=== PATIENT | female | born 1980 | race Hispanic/Latino ===

== ENCOUNTER 2017-08-04 19:41 | Observation (INO) | payer OTHER, SELFPAY ==
[2017-08-04] MEDS ORDERED: FOLIC ACID 5 MG/ML VIAL ONE (20:18)
[2017-08-04] MEDS ORDERED: NA CHLORIDE 0.9% 1,000 ML ONE (20:18)
[2017-08-04] MEDS ORDERED: ASPIRIN 81 MG CHEWABLE TABLET ONE (20:25)
[2017-08-04] MEDS ORDERED: ONDANSETRON 4 MG/2 ML VIAL ONE (20:25)
--- NOTE | 2017-08-04 20:26 | RAD REPORT ---
EXAM DESCRIPTION: CT - Ct Stroke Brain Wo Cont - 08/04/2017 8:12 pm CLINICAL HISTORY: Right arm numbness COMPARISON: April 2017 TECHNIQUE: Computed axial tomography of the head was obtained. IV contrast was not requested. All CT scans are performed using dose optimization technique as appropriate and may include automated exposure control or mA/KV adjustment according to patient size. FINDINGS: An intracranial bleed is not seen . The ventricles are normal in caliber. No extra-axial fluid collection is noted. Fluid within the sinuses/ mastoids is not seen. IMPRESSION: No acute intracranial abnormality is seen. If patient's symptoms persist MRI of the bra in would be recommended. The exam was discussed with Frederic rodriges the Emergency Room 820 p.m. August 04, 2017
[2017-08-04 20:27] LABS: Absolute Lymphocytes (CBC) 1.7 K/uL (0.7-4.9); Absolute Monocytes 0.6 K/uL (0.1-1.3); Absolute Neutrophil 7.4 K/uL (1.8-8.0); Basophils % 0.3 % (0-1.3); Eosinophils % 0.9 % (0-4.4); Hematocrit 40.7 % (36.0-45.0); Lymphocytes % 17.3 % (15.3-44.8); MCH 30.9 pg (27.0-35.0); MCV 89.3 fL (80-100); Monocytes % 5.8 % (3.3-12.3); RBC Red Blood Cell Count 4.56 M/uL (3.86-4.86)
--- NOTE | 2017-08-04 20:27 | RAD REPORT ---
EXAM DESCRIPTION: Anthony Single View08/04/2017 8:21 pm CLINICAL HISTORY: cough COMPARISON: January 2017 FINDINGS: The lungs appear clear of acute infiltrate. The heart is normal size IMPRESSION: No acute abnormalities displayed
[2017-08-04 21:00] LABS: Protime INR 1.03
[2017-08-04 21:21] LABS: Bicarbonate 25 mEq/L (21-31); Glucose Level 121 mg/dL (65-120); Lipase 34 U/L (22-51); Potassium 3.8 mEq/L (3.6-5.0); Sodium Level 135 mEq/L (135-145)
[2017-08-04 21:23] LABS: Barbiturates NEGATIVE; Benzodiazepines NEGATIVE; Cocaine POSITIVE; METHAMPHETAM NEGATIVE; Opiates NEGATIVE; Phencyclidine NEGATIVE; THC Cannibis NEGATIVE
[2017-08-04 21:27] LABS: ALT/SGPT 42 IU/L (10-60); AST/SGOT 37 IU/L (10-42); Albumin 4.4 g/dL (3.2-5.5); Alcohol Serum/Plasma < 10 mg/dl; Alkaline Phosphatase 55 IU/L (42-121); BUN Blood Urea Nitrogen 12 mg/dL (6-20); Bilirubin Direct 0.2 mg/dL (0-0.2); Bilirubin Total 1.2 mg/dL (0.3-1.2); Creatine Phosphokinase 104 IU/L (22-269); Magnesium 1.6 mg/dL (1.8-2.5); Protein, Total 7.8 g/dL (6.0-8.3); Salicylates Level < 4.0 mg/dl (<30)
[2017-08-04 21:48] LABS: Urine Blood NEGATIVE (NEG); Urine Glucose NEGATIVE (NEG); Urine Protein NEGATIVE (NEG)
[2017-08-04] MEDS ORDERED: CLOPIDOGREL 75 MG TABLET ONE (22:32)
[2017-08-04] MEDS ORDERED: MAGNESIUM SULFATE 1 gm IVPB 1 GM/100 ML BAG IV ONE (22:32)
--- NOTE | 2017-08-04 22:42 | ER ---
Nurse's Notes [facility] Name: Mica Hanson Age: 36 yrs Sex: Female : 1980 Arrival Date: 08/04/2017 Time: 19:42 Bed 4 Private MD: Diagnosis: Transient cerebral ischemic attack, unspecified;Weakness;Cocaine abuse;Cystitis Presentation: 08/04 19:55 Presenting complaint: Patient states: Reports numbness to right leg, arm, and lips that aj started at 1700 today. Patient reported that she felt herself becoming disoriented at work. Patient is awake and alert x 4. Moves all extremities, ambulated with steady gait to bed. No facial droop noted. Transition of care: patient was not received from another setting of care. Onset of symptoms was August 04, 2017 at 17:00. Initial Sepsis Screen: Does the patient meet any 2 criteria? No. Patient's initial sepsis screen is negative. Does the patient have a suspected source of infection? No. Patient's initial sepsis screen is negative. Care prior to arrival: None. 19:55 Method Of Arrival: Wheelchair aj 19:55 Acuity: MAURICE 3 aj 20:00 No acute neurological deficit is noted. The patients blood glucose was checked before aj arriving to the hospital and was found to be normal. Triage Assessment: 20:00 General: Appears in no apparent distress. comfortable, Behavior is calm, cooperative, aj appropriate for age. Pain: Denies pain. 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 Full function Gait is steady, Speech is normal, Facial symmetry appears normal, Pupils are PERRLA, Numbness in right arm and right leg Reports numbness in right arm and right leg. Cardiovascular: Denies chest pain. Respiratory: Airway is patent Respiratory effort is even, unlabored, Respiratory pattern is regular, symmetrical. Derm: Skin is intact, is healthy with good turgor, Skin is pink, warm \T\ dry. normal. 20:00 The onset of the patients symptoms was August 04, 2017 at 17:00. 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 LMP 07/13/2017 aj Stroke Activation: Symtpom onset >3 hours and < 6 hours Physician: Stroke Attending; Name: ; Notified At: ; Arrived At: Physician: Chief Stroke Resident; Name: ; Notified At: ; Arrived At: Physician: Stroke Resident; Name: ; Notified At: ; Arrived At: Physician: ED Attending; Name: ; Notified At: ; Arrived At: Physician: ED Resident; Name: ; Notified At: ; Arrived At: Historical: - Allergies: 20:00 none; aj - Home Meds: 20:00 Keppra 500 mg Oral tab 1 tab 2 times per day [Active]; metformin 1,000 mg Oral tab 1 aj tab 2 times per day [Active]; - PMHx: 20:00 CVA; Diabetes - NIDDM; Hypertension; Pancreatitis; PERIPHERAL NEUROPATHY; Right sided aj 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 - Social history:: Smoking status: Patient uses tobacco products, smokes one-half pack cigarettes per day, Patient uses alcohol, on a daily basis. Screenin:11 Abuse screen: Denies threats or abuse. Nutritional screening: No deficits noted. fc Tuberculosis screening: No symptoms or risk factors identified. Fall Risk None identified. Assessment: 20:03 General: Appears in no apparent distress. uncomfortable, Behavior is calm, cooperative, ao appropriate for age. Pain: Complains of pain in chest Pain does not radiate. Pain currently is 0 out of 10 on a pain scale. Pain began 2 hours ago. Neuro: Level of Consciousness is awake, alert, obeys commands, Oriented to person, place, time, situation, Appropriate for age Moves all extremities. Speech is normal, Facial symmetry appears normal. Cardiovascular: Heart tones S1 S2 Capillary refill < 3 seconds Patient's skin is warm and dry. Respiratory: Airway is patent Respiratory effort is even, unlabored, Respiratory pattern is regular, symmetrical, Breath sounds are clear bilaterally. GI: Abdomen is obese. : No signs and/or symptoms were reported regarding the genitourinary system. EENT: No signs and/or symptoms were reported regarding the EENT system. Derm: Skin is intact, Skin is pink, warm \T\ dry. normal, Skin temperature is warm. Musculoskeletal: Circulation, motion, and sensation intact. Reports numbness in face and right leg and right arm. 20:05 The patient has not been NPO before screening. The patient is currently on the ao following diet: regular The patient is alert, and able to follow commands. The patient does not exhibit slurred or garbled speech. The patient is not exhibiting difficulty speaking. The patient is exhibiting difficulty understanding words. The patient is able to swallow own secretions with no drooling or need for suction. Patient tolerated one teaspoon of water. No drooling, immediate coughing, gurgling, or clearing of the throat was noted. The patient tolerated 90mL of water. No drooling, immediate coughing, gurgling, or clearing of the throat was noted. The patient passed the bedside swallow screening. Oral medications may be given as ordered. Contact Physician for further diet orders. Provider notified of bedside swallow screening results: Will Moreno MD. 21:33 Reassessment: Patient appears in no apparent distress at this time. Patient and/or ao family updated on plan of care and expected duration. Pain level reassessed. Patient is alert, oriented x 3, equal unlabored respirations, skin warm/dry/pink. Patient states that she not nauseated and pain has decrease. 22:44 T-PA (Activase) Screening: Contraindications: Other: Time over 3 hours. ao 22:45 Reassessment: Patient appears in no apparent distress at this time. Patient and/or ao family updated on plan of care and expected duration. Pain level reassessed. Patient is alert, oriented x 3, equal unlabored respirations, skin warm/dry/pink. 23:44 Reassessment: No changes from previously documented assessment. Patient and/or family ao updated on plan of care and expected duration. Pain level reassessed. Patient is alert, oriented x 3, equal unlabored respirations, skin warm/dry/pink. Patient to be taken to her room. Vital Signs: 20:00 BP 157 / 84; Pulse 86; Resp 20; Temp 98.4; Pulse Ox 96% on R/A; Weight 77.11 kg; Height aj 5 ft. 6 in. (167.64 cm); Pain 0/10; 21:33 BP 127 / 68; Pulse 73; Resp 13; Pulse Ox 98% on R/A; Pain 0/10; ao 22:45 BP 123 / 64; Pulse 63; Resp 16; Pulse Ox 100% on R/A; Pain 0/10; ao 23:44 BP 117 / 96; Pulse 73; Resp 16; Pulse Ox 99% on R/A; Pain 0/10; ao 20:00 Body Mass Index 27.44 (77.11 kg, 167.64 cm) NIH Stroke Scale Scores: 20:05 NIHSS Score: 4 fc 20:15 NIHSS Score: 4 [facility] ED Course: 19:42 Patient arrived in ED. al2 19:59 Triage completed. aj 20:00 Will Moreno MD is Attending Physician. vanessa 20:00 Arm band placed on left wrist. Patient placed in an exam room, on a stretcher. aj 20:02 Inserted saline lock: 22 gauge in right forearm, using aseptic technique. ,using fc aseptic technique. by Chet DIMAS. 20:02 EKG done, by ED staff, reviewed by Will Moreno MD. fc 20:05 Patient has correct armband on for positive identification. Placed in gown. Bed in low fc position. Call light in reach. Side rails up X2. cooler operator on. Pulse ox on. NIBP on. 20:[address] via stretcher. vm2 20:11 CT completed. Patient tolerated procedure well. Patient moved back from CT. vm2 20:12 CT Stroke Brain w/o Contrast In Process Unspecified. EDMS 20:15 Chet Felix RN is Primary Nurse. ao 20:21 X-ray completed. Portable x-ray completed in exam room. Patient tolerated procedure kc2 well. 20:22 Stroke CXR 1 View In Process Unspecified. EDMS 20:33 Patient maintains SpO2 saturation greater than 95% on room air. ao 22:40 Dagmar Collazo MD is Hospitalizing Provider. vanessa 23:04 No provider procedures requiring assistance completed. Patient transferred, IV remains ao in place. Administered Medications: 20: Drug: NS 0.9% 1000 ml Route: IV; Rate: 1 bolus; Site: right forearm; ao 23:05 Follow up: IV Status: Completed infusion; IV Intake: 1000ml ao 20: Drug: foLIC Acid 1 mg Route: IVPB; Site: right forearm; ao 23:05 Follow up: IV Status: Completed infusion; IV Intake: 0.2ml ao : Drug: Aspirin Chewable Tablet 324 mg Route: PO; ao 22:55 Follow up: Response: No adverse reaction ao : Drug: Zofran 2 mg Route: IVP; Site: right forearm; ao 22:55 Follow up: Response: No adverse reaction ao 22:37 Drug: PlaVIX 75 mg Route: PO; ao 23:03 Follow up: Response: No adverse reaction ao 22:38 Drug: Magnesium Sulfate 1 grams Route: IVPB; Infused Over: 1 hrs; Site: left forearm; ao 23:43 Follow up: IV Status: Completed infusion; IV Intake: 100ml ao 23:43 Drug: Rocephin - (cefTRIAXone) 1 grams Route: IVPB; Infused Over: 30 mins; Site: left ao forearm; 23:43 Follow up: IV Status: Completed infusion; IV Intake: 10ml ao Point of Care Testing: Blood Glucose: 20:00 Blood Glucose: 106 mg/dL; aj Ranges: Intake: 20:00 IV: 1000ml; Total: 1000ml. ao 21:00 IV: 100ml; Total: 1100ml. ao 23:05 IV: 1000ml; Total: 2100ml. ao 23:05 IV: 0ml; Total: 2100ml. ao 23:43 IV: 10ml; Total: 2110ml. ao 23:43 IV: 100ml; Total: 2210ml. ao Outcome: 22:40 Decision to Hospitalize by Provider. vanessa 23:04 Condition: stable ao 23:04 Instructed on the need for admit. 08/05 00:12 Admitted to Tele accompanied by tech, room 421, with chart, Report called to daija Garcia RN 00:13 Patient left the ED. ao NIH Stroke Scale - NIH Stroke Score Date: 08/04/2017 Time: 20:05 Total Score = 4 1a. Level of Consciousness (LOC) - 0(Alert) 1b. Level of Consciousness (LOC) (Year \T\ Age) - 0(Both) 1c. LOC Commands (Open \T\ Closes Eyes/Breast Splitter) - 0(Both) 2. Best Gaze (Lateral Gaze Paresis) - 0(Normal) 3. Visual Field Loss - 0(No visual loss) 4. Facial Palsy - 1(Minor Paralysis) 5a. Left Arm: Motor (10-second hold) - 0(No drift) 5b. Right Arm: Motor (10-second hold) - 1(Drift) 6a. Left Leg: Motor (5-second hold - always test supine) - 0(No drift) 6b. Right Leg: Motor (5-second hold - always test supine) - 1(Drift) 7. Limb Ataxia (finger/nose \T\ heel/caceres - test with eyes open) - 1(Present in one limb) 8. Sensory Loss (pinprick arms/legs/face) - 0(Normal) 9. Best Language: Aphasia (description/naming/reading) - 0(No aphasia) 10. Dysarthria (speech clarity - read or repeat words) - 0(Normal) 11. Extinction and Inattention (visual/tactile/auditory/spatial/personal) - 0(No abnormality) Initials: NIH Stroke Scale - NIH Stroke Score Date: 08/04/2017 Time: 20:15 Total Score = 4 1a. Level of Consciousness (LOC) - 0(Alert) 1b. Level of Consciousness (LOC) (Year \T\ Age) - 0(Both) 1c. LOC Commands (Open \T\ Closes Eyes/Breast Splitter) - 0(Both) 2. Best Gaze (Lateral Gaze Paresis) - 0(Normal) 3. Visual Field Loss - 0(No visual loss) 4. Facial Palsy - 1(Minor Paralysis) 5a. Left Arm: Motor (10-second hold) - 0(No drift) 5b. Right Arm: Motor (10-second hold) - 1(Drift) 6a. Left Leg: Motor (5-second hold - always test supine) - 0(No drift) 6b. Right Leg: Motor (5-second hold - always test supine) - 1(Drift) 7. Limb Ataxia (finger/nose \T\ heel/caceres - test with eyes open) - 1(Present in one limb) 8. Sensory Loss (pinprick arms/legs/face) - 0(Normal) 9. Best Language: Aphasia (description/naming/reading) - 0(No aphasia) 10. Dysarthria (speech clarity - read or repeat words) - 0(Normal) 11. Extinction and Inattention (visual/tactile/auditory/spatial/personal) - 0(No abnormality) Initials: vanessa Signatures: Dispatcher [employer] Hoa Moy RN RN aj Anderson, Corey, MD MD cha Chretien, Felicia, RN RN fc Ortiz, Alex, RN RN ao Carr, Kelsie kc2 Melissa Finnegan2 Staci, Bertha holland2
--- NOTE | 2017-08-04 22:42 | EDPHYS ---
Physician Documentation [facility] Name: Mica Hanson Age: 36 yrs Sex: Female : 1980 Arrival Date: 08/04/2017 Time: 19:42 Bed 4 Private MD: ED Physician Will Moreno HPI: 08/04 20:10 This 36 yrs old Female presents to ER via Wheelchair with complaints of Chest vanessa Pain, NUMBNESS ON FACE, SHAKING. 20:10 The patient or guardian reports chest pain that is located primarily in the anterior vanessa chest wall. The pain does not radiate. The chest pain is described as burning. 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 - Social history:: Smoking status: Patient uses tobacco products, smokes one-half pack cigarettes per day, Patient uses alcohol, on a daily basis. ROS: 20:11 Constitutional: Negative for fever, chills, and weight loss, Eyes: Negative for injury, vanessa pain, redness, and discharge, ENT: Negative for injury, pain, and discharge, Neck: Negative for injury, pain, and swelling, Respiratory: Negative for shortness of breath, cough, wheezing, and pleuritic chest pain, Abdomen/GI: Negative for abdominal pain, nausea, vomiting, diarrhea, and constipation, Back: Negative for injury and pain, : Negative for injury, bleeding, discharge, and swelling, MS/Extremity: Negative for injury and deformity, Skin: Negative for injury, rash, and discoloration, Psych: Negative for depression, anxiety, suicide ideation, homicidal ideation, and hallucinations, Allergy/Immunology: Negative for hives, rash, and allergies, Endocrine: Negative for neck swelling, polydipsia, polyuria, polyphagia, and marked weight changes, Hematologic/Lymphatic: Negative for swollen nodes, abnormal bleeding, and unusual bruising. 20:11 Cardiovascular: Positive for chest pain, palpitations. 20:11 Respiratory: Positive for 20:11 Respiratory: Negative for cough, dyspnea on exertion, orthopnea, pleurisy, shortness of breath, sputum production. 20:11 Abdomen/GI: Negative for abdominal pain. 20:11 Neuro: Positive for weakness, of the face, right arm and right leg. Exam: 20:11 Constitutional: This is a well developed, well nourished patient who is awake, alert, vanessa and in no acute distress. Head/Face: Normocephalic, atraumatic. Eyes: Pupils equal round and reactive to light, extra-ocular motions intact. Lids and lashes normal. Conjunctiva and sclera are non-icteric and not injected. Cornea within normal limits. Periorbital areas with no swelling, redness, or edema. ENT: Nares patent. No nasal discharge, no septal abnormalities noted. Tympanic membranes are normal and external auditory canals are clear. Oropharynx with no redness, swelling, or masses, exudates, or evidence of obstruction, uvula midline. Mucous membranes moist. Neck: Trachea midline, no thyromegaly or masses palpated, and no cervical lymphadenopathy. Supple, full range of motion without nuchal rigidity, or vertebral point tenderness. No Meningismus. Chest/axilla: Normal chest wall appearance and motion. Nontender with no deformity. No lesions are appreciated. Cardiovascular: Regular rate and rhythm with a normal S1 and S2. No gallops, murmurs, or rubs. Normal PMI, no JVD. No pulse deficits. Respiratory: Lungs have equal breath sounds bilaterally, clear to auscultation and percussion. No rales, rhonchi or wheezes noted. No increased work of breathing, no retractions or nasal flaring. Abdomen/GI: Soft, non-tender, with normal bowel sounds. No distension or tympany. No guarding or rebound. No evidence of tenderness throughout. Back: No spinal tenderness. No costovertebral tenderness. Full range of motion. Skin: Warm, dry with normal turgor. Normal color with no rashes, no lesions, and no evidence of cellulitis. MS/ Extremity: Pulses equal, no cyanosis. Neurovascular intact. Full, normal range of motion. Psych: Awake, alert, with orientation to person, place and time. Behavior, mood, and affect are within normal limits. 20:11 Neuro: Orientation: is normal, appropriate for stated age, no acute changes, Mentation: is normal, appropriate for stated age, no acute changes, Memory: is normal, appropriate for stated age, no acute changes, Cerebellar function: dysmetria is noted on the left, the patient is unable to track right heel to left caceres, unable to perform alternating rapid hand movements with right hand, Motor: moves all fours, strength is 4/5 in the right arm and right leg, Gait: not tested. Deep tendon reflexes are 2+ (normal) in the bilateral brachioradialis, bicep, tricep and patellar and Achilles tendons, seizure activity, is not displayed by the patient. 20:14 Radiologist reports: neg , see report [facility] 22:38 Neuro: pt presented after 3 hours of onset, no a tpa candidate.. [facility] Vital Signs: 20:00 BP 157 / 84; Pulse 86; Resp 20; Temp 98.4; Pulse Ox 96% on R/A; Weight 77.11 kg; Height aj 5 ft. 6 in. (167.64 cm); Pain 0/10; 21:33 BP 127 / 68; Pulse 73; Resp 13; Pulse Ox 98% on R/A; Pain 0/10; ao 22:45 BP 123 / 64; Pulse 63; Resp 16; Pulse Ox 100% on R/A; Pain 0/10; ao 23:44 BP 117 / 96; Pulse 73; Resp 16; Pulse Ox 99% on R/A; Pain 0/10; ao 20:00 Body Mass Index 27.44 (77.11 kg, 167.64 cm) aj NIH Stroke Scale Scores: 20:05 NIHSS Score: 4 fc 20:15 NIHSS Score: 4 vanessa MDM: 20:00 Patient medically screened. [facility] 20:14 Data reviewed: vital signs, nurses notes, lab test result(s), EKG, radiologic studies, [facility] CT scan, plain films. 08/04 19:59 Order name: Glucose, Ancillary Testing; Complete Time: 22:06 EDMS 08/04 20:01 Order name: Troponin (emerg Dept Use Only); Complete Time: 22:06 vanessa 08/04 20:01 Order name: Magnesium; Complete Time: 22:06 vanessa 08/04 20:01 Order name: CPK; Complete Time: 22:06 [facility] 08/04 20:01 Order name: Ckmb; Complete Time: 22:06 [facility] 08/04 20:01 Order name: BNP; Complete Time: 22:06 [facility] 08/04 20:01 Order name: Basic Metabolic Panel; Complete Time: 22:06 [facility] 08/04 20:01 Order name: CBC with Diff; Complete Time: 22:06 [facility] 08/04 20:01 Order name: Protime (+inr); Complete Time: 22:06 [facility] 08/04 20:01 Order name: Ptt, Activated; Complete Time: 22:06 [facility] 08/04 20:01 Order name: Urine Microscopic Only 08/04 20:02 Order name: Lipase; Complete Time: 22:06 [facility] 08/04 20:08 Order name: Acetaminophen; Complete Time: 22:06 [facility] 08/04 20:08 Order name: ETOH Level; Complete Time: 22:06 [facility] 08/04 20:01 Order name: CT Stroke Brain w/o Contrast; Complete Time: 22:06 [facility] 08/04 20:01 Order name: Stroke CXR 1 View; Complete Time: 22: [facility] 08/04 20:08 Order name: Hepatic Function; Complete Time: 22:06 [facility] 08/04 20:08 Order name: Salicylate; Complete Time: 22:06 [facility] 08/04 20:08 Order name: Urine Drug Screen; Complete Time: 22:06 [facility] 08/04 21:12 Order name: Urine Dipstick--Ancillary (enter results); Complete Time: 22:06 em1 08/04 21:12 Order name: Urine --Ancillary (enter results); Complete Time: 22:06 [facility] 08/04 22:42 Order name: Urine Culture [facility] 08/04 22:48 Order name: Echo with Doppler EDWI 08/04 20:01 Order name: EKG; Complete Time: 20:07 [facility] 08/04 20:01 Order name: Accucheck; Complete Time: 20:16 [facility] 08/04 20:01 Order name: Cardiac monitoring; Complete Time: 20:16 [facility] 08/04 20:01 Order name: EKG - Nurse/Tech; Complete Time: 20:16 vanessa 08/04 20:01 Order name: IV Saline Lock; Complete Time: 20:16 [facility] 08/04 20:01 Order name: Labs collected and sent; Complete Time: 20:38 [facility] 08/04 20:01 Order name: NPO; Complete Time: 20:16 [facility] 08/04 20:01 Order name: O2 Per Protocol; Complete Time: 20:16 [facility] 08/04 20:01 Order name: O2 Sat Monitoring; Complete Time: 20:16 [facility] 08/04 20:01 Order name: Stroke Swallow Screen; Complete Time: 20:16 [facility] 08/04 20:01 Order name: Urine Dipstick-Ancillary (obtain specimen); Complete Time: 21:07 [facility] 08/04 20:17 Order name: Seizure Precautions; Complete Time: 20:51 [facility] 08/04 22:48 Order name: CONS Physician Consult; Complete Time: 00:05 EDMS Administered Medications: 20:29 Drug: NS 0.9% 1000 ml Route: IV; Rate: 1 bolus; Site: right forearm; ao 23:05 Follow up: IV Status: Completed infusion; IV Intake: 1000ml ao 20:29 Drug: foLIC Acid 1 mg Route: IVPB; Site: right forearm; ao 23:05 Follow up: IV Status: Completed infusion; IV Intake: 0.2ml ao 20:29 Drug: Aspirin Chewable Tablet 324 mg Route: PO; ao 22:55 Follow up: Response: No adverse reaction ao 20:29 Drug: Zofran 2 mg Route: IVP; Site: right forearm; ao 22:55 Follow up: Response: No adverse reaction ao 22:37 Drug: PlaVIX 75 mg Route: PO; ao 23:03 Follow up: Response: No adverse reaction ao 22:38 Drug: Magnesium Sulfate 1 grams Route: IVPB; Infused Over: 1 hrs; Site: left forearm; ao 23:43 Follow up: IV Status: Completed infusion; IV Intake: 100ml ao 23:43 Drug: Rocephin - (cefTRIAXone) 1 grams Route: IVPB; Infused Over: 30 mins; Site: left ao forearm; 23:43 Follow up: IV Status: Completed infusion; IV Intake: 10ml ao Point of Care Testing: Blood Glucose: 20:00 Blood Glucose: 106 mg/dL; aj Ranges: Critical Glucose Levels:Adult <50 mg/dl or >400 mg/dl <40 mg/dl or >180 mg/dl Disposition: 08/04/17 22:40 Hospitalization ordered by Dagmar Collazo for Observation. Preliminary diagnosis are Transient cerebral ischemic attack, unspecified, Weakness, Cocaine abuse, Cystitis. - Bed requested for Telemetry/MedSurg (observation). - Status is Observation. ao - Condition is Stable. - Problem is new. - Symptoms have improved. UTI on Admission? Yes NIH Stroke Scale - NIH Stroke Score Date: 08/04/2017 Time: 20:05 Total Score = 4 1a. Level of Consciousness (LOC) - 0(Alert) 1b. Level of Consciousness (LOC) (Year \T\ Age) - 0(Both) 1c. LOC Commands (Open \T\ Closes Eyes/Photographer Apprentice) - 0(Both) 2. Best Gaze (Lateral Gaze Paresis) - 0(Normal) 3. Visual Field Loss - 0(No visual loss) 4. Facial Palsy - 1(Minor Paralysis) 5a. Left Arm: Motor (10-second hold) - 0(No drift) 5b. Right Arm: Motor (10-second hold) - 1(Drift) 6a. Left Leg: Motor (5-second hold - always test supine) - 0(No drift) 6b. Right Leg: Motor (5-second hold - always test supine) - 1(Drift) 7. Limb Ataxia (finger/nose \T\ heel/caceres - test with eyes open) - 1(Present in one limb) 8. Sensory Loss (pinprick arms/legs/face) - 0(Normal) 9. Best Language: Aphasia (description/naming/reading) - 0(No aphasia) 10. Dysarthria (speech clarity - read or repeat words) - 0(Normal) 11. Extinction and Inattention (visual/tactile/auditory/spatial/personal) - 0(No abnormality) Initials: NIH Stroke Scale - NIH Stroke Score Date: 08/04/2017 Time: 20:15 Total Score = 4 1a. Level of Consciousness (LOC) - 0(Alert) 1b. Level of Consciousness (LOC) (Year \T\ Age) - 0(Both) 1c. LOC Commands (Open \T\ Closes Eyes/Photographer Apprentice) - 0(Both) 2. Best Gaze (Lateral Gaze Paresis) - 0(Normal) 3. Visual Field Loss - 0(No visual loss) 4. Facial Palsy - 1(Minor Paralysis) 5a. Left Arm: Motor (10-second hold) - 0(No drift) 5b. Right Arm: Motor (10-second hold) - 1(Drift) 6a. Left Leg: Motor (5-second hold - always test supine) - 0(No drift) 6b. Right Leg: Motor (5-second hold - always test supine) - 1(Drift) 7. Limb Ataxia (finger/nose \T\ heel/caceres - test with eyes open) - 1(Present in one limb) 8. Sensory Loss (pinprick arms/legs/face) - 0(Normal) 9. Best Language: Aphasia (description/naming/reading) - 0(No aphasia) 10. Dysarthria (speech clarity - read or repeat words) - 0(Normal) 11. Extinction and Inattention (visual/tactile/auditory/spatial/personal) - 0(No abnormality) Initials: vanessa Signatures: Dispatcher [employer] EDHoa Christine RN RN aj Anderson, Corey, MD MD cha Christian, Chelsea cc Ortiz, Alex, RN RN ao Corrections: (The following items were deleted from the chart) 08/05 00:06 08/04 20:01 Call for Old EKG ordered. vanessa choe 08/05 00:07 08/04 20:01 Call for Old Records ordered. vanessa choe
[2017-08-04] MEDS ORDERED: NA CHLORIDE 0.9% 1,000 ML IV SCH (23:00)
[2017-08-04] MEDS ORDERED: CEFTRIAXONE/SWI 1gm 1 GM/10 ML SYR ONE (23:10)
[2017-08-04] MEDS ORDERED: ONDANSETRON 4 MG/2 ML VIAL IV PRN (23:18)
[2017-08-04] MEDS ORDERED: MORPHINE 2 MG/ML SYR IV PRN (23:18)
[2017-08-04] MEDS ORDERED: ACETAMINOPHEN 500 MG TAB PO PRN (23:18)
[2017-08-05 00:38] LABS: Urine Bacteria 20-50 /HPF (<20); Urine Culture Reflex Order NOT NEEDED; Urine RBC <5 /HPF (NONE SEEN)
[2017-08-05 00:39] LABS: Urine Trichomonas PRESENT (NONE SEEN)
[2017-08-05] MEDS: NA CHLORIDE 0.9% 1,000 ML IV SCH ×3 (00:43→20:54)
[2017-08-05 01:12] VITALS: BMI 29.6
[2017-08-05] MEDS ORDERED: LORazepam 2 MG/ML VIAL IV ONE (01:17)
[2017-08-05 01:46] VITALS: O2SAT 99
[2017-08-05 06:25] LABS: Absolute Lymphocytes (CBC) 2.6 K/uL (0.7-4.9); Absolute Monocytes 0.6 K/uL (0.1-1.3); Basophils % 0.3 % (0-1.3); Eosinophils % 2.6 % (0-4.4); Hematocrit 38.4 % (36.0-45.0); Lymphocytes % 27.5 % (15.3-44.8); MCH 30.9 pg (27.0-35.0); MCV 89.6 fL (80-100); MPV 8.5 fL (7.6-11.3); Monocytes % 6.1 % (3.3-12.3); RBC Red Blood Cell Count 4.28 M/uL (3.86-4.86)
[2017-08-05] MEDS ORDERED: Morphine 2 MG/2 ML SYR IV PRN (07:10)
--- NOTE | 2017-08-05 08:16 | P.HP ---
Certification for Inpatient Patient admitted to: Observation With expected LOS: <2 Midnights Patient will require the following post-hospital care: None Practitioner: I am a practitioner with admitting privileges, knowledge of patient current condition, hospital course, and medical plan of care. Services: Services provided to patient in accordance with Admission requirements found in Title 42 Section 412.3 of the Code of Federal Regulations Patient History Date of Service: 08/04/17 Reason for admission: Weakness; paresthesias History of Present Illness: Patient is a 36yo with history of TIA, cocaine abuse, who presented to the hospital with complaints of facial numbness and dysarthria. She was also having shaking episodes. Patient was not able the move her right arm as well. She states the facial numbness resolved but she still feeling weak on her right side. She was in the hospital in April for similar episode. At that time her workup was negative. Currently, her workup remains unremarkable. Her physical exam is not suggestive of a stroke. She may need further treatment as an outpatient with a neurologist or a psychiatrist. Will complete the workup with an MRI of the brain. Will Consult Neurology for their recommendations. Allergies No Known Drug Allergies Allergy (Verified 05/31/15 14:57) Unknown Home Medications: Levetiracetam [Keppra*] 500 mg PO BID #180 tab 02/20/16 Metformin HCl 1,000 mg PO BID 04/18/17 Atorvastatin Calcium [Lipitor] 80 mg PO BEDTIME #30 tab 04/19/17 Clopidogrel Bisulfate [Plavix] 75 mg PO DAILY #30 tablet 04/19/17 - Past Medical/Surgical History Has patient received pneumonia vaccine in the past: No Diabetic: Yes -: Diabetes- NIDDM -: CVA -: Seizures -: CVA -: HTN -: PANCREATITIS -: NEUROPATHY -: biopsy liver and pancreas -: -: polyps removed from esophagus - Family History Father Medical History: Cancer Mother Medical History: Cancer - Social History Smoking Status: Current every day smoker Alcohol use: Yes CD- Drugs: Yes Caffeine use: Yes Place of Residence: Home Review of Systems 10-point ROS is otherwise unremarkable Physical Examination - Vital Signs Temperature: 97 F Blood Pressure: 137/66 Pulse: 75 Respirations: 16 Pulse Ox (%): 96 - Physical Exam General: Alert, In no apparent distress, Oriented x3 HEENT: Atraumatic, PERRLA, Mucous membr. moist/pink, EOMI, Sclerae nonicteric Neck: Supple, 2+ carotid pulse no bruit, No LAD, Without JVD or thyroid abnormality Respiratory: Clear to auscultation bilaterally, Normal air movement Cardiovascular: Regular rate/rhythm, Normal S1 S2, No murmurs Gastrointestinal: Normal bowel sounds, Soft and benign, Non-distended, No tenderness Musculoskeletal: No clubbing, No swelling, No tenderness Integumentary: No rashes Neurological: Normal gait, Normal speech, Normal tone, Sensation intact, Cranial nerves 3-12 intact, Normal affect, Abnormal strength Lymphatics: No axilla or inguinal lymphadenopathy - Studies Laboratory Data (last 24 hrs) 08/04/17 20:18: PT 12.2, INR 1.03, APTT 25.1 08/04/17 20:18: WBC 9.8, Hgb 14.1, Hct 40.7, Plt Count 230 08/04/17 20:18: B-Natriuretic Peptide 10 08/04/17 20:18: Sodium 135, Potassium 3.8, BUN 12, Creatinine 0.68, Glucose 121 H, Magnesium 1.6 L, Total Bilirubin 1.2, AST 37, ALT 42, Alkaline Phosphatase 55 , Lipase 34 Assessment & Plan - Problems (Diagnosis) (1) Right sided weakness Current Visit: Yes Status: Acute (2) Paresthesia of right arm Current Visit: Yes Status: Acute (3) Diabetes mellitus Onset Date: 02/17/16 Current Visit: No Status: Chronic Qualifiers: Diabetes mellitus type: type 2 Diabetes mellitus penitentiary insulin use: without penitentiary use Diabetes mellitus complication status: without complication Qualified Code(s): E11.9 - Type 2 diabetes mellitus without complications (4) TIA (transient ischemic attack) Current Visit: No Status: Chronic Qualifiers: Transient cerebral ischemia type: other Qualified Code(s): G45.8 - Other transient cerebral ischemic attacks and related syndromes (5) Trichomonas infection Current Visit: Yes Status: Acute (6) Cocaine intoxication Current Visit: Yes Status: Acute - Plan Plan: 1. Continue with anti-platelet therapy and statin therapy 2. MRI of the brain along with echocardiogram and carotid Doppler 3. Lipid profile 4. Chemistry Laboratory Technician regarding substance abuse 5. Flagyl for Trichomonas 6. Blood sugar control 7. May need to follow up with Psychiatry as her exam is not indicative of a stroke 8. Neurology consultation 9. GI and DVT prophylaxis Discharge Plan: Home Plan to discharge in: 24 Hours - Advance Directives Does patient have a Living Will: No Does patient have a Durable POA for Healthcare: No - Code Status/Comfort Care Code Status Assessed: Yes Code Status: Full Code Critical Care: No Time Spent Managing PTS Care (In Minutes): 45
[2017-08-05] MEDS ORDERED: CLOPIDOGREL 75 MG TABLET PO SCH (09:00)
[2017-08-05] MEDS ORDERED: levETIRAcetam 500 MG TAB PO SCH (09:00)
[2017-08-05] MEDS ORDERED: CEFTRIAXONE 1 GM/NS 50 ML 1 GM/50 ML BAG IV SCH (09:00)
[2017-08-05 10:08] LABS: ALT/SGPT 28 IU/L (10-60); AST/SGOT 26 IU/L (10-42); Albumin 3.2 g/dL (3.2-5.5); Alkaline Phosphatase 50 IU/L (42-121); BUN Blood Urea Nitrogen 9 mg/dL (6-20); Bicarbonate 25 mEq/L (21-31); Bilirubin Total 0.7 mg/dL (0.3-1.2); Glucose Level 190 mg/dL (65-120); Potassium 3.2 mEq/L (3.6-5.0); Sodium Level 137 mEq/L (135-145)
[2017-08-05] MEDS: CEFTRIAXONE/SWI 1gm 1 GM/10 ML SYR IV SCH (10:14)
[2017-08-05] MEDS: CLOPIDOGREL 75 MG TABLET PO SCH (10:15)
[2017-08-05] MEDS: METFORMIN HCL 500 MG TAB PO SCH ×2 (10:15→17:04)
[2017-08-05] MEDS: ASPIRIN 81 MG CHEWABLE TABLET PO SCH (10:15)
--- NOTE | 2017-08-05 10:30 | RAD REPORT ---
EXAM DESCRIPTION: MRI - Stroke Protocol - 08/05/2017 9:01 am CLINICAL HISTORY: CVA. COMPARISON: 04/19/[address] head 08/04/2017 TECHNIQUE: MRI of brain with diffusion-weighted imaging with contrast 3D [id number] non contrast MR angiography of the [place]. 2D [id number] post contrast MR angiography of the neck vessels. Approximately 20 cc of Magnevist contrast was administered during the study. FINDINGS: No intracranial hemorrhage, hydrocephalus or extra-axial fluid collection is seen. No area s of brain edema or midline shift. No intracranial mass lesion. Diffusion-weighted imaging is negative for acute CVA. The midline structures are normally formed. Post-contrast imaging through the brain shows no abnormal enhancement to suggest tumor or infection. Mastoid air cells and paranasal sinuses are clear. MR angiography of the [place] shows no aneurysm, flow-limiting stenosis or vascular malforma tion. MR angiography of the neck vessels shows no significant carotid stenosis. Antegrade flow is seen in b oth vertebral arteries. IMPRESSION: Unremarkable study.
[2017-08-05] MEDS: metroNIDAZOLE 500 MG TABLET PO SCH ×2 (11:31→17:04)
--- NOTE | 2017-08-05 15:42 | EKG ---
Test Date: 2017-08-04 Test Time: 20:02:31 Deadener: MARYBETH MEASUREMENT RESULTS: Intervals: Rate: 77 NM: 128 QRSD: 84 QT: 382 QTc: 432 [place]gett: P: 22 NM: 128 QRS: 10 T: 10 INTERPRETIVE STATEMENTS: Normal sinus rhythm Normal ECG Compared to ECG 04/17/2017 02:26:28 No significant changes Electronically Signed On 08-05-17 15:38:00 CDT by Jeffrey Larsen
--- NOTE | 2017-08-05 16:09 | ECHO ---
HEIGHT: 5 ft 6 in WEIGHT: 183 lb 11.2 oz DATE OF STUDY: 08/05/[address]: Will Moreno MD 2-DIMENSIONAL: YES M.MODE: YES DOPPLER: YES COLOR FLOW: YES TDS: PORTABLE: DEFINITY: BUBBLE STUDY: YES DIAGNOSIS: CHEST PAIN CARDIAC HISTORY: CATHERIZATION: NO SURGERY: NO PROSTHETIC VALVE: NO PACEMAKER: NO MEASUREMENTS (cm) DIASTOLIC (NORMALS) SYSTOLIC (NORMALS) IVSd 1.2 (0.6-1.2) LA Diam 3.2 (1.9-4.0) LVEF 69% LVIDd 4.4 (3.5-5.7) LVIDs 2.7 (2.0-3.5) %FS 39% LVPWd 1.2 (0.6-1.2) Ao Diam 2.7 (2.0-3.7) 2 DIMENSIONAL ASSESSMENT: RIGHT ATRIUM: NORMAL LEFT ATRIUM: NORMAL RIGHT VENTRICLE: NORMAL LEFT VENTRICLE: NORMAL TRICUSPID VALVE: NORMAL MITRAL VALVE: NORMAL PULMONIC VALVE: NORMAL AORTIC VALVE: NORMAL PERICARDIAL EFFUSION: NONE AORTIC ROOT: NORMAL LEFT VENTRICULAR WALL MOTION: NORMAL DOPPLER/COLOR FLOW: NORMAL COMMENTS: POSITIVE BUBBLE STUDY. CONSISTANT WITH SMALL ATRIAL SEPTAL DEFECT. NO PULMONARY HYPERTENSION. NORMAL LEFT VENTRICULAR SIZE AND FUNCTION. TECHNOLOGIST: TAMRA KELLY
--- NOTE | 2017-08-05 19:06 | P.PN ---
Subjective Date of Service: 08/05/17 Chief Complaint: Weakness; paresthesias patient still complaining of right side face numbness Physical Examination - Vital Signs Temperature: 98.1 F Blood Pressure: 122/72 Pulse: 84 Respirations: 18 Pulse Ox (%): 93 - Physical Exam General: Alert, In no apparent distress Respiratory: Clear to auscultation bilaterally, Normal air movement Cardiovascular: Regular rate/rhythm, Normal S1 S2 Gastrointestinal: Normal bowel sounds, No tenderness Musculoskeletal: No tenderness Integumentary: No rashes Neurological: Normal speech, Normal tone, Normal affect - Studies Laboratory Data (last 24 hrs) 08/04/17 20:18: PT 12.2, INR 1.03, APTT 25.1 08/04/17 20:18: WBC 9.8, Hgb 14.1, Hct 40.7, Plt Count 230 08/04/17 20:18: B-Natriuretic Peptide 10 08/04/17 20:18: Sodium 135, Potassium 3.8, BUN 12, Creatinine 0.68, Glucose 121 H, Magnesium 1.6 L, Total Bilirubin 1.2, AST 37, ALT 42, Alkaline Phosphatase 55 , Lipase 34 Assessment And Plan - Current Problems (Diagnosis) (1) Cocaine intoxication Onset Date: 08/05/17 Current Visit: Yes Status: Acute (2) Paresthesia of right arm Onset Date: 08/05/17 Current Visit: Yes Status: Acute (3) Facial paresthesia Current Visit: Yes Status: Acute - Plan The patient still has facial paresthesia, all work up so far is normal. Awaiting neurology evaluation.
[2017-08-05] MEDS: levETIRAcetam 500 MG TAB PO SCH (20:54)
[2017-08-05] MEDS ORDERED: ATORVASTATIN 20 MG TAB PO SCH (21:00)
[2017-08-05] MEDS ORDERED: ATORVASTATIN 40 MG TAB PO SCH (21:00)
[2017-08-06] MEDS: metroNIDAZOLE 500 MG TABLET PO SCH ×3 (00:04→13:56)
--- NOTE | 2017-08-06 01:19 | CON ---
Date of Consultation: 08/05/2017 Time: 1949. Reason: Facial paresthesias. History: A 36-year-old lady with by history, history of stroke and history of seizures. She has had several admissions to this institution for a very similar symptom complex, where she gets paresthesi as on the right associated with some shaking to the right arm and right leg. The patient was doing c ocaine with her friends over the weekend. Then, yesterday noticed paresthesias to the right as well as the shaking. Came to the Emergency Department. Evaluation there revealed cocaine on drug screen, but otherwise unremarkable. She said her blood sugar was in excess of 300 at that time, but it has been well below 200 on this admission. The patient is normally on Plavix, heparin, and statin. She states she ran out of her Plavix and has not been taking that for at least a week to two weeks since being admitted, brain MRI is normal. The patient feels better currently. Consultation was requested . Past Medical History: History of seizures, diabetes, hyperlipidemia. Routine Medications: Keppra 500 twice daily, Plavix, Lipitor, and metformin. Allergies: NONE. Social History: Smokes. Employed. Independent with activities of daily living. Family History: Noncontributory. Review of Systems: General: General good health. Eyes: She had ptosis to the right eye. Ears, Nose, Throat: Negative. Cardiovascular: Negative. Pulmonary: Negative. GI: Negative. : Negative. Musculoskeletal: Negative. Neurologic: As noted. Psychiatric: Negative. Endocrine: Diabetes. Hematologic: Negative. Physical Examination: Vital Signs: Temperature 98.1, heart rate 84, respiratory rate 18, blood pressure 122/72. General: Pleasant lady, sitting in bed, in no distress. Awake, alert, oriented to time, person, karely ce, and situation. HEENT: Pupils are equal, round, reactive. Ocular motion full without nystagmus. Visual king full to confrontation bilaterally. Facial strength is normal. Paresthesias, right side of the face subj ectively. Extremities: Strength full. Neurologic: Sensation decreased symmetrically distally. Reflexes trace. Toes are flexor. Cerebell ar exam demonstrates no ataxia. Pertinent Laboratory Data: As noted in history of present illness. Impression: Complex partial seizure, possible postictal paralysis. Conversion reaction is a possibi lity as well given the multiple events. Plan: We will check a Keppra level. Check an EEG. Restart the Plavix, and increase the Keppra to 1 000 mg twice daily. We will continue to follow with you. NADEGE Voice ID: [id number] Report ID: [id number]
[2017-08-06] MEDS: NA CHLORIDE 0.9% 1,000 ML IV SCH ×2 (05:49→15:45)
[2017-08-06] MEDS: CLOPIDOGREL 75 MG TABLET PO SCH (08:16)
[2017-08-06] MEDS: CEFTRIAXONE/SWI 1gm 1 GM/10 ML SYR IV SCH (08:16)
[2017-08-06] MEDS: ASPIRIN 81 MG CHEWABLE TABLET PO SCH (08:16)
[2017-08-06] MEDS: METFORMIN HCL 500 MG TAB PO SCH (08:16)
[2017-08-06] MEDS: levETIRAcetam 500 MG TAB PO SCH (08:16)
--- NOTE | 2017-08-06 13:41 | P.DS ---
Admission Date: 08/04/17 Discharge Date: 08/06/17 Primary Care Provider: Dr. Tovar Disposition: ROUTINE DISCHARGE Discharge Condition: GOOD Reason for Admission: Weakness; paresthesias Consultations: Neurology-Dr. Ellison Procedures: MRI brain: No acute stroke noted. Echocardiogram: Ejection fraction 69%. Positive bubble study noted. Consistent with small atrial septal defect. No pulmonary hypertension noted. Normal left ventricular function and size. - Problems (1) History of TIA (transient ischemic attack) Current Visit: Yes Status: Chronic (2) Atrial septal defect Current Visit: Yes Status: Chronic (3) Cocaine intoxication Onset Date: 08/05/17 Current Visit: Yes Status: Acute Qualifiers: Complication of substance-induced condition: uncomplicated Qualified Code(s ): F14.920 - Cocaine use, unspecified with intoxication, uncomplicated (4) Facial paresthesia Current Visit: Yes Status: Acute (5) Paresthesia of right arm Onset Date: 08/05/17 Current Visit: Yes Status: Acute (6) Right sided weakness Onset Date: 08/05/17 Current Visit: Yes Status: Acute (7) Trichomonas infection Onset Date: 08/05/17 Current Visit: Yes Status: Acute (8) Seizure Onset Date: 04/19/17 Current Visit: No Status: Acute (9) Hyperlipidemia Current Visit: Yes Status: Chronic Qualifiers: Hyperlipidemia type: unspecified Qualified Code(s): E78.5 - Hyperlipidemia , unspecified (10) Diabetes mellitus Onset Date: 02/17/16 Current Visit: No Status: Chronic Qualifiers: Diabetes mellitus type: type 2 Diabetes mellitus fci insulin use: without event 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 Patient with history of TIA, seizure disorder. Patient found to have cocaine positive drug screen. The patient was admitted for evaluation. Initial CT scan showed no acute stroke. Hospital Course: Patient presented with right facial paralysis and right-sided weakness. This resolved during her stay. Patient with history of complex partial seizures. Patient previously taking Keppra. Patient seen by neurology. MRI shows no acute stroke. There is a history of TIA in the past. Medications have been adjusted. At discharge she will continue with Plavix 75 mg 1 pill daily. Aspirin 81 mg daily has been added. Keppra has been increased to 1000 mg 1 pill twice daily. Recommendation is to recheck Keppra level in 1 week. Recommendation is for the patient to follow up with neurology in 1-2 weeks to monitor her progress and continue her care. Recommendation is no driving, swimming or operating heavy machinery. Seizure precautions will be provided. Echocardiogram shows atrial septal defect. This is small, no pulmonary hypertension noted. Normal ventricular function noted. Case discussed with cardiology. Recommendations for the patient follow up with cardiology in 2-4 weeks. Patient will need yearly echocardiograms to further monitor. Patient currently on aspirin 81 mg daily and Plavix 75 mg 1 pill once daily. Patient has hyperlipidemia. She will continue with Lipitor 80 mg 1 pill once daily. Patient found to have Trichomonas. At discharge patient will continue with Flagyl 500 mg 1 pill 3 times a day for 7 days. Her partner will need to be treated as well. STD education will be provided. Patient was positive for cocaine. Cocaine cessation addressed in detail with the patient. Education provided. Patient has diabetes. She will continue with metformin a 1000 mg 1 pill twice daily. Recommendation is to maintain blood sugars less than 140 fasting and less than 200 after meals. Further adjustment can be done by her PCP. Compliance with follow up was addressed in detail with the patient. Vital Signs/Physical Exam: Temp Pulse Resp BP Pulse Ox 97.8 F 81 18 122/76 96 08/06/17 12:00 08/06/17 12:00 08/06/17 12:00 08/06/17 12:00 08/06/17 12:00 General: Alert, In no apparent distress, Oriented x3, Cooperative HEENT: Atraumatic, Mucous membr. moist/pink Neck: Supple, No Thyromegaly Respiratory: Clear to auscultation bilaterally, Normal air movement Cardiovascular: Normal pulses, Regular rate/rhythm Gastrointestinal: Normal bowel sounds, Soft and benign, Non-distended, No tenderness, No masses, No rebound, No guarding Musculoskeletal: No erythema, No tenderness, No warmth Integumentary: No tenderness/swelling, No erythema, No warmth, No cyanosis Neurological: Normal speech, Normal strength at 5/5 x4 extr, Normal tone, Normal affect Lymphatics: No axilla or inguinal lymphadenopathy Laboratory Data at Discharge: WBC 9.5 K/uL (4.3-10.9) 08/05/17 05:23 Hgb 13.2 g/dL (12.0-15.0) 08/05/17 05:23 Hct 38.4 % (36.0-45.0) 08/05/17 05:23 Plt Count 232 K/uL (152-406) 08/05/17 05:23 PT 12.2 SECONDS (9.5-12.5) 08/04/17 20:18 INR 1.03 08/04/17 20:18 APTT 25.1 SECONDS (24.3-36.9) 08/04/17 20:18 Sodium 137 mEq/L (135-145) 08/05/17 05:23 Potassium 3.2 mEq/L (3.6-5.0) L 08/05/17 05:23 BUN 9 mg/dL (6-20) 08/05/17 05:23 Creatinine 0.58 mg/dL (0.44-1.00) 08/05/17 05:23 Glucose 190 mg/dL (65-120) H 08/05/17 05:23 Magnesium 1.6 mg/dL (1.8-2.5) L 08/04/17 20:18 Total Bilirubin 0.7 mg/dL (0.3-1.2) 08/05/17 05:23 AST 26 IU/L (10-42) 08/05/17 05:23 ALT 28 IU/L (10-60) 08/05/17 05:23 Alkaline Phosphatase 50 IU/L (42-121) 08/05/17 05:23 B-Natriuretic Peptide 10 pg/ml (<=100) 08/04/17 20:18 Lipase 34 U/L (22-51) 08/04/17 20:18 Home Medications: Levetiracetam [Keppra*] 500 mg PO BID #180 tab 02/20/16 Metformin HCl 1,000 mg PO BID 04/18/17 Atorvastatin Calcium [Lipitor] 80 mg PO BEDTIME #30 tab 04/19/17 Clopidogrel Bisulfate [Plavix*] 75 mg PO DAILY #30 tablet 04/19/17 Aspirin Chewable [Aspirin Chewable*] 81 mg PO DAILY #90 tab.chew 08/06/17 Levetiracetam [Keppra*] 1,000 mg PO BID #120 tab 08/06/17 Metronidazole [Flagyl*] 500 mg PO TID #21 tablet 08/06/17 New Medications: Aspirin Chewable [Aspirin Chewable*] 81 mg PO DAILY #90 tab.chew Levetiracetam [Keppra*] 1,000 mg PO BID #120 tab Metronidazole [Flagyl*] 500 mg PO TID #21 tablet Patient Discharge Instructions: 1. Patient will need a follow up with her PCP in 1 week to follow up this hospitalization. 2. Patient presented with right facial paralysis. Patient with history of complex partial seizures. Patient seen by neurology. MRI shows no stroke. Patient with history of TIA in the past. Medications have been adjusted. At discharge she will continue with Plavix 75 mg 1 pill daily. Aspirin 81 mg daily has been added. Keppra has been increased to 1000 mg 1 pill twice daily. Recommendation is to recheck Keppra level in 1 week. Recommendation is for the patient to follow up with neurology in 1-2 weeks to monitor her progress and continue her care. Recommendation is no driving, swimming or operating heavy machinery. Seizure precautions will be provided. 3. Echocardiogram shows atrial septal defect. This is small. Recommendations for the patient follow up with cardiology in 2- 4 weeks. Patient will need yearly echocardiograms to further monitor. Patient currently on aspirin 81 mg daily and Plavix 75 mg 1 pill once daily. 4. Patient has hyperlipidemia. She will continue with Lipitor 80 mg 1 pill once daily. 5. Patient found to have Trichomonas. At discharge patient will continue with Flagyl 500 mg 1 pill 3 times a day for 7 days. Her partner will need to be treated as well. STD education will be provided. 6. Patient was positive for cocaine. Cocaine cessation addressed in detail with the patient. Education provided. 7. Patient has diabetes. She will continue with metformin a 1000 mg 1 pill twice daily. Recommendation is to maintain blood sugars less than 140 fasting and less than 200 after meals. Further adjustment can be done by her PCP. Diet: AHA Activity: Fall precautions Time spent managing pt's care (in minutes): 55
--- NOTE | 2017-08-06 15:08 | EEG ---
CHART: [id number] TEST ID#: [id number] DATE OF STUDY: 08/06/2017 THE EEG WAS RECORDED PORTABLE IN THE PATIENT'S ROOM ON A 17 CHANNEL MACHINE. ELECTRODES WERE APPLIED IN THE USUAL MANNER USING THE INTERNATIONAL 10-20 SYSTEM. THE WAKING BACKGROUND RHYTHM IN THIS RECORD CONSISTS OF FAIRLY WELL DEVELOPED AND FAIRLY WELL ORGANIZED WAVES OF 9 HZ., WHICH ATTENUATE NORMALLY WITH EYE OPENING. IN DROWSINESS THE BACKGROUND DROPS TO 8 HZ. ABUNDANT LOW AMPLITUDE FAST ACTIVITY 25-30 HZ NOTED. THERE ARE NO FOCAL OR LATERALIZING FEATURES. NO EPILEPTIFORM ACTIVITY APPEARS. SLEEP OCCURRED NATURALLY. HYPERVENTILATION WAS NOT PERFORMED. PHOTIC STIMULATION PRODUCED GOOD DRIVING BILATERALLY. IMPRESSION: ABNORMAL EEG BECAUSE OF GENERALIZED SLOWING OF THE BACKGROUND. THE ABOVE SUGGESTS DIFFUSE CEREBRAL DYSFUNCTION.
[2017-08-06 17:07] VITALS: BP 125/74; TEMP 99
== END 2017-08-06 17:21 | disposition home or self-care (01) ==
LOC: ER 19:41 → ERHOLD 22:44 → 4TH 23:42
PROVIDERS: ADMIT Hospitalist; ATTEND Hospitalist
DX: R20.2 Paresthesia of skin (principal); R53.1 Weakness; Q21.1 Atrial septal defect; F14.129 Cocaine abuse with intoxication, unspecified; A59.9 Trichomoniasis, unspecified; E78.5 Hyperlipidemia, unspecified; E11.9 Type 2 diabetes mellitus without complications; G40.209 Localization-related (focal) (partial) symptomatic epilepsy and epileptic syndromes with complex partial seizures, not intractable, without status epilepticus; F17.210 Nicotine dependence, cigarettes, uncomplicated; Z86.73 Personal history of transient ischemic attack (TIA), and cerebral infarction without residual deficits
CPT/HCPCS: 36415; 70450; 70544; 70549; 70553; 71045; 80048; 80053; 80076; 80177; 80307; 80320; 80329; 81003; 81015; 81025; 82550; 82553; 82962; 83690; 83735; 83880; 84484; 85025; 85610; 85730; 87086; 87088; 93005; 93306; 95819; 99285; A9577; G0378; J0696; J2270; J2405; J3475; J7030

== ENCOUNTER 2017-09-25 02:48 | Emergency (ER) | payer OTHER ==
[2017-09-25] MEDS ORDERED: LEVETIRACETAM 500 MG/5 ML VIAL IV ONE (03:13)
[2017-09-25] MEDS ORDERED: NA CHLORIDE 0.9% 1,000 ML ONE (03:14)
[2017-09-25] MEDS ORDERED: THIAMINE 200 MG/2 ML INJ ONE (03:14)
[2017-09-25] MEDS ORDERED: NA CHLORIDE 0.9% 200 ML IV ONE (03:14)
[2017-09-25] MEDS ORDERED: LORazepam 2 MG/ML VIAL ONE (03:23)
[2017-09-25 03:32] LABS: Absolute Monocytes 0.5 K/uL (0.1-1.3); Absolute Neutrophil 5.8 K/uL (1.8-8.0); Basophils % 0.5 % (0-1.3); Eosinophils % 2.3 % (0-4.4); Hematocrit 41.4 % (36.0-45.0); Lymphocytes % 31.6 % (15.3-44.8); MCH 31.7 pg (27.0-35.0); MCV 89.9 fL (80-100); MPV 8.4 fL (7.6-11.3); Monocytes % 5.5 % (3.3-12.3)
[2017-09-25 03:33] LABS: Protime INR 0.91
[2017-09-25 03:41] LABS: Bicarbonate 22 mEq/L (21-31); Glucose Level 159 mg/dL (65-120); Potassium 3.5 mEq/L (3.6-5.0); Sodium Level 141 mEq/L (135-145)
[2017-09-25 03:47] LABS: ALT/SGPT 51 IU/L (10-60); AST/SGOT 38 IU/L (10-42); Albumin 4.3 g/dL (3.2-5.5); Alkaline Phosphatase 66 IU/L (42-121); BUN Blood Urea Nitrogen 7 mg/dL (6-20); Bilirubin Direct 0.2 mg/dL (0-0.2); Bilirubin Total 0.7 mg/dL (0.3-1.2); Protein, Total 7.8 g/dL (6.0-8.3)
[2017-09-25 03:53] LABS: Alcohol Serum/Plasma 283 mg/dl
[2017-09-25 04:07] LABS: Urine Blood NEGATIVE (NEG); Urine Glucose NEGATIVE (NEG); Urine Protein NEGATIVE (NEG); Urine Specific Gravity 1.005 (1.005-1.030)
[2017-09-25 04:12] LABS: Barbiturates NEGATIVE (NEGATIVE); Benzodiazepines NEGATIVE (NEGATIVE); Cocaine NEGATIVE (NEGATIVE); METHAMPHETAM NEGATIVE (NEGATIVE); Opiates NEGATIVE (NEGATIVE); Phencyclidine NEGATIVE (NEGATIVE); THC Cannibis NEGATIVE (NEGATIVE)
--- NOTE | 2017-09-25 04:59 | EDPHYS ---
Physician Documentation [facility] Name: Mica Hanson Age: 37 yrs Sex: Female : 1980 Arrival Date: 09/25/2017 Time: 02:50 Bed 18 Private MD: ED Physician Abhilash Templeton HPI: 09/25 03:43 This 37 yrs old Female presents to ER via EMS with complaints of Seizure. wa 03:43 The patient presents after having a single isolated seizure, that lasted 5 minute(s), wa the episode(s) was witnessed, by a friend. Character of seizure(s): Loss of consciousness: the patient experienced loss of consciousness, Motor activity: generalized, Incontinence: none, Apnea: the patient did not experience apnea, Circulation: the patient did not experience evidence of pulse disturbance, Eye movements: are unknown. Seizure onset: just prior to arrival. Context: the seizure(s) was witnessed, by a friend, occurred ETOH bar, occurred while the patient was drinking ETOH. Contributing factors: ETOH. Associated injury: The patient did not suffer any apparent associated injury. Current symptoms: Currently, the patient is not experiencing any symptoms. The patient has experienced similar episodes in the past. The patient has been recently seen by a physician:. MATCHER: 05:55 unknown ak1 Historical: - Allergies: 02:53 none; bb - Home Meds: 02:53 Keppra 500 mg Oral tab 1 tab 2 times per day [Active]; metformin 1,000 mg Oral tab 1 bb tab 2 times per day [Active]; Lyrica Oral [Active]; - PMHx: 02:53 CVA; Diabetes - NIDDM; Hypertension; Pancreatitis; PERIPHERAL NEUROPATHY; Right sided bb weakness from previous CVA; Seizures; - Immunization history:: Adult Immunizations unknown. - Social history:: Smoking status: unknown Patient uses alcohol, patient/guardian reports recent binge of alcohol consumption. - Ebola Screening: : No symptoms or risks identified at this time. - Family history:: not pertinent. - Hospitalizations: : No recent hospitalization is reported. ROS: 03:45 Constitutional: Negative for fever, chills, and weight loss, Eyes: Negative for injury, wa pain, redness, and discharge, ENT: Negative for injury, pain, and discharge, Neck: Negative for injury, pain, and swelling, Cardiovascular: Negative for chest pain, palpitations, and edema, Respiratory: Negative for shortness of breath, cough, wheezing, and pleuritic chest pain, Abdomen/GI: Negative for abdominal pain, nausea, vomiting, diarrhea, and constipation, Back: Negative for injury and pain, : Negative for injury, bleeding, discharge, and swelling, MS/Extremity: Negative for injury and deformity, Skin: Negative for injury, rash, and discoloration. 03:45 Neuro: Positive for altered mental status, seizure activity, Negative for dizziness, headache. 03:45 All other systems are negative. Exam: 03:46 Constitutional: This is a well developed, well nourished patient who is awake, alert, wa and in no acute distress. Head/Face: Normocephalic, atraumatic. Eyes: Pupils equal round and reactive to light, extra-ocular motions intact. Lids and lashes normal. Conjunctiva and sclera are non-icteric and not injected. Cornea within normal limits. Periorbital areas with no swelling, redness, or edema. ENT: Nares patent. No nasal discharge, no septal abnormalities noted. Tympanic membranes are normal and external auditory canals are clear. Oropharynx with no redness, swelling, or masses, exudates, or evidence of obstruction, uvula midline. Mucous membranes moist. Neck: Trachea midline, no thyromegaly or masses palpated, and no cervical lymphadenopathy. Supple, full range of motion without nuchal rigidity, or vertebral point tenderness. No Meningismus. Cardiovascular: Regular rate and rhythm with a normal S1 and S2. No gallops, murmurs, or rubs. Normal PMI, no JVD. No pulse deficits. Respiratory: Lungs have equal breath sounds bilaterally, clear to auscultation and percussion. No rales, rhonchi or wheezes noted. No increased work of breathing, no retractions or nasal flaring. Abdomen/GI: Soft, non-tender, with normal bowel sounds. No distension or tympany. No guarding or rebound. No evidence of tenderness throughout. Back: No spinal tenderness. No costovertebral tenderness. Full range of motion. Skin: Warm, dry with normal turgor. Normal color with no rashes, no lesions, and no evidence of cellulitis. MS/ Extremity: Pulses equal, no cyanosis. Neurovascular intact. Full, normal range of motion. Psych: Awake, alert, with orientation to person, place and time. Behavior, mood, and affect are within normal limits. 03:46 Neuro: Cranial nerves: grossly normal, Motor: is normal. Vital Signs: 02:55 BP 127 / 89; Pulse 120; Resp 19 S; Temp 98.7(O); Pulse Ox 100% on R/A; Weight 86.18 kg jd3 (R); Height 5 ft. 7 in. (170.18 cm) (R); Pain 0/10; 03:30 BP 113 / 65; Pulse 104; Resp 18 S; Pulse Ox 99% on R/A; Pain 0/10; jd3 04:39 BP 103 / 67; Pulse 112; Resp 18; Pulse Ox 98% on R/A; mg2 05:12 BP 114 / 71; Pulse 111; Resp 18; Temp 98.6; Pulse Ox 100% on 2 lpm NC; ak1 05:54 BP 97 / 60; Pulse 115; Resp 19; Temp 98.6; Pulse Ox 99% on 2 lpm NC; Pain 0/10; ak1 06:20 BP 107 / 63; Pulse 112; Resp 18; Pulse Ox 97% on 2 lpm NC; Pain 0/10; ak1 08:00 BP 112 / 65; Pulse 95; Resp 18; Pulse Ox 100% on R/A; hj 09:00 BP 120 / 83; Pulse 90; Resp 18; Pulse Ox 100% on R/A; hj 10:00 BP 113 / 74; Pulse 95; Resp 18; Pulse Ox 100% on R/A; hj 11:58 BP 110 / 70; Pulse 98; Resp 18; Pulse Ox 100% on R/A; hj 02:55 Body Mass Index 29.76 (86.18 kg, 170.18 cm) jd3 04:39 patient is sleeping mg2 Eleni Coma Score: 03:27 Eye Response: spontaneous(4). Verbal Response: oriented(5). Motor Response: obeys mg2 commands(6). Total: 15. MDM: 02:51 Patient medically screened. ak 03:47 Differential diagnosis: drug overdose, seizure, ETOH abuse. ak 04:54 Data reviewed: vital signs, nurses notes, radiologic studies. Test interpretation: by ak ED physician or midlevel provider: labs noted wnl except elevated glucose of 159. ETOH level 283. Response to treatment: the patient's symptoms have markedly improved after treatment. ED course: loaded with keppra; ativan given. fluids and thiamine given. 18:37 ED course: ekg and cxr stable abrasion to upper chest wall after seizure , ambulating gs will discharge. 09/25 02:57 Order name: Urine Dipstick--Ancillary (enter results); Complete Time: 04:32 09/25 03:08 Order name: Acetaminophen; Complete Time: 04:32 ak 09/25 03:08 Order name: Basic Metabolic Panel; Complete Time: 04:32 09/25 03:08 Order name: CBC with Diff; Complete Time: 04:32 09/25 03:08 Order name: ETOH Level; Complete Time: 04:32 09/25 03:08 Order name: Hepatic Function; Complete Time: 04:32 09/25 03:08 Order name: PT-INR; Complete Time: 04:33 09/25 03:08 Order name: Salicylate; Complete Time: 04:33 ak 09/25 03:08 Order name: Urine Drug Screen; Complete Time: 04:33 ak 09/25 10:35 Order name: Chest Single View EDMS 09/25 03:08 Order name: Urine Test (obtain specimen); Complete Time: 03:22 09/25 03:08 Order name: EKG; Complete Time: 03:09 ak 09/25 03:08 Order name: EKG - Nurse/Tech; Complete Time: 03:57 09/25 03:08 Order name: IV Saline Lock; Complete Time: 03:09 ak 09/25 03:08 Order name: Labs collected and sent; Complete Time: 03:22 ak 09/25 03:08 Order name: Urine Dipstick-Ancillary (obtain specimen); Complete Time: 03:09 09/25 06:22 Order name: Diet Regular; Complete Time: 06:22 ss Administered Medications: 03:25 Drug: Ativan 1 mg Route: IVP; Site: left hand; mg2 05:13 Follow up: Response: No adverse reaction ak1 03:26 Drug: Keppra 1000 mg Route: IV; Rate: 1000 mg/hr; Site: left hand; mg2 05:13 Follow up: IV Status: Completed infusion ak1 03:26 Drug: NS 0.9% 1000 ml Route: IV; Rate: 1 bolus; Site: left hand; mg2 05:13 Follow up: IV Status: Completed infusion ak1 03:28 Drug: Thiamine 100 mg Route: IV; Rate: 100 ml/hr; Site: left hand; mg2 05:13 Follow up: IV Status: Completed infusion ak1 Disposition: 09/25/17 04:58 Discharged to Home. Impression: Epilepsy and recurrent seizures, acute alcohol intoxication. - Condition is Stable. - Medication Reconciliation Form, Thank You Letter, Antibiotic Education, Prescription Opioid Use form. - Follow up: Art Ellison MD; Reason: Recheck today's complaints. - Problem is an acute exacerbation. - Symptoms have improved. - Notes: quit drinking alcohol as it is not compatible with your seizure medication Signatures: Dispatcher [employer] EDMS Ashley Hastings RN RN Felice Marcelo RN RN hj Eric West MD MD gs Appiah, William, MD MD wa Gardose, Michele, RN RN mg2 Fiona Krueger RN ak1 Corrections: (The following items were deleted from the chart) 10:35 10:27 Chest Pa And Lat (2 Views)+[email or web address] ordered. [facility] EDMS 12:04 04:58 09/25/2017 04:58 Discharged to Home. Impression: Epilepsy and recurrent seizures; hj acute alcohol intoxication. Condition is Stable. Forms are Medication Reconciliation Form, Thank You Letter, Antibiotic Education, Prescription Opioid Use. Follow up: Art Ellison; Reason: Recheck today's complaints. Problem is an acute exacerbation. Symptoms have improved. yenny
--- NOTE | 2017-09-25 04:59 | ER ---
Nurse's Notes [facility] Name: Mica Hanson Age: 37 yrs Sex: Female : 1980 Arrival Date: 09/25/2017 Time: 02:50 Bed 18 Private MD: Diagnosis: Epilepsy and recurrent seizures;acute alcohol intoxication Presentation: 09/25 02:50 Presenting complaint: EMS states: they were toned out by PD for report of pt having a bb seizure after drinking about a 6-pack of beer pt had 3 to 4 seizures. Transition of care: patient was not received from another setting of care. Onset of symptoms was September 25, 2017. Risk Assessment: Do you want to hurt yourself or someone else? Patient reports no desire to harm self or others. Initial Sepsis Screen: Does the patient meet any 2 criteria? No. Patient's initial sepsis screen is negative. Does the patient have a suspected source of infection? No. Patient's initial sepsis screen is negative. Care prior to arrival: Medication(s) given: Normal saline infusion, lorazepam 4 mg IVP IV initiated. 20 GA, in the left hand. 02:50 Method Of Arrival: EMS: [facility] bb 02:50 Acuity: MAURICE 2 bb AUTOMOTIVE ENGINEER: 05:55 unknown ak1 Historical: - Allergies: 02:53 none; bb - Home Meds: 02:53 Keppra 500 mg Oral tab 1 tab 2 times per day [Active]; metformin 1,000 mg Oral tab 1 bb tab 2 times per day [Active]; Lyrica Oral [Active]; - PMHx: 02:53 CVA; Diabetes - NIDDM; Hypertension; Pancreatitis; PERIPHERAL NEUROPATHY; Right sided bb weakness from previous CVA; Seizures; - Immunization history:: Adult Immunizations unknown. - Social history:: Smoking status: unknown Patient uses alcohol, patient/guardian reports recent binge of alcohol consumption. - Ebola Screening: : No symptoms or risks identified at this time. - Family history:: not pertinent. - Hospitalizations: : No recent hospitalization is reported. Screenin:26 Abuse screen: Denies threats or abuse. Denies injuries from another. Nutritional mg2 screening: No deficits noted. Tuberculosis screening: No symptoms or risk factors identified. Fall Risk Secondary diagnosis (15 points) seizures, IV access (20 points). Assessment: 02:55 General: Appears uncomfortable, Behavior is anxious, drowsy, Smells of alcohol. Pain: jd3 Denies pain. Neuro: Level of Consciousness is awake, Oriented to person, situation, Gait is unsteady, Speech is slurred, Facial symmetry appears normal, Pupils are sluggish, dilated. Cardiovascular: Heart tones S1 S2 present Capillary refill < 3 seconds Patient's skin is warm and dry. Respiratory: Airway is patent Respiratory effort is even, unlabored, Respiratory pattern is regular, symmetrical, Breath sounds are clear bilaterally. GI: Abdomen is round Bowel sounds present X 4 quads. Abd is soft and non tender X 4 quads. Patient currently denies nausea, vomiting. : No signs and/or symptoms were reported regarding the genitourinary system. EENT: No signs and/or symptoms were reported regarding the EENT system. Derm: Skin is intact, Skin is dry, Skin is normal, Skin temperature is warm. Musculoskeletal: Circulation, motion, and sensation intact. Range of motion: intact in all extremities. 03:27 Reassessment: pt's sister's number [phone]--- Marita Mendoza. Reassessment: pt's jd3 mother's number [phone]. Reassessment: Patient appears in no apparent distress at this time. Patient and/or family updated on plan of care and expected duration. Pain level reassessed. Patient denies pain at this time. 05:11 Reassessment: Patient appears in no apparent distress at this time. pt to be discharged ak1 after 0630 due to ETOH intoxication. pt resting with eyes closed, resp even and unlabored, skin W\\T\\D will continue to monitor. Patient states symptoms have improved. 05:55 Reassessment: Patient appears in no apparent distress at this time. No changes from ak1 previously documented assessment. 06:30 Reassessment: No changes from previously documented assessment. Patient and/or family cr4 updated on plan of care and expected duration. Pain level reassessed. patient moved from trauma side to room 18 in stretcher. 07:15 General: Pt is resting at this time, eyes closed. Respirations remain snoring, even and ss unlabored. VS remain WNL. Pt arouses slightly to loud verbal stimuli. Derm: Skin is intact, is healthy with good turgor, Skin is dry, Skin is normal, Skin temperature is warm. 07:15 General: sitter remains with patient one- on- one. ss 08:15 Reassessment: Sitter remains with patient. Pt is eating breakfast at this time. ss 08:15 Respiratory: Airway is patent Respiratory effort is even, unlabored, Respiratory ss pattern is regular, symmetrical. 09:30 Reassessment: No changes from previously documented assessment. Patient and/or family hj updated on plan of care and expected duration. Pain level reassessed. Patient is alert, oriented x 3, equal unlabored respirations, skin warm/dry/pink. 10:59 Reassessment: encouraged ambulation, able to stand up but felt week and dizzy; states " hj im still having some hang over". 11:54 Reassessment: Patient and/or family updated on plan of care and expected duration. Pain hj level reassessed. Patient is alert, oriented x 3, equal unlabored respirations, skin warm/dry/pink. able to ambulate around unit, and call sister to pick her up; waiting for ride;. Vital Signs: 02:55 BP 127 / 89; Pulse 120; Resp 19 S; Temp 98.7(O); Pulse Ox 100% on R/A; Weight 86.18 kg jd3 (R); Height 5 ft. 7 in. (170.18 cm) (R); Pain 0/10; 03:30 BP 113 / 65; Pulse 104; Resp 18 S; Pulse Ox 99% on R/A; Pain 0/10; jd3 04:39 BP 103 / 67; Pulse 112; Resp 18; Pulse Ox 98% on R/A; mg2 05:12 BP 114 / 71; Pulse 111; Resp 18; Temp 98.6; Pulse Ox 100% on 2 lpm NC; ak1 05:54 BP 97 / 60; Pulse 115; Resp 19; Temp 98.6; Pulse Ox 99% on 2 lpm NC; Pain 0/10; ak1 06:20 BP 107 / 63; Pulse 112; Resp 18; Pulse Ox 97% on 2 lpm NC; Pain 0/10; ak1 08:00 BP 112 / 65; Pulse 95; Resp 18; Pulse Ox 100% on R/A; hj 09:00 BP 120 / 83; Pulse 90; Resp 18; Pulse Ox 100% on R/A; hj 10:00 BP 113 / 74; Pulse 95; Resp 18; Pulse Ox 100% on R/A; hj 11:58 BP 110 / 70; Pulse 98; Resp 18; Pulse Ox 100% on R/A; hj 02:55 Body Mass Index 29.76 (86.18 kg, 170.18 cm) jd3 04:39 patient is sleeping mg2 [place] Coma Score: 03:27 Eye Response: spontaneous(4). Verbal Response: oriented(5). Motor Response: obeys mg2 commands(6). Total: 15. ED Course: 02:50 Patient arrived in ED. bb 02:50 Abhilash Templeton MD is Attending Physician. wa 02:52 Triage completed. bb 02:53 Arm band placed on Patient placed in an exam room, on a stretcher, on pulse oximetry. bb 03:05 Fiona Krueger, RN is Primary Nurse. ak1 03:07 Papi Jarrett, JUDIE is Primary Nurse. mg2 03:26 Maintain EMS IV. Dressing intact. Good blood return noted. Site clean \\T\\ dry. Gauge \\T\\ mg 2 site: 20 in left hand. 03:27 Placed in gown. Bed in low position. Call light in reach. Side rails up X2. Seizure mg2 precautions initiated. Door closed. Warm blanket given. 04:56 Art Ellison MD is Referral Physician. wi 05:14 Awaiting: pt to be discharged after 0630 per ERP due to ETOH intoxication. will call ak1 pt's sister for pt a ride after 0630. 05:56 No provider procedures requiring assistance completed. ak1 10:17 Primary Nurse role handed off by Papi Jarrett RN 10:26 Felice James RN is Primary Nurse. 10:46 X-ray completed. Portable x-ray completed in exam room. Patient tolerated procedure bb2 well. 10:46 Chest Single View In Process Unspecified. EDMS 11:09 EKG done, by ED staff, reviewed by Eric West MD. 5 11:56 IV discontinued, intact, bleeding controlled, No redness/swelling at site. Pressure hj dressing applied. Administered Medications: 03:25 Drug: Ativan 1 mg Route: IVP; Site: left hand; mg2 05:13 Follow up: Response: No adverse reaction ak1 03:26 Drug: Keppra 1000 mg Route: IV; Rate: 1000 mg/hr; Site: left hand; mg2 05:13 Follow up: IV Status: Completed infusion ak1 03:26 Drug: NS 0.9% 1000 ml Route: IV; Rate: 1 bolus; Site: left hand; mg2 05:13 Follow up: IV Status: Completed infusion ak1 03:28 Drug: Thiamine 100 mg Route: IV; Rate: 100 ml/hr; Site: left hand; mg2 05:13 Follow up: IV Status: Completed infusion ak1 Outcome: 04:58 Discharge ordered by . wi 11:55 Discharged to home ambulatory, with family. 11:55 Condition: stable 11:55 Discharge instructions given to patient, Instructed on discharge instructions, follow up and referral plans. Demonstrated understanding of instructions, follow-up care. 12:04 Patient left the ED. Signatures: Dispatcher [employer] EDMable Garcia RN RN sv Ballard, Brenda, RN RN bb Ruiz, Claudia RN UJDIE burton4 [place] Love RN RN ss Krenek, Amber, RN RN ak1 Felice James RN Keeley Martinez [facility] Abhilash Templeton MD MD wa Davies, Jonathon, RN RN Mae Wallace bb2 Papi Jarrett, RN RN mg2 Corrections: (The following items were deleted from the chart) 09:37 07:15 Derm: Skin is intact, is healthy with good turgor, Skin is dry, Skin is normal, ss Skin temperature is warm
--- NOTE | 2017-09-25 12:18 | RAD REPORT ---
EXAM DESCRIPTION: Anthony Single View09/25/2017 10:50 am CLINICAL HISTORY: Chest pain COMPARISON: July 2017 FINDINGS: A few areas of subsegmental atelectasis are present within mid lungs. The remainder of the lungs appear clear. The heart is normal size
[2017-09-25 13:16] VITALS: TEMP 98.6
[2017-09-25 13:20] VITALS: O2SAT 100
[2017-09-25 13:23] VITALS: BP 110/70
--- NOTE | 2017-09-25 13:43 | EKG ---
Test Date: 2017-09-25 Test Time: 03:30:38 Electronics Parts Sales Representative: RACHEL MEASUREMENT RESULTS: Intervals: Rate: 101 GA: 114 QRSD: 86 QT: 348 QTc: 451 [place]: P: 21 GA: 114 QRS: 14 T: 12 INTERPRETIVE STATEMENTS: Sinus tachycardia Otherwise normal ECG Compared to ECG 08/04/2017 20:02:31 Sinus rhythm no longer present Electronically Signed On 09-25-17 13:42:53 CDT by Luis F Strange
--- NOTE | 2017-09-26 09:12 | EKG ---
Test Date: 2017-09-25 Test Time: 09:56:23 Information Technology Technician: ANIBAL MEASUREMENT RESULTS: Intervals: Rate: 90 AL: 154 QRSD: 84 QT: 348 QTc: 425 [place]: P: 24 AL: 154 QRS: 7 T: 5 INTERPRETIVE STATEMENTS: Normal sinus rhythm Normal ECG Compared to ECG 09/25/2017 03:30:38 Sinus tachycardia no longer present Electronically Signed On 09-26-17 09:12:15 CDT by Luis F Strange
== END 2017-09-25 12:04 | disposition home or self-care (01) ==
LOC: ER 02:48
DX: G40.802 Other epilepsy, not intractable, without status epilepticus (principal); F10.129 Alcohol abuse with intoxication, unspecified; I10 Essential (primary) hypertension; E11.9 Type 2 diabetes mellitus without complications
CPT/HCPCS: 36415; 71045; 80048; 80076; 80307; 80320; 80329; 81003; 82962; 85025; 85610; 93005; 96361; 96365; 96368; 96375; 99284; J1953; J3411; J7030

== ENCOUNTER 2018-09-03 02:03 | Emergency (ER) | payer OTHER ==
--- OUTSIDE RECORDS SUMMARY | 2018-09-03 02:05 | XMS REPORT ---
:1980 [facility] Address [address] [place] [address] Care Team Providers Name Role Phone Unavailable Unavailable Unavailable Payers Payer Name Policy Type Policy Number Effective Date Expiration Date Problems This patient has no known problems. Allergies, Adverse Reactions, Alerts Allergy Allergy Status Severity Reaction(s) Onset Inactive Treating Comments Name Type Date Date Clinician No Known DA Active U 2017-12 Allergies -15 00:00:0 0 Medications This patient has no known medications.
--- OUTSIDE RECORDS SUMMARY | 2018-09-03 02:05 | XMS REPORT ---
:1980 Author Organization [employer] Care Team Providers Name Role Phone Jose L Bermudez Provider Role Unavailable Allergies, Adverse Reactions, Alerts Substance Reaction Event Type N.K.D.A. Info Not Available Non Drug Allergy Problems Problem Type Condition Code Onset Dates Condition Status Problem Irregular menses N92.6 Active Problem Encounter for screening mammogram Z12.31 Active for breast cancer Problem Well woman exam with routine Z01.419 Active gynecological exam Assessment Encounter for screening mammogram Z12.31 Active for breast cancer Assessment Irregular menses N92.6 Active Assessment Well woman exam with routine Z01.419 Active gynecological exam Medications No Known Medications Results Name Result Date Reference Range Unit Abnormality Flag TRICHOMONAS VAGINALIS, QL TMA, PAP VIAL ----TRICHOMONAS NOT DETECTED 20180502 NOT DETECTED N VAGINALIS, QL TMA, PAP VIAL THINPREP TIS PAP AND HPV mRNA E6/E7 REFLEX HPV 16,18/45 ----SOURCE: None given 20180502 N ----PREV. BX: NONE GIVEN 20180502 N ----HPV mRNA E6/E7 Not Detected 20180502 Not Detected N ----CLINICAL INFORMATION: None given 20180502 N ----PREV. PAP: NONE GIVEN 20180502 N ----LMP: NONE GIVEN 20180502 N URINALYSIS AUTO W/O SCOPE (33102) ----NIT neg [id number] ----URO 0.2 20180502 ----PROTEIN neg [id number] ----pH 5.5 20180502 ----BLO neg [id number] ----GLUCOSE neg [id number] ----KATRIN neg [id number] ----BILIRUBIN neg [id number] ----KETONES neg [id number] ----SPECIFIC GRAVITY 1.025 20180502 SURESWAB(R) CHLAMYDIA/ N. GONORRHOEAE RNA, TMA ----NEISSERIA GONORRHOEAE NOT DETECTED 20180502 NOT DETECTED N RNA, TMA, UROGENITAL ----CHLAMYDIA TRACHOMATIS NOT DETECTED 20180502 NOT DETECTED N RNA, TMA, UROGENITAL IMAGE-GUIDED PAP W/AGE BASED SCR,W/CT/NG/TRICH Summary Purpose [employer] Submission
[2018-09-03] MEDS ORDERED: HYDROCODONE/APAP 7.5/325 MG TAB ONE (02:31)
--- NOTE | 2018-09-03 03:25 | EDPHYS ---
Physician Documentation [facility] Name: Mica Hanson Age: 37 yrs Sex: Female : 1980 Arrival Date: 09/03/2018 Time: 02:04 Bed 4 Private MD: ED Physician Boris Melvin HPI: 09/03 02:30 This 37 yrs old Female presents to ER via EMS with complaints of Fall Injury. pkl 02:30 Details of fall: The patient fell from an upright position, while standing. Onset: The pkl symptoms/episode began/occurred just prior to arrival. Associated injuries: The patient sustained right arm and right ankle. WEBSITE ADMIN: 02:07 LMP 08/19/2018 lp1 Historical: - Allergies: 02:07 No Known Drug Allergies; lp1 - Home Meds: 02:07 Unable to obtain [Active]; lp1 - PMHx: 02:07 CVA; Diabetes - NIDDM; Hypertension; Pancreatitis; PERIPHERAL NEUROPATHY; Right sided lp1 weakness from previous CVA; Seizures; - PSHx: 02:07 Heart Surgery; lp1 - Immunization history:: Adult Immunizations up to date. - Social history:: Smoking status: Patient/guardian denies using tobacco. - Ebola Screening: : No symptoms or risks identified at this time. ROS: 02:30 Eyes: Negative for injury, pain, redness, and discharge, ENT: Negative for injury, pkl pain, and discharge, Neck: Negative for injury, pain, and swelling, Cardiovascular: Negative for chest pain, palpitations, and edema, Respiratory: Negative for shortness of breath, cough, wheezing, and pleuritic chest pain, Abdomen/GI: Negative for abdominal pain, nausea, vomiting, diarrhea, and constipation, Back: Negative for injury and pain, : Negative for injury, bleeding, discharge, and swelling, Skin: Negative for injury, rash, and discoloration, Neuro: Negative for headache, weakness, numbness, tingling, and seizure. 02:30 MS/extremity: Positive for pain, of the right arm and right ankle. Exam: 02:30 Head/Face: Normocephalic, atraumatic. Eyes: Pupils equal round and reactive to light, pkl extra-ocular motions intact. Lids and lashes normal. Conjunctiva and sclera are non-icteric and not injected. Cornea within normal limits. Periorbital areas with no swelling, redness, or edema. ENT: Nares patent. No nasal discharge, no septal abnormalities noted. Tympanic membranes are normal and external auditory canals are clear. Oropharynx with no redness, swelling, or masses, exudates, or evidence of obstruction, uvula midline. Mucous membranes moist. Neck: Trachea midline, no thyromegaly or masses palpated, and no cervical lymphadenopathy. Supple, full range of motion without nuchal rigidity, or vertebral point tenderness. No Meningismus. Chest/axilla: Normal chest wall appearance and motion. Nontender with no deformity. No lesions are appreciated. Cardiovascular: Regular rate and rhythm with a normal S1 and S2. No gallops, murmurs, or rubs. Normal PMI, no JVD. No pulse deficits. Respiratory: Lungs have equal breath sounds bilaterally, clear to auscultation and percussion. No rales, rhonchi or wheezes noted. No increased work of breathing, no retractions or nasal flaring. Abdomen/GI: Soft, non-tender, with normal bowel sounds. No distension or tympany. No guarding or rebound. No evidence of tenderness throughout. Back: No spinal tenderness. No costovertebral tenderness. Full range of motion. Skin: Warm, dry with normal turgor. Normal color with no rashes, no lesions, and no evidence of cellulitis. Neuro: Awake and alert, GCS 15, oriented to person, place, time, and situation. Cranial nerves II-XII grossly intact. Motor strength 5/5 in all extremities. Sensory grossly intact. Cerebellar exam normal. Normal gait. 02:30 Musculoskeletal/extremity: Extremities: grossly normal except: noted in the right arm: contusion, pain, noted in the right ankle: pain, swelling, tenderness. Vital Signs: 02:07 BP 118 / 82; Pulse 95; Resp 18; Temp 98(O); Pulse Ox 99% on R/A; Weight 88.45 kg; lp1 Height 5 ft. 6 in. (167.64 cm); Pain 10/10; 03:16 BP 122 / 67; Pulse 90; Resp 17; Pulse Ox 96% on R/A; Pain 0/10; tl1 05:41 BP 102 / 63; Pulse 92; Resp 17; Pulse Ox 97% on R/A; Pain 0/10; tl1 02:07 Body Mass Index 31.47 (88.45 kg, 167.64 cm) lp1 Procedures: 03:22 Splinting: Splint applied to right ankle using short leg posterior splint. applied by the [facility] tech. Examined by me, post splint application: 2+ distal pulses palpable, Patient tolerated well. MDM: 02:04 Patient medically screened. [facility] 03:22 Data reviewed: vital signs, nurses notes, radiologic studies, plain films. [facility] 09/03 02:06 Order name: Humerus Right XRAY 09/03 02:15 Order name: Ankle Right 2 View EDMS 09/03 03:26 Order name: Crutches; Complete Time: 03:28 pk 09/03 03:35 Order name: Splint - Ankle: Posterior; Complete Time: 03:35 tl1 Administered Medications: 02:19 Drug: [place] (7.5 mg-325 mg) 1 tabs Route: PO; lp1 03:34 Follow up: Response: No adverse reaction; Marked relief of symptoms; Pain is decreased tl1 05:12 Drug: Ibuprofen 600 mg Route: PO; tl2 06:39 Follow up: Response: No adverse reaction; Marked relief of symptoms; Pain is decreased tl1 Disposition: 09/03/18 03:24 Discharged to Home. Impression: Severe sprain right ankle. Contusion right arm. S/P Fall. - Condition is Stable. - Prescriptions for Ultram 50 mg Oral Tablet - take 1 tablet by ORAL route every 8 hours As needed; 30 tablet. - Medication Reconciliation Form, Thank You Letter, Antibiotic Education, Prescription Opioid Use form. - Follow up: Slade Prince MD; When: 2 - 3 days; Reason: Re-evaluation by your physician. - Problem is new. - Symptoms have improved. Signatures: Dispatcher [employer] EDWA Boris Melvin MD MD Shikha Thayer RN RN lp1 Josefina Salomon RN RN tl1 Gina Graham, JUDIE RN tl2 Corrections: (The following items were deleted from the chart) 02:15 02:06 Ankle Right 3 View+RAD.RAD.BRZ ordered. [facility] EDMS 06:40 03:24 09/03/2018 03:24 Discharged to Home. Impression: Severe sprain right ankle. tl1 Contusion right arm. S/P Fall. Condition is Stable. Forms are Medication Reconciliation Form, Thank You Letter, Antibiotic Education, Prescription Opioid Use. Follow up: Slade Prince; When: 2 - 3 days; Reason: Re-evaluation by your physician. Problem is new. Symptoms have improved. pkl
--- NOTE | 2018-09-03 03:25 | ER ---
Nurse's Notes [facility] Name: Mica Hanson Age: 37 yrs Sex: Female : 1980 Arrival Date: 09/03/2018 Time: 02:04 Bed 4 Private MD: Diagnosis: Severe sprain right ankle. Contusion right arm. S/P Fall Presentation: 09/03 02:05 Presenting complaint: EMS states: Patient was getting in shower when she slipped and lp1 fell, hitting right arm on ground, states feeling a pop in right ankle; Swelling noted to right ankle; No LOC. Transition of care: patient was not received from another setting of care. Onset of symptoms was September 03, 2018 at 01:15. Risk Assessment: Do you want to hurt yourself or someone else? Patient reports no desire to harm self or others. Initial Sepsis Screen: Does the patient meet any 2 criteria? No. Patient's initial sepsis screen is negative. Does the patient have a suspected source of infection? No. Patient's initial sepsis screen is negative. Care prior to arrival: None. 02:05 Method Of Arrival: EMS: [facility] lp1 02:05 Acuity: MAURICE 3 lp1 Triage Assessment: 02:08 General: Appears uncomfortable. General: Behavior is appropriate for age. Pain: lp1 Complains of pain in right ankle Pain currently is 10 out of 10 on a pain scale. Cardiovascular: Pulses are palpable in right dorsalis pedis artery. ENLISTED ADVISOR: 02:07 LMP 08/19/2018 lp1 Historical: - Allergies: 02:07 No Known Drug Allergies; lp1 - Home Meds: 02:07 Unable to obtain [Active]; lp1 - PMHx: 02:07 CVA; Diabetes - NIDDM; Hypertension; Pancreatitis; PERIPHERAL NEUROPATHY; Right sided lp1 weakness from previous CVA; Seizures; - PSHx: 02:07 Heart Surgery; lp1 - Immunization history:: Adult Immunizations up to date. - Social history:: Smoking status: Patient/guardian denies using tobacco. - Ebola Screening: : No symptoms or risks identified at this time. Screenin:08 Abuse screen: Denies threats or abuse. Denies injuries from another. Nutritional lp1 screening: No deficits noted. Tuberculosis screening: No symptoms or risk factors identified. Fall Risk None identified. Assessment: 02:15 General: Appears in no apparent distress. Behavior is cooperative, appropriate for age. tl1 Pain: Complains of pain in right dorsalis pedis artery and right leg and right ankle. Neuro: Level of Consciousness is awake, alert, obeys commands, Oriented to person, place, time, situation, Financial Secretary are equal bilaterally. Cardiovascular: Denies chest pain. Respiratory: Airway is patent Trachea midline Respiratory effort is even, unlabored, Breath sounds are clear bilaterally. GI: No deficits noted. : No signs and/or symptoms were reported regarding the genitourinary system. EENT: No deficits noted. No signs and/or symptoms were reported regarding the EENT system. Musculoskeletal: Circulation, motion, and sensation intact. Capillary refill < 3 seconds, Range of motion: limited in right ankle Bony deformity noted of right ankle Swelling present in right ankle Tenderness present in right ankle Reports pain in right ankle. Injury Description: Deformity sustained to right ankle. 03:30 Reassessment: Called son to notify that pt was up for discharge. Stated he would come tl2 pick her up. 05:21 Reassessment: Attempted to call son again, no answer. tl2 05:40 Reassessment: Contacted patients mother and she stated she will come greens picker patient. tl1 No ETA. Vital Signs: 02:07 BP 118 / 82; Pulse 95; Resp 18; Temp 98(O); Pulse Ox 99% on R/A; Weight 88.45 kg; lp1 Height 5 ft. 6 in. (167.64 cm); Pain 10/10; 03:16 BP 122 / 67; Pulse 90; Resp 17; Pulse Ox 96% on R/A; Pain 0/10; tl1 05:41 BP 102 / 63; Pulse 92; Resp 17; Pulse Ox 97% on R/A; Pain 0/10; tl1 02:07 Body Mass Index 31.47 (88.45 kg, 167.64 cm) lp1 ED Course: 02:04 Patient arrived in ED. fc 02:04 Boris Melvin MD is Attending Physician. pkl 02:06 Triage completed. lp1 02:08 Arm band placed on left wrist. lp1 02:09 Patient has correct armband on for positive identification. Side rails up X 1. Side lp1 rails up X2. 02:19 Ankle Right 2 View In Process Unspecified. EDMS 02:26 Humerus Right XRAY In Process Unspecified. EDMS 02:41 X-ray completed. Portable x-ray completed in exam room. Patient tolerated procedure sw well. 03:17 No apparent distress. Resting quietly. Appears to be sleeping. tl1 03:23 Slade Prince MD is Referral Physician. pkl 04:00 Crutch training done. Orthoglass splint: Posterior short lleg splint applied on right oe leg. 05:42 No apparent distress. Resting quietly. Appears to be sleeping. tl1 06:39 No provider procedures requiring assistance completed. Patient did not have IV access tl1 during this emergency room visit. Administered Medications: 02:19 Drug: Quinton (7.5 mg-325 mg) 1 tabs Route: PO; lp1 03:34 Follow up: Response: No adverse reaction; Marked relief of symptoms; Pain is decreased tl1 05:12 Drug: Ibuprofen 600 mg Route: PO; tl2 06:39 Follow up: Response: No adverse reaction; Marked relief of symptoms; Pain is decreased tl1 Outcome: 03:24 Discharge ordered by . pkl 06:38 Discharged to home via wheelchair, with crutches, with family. tl1 06:38 Condition: stable 06:38 Discharge instructions given to patient, family, Instructed on discharge instructions, follow up and referral plans. medication usage, crutch walking, Demonstrated understanding of instructions, follow-up care, medications, crutch walking, splint care, Prescriptions given X 1. 06:40 Patient left the ED. tl1 Signatures: Dispatcher [employer] EDBoris Isbell MD MD pkl Gracy Gee RN Shikha Narayan RN RN lp1 Josefina Salomon RN RN tl1 Genia Chirinos Taylor RN RN tl2 Omar Wallace
[2018-09-03] MEDS ORDERED: IBUPROFEN 200 MG TAB PO ONE (05:25)
[2018-09-03 06:47] VITALS: TEMP 98
[2018-09-03 06:49] VITALS: BP 102/63; O2SAT 97
--- NOTE | 2018-09-03 11:06 | RAD REPORT ---
EXAM DESCRIPTION: RAD - Ankle Right 2 View - 09/03/2018 2:18 am CLINICAL HISTORY: PAIN Fall, lateral ankle pain COMPARISON: Ankle Right 3 View dated 10/03/2015 FINDINGS: No fracture or dislocation.
--- NOTE | 2018-09-03 11:07 | RAD REPORT ---
EXAM DESCRIPTION: RAD - Humerus Right - 09/03/2018 2:28 am CLINICAL HISTORY: PAIN Fall, arm pain COMPARISON: No comparisons FINDINGS: No acute fracture or dislocation seen.
== END 2018-09-03 06:40 | disposition home or self-care (01) ==
LOC: ER 02:03
PROC: 2W3QX1Z Immobilization of Right Lower Leg using Splint (ICD-10-PCS; principal; 2018-09-03)
DX: S93.401A Sprain of unspecified ligament of right ankle, initial encounter (principal); S40.021A Contusion of right upper arm, initial encounter; W18.30XA Fall on same level, unspecified, initial encounter; E11.9 Type 2 diabetes mellitus without complications; I10 Essential (primary) hypertension; Z86.73 Personal history of transient ischemic attack (TIA), and cerebral infarction without residual deficits
CPT/HCPCS: 99284

== ENCOUNTER 2018-12-07 09:14 | Emergency (ER) | payer OTHER ==
--- OUTSIDE RECORDS SUMMARY | 2018-12-07 09:19 | XMS REPORT ---
:1980 [facility] Address [address] [place] [address] Care Team Providers Name Role Phone Unavailable [...]
--- OUTSIDE RECORDS SUMMARY | 2018-12-07 09:19 | XMS REPORT ---
:1980 Author Organization [employer] Care Team Providers Name Role Phone Isaac Peng Provider Role Unavailable Allergies, Adverse Reactions, Alerts Substance Reaction Event Type N.K.D.A. Info Not Available Non Drug Allergy Problems Problem Type Condition Code Onset Dates Condition Status Assessment Strain of tendon of long flexor S96.011A Active muscle of toe at right ankle and foot level Assessment Acute right ankle pain M25.571 Active Assessment Stress fracture of right calcaneus M84.374D Active with routine healing, subsequent encounter Problem Stress fracture of right calcaneus M84.374D Active with routine healing, subsequent encounter Problem Acute right ankle pain M25.571 Active Problem Strain of tendon of long flexor S96.011A Active muscle of toe at right ankle and foot level Problem Irregular menses N92.6 Active Problem Encounter for screening mammogram Z12.31 Active for breast cancer Problem Severe sprain of right ankle, S93.401A Active initial encounter Problem Well woman exam with routine Z01.419 Active gynecological exam Medications Medication Code Code Instructions Start End Status Dosage System Date Date Vitamin D [facility] [address] Active not (Ergocalciferol) defined Amitriptyline [facility] 05377933580 75 MG Oral Active (Prior HCl Auth: Rx Ref#:[id number]) Metformin HCl [facility] [address]-28 Active not defined Tramadol HCl [facility] 61951682400 50 MG Orally 1 September 29October Active as poq 6 hrs prn 2018 20, directed pain 2019 Triamcinolone [facility] 94824670855 0.1 % External Active (Prior Acetonide Auth: Rx Ref#:[id number]) Mupirocin [facility] [address]-52 Active not defined Fluconazole [facility] 64474086013 150 MG Oral Active (Prior Auth: Rx Ref#:[id number] 96) Clopidogrel [facility] [address]-50 Active not Bisulfate defined Acetaminophen-Co [facility] [address]-93 Active not deine #3 defined Sulfamethoxazole [facility] [address]-89 Active not -Trimethoprim defined PredniSONE [facility] 65317870235 20 MG Oral Active (Prior Auth: Rx Ref#:[id number]) Levetiracetam [facility] 17402335185 500 MG Oral Active (Prior Auth: Rx Ref#:[id number] 78) Lyrica [facility] [address]-23 Active not defined Tramadol HCl NDC 0 Active not defined Cetirizine HCl [facility] 39928589366 10 MG Oral Active (Prior Auth: Rx Ref#:[id number] 97) Pantoprazole [facility] 57471373692 40 MG Oral Active (Prior Sodium Auth: Rx Ref#:[id number] 27) Topiramate [facility] 00689977343 25 MG Oral Active (Prior Auth: Rx Ref#:[id number] 10) Gabapentin [facility] 60972206679 300 MG Oral Active (Prior Auth: Rx Ref#:[id number] 77) Clotrimazole [facility] 36031580339 1 % External Active (Prior Anti-Fungal Auth: Rx Ref#:[id number] 42) Results No Known Results Summary Purpose [employer] Submission
--- OUTSIDE RECORDS SUMMARY | 2018-12-07 09:19 | XMS REPORT ---
:1980 Author Organization [employer] Care Team Providers Name Role Phone Isaac Peng Provider Role Unavailable Allergies No Known Allergies Problems Problem Type Condition Code Onset Dates Condition Status Problem Severe sprain of right ankle, S93.401A Active initial encounter Problem Well woman exam with routine Z01.419 Active gynecological exam Problem Acute right ankle pain M25.571 Active Problem Irregular menses N92.6 Active Problem Encounter for screening mammogram Z12.31 Active for breast cancer Medications Medication Code Code Instructions Start End Status Dosage System Date Date Sulfamethoxazole [facility] [address]-86 Active not -Trimethoprim defined Acetaminophen-Co [facility] [address]-43 Active not deine #3 defined Tramadol HCl ND 0 Active not defined PredniSONE [facility] 75927991914 20 MG Oral Active (Prior Auth: Rx Ref#:[id number] 79) Topiramate ND 92229497050 25 MG Oral Active (Prior Auth: Rx Ref#:[id number] 10) Clotrimazole [facility] 58514840980 1 % External Active (Prior Anti-Fungal Auth: Rx Ref#:[id number] 42) Gabapentin ND 90385724463 300 MG Oral Active (Prior Auth: Rx Ref#:[id number] 77) Vitamin D [facility] 96898-[address]26 Active not (Ergocalciferol) defined Cetirizine HCl [facility] 44598611359 10 MG Oral Active (Prior Auth: Rx Ref#:[id number] 97) Levetiracetam ND 12777669941 500 MG Oral Active (Prior Auth: Rx Ref#:[id number] 78) Clopidogrel [facility] [address]-63 Active not Bisulfate defined Amitriptyline [facility] 77368810990 75 MG Oral Active (Prior HCl Auth: Rx Ref#:[id number] 16) Fluconazole [place] 28685887601 150 MG Oral Active (Prior Auth: Rx Ref#:[id number] 96) Pantoprazole ND 49770233738 40 MG Oral Active (Prior Sodium Auth: Rx Ref#:[id number] 27) Mupirocin [facility] [address]-27 Active not defined Triamcinolone [facility] 45182846202 0.1 % External Active (Prior Acetonide Auth: Rx Ref#:[id number] 80) Tramadol HCl [facility] 74579478456 50 MG Orally September 29October Active as poq 6 hrs prn 2018 20, directed pain 2018 Lyrica [facility] [address]-95 Active not defined Metformin HCl [facility] [address]-46 Active not defined Results No Known Results Summary Purpose [employer] Submission
--- OUTSIDE RECORDS SUMMARY | 2018-12-07 09:19 | XMS REPORT ---
:1980 Author Organization [employer] Care Team Providers Name Role Phone Peng Isaac Provider Role Unavailable Allergies, Adverse Reactions, Alerts Substance Reaction Event Type N.K.D.A. Info Not Available Non Drug Allergy Problems Problem Type Condition Code Onset Dates Condition Status Assessment Contusion of right elbow, initial S50.01XA Active encounter Assessment Pain in joint of right elbow M25.521 Active Problem Stress fracture of right calcaneus M84.374D [...] Start End Status Dosage System Date Date Tramadol HCl ND 0 Active not defined Amitriptyline [facility] 59667009461 75 MG Oral Active (Prior HCl Auth: Rx Ref#:[id number] 16) Clopidogrel [facility] [address]-31 Active not Bisulfate defined Sulfamethoxazole [facility] [address]-71 Active not -Trimethoprim defined Levetiracetam [facility] 75225465112 500 MG Oral Active (Prior Auth: Rx Ref#:[id number] 78) Vitamin D [facility] [address]58-[address] Active not (Ergocalciferol) defined Pantoprazole [facility] 99855256251 40 MG Oral Active (Prior Sodium Auth: Rx Ref#:[id number] 27) Metformin HCl [facility] [address]-36 Active not defined Clotrimazole [facility] 09871314876 1 % External Active (Prior Anti-Fungal Auth: Rx Ref#:[id number] 42) Fluconazole [place] 41565678351 150 MG Oral Active (Prior Auth: Rx Ref#:[id number] 96) PredniSONE ND 16793830504 20 MG Oral Active (Prior Auth: Rx Ref#:[id number] 79) Triamcinolone ND 49110290545 0.1 % External Active (Prior Acetonide Auth: Rx Ref#:[id number] 80) Acetaminophen-Co [facility] [address]-97 Active not deine #3 defined Lyrica [facility] [address]-29 Active not defined Gabapentin [facility] 60227271601 300 MG Oral Active (Prior Auth: Rx Ref#:[id number] 77) Tramadol HCl [facility] 23793258807 50 MG Orally 1 September 29October Active as poq 6 hrs prn 2018, directed pain 2018 Topiramate [facility] 95600386549 25 MG Oral Active (Prior Auth: Rx Ref#:[id number] 10) Mupirocin [facility] [address]-13 Active not defined Cetirizine HCl [facility] 43340486229 10 MG Oral Active (Prior Auth: Rx Ref#:32404 97) Results No Known Results Summary Purpose [employer] Submission
--- OUTSIDE RECORDS SUMMARY | 2018-12-07 09:19 | XMS REPORT ---
[...] GIVEN [id number] N URINALYSIS AUTO W/O SCOPE ([id number]) ----NIT neg [id number] ----URO 0.2 [id number] ----PROTEIN [...]
[2018-12-07] MEDS ORDERED: INSULIN -REGULAR HUMAN 50 UNIT/0.5 ML ML ONE ×2 (09:47→11:14)
[2018-12-07] MEDS ORDERED: PROMETHAZINE 25 MG/ML VIAL ONE (09:47)
[2018-12-07] MEDS ORDERED: NA CHLORIDE 0.9% 1,000 ML ONE (09:47)
[2018-12-07 09:54] LABS: Basophils % 0.5 % (0-1.3); Hematocrit 41.4 % (36.0-45.0); Lymphocytes % 30.3 % (15.3-44.8); RBC Red Blood Cell Count 4.79 M/uL (3.86-4.86)
[2018-12-07 09:55] LABS: Protime INR 1.06
[2018-12-07 10:13] LABS: ALT/SGPT 179 U/L (12-78); AST/SGOT 95 U/L (15-37); Albumin 3.8 g/dL (3.4-5.0); Alkaline Phosphatase 99 U/L (45-117); BUN Blood Urea Nitrogen 10 mg/dL (7-18); Bicarbonate 26 mmol/L (21-32); Bilirubin Direct 0.3 mg/dL (0-0.2); Bilirubin Total 1.1 mg/dL (0.2-1.0); Glucose Level 301 mg/dL (74-106); Magnesium 1.9 mg/dL (1.8-2.4); NT PRO-BNP 35 pg/mL (<125); Potassium 3.8 mmol/L (3.5-5.1); Protein, Total 7.7 g/dL (6.4-8.2); Sodium Level 137 mmol/L (136-145); Troponin (Emerg Dept Use Only) < 0.02 ng/mL (0.0-0.045)
--- NOTE | 2018-12-07 10:17 | RAD REPORT ---
EXAM DESCRIPTION: RAD - Chest Single View - 12/07/2018 9:47 am CLINICAL HISTORY: ABDOMINAL DISTENTION Chest pain. COMPARISON: Chest Single View dated 09/25/2017; Chest Single View dated 08/04/2017; Chest Single View dated 10/09/2016; Chest Single View dated 09/19/2016 FINDINGS: Portable technique limits examination quality. The lungs are grossly clear. The heart is normal in size. No displaced fractures. IMPRESSION: No acute intrathoracic process suspected.
--- NOTE | 2018-12-07 11:07 | EKG ---
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
[2018-12-07] MEDS ORDERED: SUCRALFATE 1 GM TABLET ONE (12:07)
[2018-12-07 12:41] LABS: Troponin (Emerg Dept Use Only) < 0.02 ng/mL (0.0-0.045)
[2018-12-07 13:31] LABS: Urine Blood NEGATIVE (NEG); Urine Glucose 2+ (NEG); Urine Protein NEGATIVE (NEG); Urine Specific Gravity 1.015 (1.005-1.030)
[2018-12-07 13:32] LABS: Urine Bacteria <20 /HPF (<20); Urine Culture Reflex Order NOT NEEDED; Urine RBC <5 /HPF (NONE SEEN)
--- NOTE | 2018-12-07 13:38 | EDPHYS ---
Physician Documentation [facility] Name: Mica Hanson Age: 38 yrs Sex: Female : 1980 Arrival Date: 12/07/2018 Time: 09:16 Bed 8 Private MD: ED Physician Dagmar Lomeli HPI: 12/07 09:38 This 38 yrs old Female presents to ER via Ambulatory with complaints of High snw Blood Sugar, Abdominal Pain, Chest Pain. 09:38 The patient or guardian reports hyperglycemia, that was potentially precipitated by snw unknown. Onset: The symptoms/episode began/occurred gradually, 3 day(s) ago. Associated signs and symptoms: Pertinent positives: nausea, diarrhea x 2, fatigue. Current symptoms: In the emergency department the patient's symptoms are unchanged from the initial presentation. It is unknown whether or not the patient has had similar symptoms in the past. The patient has not recently seen a physician, sees [facility]. 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 - Social history:: Smoking status: . - Ebola Screening: : Patient denies travel to an Ebola-affected area in the 21 days before illness onset. ROS: 09:37 ENT: Negative for injury, pain, and discharge, Neck: Negative for injury, pain, and snw swelling, Cardiovascular: Negative for chest pain, palpitations, and edema, Respiratory: Negative for shortness of breath, cough, wheezing, and pleuritic chest pain. 09:37 Back: Negative for injury and pain, : Negative for injury, bleeding, discharge, and swelling, MS/Extremity: Negative for injury and deformity, Skin: Negative for injury, rash, and discoloration, Neuro: Negative for headache, numbness, tingling, and seizure, weakness, memory trouble 09:37 Constitutional: Positive for body aches, chills, fatigue, malaise, poor PO intake. 09:37 Eyes: Positive for blurry vision. 09:37 Abdomen/GI: Positive for nausea, diarrhea, x2 . Exam: 09:37 Constitutional: This is a well developed, well nourished patient who is awake, alert, snw and in no acute distress. Head/Face: Normocephalic, atraumatic. Eyes: Pupils equal round and reactive to light, extra-ocular motions intact. Lids and lashes normal. Conjunctiva and sclera are non-icteric and not injected. Cornea within normal limits. Periorbital areas with no swelling, redness, or edema. ENT: Nares patent. No nasal discharge, no septal abnormalities noted. Tympanic membranes are normal and external auditory canals are clear. Oropharynx with no redness, swelling, or masses, exudates, or evidence of obstruction, uvula midline. Mucous membranes moist. Neck: Trachea midline, no thyromegaly or masses palpated, and no cervical lymphadenopathy. Supple, full range of motion without nuchal rigidity, or vertebral point tenderness. No Meningismus. Chest/axilla: Normal chest wall appearance and motion. Nontender with no deformity. No lesions are appreciated. Cardiovascular: Regular rate and rhythm with a normal S1 and S2. No gallops, murmurs, or rubs. Normal PMI, no JVD. No pulse deficits. Respiratory: Lungs have equal breath sounds bilaterally, clear to auscultation and percussion. No rales, rhonchi or wheezes noted. No increased work of breathing, no retractions or nasal flaring. Abdomen/GI: Soft, non-tender, with normal bowel sounds. No distension or tympany. No guarding or rebound. No evidence of tenderness throughout. Back: No spinal tenderness. No costovertebral tenderness. Full range of motion. Skin: Warm, dry with normal turgor. Normal color with no rashes, no lesions, and no evidence of cellulitis. MS/ Extremity: Pulses equal, no cyanosis. Neurovascular intact. Full, normal range of motion. Neuro: Awake and alert, GCS 15, oriented to person, place, time, and situation. Cranial nerves II-XII grossly intact. Motor strength 5/5 in all extremities. Sensory grossly intact. Cerebellar exam normal. Normal gait. Psych: Awake, alert, with orientation to person, place and time. Behavior, mood, and affect are within normal limits. Vital Signs: 09:17 BP 135 / 90; Pulse 75; Resp 19; Temp 97.6(TE); Pulse Ox 97% on R/A; Weight 85.73 kg; ss Height 5 ft. 6 in. (167.64 cm); Pain 7/10; 09:54 BP 138 / 72; Pulse 73; Resp 19; Pulse Ox 99% ; sv 10:30 BP 106 / 73; Pulse 64; Resp 17; Pulse Ox 100% ; sv 11:34 BP 107 / 62; Pulse 72; Resp 14; Pulse Ox 97% on R/A; sv 12:11 BP 118 / 73; Pulse 66; Resp 17; Pulse Ox 99% on R/A; tw2 12:30 BP 120 / 70; Pulse 66; Resp 15; Pulse Ox 98% on R/A; sv 09:17 Body Mass Index 30.51 (85.73 kg, 167.64 cm) ss MDM: 09:23 Patient medically screened. snw 13:40 Data reviewed: vital signs, nurses notes. Data interpreted: Pulse oximetry: on room air snw is 98 %. Interpretation: normal. Counseling: I had a detailed discussion with the patient and/or guardian regarding: the historical points, exam findings, and any diagnostic results supporting the discharge/admit diagnosis, the presence of at least one elevated blood pressure reading (>120/80) during this emergency department visit, lab results, radiology results, the need for outpatient follow up, to return to the emergency department if symptoms worsen or persist or if there are any questions or concerns that arise at home. Special discussion: Based on the patient's history, exam, and Dx evaluation, there is no indication for emergent intervention or inpatient Tx. It is understood by the patient/guardian that if the Sx's persist or worsen they need to return immediately for re-evaluation. Based on the patient's Hx, exam, and Dx evaluation, there is no indication for emergent surgery or inpatient Tx. It is understood by the patient/guardian that if the Sx's persist or worsen they need to return immediately for re-evaluation. I have referred the patient to see his PCP for further evaluation of high blood pressure. Based on the history and exam findings, there is no indication for further emergent testing or inpatient evaluation. I discussed with the patient/guardian the need to see the primary care provider for further evaluation of the symptoms. 12/07 09:24 Order name: Basic Metabolic Panel snw 12/07 09:24 Order name: CBC with Diff; Complete Time: 10:06 snw 12/07 09:24 Order name: LFT's; Complete Time: 10:21 snw 12/07 09:24 Order name: Magnesium; Complete Time: 10:21 snw 12/07 09:24 Order name: NT PRO-BNP; Complete Time: 10:21 snw 12/07 09:24 Order name: PT-INR; Complete Time: 10:06 snw 12/07 09:24 Order name: Troponin (emerg Dept Use Only); Complete Time: 10:21 snw 12/07 09:25 Order name: Blood Culture Adult (2) snw 12/07 09:25 Order name: Urine Microscopic Only; Complete Time: 13:36 snw 12/07 09:25 Order name: Glucose, Ancillary Testing; Complete Time: 09:30 EDMS 12/07 09:26 Order name: Basic Metabolic Panel; Complete Time: 10:21 EDMS 12/07 09:44 Order name: Glucose, Ancillary Testing; Complete Time: 09:49 EDMS 12/07 10:46 Order name: Glucose, Ancillary Testing; Complete Time: 11:07 EDMS 12/07 09:22 Order name: EKG; Complete Time: 09:22 tw2 12/07 09:22 Order name: EKG - Nurse/Tech; Complete Time: 09:53 tw2 12/07 09:24 Order name: XRAY Chest (1 view); Complete Time: 10:42 snw 12/07 09:24 Order name: Cardiac monitoring; Complete Time: 09:53 snw 12/07 12:00 Order name: Troponin (emerg Dept Use Only); Complete Time: 12:42 snw 12/07 12:00 Order name: TSH; Complete Time: 12:42 snw 12/07 12:00 Order name: EKG; Complete Time: 12:01 snw 12/07 12:12 Order name: Glucose, Ancillary Testing; Complete Time: 12:15 EDMS 12/07 13:10 Order name: Urine Dipstick--Ancillary (enter results); Complete Time: 13:36 eb 12/07 13:10 Order name: Urine --Ancillary (enter results); Complete Time: 13:36 eb 12/07 09:24 Order name: IV Saline Lock; Complete Time: 09:53 snw 12/07 09:24 Order name: Labs collected and sent; Complete Time: 09:53 snw 12/07 09:24 Order name: O2 Per Protocol; Complete Time: 09:53 snw 12/07 09:25 Order name: O2 Sat Monitoring; Complete Time: 09:53 snw 12/07 09:25 Order name: Urine Dipstick-Ancillary (obtain specimen); Complete Time: 13:10 snw Administered Medications: 09:52 Drug: NS 0.9% 500 ml Route: IV; Rate: bolus; Site: right antecubital; sv 10:29 Follow up: Response: No adverse reaction; IV Status: Completed infusion; IV Intake: sv 500ml 09:53 Drug: Phenergan 6.25 mg Route: IVP; Site: right antecubital; sv 10:38 Follow up: Response: No adverse reaction; Marked relief of symptoms sv 09:53 Drug: Insulin Regular Human 5 units {Co-Signature: sv (Mable Hernandez RN).} Route: tw2 IVP; Site: right antecubital; 10:38 Follow up: Response: No adverse reaction; Blood sugar is lowered sv 10:29 Drug: NS 0.9% 1000 ml Route: IV; Rate: 125 ml/hr; Site: right antecubital; sv 13:54 Follow up: Response: No adverse reaction; IV Status: Order to discontinue infusion; IV sv Intake: 375ml 11:16 Drug: Insulin Regular Human 5 units {Co-Signature: sv (Mable Hernandez RN).} Route: tw2 IVP; Site: right antecubital; 12:11 Follow up: Response: No adverse reaction; Blood sugar is lowered tw2 12:10 Drug: CarafATE 1 grams Route: PO; tw2 12:33 Follow up: Response: No adverse reaction sv Point of Care Testing: Blood Glucose: 09:22 Blood Glucose: 259 mg/dL; sv 10:38 Blood Glucose: 224 mg/dL; sv 12:11 Blood Glucose: 179 mg/dL; tw2 Ranges: Critical Glucose Levels:Adult <50 mg/dl or >400 mg/dl <40 mg/dl or >180 mg/dl Disposition: 12/07/18 13:37 Discharged to Home. Impression: Person with feared health complaint in whom no diagnosis is made, Malaise and fatigue, Hyperglycemia, unspecified, Chest pain, unspecified. - Condition is Stable. - Discharge Instructions: Nonspecific Chest Pain, Diabetes and Sick Day Management, Fat and Cholesterol Restricted Diet, Gastroesophageal Reflux Disease, Adult, Hyperglycemia, Nausea, Adult, Fatigue, Blood Glucose Monitoring, Adult, Rehydration, Adult. - Prescriptions for Carafate 1 gram Oral Tablet - take 2 tablet by ORAL route every 12 hours take on an empty stomach, beginning on waking and last dose at bedtime; 100 tablet. promethazine 25 mg Oral Tablet - take 1 tablet by ORAL route every 6 hours As needed; 20 tablet. - Work release form, Medication Reconciliation Form, Thank You Letter, Antibiotic Education, Prescription Opioid Use form. - Follow up: Private Physician; When: 2 - 3 days; Reason: Recheck today's complaints, Continuance of care, Re-evaluation by your physician. Follow up: Emergency Department; When: As needed; Reason: Worsening of condition. Signatures: Dispatcher [employer] Mable Hammond RN RN sv Lisa Roa, DRAFTSPERSON-C DRAFTSPERSON-Csnw Renetta Arriola RN RN tw2 Mable Hernandez RN sv Corrections: (The following items were deleted from the chart) 13:53 13:37 12/07/2018 13:37 Discharged to Home. Impression: Person with feared health sv complaint in whom no diagnosis is made; Malaise and fatigue; Hyperglycemia, unspecified; Chest pain, unspecified. Condition is Stable. Forms are Medication Reconciliation Form, Thank You Letter, Antibiotic Education, Prescription Opioid Use. Follow up: Private Physician; When: 2 - 3 days; Reason: Recheck today's complaints, Continuance of care, Re-evaluation by your physician. Follow up: Emergency Department; When: As needed; Reason: Worsening of condition. snw
--- NOTE | 2018-12-07 13:38 | ER ---
Nurse's Notes [facility] Name: Mica Hanson Age: 38 yrs Sex: Female : 1980 Arrival Date: 12/07/2018 Time: 09:16 Bed 8 Private MD: Diagnosis: Person with feared health complaint in whom no diagnosis is made;Malaise and fatigue;Hyperglycemia, unspecified;Chest pain, unspecified Presentation: 12/07 09:17 Presenting complaint: Patient states: abd pain, chest pain, vomiting and diarrhea that ss began 2 days ago. Patient checked her blood sugar this morning and reports it was 489. Transition of care: patient was not received from another setting of care. Onset of symptoms was December 05, 2018. Risk Assessment: Do you want to hurt yourself or someone else? Patient reports no desire to harm self or others. Initial Sepsis Screen: Does the patient meet any 2 criteria? No. Patient's initial sepsis screen is negative. Does the patient have a suspected source of infection? No. Patient's initial sepsis screen is negative. 09:17 Method Of Arrival: Ambulatory ss 09:17 Acuity: MAURICE 3 ss 09:19 Care prior to arrival: None. tw2 Historical: - Allergies: 09:20 No Known Drug Allergies; tw2 - Home Meds: 09:20 metformin 1,000 mg Oral tab 1 tab 2 times per day [Active]; Lyrica Oral [Active]; tw2 Keppra 500 mg Oral tab 1 tab 2 times per day [Active]; - PMHx: 09:20 CVA; Diabetes - NIDDM; Hypertension; Pancreatitis; PERIPHERAL NEUROPATHY; Right sided tw2 weakness from previous CVA; Seizures; - PSHx: 09:20 Heart Surgery; tw2 - Immunization history:: Adult Immunizations. - Social history:: Smoking status: . - Ebola Screening: : Patient denies travel to an Ebola-affected area in the 21 days before illness onset. Screenin:18 Abuse screen: Denies threats or abuse. Nutritional screening: No deficits noted. tw2 Tuberculosis screening: No symptoms or risk factors identified. Fall Risk None identified. Assessment: 09:20 General: Appears in no apparent distress. uncomfortable, well developed, Behavior is sv calm, cooperative, appropriate for age. Pain: Complains of pain in chest and abdomen Pain currently is 7 out of 10 on a pain scale. Pain began 2-3 days ago. Is intermittent. Neuro: Level of Consciousness is awake, alert, obeys commands, Oriented to person, place, time, situation, Moves all extremities. Full function Gait is steady, Speech is normal. Respiratory: Airway is patent Respiratory effort is even, unlabored, Respiratory pattern is regular, symmetrical. GI: Abdomen is flat, Reports diarrhea, nausea. Derm: Skin is pink, warm \T\ dry. 10:12 Reassessment: Patient appears in no apparent distress at this time. No changes from sv previously documented assessment. Patient and/or family updated on plan of care and expected duration. Pain level reassessed. Patient is alert, oriented x 3, equal unlabored respirations, skin warm/dry/pink. 10:38 Reassessment: Patient appears in no apparent distress at this time. Patient and/or sv family updated on plan of care and expected duration. Pain level reassessed. Patient is alert, oriented x 3, equal unlabored respirations, skin warm/dry/pink. 11:10 Reassessment: Patient appears in no apparent distress at this time. No changes from tw2 previously documented assessment. Patient and/or family updated on plan of care and expected duration. Pain level reassessed. Patient is alert, oriented x 3, equal unlabored respirations, skin warm/dry/pink. 12:11 Reassessment: Patient appears in no apparent distress at this time. No changes from tw2 previously documented assessment. Patient and/or family updated on plan of care and expected duration. Pain level reassessed. Patient is alert, oriented x 3, equal unlabored respirations, skin warm/dry/pink. Reassessment: pt asking if she can have something to eat at this time. 13:15 Reassessment: Patient appears in no apparent distress at this time. Patient and/or sv family updated on plan of care and expected duration. Pain level reassessed. Patient is alert, oriented x 3, equal unlabored respirations, skin warm/dry/pink. Patient denies pain at this time. Patient states feeling better. Patient states symptoms have improved. 13:51 Reassessment: Patient appears in no apparent distress at this time. Patient and/or sv family updated on plan of care and expected duration. Pain level reassessed. Patient is alert, oriented x 3, equal unlabored respirations, skin warm/dry/pink. Patient denies pain at this time. Patient states feeling better. Patient states symptoms have improved. Vital Signs: 09:17 BP 135 / 90; Pulse 75; Resp 19; Temp 97.6(TE); Pulse Ox 97% on R/A; Weight 85.73 kg; ss Height 5 ft. 6 in. (167.64 cm); Pain 7/10; 09:54 BP 138 / 72; Pulse 73; Resp 19; Pulse Ox 99% ; sv 10:30 BP 106 / 73; Pulse 64; Resp 17; Pulse Ox 100% ; sv 11:34 BP 107 / 62; Pulse 72; Resp 14; Pulse Ox 97% on R/A; sv 12:11 BP 118 / 73; Pulse 66; Resp 17; Pulse Ox 99% on R/A; tw2 12:30 BP 120 / 70; Pulse 66; Resp 15; Pulse Ox 98% on R/A; sv 09:17 Body Mass Index 30.51 (85.73 kg, 167.64 cm) ED Course: 09:16 Patient arrived in ED. mr 09:19 Bed in low position. Call light in reach. night monitor on. Pulse ox on. NIBP on. tw2 09:19 Arm band placed on. tw2 09:22 Mable Hernandez, JUDIE is Primary Nurse. sv 09:23 Lisa Roa FNP-C is PHCP. snw 09:23 Dagmar Lomeli MD is Attending Physician. snw 09:26 Triage completed. ss 09:36 EKG done, by master automotive glass technician. reviewed by Dagmar Lomeli MD. tc 09:45 X-ray completed. Portable x-ray completed in exam room. Patient tolerated procedure mh1 well. 09:47 XRAY Chest (1 view) In Process Unspecified. EDMS 09:53 Basic Metabolic Panel Sent. sv 12:09 Repeat lab(s) drawn. by hi, sent to lab. dh3 12:41 Awaiting lab results. sv 13:10 Urine collected: clean catch specimen, clear. sv 13:52 No provider procedures requiring assistance completed. IV discontinued, intact, sv bleeding controlled, No redness/swelling at site. Pressure dressing applied. Administered Medications: 09:52 Drug: NS 0.9% 500 ml Route: IV; Rate: bolus; Site: right antecubital; sv 10:29 Follow up: Response: No adverse reaction; IV Status: Completed infusion; IV Intake: sv 500ml 09:53 Drug: Phenergan 6.25 mg Route: IVP; Site: right antecubital; sv 10:38 Follow up: Response: No adverse reaction; Marked relief of symptoms sv 09:53 Drug: Insulin Regular Human 5 units {Co-Signature: sv (Mable Hernandez RN).} Route: tw2 IVP; Site: right antecubital; 10:38 Follow up: Response: No adverse reaction; Blood sugar is lowered sv 10:29 Drug: NS 0.9% 1000 ml Route: IV; Rate: 125 ml/hr; Site: right antecubital; sv 13:54 Follow up: Response: No adverse reaction; IV Status: Order to discontinue infusion; IV sv Intake: 375ml 11:16 Drug: Insulin Regular Human 5 units {Co-Signature: sv (Mable Hernandez RN).} Route: tw2 IVP; Site: right antecubital; 12:11 Follow up: Response: No adverse reaction; Blood sugar is lowered tw2 12:10 Drug: CarafATE 1 grams Route: PO; tw2 12:33 Follow up: Response: No adverse reaction sv Point of Care Testing: Blood Glucose: 09:22 Blood Glucose: 259 mg/dL; sv 10:38 Blood Glucose: 224 mg/dL; sv 12:11 Blood Glucose: 179 mg/dL; tw2 Ranges: Intake: 10:29 IV: 500ml; Total: 500ml. sv 13:54 IV: 375ml; Total: 875ml. sv Outcome: 13:37 Discharge ordered by snstevan 13:52 Discharged to home ambulatory, with friend. sv 13:52 Condition: stable 13:52 Condition: improved 13:52 Discharge instructions given to patient, Instructed on discharge instructions, follow up and referral plans. medication usage, Demonstrated understanding of instructions, follow-up care, medications, Prescriptions given X 2. 13:53 Patient left the ED. sv Signatures: Dispatcher [employer] Mable Hammond RN RN Lisa Roa, BABITA-C CONTRACT SHELTERED WORKSHOP SUPERVISOR-Anita Robertson mr Ana Patel [facility] [place] Love RN RN Kaylen, Marta, independent video producer EKG Ttc Renetta Arriola, JUDIE RN tw2 Rema Conway 3 Mable Hernandez RN sv
[2018-12-07 14:02] VITALS: TEMP 97.6
[2018-12-07 14:09] VITALS: BP 120/70; O2SAT 98
--- NOTE | 2018-12-07 15:29 | EKG ---
Test Date: 2018-12-07 Test Time: 12:12:42 Mechanical Maintenance: DANIELLE MEASUREMENT RESULTS: Intervals: Rate: 67 GA: 136 QRSD: 82 QT: 386 QTc: 407 [place]: P: 27 GA: 136 QRS: 15 T: 17 INTERPRETIVE STATEMENTS: Normal sinus rhythm Normal ECG Compared to ECG 12/07/2018 09:28:12 Sinus arrhythmia no longer present Electronically Signed On 12-07-18 15:28:31 CDT by Luis F Strange
== END 2018-12-07 13:53 | disposition home or self-care (01) ==
LOC: ER 09:14
DX: Z71.1 Person with feared health complaint in whom no diagnosis is made (principal); R07.9 Chest pain, unspecified; R53.81 Other malaise; R53.83 Other fatigue; I10 Essential (primary) hypertension; G40.909 Epilepsy, unspecified, not intractable, without status epilepticus; Z86.73 Personal history of transient ischemic attack (TIA), and cerebral infarction without residual deficits
CPT/HCPCS: 93005 ×2; 87040 ×2; 85025; 80048; 36415; 83735; 81025; 85610; 82962 ×4; 80076; 84443; 84484 ×2; 83880; 71045; J2550; J7030; 81003; 81015; 96361; 96374; 96375; 99284

== ENCOUNTER 2018-12-07 20:29 | Emergency (ER) | payer OTHER ==
--- OUTSIDE RECORDS SUMMARY | 2018-12-07 20:30 | XMS REPORT ---
[...] GIVEN [id number] N URINALYSIS AUTO W/O SCOPE ([id number]) ----NIT neg [id number] ----URO 0.2 [id number] ----PROTEIN [...]
--- OUTSIDE RECORDS SUMMARY | 2018-12-07 20:30 | XMS REPORT ---
:1980 [facility] Address [address] [place] [address] Care Team Providers Name Role Phone Unavailable [...]
--- OUTSIDE RECORDS SUMMARY | 2018-12-07 20:30 | XMS REPORT ---
[...] End Status Dosage System Date Date Sulfamethoxazole [facility] [address]-15 Active not -Trimethoprim defined Acetaminophen-Co [facility] [address]-86 Active not deine #3 defined Tramadol HCl ND 0 Active not defined PredniSONE [facility] 65432189031 20 MG Oral Active (Prior Auth: Rx Ref#:[id number]) Topiramate ND [id number] 25 MG Oral Active (Prior Auth: Rx Ref#:[id number]) Clotrimazole [facility] 35822193348 1 % External Active (Prior Anti-Fungal Auth: Rx Ref#:[id number]) Gabapentin ND 88491755045 300 MG Oral Active (Prior Auth: Rx Ref#:[id number]) Vitamin D [facility] 15378-07888 Active not (Ergocalciferol) defined Cetirizine HCl [facility] 48535027849 10 MG Oral Active (Prior Auth: Rx Ref#:[id number]) Levetiracetam ND 88531367435 500 MG Oral Active (Prior Auth: Rx Ref#:[id number]) Clopidogrel [facility] [address]-53 Active not Bisulfate defined Amitriptyline [facility] 27104691232 75 MG Oral Active (Prior HCl Auth: Rx Ref#:[id number]) Fluconazole ND [id number] 150 MG Oral Active (Prior Auth: Rx Ref#:[id number]) Pantoprazole ND 49019801273 40 MG Oral Active (Prior Sodium Auth: Rx Ref#:[id number]) Mupirocin [facility] [address]-07 Active not defined Triamcinolone [facility] 57555952361 0.1 % External Active (Prior Acetonide Auth: Rx Ref#:[id number]) Tramadol HCl [facility] 06899881259 50 MG Orally September 29October Active as poq 6 hrs prn 2018 20, directed pain 2018 Lyrica [facility] [address]-71 Active not defined Metformin HCl [facility] [address]-43 Active not defined Results No Known Results Summary Purpose eClinicalWorks Submission
--- OUTSIDE RECORDS SUMMARY | 2018-12-07 20:31 | XMS REPORT ---
[...] Status Dosage System Date Date Vitamin D [facility] [address] Active not (Ergocalciferol) defined Amitriptyline [facility] 43073403790 75 MG Oral Active (Prior HCl Auth: Rx Ref#:[id number]) Metformin HCl [facility] [address]-37 Active not defined Tramadol HCl [facility] 54031556570 50 MG Orally 1 September 29October Active as poq 6 hrs prn 2018 20, directed pain 2019 Triamcinolone [facility] 82613359649 0.1 % External Active (Prior Acetonide Auth: Rx Ref#:[id number]) Mupirocin [facility] [address]-67 Active not defined Fluconazole [facility] [id number] 150 MG Oral Active (Prior Auth: Rx Ref#:[id number] 96) Clopidogrel [facility] [address]-99 Active not Bisulfate defined Acetaminophen-Co [facility] [address]-12 Active not deine #3 defined Sulfamethoxazole [facility] [address]-47 Active not -Trimethoprim defined PredniSONE [facility] 20401649655 20 MG Oral Active (Prior Auth: Rx Ref#:[id number]) Levetiracetam [facility] 72029970679 500 MG Oral Active (Prior Auth: Rx Ref#:[id number] 78) Lyrica [facility] [address]-10 Active not defined Tramadol HCl NDC 0 Active not defined Cetirizine HCl [facility] [id number] 10 MG Oral Active (Prior Auth: Rx Ref#:[id number] 97) Pantoprazole [facility] 47553129668 40 MG Oral Active (Prior Sodium Auth: Rx Ref#:[id number]) Topiramate [facility] [id number] 25 MG Oral Active (Prior Auth: Rx Ref#:[id number] 10) Gabapentin [facility] 37911796047 300 MG Oral Active (Prior Auth: Rx Ref#:[id number] 77) Clotrimazole [facility] 89670081793 1 % External Active (Prior Anti-Fungal Auth: Rx Ref#:[id number] 42) Results No Known Results Summary Purpose eClinicalWorks Submission
--- OUTSIDE RECORDS SUMMARY | 2018-12-07 20:31 | XMS REPORT ---
[...] HCl ND 0 Active not defined Amitriptyline [facility] [place] 16479779457 75 MG Oral Active (Prior HCl Auth: Rx Ref#:[id number]) Clopidogrel [facility] [place]] [address]-15 Active not Bisulfate defined Sulfamethoxazole [facility] [place]] [address]-95 Active not -Trimethoprim defined Levetiracetam [facility] [place]] 50450854399 500 MG Oral Active (Prior Auth: Rx Ref#:[id number]) Vitamin D [facility] [place] 2] 7[address]85-14427 Active not (Ergocalciferol) defined Pantoprazole [facility] [place]] 10534120419 40 MG Oral Active (Prior Sodium Auth: Rx Ref#:[id number]) Metformin HCl [facility] [place]] [address]-09 Active not defined Clotrimazole [facility] [place]] 21424545260 1 % External Active (Prior Anti-Fungal Auth: Rx Ref#:[id number]) Fluconazole ND 43715786454 150 MG Oral Active (Prior Auth: Rx Ref#:[id number]) PredniSONE ND 46957916550 20 MG Oral Active (Prior Auth: Rx Ref#:[id number]) Triamcinolone ND 16909199205 0.1 % External Active (Prior Acetonide Auth: Rx Ref#:[id number]) Acetaminophen-Co [facility] [place]] [address]-40 Active not deine #3 defined Lyrica [facility] [place]] [address]-98 Active not defined Gabapentin [facility] [place]] 63343500695 300 MG Oral Active (Prior Auth: Rx Ref#:[id number]) Tramadol HCl [facility] [place]] 32993523656 50 MG Orally 1 September 29October Active as poq 6 hrs prn 2018, directed pain 2018 Topiramate [facility] [place]] 01428645553 25 MG Oral Active (Prior Auth: Rx Ref#:[id number]) Mupirocin [facility] [place]] [address]-60 Active not defined Cetirizine HCl [facility] [place] 00744406016 10 MG Oral Active (Prior Auth: Rx Ref#:[id number]) Results No Known Results Summary Purpose eClinicalWorks Submission
[2018-12-07 22:48] LABS: Absolute Lymphocytes (CBC) 2.4 K/uL (0.7-4.9); Basophils % 0.6 % (0-1.3); Hematocrit 40.7 % (36.0-45.0); Lymphocytes % 29.7 % (15.3-44.8); MPV 9.4 fL (7.6-11.3); RBC Red Blood Cell Count 4.66 M/uL (3.86-4.86)
[2018-12-07 22:49] LABS: Protime INR 1.02
[2018-12-07 23:03] LABS: ALT/SGPT 175 U/L (12-78); AST/SGOT 97 U/L (15-37); Albumin 3.7 g/dL (3.4-5.0); Alkaline Phosphatase 119 U/L (45-117); BUN Blood Urea Nitrogen 10 mg/dL (7-18); Bicarbonate 27 mmol/L (21-32); Bilirubin Direct 0.1 mg/dL (0-0.2); Bilirubin Total 0.6 mg/dL (0.2-1.0); Glucose Level 356 mg/dL (74-106); NT PRO-BNP 51 pg/mL (<125); Protein, Total 7.3 g/dL (6.4-8.2); Sodium Level 137 mmol/L (136-145); Troponin (Emerg Dept Use Only) < 0.02 ng/mL (0.0-0.045)
[2018-12-07] MEDS ORDERED: NA CHLORIDE 0.9% 1,000 ML ONE (23:50)
[2018-12-08 00:06] LABS: Urine Blood NEGATIVE (NEG); Urine Glucose 2+ (NEG); Urine Protein NEGATIVE (NEG); Urine Specific Gravity 1.015 (1.005-1.030); Urine pH 6.5 (5.0-7.0)
--- NOTE | 2018-12-08 01:18 | ER ---
Nurse's Notes [facility] Name: Mica Hanson Age: 38 yrs Sex: Female : 1980 Arrival Date: 12/07/2018 Time: 20:31 Bed 24 Private MD: IDA PRIETO Diagnosis: chest pain;hyperglycemia Presentation: 12/07 20:38 Presenting complaint: Patient states: seen in ER today for high blood sugar. pt stated ak1 she thinks her "sugar is out of control" pt c/o central chest pain. pt denies N/v/D. no resp distress noted. pt did not take her 1000mg metformin tonight. Transition of care: patient was not received from another setting of care. Onset of symptoms is unknown. Risk Assessment: Do you want to hurt yourself or someone else? Patient reports no desire to harm self or others. Initial Sepsis Screen: Does the patient meet any 2 criteria? No. Patient's initial sepsis screen is negative. Does the patient have a suspected source of infection? No. Patient's initial sepsis screen is negative. Care prior to arrival: None. 20:38 Method Of Arrival: Ambulatory ak1 20:38 Acuity: MAURICE 3 ak1 BALANCE RECESSER: 22:24 lmp unknown mg2 Historical: - Allergies: 20:40 No Known Allergies; ak1 - Home Meds: 20:40 Keppra 500 mg Oral tab 1 tab 2 times per day [Active]; Lyrica Oral [Active]; metformin ak1 1,000 mg Oral tab 1 tab 2 times per day [Active]; - PMHx: 20:40 CVA; Diabetes - NIDDM; Hypertension; Pancreatitis; PERIPHERAL NEUROPATHY; Right sided ak1 weakness from previous CVA; Seizures; - PSHx: 20:40 Heart Surgery; ak1 - Immunization history:: Adult Immunizations unknown. - Social history:: Smoking status: unknown. - Ebola Screening: : No symptoms or risks identified at this time. - Family history:: not pertinent. - Hospitalizations: : No recent hospitalization is reported. Screenin:21 Abuse screen: Denies threats or abuse. Denies injuries from another. Nutritional mg2 screening: No deficits noted. Tuberculosis screening: No symptoms or risk factors identified. Fall Risk IV access (20 points). Assessment: 22:21 General: Appears in no apparent distress. comfortable, Behavior is calm, cooperative. mg2 Pain: Complains of pain in chest Pain does not radiate. Pain currently is 2 out of 10 on a pain scale. Quality of pain is described as aching, Pain began gradually, Is intermittent. Neuro: Level of Consciousness is awake, alert, obeys commands, Oriented to person, place, time, situation. Cardiovascular: Capillary refill < 3 seconds Patient's skin is warm and dry. Cardiovascular: Chest pain is described as vague, quality is heaviness, pressure. Respiratory: Airway is patent Respiratory effort is even, unlabored, Respiratory pattern is regular, symmetrical. Respiratory: Reports shortness of breath at rest. GI: No signs and/or symptoms were reported involving the gastrointestinal system. : No signs and/or symptoms were reported regarding the genitourinary system. EENT: No signs and/or symptoms were reported regarding the EENT system. Derm: Skin is intact, is healthy with good turgor, Skin is pink, warm \\T\\ dry. normal. 23:30 Reassessment: Patient appears in no apparent distress at this time. Patient and/or tr5 family updated on plan of care and expected duration. Pain level reassessed. Patient is alert, oriented x 3, equal unlabored respirations, skin warm/dry/pink. 12/08 00:41 Reassessment: Patient appears in no apparent distress at this time. No changes from tr5 previously documented assessment. Patient and/or family updated on plan of care and expected duration. Pain level reassessed. Patient is alert, oriented x 3, equal unlabored respirations, skin warm/dry/pink. 01:36 Reassessment: Patient appears in no apparent distress at this time. Patient and/or tr5 family updated on plan of care and expected duration. Pain level reassessed. Patient is alert, oriented x 3, equal unlabored respirations, skin warm/dry/pink. Vital Signs: 12/07 20:38 BP 137 / 86; Pulse 82; Resp 16; Temp 97.5; Pulse Ox 99% on R/A; Weight 85.73 kg (R); ak1 Height 5 ft. 6 in. (167.64 cm) (R); Pain 10/10; 21:35 BP 124 / 84 LA (auto/lg); Pulse 80; Resp 17; Pulse Ox 99% on R/A; jp3 23:40 BP 123 / 83; Pulse 61; Resp 18; Pulse Ox 100% on R/A; mg2 12/08 00:30 BP 128 / 80; Pulse 72; Resp 15; Pulse Ox 99% on R/A; tr5 12/07 20:38 Body Mass Index 30.51 (85.73 kg, 167.64 cm) ak1 ED Course: 12/07 20:31 Patient arrived in ED. cl3 20:31 [facility] Phys[facility]. cl3 20:38 Arm band placed on Patient placed in waiting room, Patient notified of wait time. ak1 20:40 Triage completed. ak1 21:23 Papi Jarrett, RN is Primary Nurse. mg2 21:31 Abhilash Templeton MD is Attending Physician. wa 21:36 Placed in gown. Bed in low position. Call light in reach. Side rails up X 1. Warm jp3 blanket given. Verbal reassurance given. cafeteria monitor on. Pulse ox on. NIBP on. 21:36 Patient maintains SpO2 saturation greater than 95% on room air. jp3 22:22 No provider procedures requiring assistance completed. Inserted saline lock: 20 gauge mg2 in right antecubital area, using aseptic technique. Blood collected. 23:54 CT Abd/Pelvis - Without Contrast In Process Unspecified. EDLA 12/08 01:17 Luis F Strange MD is Referral Physician. wa 01:37 IV discontinued. tr5 Administered Medications: 00:03 Drug: NS 0.9% 1000 ml Route: IV; Rate: 1 bolus; Site: left antecubital; mg2 Point of Care Testing: Blood Glucose: 12/07 23:40 Blood Glucose: 345 mg/dL; mg2 Ranges: Outcome: 12/08 01:17 Discharge ordered by . wa 01:36 Discharged to home ambulatory. tr5 01:36 Condition: stable 01:36 Discharge instructions given to patient, Instructed on discharge instructions, follow up and referral plans. medication usage, Demonstrated understanding of instructions, follow-up care, medications, Prescriptions given X 2. 01:37 Patient left the ED. tr5 Signatures: Dispatcher [employer] EDLA Fiona Krueger RN RN ak1 Abhilash Templeton MD MD wa Gardose, Michele, RN RN mg2 Varinder Albrecht jp3 Artemio Perez RN RN tr5 Roberto Saha cl3 Corrections: (The following items were deleted from the chart) 12/07 23:40 21:36 Blood Glucose: Blood Glucose Iatudyl=637 mg/dL. jp3 mg2 12/08 00:03 12/07 23:40 Pulse 61bpm; Resp 18bpm; Pulse Ox 100% RA; mg2 mg2
--- NOTE | 2018-12-08 01:19 | EDPHYS ---
Physician Documentation [facility] Name: Mica Hanson Age: 38 yrs Sex: Female : 1980 Arrival Date: 12/07/2018 Time: 20:31 Bed 24 Private MD: IDA [facility] ED Physician Abhilash Templeton HPI: 12/08 02:38 This 38 yrs old Female presents to ER via Ambulatory with complaints of Chest wa Pain, Shortness Of Breath. 02:38 This 38 yrs old Female presents to ER via Ambulatory with complaints of Chest wa Pain, Shortness Of Breath. 02:38 The patient or guardian reports chest pain that is located primarily in the substernal wa area. Onset: 2 day(s) ago. The pain does not radiate. Associated signs and symptoms: Pertinent positives: abdominal pain, Pertinent negatives: cough, shortness of breath. The chest pain is described as aching. Duration: The patient or guardian reports a single episode, The patient or guardian reports multiple episodes, that are intermittent. Modifying factors: The symptoms are alleviated by nothing. the symptoms are aggravated by nothing. Severity of pain: At its worst the pain was moderate in the emergency department the pain has improved. The patient has experienced similar episodes in the past, a few times. The patient has been recently seen by a physician: earlier today in this ED. multiple complaints,. states she's been feeling unwell the past 2-3 days. . 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 - Social history:: Smoking status: unknown. - Ebola Screening: : No symptoms or risks identified at this time. - Family history:: not pertinent. - Hospitalizations: : No recent hospitalization is reported. ROS: 12/08 02:41 Constitutional: Negative for fever, chills, and weight loss, Eyes: Negative for injury, wa pain, redness, and discharge, ENT: Negative for injury, pain, and discharge, Neck: Negative for injury, pain, and swelling, Cardiovascular: Negative for chest pain, palpitations, and edema, Respiratory: Negative for shortness of breath, cough, wheezing, and pleuritic chest pain, Abdomen/GI: Negative for abdominal pain, nausea, vomiting, diarrhea, and constipation, Back: Negative for injury and pain, : Negative for injury, bleeding, discharge, and swelling, MS/Extremity: Negative for injury and deformity, Skin: Negative for injury, rash, and discoloration, Neuro: Negative for headache, weakness, numbness, tingling, and seizure. All other systems are negative. 02:41 Cardiovascular: Positive for chest pain, Negative for edema, orthopnea, palpitations, wa paroxysmal nocturnal dyspnea. Exam: 02:41 Constitutional: This is a well developed, well nourished patient who is awake, alert, wa and in no acute distress. Head/Face: Normocephalic, atraumatic. Eyes: Pupils equal round and reactive to light, extra-ocular motions intact. Lids and lashes normal. Conjunctiva and sclera are non-icteric and not injected. Cornea within normal limits. Periorbital areas with no swelling, redness, or edema. ENT: Nares patent. No nasal discharge, no septal abnormalities noted. Tympanic membranes are normal and external auditory canals are clear. Oropharynx with no redness, swelling, or masses, exudates, or evidence of obstruction, uvula midline. Mucous membranes moist. Neck: Trachea midline, no thyromegaly or masses palpated, and no cervical lymphadenopathy. Supple, full range of motion without nuchal rigidity, or vertebral point tenderness. No Meningismus. Chest/axilla: Normal chest wall appearance and motion. Nontender with no deformity. No lesions are appreciated. Cardiovascular: Regular rate and rhythm with a normal S1 and S2. No gallops, murmurs, or rubs. Normal PMI, no JVD. No pulse deficits. Respiratory: Lungs have equal breath sounds bilaterally, clear to auscultation and percussion. No rales, rhonchi or wheezes noted. No increased work of breathing, no retractions or nasal flaring. Abdomen/GI: Soft, non-tender, with normal bowel sounds. No distension or tympany. No guarding or rebound. No evidence of tenderness throughout. Back: No spinal tenderness. No costovertebral tenderness. Full range of motion. Skin: Warm, dry with normal turgor. Normal color with no rashes, no lesions, and no evidence of cellulitis. MS/ Extremity: Pulses equal, no cyanosis. Neurovascular intact. Full, normal range of motion. Neuro: Awake and alert, GCS 15, oriented to person, place, time, and situation. Cranial nerves II-XII grossly intact. Motor strength 5/5 in all extremities. Sensory grossly intact. Cerebellar exam normal. Normal gait. Psych: Awake, alert, with orientation to person, place and time. Behavior, mood, and affect are within normal limits. Vital Signs: 12/07 20:38 BP 137 / 86; Pulse 82; Resp 16; Temp 97.5; Pulse Ox 99% on R/A; Weight 85.73 kg (R); ak1 Height 5 ft. 6 in. (167.64 cm) (R); Pain 10/10; 21:35 BP 124 / 84 LA (auto/lg); Pulse 80; Resp 17; Pulse Ox 99% on R/A; jp3 23:40 BP 123 / 83; Pulse 61; Resp 18; Pulse Ox 100% on R/A; mg2 12/08 00:30 BP 128 / 80; Pulse 72; Resp 15; Pulse Ox 99% on R/A; tr5 12/07 20:38 Body Mass Index 30.51 (85.73 kg, 167.64 cm) ak1 MDM: 12/07 21:31 Patient medically screened. va 12/08 02:42 Differential diagnosis: abnormal EKG, acute myocardial infarction, acute pericarditis, wa anxiety, coronary artery disease congestive heart failure Cholelithiasis costochondritis. Data reviewed: vital signs, nurses notes, lab test result(s), EKG, radiologic studies. Test interpretation: by ED physician or midlevel provider: EKG interp by me: HR 79. sinus. nml axis. noted wnl, not applicable. 02:43 Test interpretation: by ED physician or midlevel provider: labs noted for wa hyperglycemia. nml CXR. nml troponin. Response to treatment: the patient's symptoms have markedly improved after treatment. ED course: discussed close f/u with cardiology. 02:47 Test interpretation: by ED physician or midlevel provider: CT abd/pelvis: no acute va process. 12/07 21:30 Order name: Glucose, Ancillary Testing; Complete Time: 22:13 EDMS 12/07 22:14 Order name: Basic Metabolic Panel va 12/07 22:14 Order name: CBC with Diff va 12/07 22:14 Order name: LFT's va 12/07 22:14 Order name: NT PRO-BNP va 12/07 22:14 Order name: PT-INR va 12/07 22:14 Order name: Troponin (emerg Dept Use Only) va 12/07 22:51 Order name: CBC with Automated Diff; Complete Time: 00:57 EDMS 12/07 22:51 Order name: Protime (+INR); Complete Time: 00:58 EDMS 12/07 23:03 Order name: Basic Metabolic Panel; Complete Time: 00:57 EDMS 12/07 23:03 Order name: Liver (Hepatic) Function; Complete Time: 00:57 EDMS 12/07 23:03 Order name: Troponin (Emerg Dept Use Only); Complete Time: 00:58 EDMS 12/07 23:03 Order name: NT PRO-BNP; Complete Time: 00:58 EDMS 12/08 00:02 Order name: Urine Dipstick--Ancillary (enter results) [facility] 12/07 22:14 Order name: EKG; Complete Time: 22:33 va 12/07 22:14 Order name: Cardiac monitoring; Complete Time: 22:20 va 12/07 22:14 Order name: EKG - Nurse/Tech; Complete Time: 22:20 va 12/07 22:14 Order name: IV Saline Lock; Complete Time: 22:20 va 12/07 22:14 Order name: Labs collected and sent; Complete Time: 22:20 va 12/07 22:14 Order name: O2 Per Protocol; Complete Time: 22:20 va 12/07 22:14 Order name: O2 Sat Monitoring; Complete Time: 22:20 va 12/07 22:15 Order name: CT Abd/Pelvis - Without Contrast va 12/08 00:02 Order name: Urine --Ancillary (enter results) 6 12/08 00:06 Order name: Urine --Ancillary; Complete Time: 00:58 EDMS 12/08 00:06 Order name: Urine Dipstick-Ancillary; Complete Time: 00:57 EDMS Administered Medications: 00:03 Drug: NS 0.9% 1000 ml Route: IV; Rate: 1 bolus; Site: left antecubital; mg2 Point of Care Testing: Blood Glucose: 12/07 23:40 Blood Glucose: 345 mg/dL; mg2 Ranges: Critical Glucose Levels:Adult <50 mg/dl or >400 mg/dl <40 mg/dl or >180 mg/dl Disposition: 12/08/18 01:17 Discharged to Home. Impression: chest pain, hyperglycemia. - Condition is Stable. - Discharge Instructions: Nonspecific Chest Pain, [id number]. - Prescriptions for Tylenol- Codeine #3 300-30 mg Oral Tablet - take 2 tablet by ORAL route every 6 hours As needed; 20 tablet. Metformin 1,000 mg Oral Tablet - take 1 tablet by ORAL route every 12 hours with morning and evening meals; 90 tablet. - Medication Reconciliation Form, Thank You Letter, Antibiotic Education, Prescription Opioid Use form. - Follow up: Luis F Strange MD; When: 1 - 2 days; Reason: Recheck today's complaints. - Problem is new. - Symptoms have improved. - Notes: follow up with Dr. Strange as discussed. 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 Impression: chest pain. Condition is Stable. wa Forms are Medication Reconciliation Form, Thank You Letter, Antibiotic Education, Prescription Opioid Use. Follow up: Luis F Strange; When: 1 - 2 days; Reason: Recheck today's complaints. Problem is new. Symptoms have improved. yenny 01:37 01:19 12/08/2018 01:17 Discharged to Home. Impression: chest pain; hyperglycemia. tr5 Condition is Stable. Discharge Instructions: Nonspecific Chest Pain, Xdym-ne-Oong. Prescriptions for Tylenol-Codeine #3 300-30 mg Oral Tablet - take 2 tablet by ORAL route every 6 hours As needed; 20 tablet. and Forms are Medication Reconciliation Form, Thank You Letter, Antibiotic Education, Prescription Opioid Use. Follow up: Luis F Strange; When: 1 - 2 days; Reason: Recheck today's complaints. Problem is new. Symptoms have improved. wa
[2018-12-08 01:55] VITALS: TEMP 97.5
[2018-12-08 01:59] VITALS: BP 128/80; O2SAT 99
--- NOTE | 2018-12-08 07:32 | EKG ---
Test Date: 2018-12-07 Test Time: 21:27:28 Judge'S Clerk: MEASUREMENT RESULTS: Intervals: Rate: 79 SD: 138 QRSD: 86 QT: 372 QTc: 426 [place]: P: 63 SD: 138 QRS: 20 T: 28 INTERPRETIVE STATEMENTS: Normal sinus rhythm Normal ECG Compared to ECG 12/07/2018 12:12:42 No significant changes Electronically Signed On 12-08-18 07:31:15 CDT by Jeffrey Larsen
--- NOTE | 2018-12-08 10:57 | RAD REPORT ---
EXAM DESCRIPTION: CT ABDOMEN PELVIS WITHOUT IV CONTRAST CLINICAL HISTORY: Abdominal pain. COMPARISON: None. TECHNIQUE: CT scan of the abdomen and pelvis was performed without IV contrast. This exam was perfor med according to our departmental dose-optimization program, which includes automated exposure contro l, adjustment of the mA and/or kV according to patient size and/or use of iterative reconstruction te chnique. FINDINGS: The lung bases are clear. No pleural or pericardial effusions. The gallbladder is contract ed, limiting evaluation. Liver, spleen, pancreas, adrenal glands, and kidneys are unremarkable with a tiny nonobstructing stones in the right kidney. No hydronephrosis. The pelvic organs are unremarkabl e. No small bowel obstruction. The appendix is normal. No evidence of acute diverticulitis. No adenopath y, free fluid, or free air is identified. The aorta is normal caliber. The osseous structures are int act. No body wall hernia is seen. IMPRESSION: 1. No acute abdominal or pelvic pathology. 2. Tiny nonobstructing stone in the right kidney. Electronically signed by: Philip Gonzalez MD 12/07/2018 11:16 PM CDT Due to temporary technical issues with the PACS/Fluency reporting system, reports are being signed by the in house radiologist as a courtesy to ensure prompt reporting. The interpreting radiologist is f ully responsible for the content of the report.
== END 2018-12-08 01:37 | disposition home or self-care (01) ==
LOC: ER 20:29
DX: R07.9 Chest pain, unspecified (principal); R73.9 Hyperglycemia, unspecified; I10 Essential (primary) hypertension; R56.9 Unspecified convulsions; G62.9 Polyneuropathy, unspecified
CPT/HCPCS: 93005; 85025; 80048; 36415; 81025; 85610; 82962; 80076; 81003; 84484; 83880; 74176; 99285; J7030

== ENCOUNTER 2019-10-07 19:20 | Emergency (ER) | payer OTHER ==
--- OUTSIDE RECORDS SUMMARY | 2019-10-07 19:39 | XMS REPORT | Continuity of Care Document ---
:1980 Author Organization [facility] t Address [address] [place] [address] Care Team Providers Name Role Phone Unavailable Unavailable Unavailable Payers Payer Name Policy Type Policy Number Effective Date Expiration Date S ource Problems Condition Condition Condition Status Onset Resolution Last Treating Co mments Source Name Details Category Date Date Treatment Clinician Date Irregular Irregular Problem Active [facility] Encounter Encounter Problem Active [facility] for for [facility] - screening screening Abdulaziz magen mammogram mammogram l for breast for breast Ou tpati cancer cancer ent Clinics Well woman Well woman Problem Active [facility] exam with exam with [facility] - routine routine [facility] gynecologi gynecologi l surekha exam surekha exam Outpat i ent Clinics Severe Severe Problem Active [facility] sprain of sprain of [facility] - right right [facility] ankle, ankle, l initial initial Outpati encounter encounter ent Clinics Acute Acute Problem Active [facility] right right [facility] - ankle pain ankle pain Me moria l Outpati ent Clinics Strain of Strain of Problem Active [facility] tendon of tendon of [facility] - long long [facility] flexor flexor l muscle of muscle of Outp ati toe at toe at ent right right Clinics ankle and ankle and foot level foot level Stress Stress Problem Active [facility] fracture fracture [facility] of right of right [facility] a calcaneus calcaneus l with with Outpati routine routine ent healing, healing, Clinic s subsequent subsequent encounter encounter Allergies, Adverse Reactions, Alerts Allergy Allergy Status Severity Reaction(s) Onset Inactive Treating Comm ents Source Name Type Date Date Clinician No Known DA Active [facility] Allergie 12-25 s 00:00: [address] Medications Ordered Filled Start Stop Current Ordering Indication Dosage Frequency Signature Comments Components Source Medication Medication Date Date Medication? Clinician (SIG) Name Name Tramadol Tramadol 2019- No Isaac as [facility] HCl HCl 09-29 07 Peng directed [facility] 00:[facility]: [facility] Sulfamethox Sulfamethox Yes Isaac not [facility] azole-Trime azole-Trime Peng defined [facility] - thoprim thoprim [facility] Acetaminoph Acetaminoph Yes Isaac not [facility] en-Codeine en-Codeine Peng defined [facility] - #3 #3 [facility] Tramadol Tramadol Yes Isaac not [facility] HCl HCl Peng defined [facility] PredniSONE PredniSONE Yes Isaac (Prior [facility] Peng Auth: Rx [facility] - Ref#:[id number] [facility] 79[facility] l [facility] Topiramate Topiramate Yes Isaac (Prior [facility] Peng Auth: Rx [facility] - Ref#:[id number] [facility] 10[facility] l [facility] Clotrimazol Clotrimazol Yes Isaac (Prior [facility] e e Peng Auth: Rx [facility] - Anti-Fungal Anti-Fungal Ref#:[id number] [facility] 42[facility] l [facility] Gabapentin Gabapentin Yes Isaac (Prior [facility] Peng Auth: Rx [facility] - Ref#:[id number] [facility] 77[facility] l [facility] Vitamin D Vitamin D Yes Isaac not [facility] (Ergocalcif (Ergocalcif Peng defined [facility] - marino) marino) [facility] Cetirizine Cetirizine Yes Isaac (Prior [facility] HCl HCl Peng Auth: Rx [facility] - Ref#:[id number] [facility] 97[facility] l [facility] Levetiracet Levetiracet Yes Isaac (Prior [facility] am am Peng Auth: Rx [facility] - Ref#:[id number] [facility] 78[facility] l [facility] Clopidogrel Clopidogrel Yes Isaac not [facility] Bisulfate Bisulfate Peng defined [facility] Amitriptyli Amitriptyli Yes Isaac (Prior [facility] ne HCl ne HCl Peng Auth: Rx [facility] - Ref#:[id number] [facility] 16[facility] l [facility] Fluconazole Fluconazole Yes Isaac (Prior [facility] Peng Auth: Rx [facility] - Ref#:[id number] [facility] 96[facility] l [facility] Pantoprazol Pantoprazol Yes Isaac (Prior [facility] e Sodium e Sodium Peng Auth: Rx L ukes - Ref#:[id number] [facility] 27) l [facility] ent Clinics Mupirocin Mupirocin Yes Isaac not [facility] Peng defined [facility] Triamcinolo Triamcinolo Yes Isaac (Prior [facility] ne ne Peng Auth: Rx [facility] - Acetonide Acetonide Ref#:[id number] [facility] 80[facility] l [facility] Lyrica Lyrica Yes Isaac not [facility] Peng defined [facility] Metformin Metformin Yes Isaac not [facility] HCl HCl Peng defined [facility] Procedures This patient has no known procedures. Encounters Start End Encounter Admission Attending Care Care Encounter Source Date/Time Date/Time Type Type Clinicians Facility Department ID 2018-12-08 2018-12-08 Outpatient Karen Manzano [id number] [facility] 13:19:00 13:19:00 t [facility] ent Clinics 2018-10-25 2018-10-25 Outpatient Karen Manzano [id number] [facility] 09[facility]00:00 09:00:00 t [facility] - and [facility] a Clinic of [facility] ent [facility] 2018-10-11 2018-10-11 Outpatient Karen Manzano [id number] 14:30:00 14:30:00 t [facility] a Clinic [facility] ent [facility] 2018-09-29 2018-09-29 Outpatient Karen Jonest [id number] 16:33:00 16:33:00 t [facility] a [facility] 2018-05-02 2018-05-02 Outpatient Karen Jonest [id number] [address] 13:45:00 13:45:00 t Women Womens [facility] Results This patient has no known results.
[2019-10-07] MEDS ORDERED: dexAMETHasone 10 MG/ML VIAL ONE (21:01)
[2019-10-07] MEDS ORDERED: AZITHROMYCIN 500 MG INJ IVPB ONE (21:01)
[2019-10-07] MEDS ORDERED: NA CHLORIDE 0.9% 250 ML ONE (21:02)
[2019-10-07] MEDS ORDERED: NA CHLORIDE 0.9% 1,000 ML ONE (21:02)
[2019-10-07] MEDS ORDERED: KETOROLAC 30 MG/ML INJ ONE (21:42)
[2019-10-07] MEDS ORDERED: ACETAMINOPHEN 500 MG TAB ONE (21:42)
[2019-10-07 22:37] LABS: Absolute Lymphocytes (CBC) 1.3 K/uL (0.7-4.9); Basophils % 0.4 % (0-1.3); Hematocrit 42.5 % (36.0-45.0); Lymphocytes % 23.9 % (15.3-44.8); MPV 8.8 fL (7.6-11.3); RBC Red Blood Cell Count 4.71 M/uL (3.86-4.86)
[2019-10-07 23:44] LABS: Albumin 3.5 g/dL (3.4-5.0); Alkaline Phosphatase 91 U/L (45-117); BUN Blood Urea Nitrogen 11 mg/dL (7-18); Bicarbonate 23 mmol/L (21-32); Bilirubin Direct 0.2 mg/dL (0-0.2); Bilirubin Total 0.7 mg/dL (0.2-1.0); Ferritin 649.8 ng/mL (8-388); Glucose Level 197 mg/dL (74-106); Lipase 187 U/L (73-393); Potassium 3.8 mmol/L (3.5-5.1); Sodium Level 134 mmol/L (136-145); Troponin (Emerg Dept Use Only) < 0.02 ng/mL (0.0-0.045)
[2019-10-07 23:47] LABS: ALT/SGPT 401 U/L (12-78); AST/SGOT 396 U/L (15-37)
--- NOTE | 2019-10-07 23:59 | ER ---
Nurse's Notes [facility] Name: Mica Hanson Age: 39 yrs Sex: Female : 1980 Arrival Date: 10/07/2019 Time: 19:23 Bed 19 Private MD: Diagnosis: Abnormal results of liver function studies;Other specified diseases of upper respiratory tract Presentation: 10/06 20:02 Chief complaint: Patient states: It started with just a cough Wednesday. Chills have ca1 been going and coming. I've had fever once or twice. My chest hurts, my rib cage hurts, every time I breathe, I feel like am choking, and am really weak. I can't taste and feel anything and I get short of breath too. Coronavirus screen: Patient reports a cough. Patient reports shortness of breath or difficulty breathing. Patient reports a measured and/or subjective temperature greater than 100.4F. Patient denies travel on a cruise ship or to a country the [facility] currently lists as an affected area. Patient reports contact with known and/or suspected case of COVID-19. My boss tested positive for COVID yesterday Surgical mask in place, instructed to keep at all times and distance self from others in the lobby. Verbalized understanding. Ebola Screen: Patient negative for fever greater than or equal to 101.5 degrees Fahrenheit, and additional compatible Ebola Virus Disease symptoms Patient denies exposure to infectious person. Patient denies travel to an Ebola-affected area in the 21 days before illness onset. No symptoms or risks identified at this time. Initial Sepsis Screen: Does the patient meet any 2 criteria? No. Patient's initial sepsis screen is negative. Does the patient have a suspected source of infection? No. Patient's initial sepsis screen is negative. Risk Assessment: Do you want to hurt yourself or someone else? Patient reports no desire to harm self or others. Onset of symptoms was October 07, 2019. 20:02 Method Of Arrival: Ambulatory ca1 20:02 Acuity: MAURICE 2 ca1 Triage Assessment: 22:36 Respiratory: Onset: The symptoms/episode began/occurred at an unknown time. the patient jd3 has mild shortness of breath. 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 - Social history:: Smoking status: Patient denies any tobacco usage or history of. Patient/guardian denies using alcohol, street drugs, The patient lives with family, with spouse. - Family history:: not pertinent. Screenin:36 Abuse screen: Denies threats or abuse. Nutritional screening: No deficits noted. jd3 Tuberculosis screening: No symptoms or risk factors identified. Fall Risk IV access (20 points). Ambulatory Aid- None/Bed Rest/Nurse Assist (0 pts). Gait- Normal/Bed Rest/Wheelchair (0 pts) Mental Status- Oriented to own ability (0 pts). Total Jain Fall Scale indicates No Risk (0-24 pts). Assessment: 20:50 General: Appears in no apparent distress. uncomfortable, Behavior is calm, cooperative, jd3 appropriate for age. Pain: Complains of pain in chest Quality of pain is described as aching, pressure. Neuro: Level of Consciousness is awake, alert, obeys commands, Oriented to person, place, time, situation. Cardiovascular: Heart tones S1 S2 present Capillary refill < 3 seconds Patient's skin is warm and dry. Rhythm is sinus tachycardia. Respiratory: Reports shortness of breath at rest cough that is non-productive, persistent Airway is patent Respiratory effort is even, unlabored, Respiratory pattern is regular, symmetrical, Breath sounds are clear bilaterally. GI: No signs and/or symptoms were reported involving the gastrointestinal system. : No signs and/or symptoms were reported regarding the genitourinary system. EENT: No signs and/or symptoms were reported regarding the EENT system. Derm: Skin is intact, Skin is dry, Skin is normal, Skin temperature is warm. Musculoskeletal: Circulation, motion, and sensation intact. Range of motion: intact in all extremities. 22:36 Reassessment: Patient appears in no apparent distress at this time. Patient and/or jd3 family updated on plan of care and expected duration. Pain level reassessed. Patient is alert, oriented x 3, equal unlabored respirations, skin warm/dry/pink. Patient states feeling better. 23:47 Reassessment: Patient appears in no apparent distress at this time. Patient and/or jd3 family updated on plan of care and expected duration. Pain level reassessed. Patient is alert, oriented x 3, equal unlabored respirations, skin warm/dry/pink. pt reports relief from shortness of breath, reports continued chest pressure. 10/07 00:16 Reassessment: Patient appears in no apparent distress at this time. Patient and/or jd3 family updated on plan of care and expected duration. Pain level reassessed. Patient is alert, oriented x 3, equal unlabored respirations, skin warm/dry/pink. pt reported understanding of discharge instructions. even and steady gait upon discharge. Patient states feeling better. Vital Signs: 10/06 20:02 BP 115 / 81; Pulse 126; Resp 20 S; Temp 99.1(TE); Pulse Ox 96% on R/A; Weight 85.73 kg ca1 (R); Height 5 ft. 6 in. (167.64 cm) (R); 21:36 Temp 102(O); sg 22:34 BP 105 / 72; Pulse 107; Resp 19 S; Pulse Ox 96% on R/A; jd3 23:48 BP 104 / 75; Pulse 97; Resp 20 S; Temp 99.1(O); Pulse Ox 96% on R/A; jd3 20:02 Body Mass Index 30.51 (85.73 kg, 167.64 cm) ca1 ED Course: 19:23 Patient arrived in ED. ds1 20:06 Triage completed. ca1 20:07 Arm band placed on right wrist. ca1 20:20 Dagmar Lomeli MD is Attending Physician. ma2 20:50 Orlanod Rdo RN is Primary Nurse. jd3 21:44 CXR XRAY In Process Unspecified. EDMS 22:03 Missed attempt(s): 20 gauge in left wrist. Bleeding controlled, band aid applied, jd3 catheter tip intact. Missed attempt(s): 20 gauge in left wrist. Bleeding controlled, band aid applied, catheter tip intact. 22:05 Inserted saline lock: 20 gauge in left forearm, using aseptic technique. Blood ds4 collected. 22:20 First set of blood cultures drawn by me, Second set of blood cultures drawn. ds4 22:36 Patient has correct armband on for positive identification. Placed in gown. Bed in low jd3 position. Call light in reach. Side rails up X 1. miter sawyer on. Pulse ox on. NIBP on. 22:38 COVID-19 Sent. ds4 22:38 BMP Sent. ds4 22:38 LFT's Sent. ds4 22:38 Lipase Sent. ds4 22:38 CBC with Diff Sent. ds4 22:38 Blood Culture Adult (2) Sent. ds4 22:43 Blood Culture Sent. ds4 22:43 D-Dimer Sent. ds4 22:43 Ferritin Sent. ds4 22:43 Lactate Sent. ds4 22:43 Procalcitonin Sent. ds4 22:43 PT-INR Sent. ds4 22:43 Ptt, Activated Sent. ds4 22:43 Troponin (emerg Dept Use Only) Sent. ds4 22:43 Urine Microscopic Only Sent. ds4 22:43 C-Reactive Protein Sent. ds4 23:46 Notified ED physician of a critical lab result(s). AST 396, ALT 401. sg 10/07 00:15 No provider procedures requiring assistance completed. IV discontinued, intact, jd3 bleeding controlled, No redness/swelling at site. Pressure dressing applied. Administered Medications: 10/06 22:11 Drug: Tylenol 1000 mg Route: PO; jd3 23:10 Follow up: Response: No adverse reaction jd3 22:33 Drug: NS 0.9% 1000 ml Route: IV; Rate: 1 bolus; Site: left antecubital; jd3 23:30 Follow up: Response: No adverse reaction; IV Status: Completed infusion; IV Intake: jd3 1000ml 22:33 Drug: AZITHromycin 500 mg Route: IVPB; Infused Over: 1 hrs; Site: left antecubital; jd3 23:30 Follow up: Response: No adverse reaction; IV Status: Completed infusion; IV Intake: jd3 250ml 22:33 Drug: Dexamethasone 40 mg Route: IVP; Site: left antecubital; jd3 23:30 Follow up: Response: No adverse reaction jd3 22:33 Drug: TORadol 30 mg Route: IVP; Site: left antecubital; jd3 23:30 Follow up: Response: No adverse reaction jd3 Intake: 23:30 IV: 250ml; Total: 250ml. jd3 23:30 IV: 1000ml; Total: 1250ml. jd3 Outcome: 23:58 Discharge ordered by . margarita 10/07 00:15 Discharged to home ambulatory, with family. jd3 Condition: stable Discharge instructions given to patient, Instructed on discharge instructions, follow up and referral plans. medication usage, Demonstrated understanding of instructions, follow-up care, medications, Prescriptions given X 4. 00:17 Patient left the ED. jd3 Addendum: 10/10/2019 19:36 Addendum: Other Dr. Busch notified patient of COVID positive results by phone. l p1 Signatures: Dispatcher [employer] EDMS Slade Walters RN RN sg Sanford, Demi ds1 Shikha Jane RN RN lp1 Antonio Sloan ds4 Orlando Rod RN RN jd3 Alzahri, Mohammad, MD MD ma2 Acob, Cheryl, RN RN ca1 Corrections: (The following items were deleted from the chart) 10/06 20:09 20:02 Coronavirus screen: Surgical mask placed on patient. Patient moved to private ca1 room, placed in contact and droplet isolation with eye protection until further assessment. Patient reports a cough. Patient reports shortness of breath or difficulty breathing. Patient reports a measured and/or subjective temperature greater than 100.4F. Patient denies travel on a cruise ship or to a country the [facility] currently lists as an affected area. Patient reports contact with known and/or suspected case of COVID-19. My boss tested positive for COVID yesterday ca1
--- NOTE | 2019-10-07 23:59 | EDPHYS ---
Physician Documentation [facility] Name: Mica Hanson Age: 39 yrs Sex: Female : 1980 Arrival Date: 10/07/2019 Time: 19:23 Bed 19 Private MD: ED Physician Dagmar Lomeli HPI: 10/06 21:31 This 39 yrs old Female presents to ER via Ambulatory with complaints of ma2 Shortness Of Breath. 21:31 The patient has shortness of breath during heavy activity. Onset: The symptoms/episode ma2 began/occurred gradually, 2 day(s) ago. Associated signs and symptoms: Pertinent negatives: productive cough, dizziness, nausea, numbness in extremities. Severity of symptoms: At their worst the symptoms were moderate in the emergency department the symptoms are unchanged. The patient has not experienced similar symptoms in the past. 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 - Social history:: Smoking status: Patient denies any tobacco usage or history of. Patient/guardian denies using alcohol, street drugs, The patient lives with family, with spouse. - Family history:: not pertinent. ROS: 21:31 Constitutional: Negative for fever, chills, and weight loss. ma2 21:31 All other systems are negative. Exam: 21:31 Constitutional: This is a well developed, well nourished patient who is awake, alert, ma2 and in no acute distress. Chest/axilla: Normal chest wall appearance and motion. Nontender with no deformity. No lesions are appreciated. Cardiovascular: tachycardic with a normal S1 and S2. No gallops, murmurs, or rubs. Normal PMI, no JVD. No pulse deficits. Respiratory: Lungs have equal breath sounds bilaterally, clear to auscultation and percussion. No rales, rhonchi or wheezes noted. No increased work of breathing, no retractions or nasal flaring. Abdomen/GI: Soft, non-tender, with normal bowel sounds. No distension or tympany. No guarding or rebound. No evidence of tenderness throughout. Back: No spinal tenderness. No costovertebral tenderness. Full range of motion. Skin: Warm, dry with normal turgor. Normal color with no rashes, no lesions, and no evidence of cellulitis. MS/ Extremity: Pulses equal, no cyanosis. Neurovascular intact. Full, normal range of motion. Neuro: Awake and alert, GCS 15, oriented to person, place, time, and situation. Cranial nerves II-XII grossly intact. Motor strength 5/5 in all extremities. Sensory grossly intact. Cerebellar exam normal. Normal gait. Vital Signs: 20:02 BP 115 / 81; Pulse 126; Resp 20 S; Temp 99.1(TE); Pulse Ox 96% on R/A; Weight 85.73 kg ca1 (R); Height 5 ft. 6 in. (167.64 cm) (R); 21:36 Temp 102(O); sg 22:34 BP 105 / 72; Pulse 107; Resp 19 S; Pulse Ox 96% on R/A; jd3 23:48 BP 104 / 75; Pulse 97; Resp 20 S; Temp 99.1(O); Pulse Ox 96% on R/A; jd3 20:02 Body Mass Index 30.51 (85.73 kg, 167.64 cm) ca1 MDM: 20:20 Patient medically screened. ma2 21:31 Differential diagnosis: Anemia asthma, Bronchitis pneumonia, Psychogenic. ma2 23:55 Data reviewed: vital signs, nurses notes. Post IV fluid administration reassessment for ma2 Sepsis: Sepsis focused reassessment complete. Focused assessment performed: October 07, 2019 at 23:56 Heart: Lungs: Capillary refill examination performed. Neuro: Patient's neurological exam has improved from previous exam. Cardio: Cardiovascular exam improved from previous exam. Heart rate and blood pressure have improved. Respiratory: Respiratory exam improved from previous exam. Counseling: I had a detailed discussion with the patient and/or guardian regarding: the historical points, exam findings, and any diagnostic results supporting the discharge/admit diagnosis, the presence of at least one elevated blood pressure reading (>120/80) during this emergency department visit. 23:55 ED course: patient feels better normal vs now, her liver transamylases are high ast/alt ma2 300, she states she had that before, and has no abdominal pain at this time, she will f/u with gi in 2 days . 10/06 20:14 Order name: Glucose, Ancillary Testing; Complete Time: 20:36 EDMS 10/06 20:39 Order name: Blood Culture Adult (2) wa10/06 20:39 Order name: BMP; Complete Time: 23:[facility] 10/06 20:39 Order name: C-Reactive Protein; Complete Time: 23:52 wa10/06 20:39 Order name: CBC with Diff; Complete Time: 23:17 wa10/06 20:39 Order name: COVID-19 10/06 20:39 Order name: D-Dimer; Complete Time: 23:17 wa10/06 20:39 Order name: Ferritin; Complete Time: 23:52 wa10/06 20:39 Order name: Flu; Complete Time: 23:17 [facility] 10/06 20:39 Order name: Lactate; Complete Time: 23:34 wa10/06 20:39 Order name: LFT's; Complete Time: 23:52 wa10/06 20:39 Order name: Lipase; Complete Time: 23:52 wa10/06 20:39 Order name: Procalcitonin; Complete Time: 23:19 wa10/06 20:39 Order name: PT-INR; Complete Time: 23:17 wa10/06 20:39 Order name: Ptt, Activated; Complete Time: 23:17 wa10/06 20:39 Order name: Strep; Complete Time: 23:17 wa10/06 20:39 Order name: Troponin (emerg Dept Use Only); Complete Time: 23:52 wa10/06 20:39 Order name: CXR XRAY 10/06 20:39 Order name: EKG; Complete Time: 20:41 wa10/06 20:39 Order name: Cardiac monitoring; Complete Time: 20:58 10/06 20:39 Order name: Document PUI#; Complete Time: 20:58 [facility] 10/06 20:39 Order name: Droplet/Contact Precautions; Complete Time: 20:58 [facility] 10/06 20:40 Order name: Blood Culture [facility] 10/06 22:59 Order name: Throat Culture [facility] 10/06 20:39 Order name: EKG - Nurse/Tech; Complete Time: 22:34 [facility] 10/06 20:39 Order name: IV Start; Complete Time: 22:33 [facility] 10/06 20:39 Order name: Labs collected and sent; Complete Time: 22:33 [facility] 10/06 20:39 Order name: Notify Health Dept [phone]/ ; Complete Time: 20:58 [facility] 10/06 20:39 Order name: O2 Per Protocol; Complete Time: 20:49 [facility] 10/06 20:39 Order name: O2 Sat Monitoring; Complete Time: 20:48 ma2 Administered Medications: 22:11 Drug: Tylenol 1000 mg Route: PO; jd3 23:10 Follow up: Response: No adverse reaction jd3 22:33 Drug: NS 0.9% 1000 ml Route: IV; Rate: 1 bolus; Site: left antecubital; jd3 23:30 Follow up: Response: No adverse reaction; IV Status: Completed infusion; IV Intake: jd3 1000ml 22:33 Drug: AZITHromycin 500 mg Route: IVPB; Infused Over: 1 hrs; Site: left antecubital; jd3 23:30 Follow up: Response: No adverse reaction; IV Status: Completed infusion; IV Intake: jd3 250ml 22:33 Drug: Dexamethasone 40 mg Route: IVP; Site: left antecubital; jd3 23:30 Follow up: Response: No adverse reaction jd3 22:33 Drug: TORadol 30 mg Route: IVP; Site: left antecubital; jd3 23:30 Follow up: Response: No adverse reaction jd3 Disposition: 10/07/19 23:58 Discharged to Home. Impression: Abnormal results of liver function studies, Other specified diseases of upper respiratory tract. - Condition is Stable. - Discharge Instructions: Acute Bronchitis, Adult. - Prescriptions for Dexamethasone 0.75 mg Oral Tablet - take 1 tablet by ORAL route 3 times per day; 15 tablet. Diclofenac Sodium 75 mg Oral Tablet Sustained Release - take 1 tablet by ORAL route 2 times per day; 30 tablet. Zithromax Z- Andreas 250 mg Oral Tablet - take 1 tablet by ORAL route as directed for 5 days Day 1 - take two (2) tablets one time. Day 2, 3, 4 , 5 take one (1) tablet once daily.; 6 tablet. Albuterol Sulfate 90 mcg/actuation - inhale 1-2 puff by INHALATION route every 4-6 hours; 1 Inhaler. - Medication Reconciliation Form, Thank You Letter, Antibiotic Education, Prescription Opioid Use form. - Notes: follow up with GI in 1 week for repeat liver function test Signatures: Dispatcher [employer] EDSlade Stoner RN RN Orlando Briggs RN RN jd3 Alzahri, Mohammad, MD MD ma2 Suma Rich RN RN ca1 Corrections: (The following items were deleted from the chart) 20:58 20:39 [place] ordered. margarita gomez 23:59 23:51 Labs - recollect needed ordered. sg jbelkys 10/07 00:17 10/06 23:58 10/07/2019 23:58 Discharged to Home. Impression: Abnormal results of liver jd3 function studies; Other specified diseases of upper respiratory tract. Condition is Stable. Prescriptions for Dexamethasone 0.75 mg Oral Tablet - take 1 tablet by ORAL route 3 times per day; 15 tablet, Diclofenac Sodium 75 mg Oral Tablet Sustained Release - take 1 tablet by ORAL route 2 times per day; 30 tablet, Zithromax Z-Andreas 250 mg Oral Tablet - take 1 tablet by ORAL route as directed for 5 days Day 1 - take two (2) tablets one time. Day 2, 3, 4 , 5 take one (1) tablet once daily.; 6 tablet, Albuterol Sulfate 90 mcg/actuation - inhale 1-2 puff by INHALATION route every 4-6 hours; 1 Inhaler. and Forms are Medication Reconciliation Form, Thank You Letter, Antibiotic Education, Prescription Opioid Use. ma2
[2019-10-08 00:57] VITALS: O2SAT 96
[2019-10-08 01:01] VITALS: BP 104/75; TEMP 99.1
--- NOTE | 2019-10-08 08:10 | RAD REPORT ---
EXAM DESCRIPTION: Anthony Single View10/07/2019 9:44 pm CLINICAL HISTORY: Congestion COMPARISON: 2019 FINDINGS: The lungs appear clear of acute infiltrate. The heart is normal size. The patient is in a poor degree of inspiration resulting in crowding of the pulmonary vessels
== END 2019-10-08 00:17 | disposition home or self-care (01) ==
LOC: ER 19:20
DX: U07.1 COVID-19 (principal); J39.8 Other specified diseases of upper respiratory tract; R94.5 Abnormal results of liver function studies; I10 Essential (primary) hypertension; E11.42 Type 2 diabetes mellitus with diabetic polyneuropathy; Z79.4 Long term (current) use of insulin; G40.909 Epilepsy, unspecified, not intractable, without status epilepticus
CPT/HCPCS: 96365; 93005; 87040 ×2; 87070; 85025; 80048; 36415; 85610; 82947; 85379; 80076; 87081; 83605; 85730; 84484; 82728; 83690; 84145; 86140; 87804 ×2; 71045; 96375; 99284; U0001; J0456; J1100; J7030 ×2

== ENCOUNTER 2019-10-13 20:00 | Inpatient (IN) | payer OTHER ==
--- OUTSIDE RECORDS SUMMARY | 2019-10-13 20:02 | XMS REPORT | Continuity of Care Document ---
:1980 Author Organization [facility] t Address [address] [place] [address] Care Team Providers Name Role Phone Unavailable [...] Active U [facility] All[facility]ie 12-25 s 00:00: [address] Medications Ordered Filled Start Stop Current [...] [facility] Ref[facility][id number] [facility] Topiramate Topiramate Yes Isaac (Prior [facility]: [facility] Ref[facility][id number] [facility] Clotrimazol Clotrimazol Yes Isaac (Prior [facility] Auth: [facility] - Anti-Fungal Anti-Fungal Ref#:[id number] [facility] Gabapentin Gabapentin Yes Isaac (Prior [facility]: [facility] Ref[facility][id number] [facility] Vitamin D Vitamin D Yes Isaac not [facility] (Ergocalcif (Ergocalcif [facility] defined [facility] - marino) marino) [facility] Cetirizine Cetirizine Yes Isaac (Prior [facility] HCl HCl [facility] Auth: [facility] - Ref#:[id number] [facility] Levetiracet Levetiracet Yes Isaac (Prior [facility] Auth: [facility] - Ref#:[id number] [facility] Clopidogrel Clopidogrel Yes Isaac not [facility] Bisulfate Bisulfate [facility] defined [facility] Amitriptyli Amitriptyli Yes Isaac (Prior [facility] ne HCl ne HCl Peng Auth: [facility] - Ref#:[id number] [facility] Fluconazole Fluconazole Yes Isaac (Prior [facility] Auth: [facility] - Ref#:[id number] [facility] Pantoprazol Pantoprazol Yes Isaac (Prior [facility] Sodium e Sodium Peng Auth: Rx [facility] - Ref#:[id number] [facility] Mupirocin Mupirocin Yes Isaac not [facility] Triamcinolo Triamcinolo Yes Isaac (Prior [facility] Auth: [facility] - Acetonide Acetonide Ref#:[id number] [facility] Lyrica [...] ID 2018-12-08 2018-12-08 Outpatient Karen Manzano [id number] [facility] 13:19:00 13:19:00 [facility] 2018-10-25 2018-10-25 Outpatient Karen Manzano [id number] 09:00:00 09:00:00 t [facility] ent [facility] 2018-10-11 2018-10-11 Outpatient Karen Manzano [id number] [facility] 14:30:00 14:30:00 t [facility] a Clinic [facility] 2018-09-29 2018-09-29 Outpatient Karen Jonest [id number] 16:33:00 16:33:00 t [facility] a [facility] 2018-05-02 2018-05-02 Outpatient Karen Jonest [id number] 13:45:00 13:45:00 t Women [facility]ens [facility] Results This patient has no known results.
[2019-10-13] MEDS ORDERED: ALBUTEROL INHALER 60 PUFF/8 GM IH ONE (20:55)
[2019-10-13 21:44] LABS: Basophils % 0.2 % (0-1.3); Hematocrit 47.6 % (36.0-45.0); Lymphocytes % 11.4 % (15.3-44.8); MPV 9.3 fL (7.6-11.3); RBC Red Blood Cell Count 5.37 M/uL (3.86-4.86)
[2019-10-13 21:47] LABS: Protime INR 0.9
[2019-10-13 22:04] LABS: AST/SGOT 145 U/L (15-37); Albumin 3.9 g/dL (3.4-5.0); Alkaline Phosphatase 137 U/L (45-117); BUN Blood Urea Nitrogen 11 mg/dL (7-18); Bicarbonate 25 mmol/L (21-32); Bilirubin Direct 0.2 mg/dL (0-0.2); Bilirubin Total 0.8 mg/dL (0.2-1.0); CKMB Creatine Kinase MB < 1.0 ng/mL (0.3-3.6); Creatine Phosphokinase 41 U/L (26-192); Glucose Level 387 mg/dL (74-106); Lipase 284 U/L (73-393); NT PRO-BNP 47 pg/mL (<125); Potassium 4.3 mmol/L (3.5-5.1); Protein, Total 9.7 g/dL (6.4-8.2); Sodium Level 132 mmol/L (136-145)
[2019-10-13 22:17] LABS: ALT/SGPT 393 U/L (12-78)
[2019-10-13 22:29] LABS: Arterial Blood Carboxyhemoglob 1.4 % (0-1.5); Blood Gas Oxyhemoglobin 88.3 % (94-97); Blood O2 Saturation 90.3 % (92-98.5)
--- NOTE | 2019-10-13 22:34 | ER ---
Nurse's Notes [facility] Name: Mica Hanson Age: 39 yrs Sex: Female : 1980 Arrival Date: 10/13/2019 Time: 19:57 Bed 14 Private MD: Diagnosis: Coronavirus infection, unspecified;Acute respiratory failure with hypoxia Presentation: 10/12 20:00 Chief complaint: Patient states: I was diagnosed on Wednesday night that my COVID 19 test sg was positive, states that fever today 103 at home, with chest tightness and increased shortness of breath at home. Coronavirus screen: Patient reports a cough. Patient reports shortness of breath or difficulty breathing. Patient reports a measured and/or subjective temperature greater than 100.4F. Patient reports contact with known and/or suspected case of COVID-19. Prior COVID test collected on: 10/10/2019. Ebola Screen: Patient negative for fever greater than or equal to 101.5 degrees Fahrenheit, and additional compatible Ebola Virus Disease symptoms Patient denies exposure to infectious person. Patient denies travel to an Ebola-affected area in the 21 days before illness onset. No symptoms or risks identified at this time. Initial Sepsis Screen: Does the patient meet any 2 criteria? RR > 20 per min. HR > 90 bpm. Does the patient have a suspected source of infection? Yes: Other: COVID 19. Risk Assessment: Do you want to hurt yourself or someone else? Patient reports no desire to harm self or others. Onset of symptoms was October 13, 2019. Care prior to arrival: None. Transition of care: patient was not received from another setting of care. 20:00 Method Of Arrival: Ambulatory sg 20:00 Acuity: MAURICE 3 sg Historical: - Allergies: 10/13 02:32 No Known Allergies; fu - PMHx: 04:07 Diabetes - NIDDM; Seizures; fu - PSHx: 10/12 20:00 Heart Surgery; ; sg - Immunization history:: Adult Immunizations not up to date. Screenin:23 Abuse screen: Denies threats or abuse. Nutritional screening: No deficits noted. fu Tuberculosis screening: No symptoms or risk factors identified. Fall Risk None identified. Assessment: 20:21 General: Appears distressed, Behavior is calm, cooperative, appropriate for age, fu Reports fever for feeling ill for fatigue for. Pain: Complains of pain in headache. Cardiovascular: Denies chest pain, nausea, vomiting. Respiratory: Airway is patent Respiratory effort is even. 22:00 Reassessment: Patient appears in no apparent distress at this time. Cardiovascular: fu Rhythm is sinus tachycardia. Respiratory: Respiratory effort is SOB on exertion Breath sounds are clear. GI: Abdomen is round. : No signs and/or symptoms were reported regarding the genitourinary system. 23:00 Reassessment: Patient appears in no apparent distress at this time. Patient and/or fu family updated on plan of care and expected duration. Pain level reassessed. Patient is alert, oriented x 3, equal unlabored respirations, skin warm/dry/pink. Patient reports headache. 10/13 00:00 Reassessment: Patient appears in no apparent distress at this time. Patient and/or fu family updated on plan of care and expected duration. Pain level reassessed. Patient is alert, oriented x 3, equal unlabored respirations, skin warm/dry/pink. Patient states feeling better. Patient states symptoms have improved. 01:00 Reassessment: Patient appears in no apparent distress at this time. No changes from fu previously documented assessment. Patient and/or family updated on plan of care and expected duration. Pain level reassessed. Patient is alert, oriented x 3, equal unlabored respirations, skin warm/dry/pink. 02:00 Reassessment: Patient appears in no apparent distress at this time. No changes from fu previously documented assessment. Patient and/or family updated on plan of care and expected duration. Pain level reassessed. Patient is alert, oriented x 3, equal unlabored respirations, skin warm/dry/pink. need for admission instructed to patient. 04:00 Reassessment: Patient appears in no apparent distress at this time. No changes from fu previously documented assessment. Patient and/or family updated on plan of care and expected duration. Pain level reassessed. Patient is alert, oriented x 3, equal unlabored respirations, skin warm/dry/pink. Patient states symptoms have improved. Vital Signs: 10/12 20:00 BP 152 / 80; Pulse 108; Resp 22; Pulse Ox 94% on R/A; Pain 6/10; sg 21:31 BP 130 / 86; Pulse 121; Resp 22; Temp 101.9; Pulse Ox 92% ; Pain 6/10; fu 21:31 BP 130 / 88; Pulse 122; Resp 22; Pulse Ox 90% ; Pain 0/10; fu 23:00 BP 115 / 91; Pulse 141; Resp 26; Temp 98.7(O); Pulse Ox 95% on 3 lpm NC; Pain 0/10; fu 07/04 02:46 BP 109 / 83; Pulse 103; Resp 33; Pulse Ox 93% on 3 lpm NC; Pain 0/10; fu 03:45 BP 122 / 86; Pulse 86; Resp 25; Temp 98.4; Pulse Ox 95% on 3 lpm NC; Pain 0/10; fu ED Course: 10/12 19:57 Patient arrived in ED. sg 19:59 Jenaro Serrano, JUDIE is Primary Nurse. fu 20:00 Arm band placed on. sg 20:03 Triage completed. sg 20:16 Alibn Carroll MD is Attending Physician. snw 22:23 XRAY CXR (1 view) In Process Unspecified. EDMS 22:30 Inserted saline lock: 20 gauge in left forearm, using aseptic technique. Blood fu collected. 22:33 Dagmar Collazo MD is Hospitalizing Provider. tw4 23:03 Blood Culture Adult (2) Sent. fu 23:52 CT Chest For PE Angio In Process Unspecified. EDMS 07 02:47 No provider procedures requiring assistance completed. fu 02:48 Patient has correct armband on for positive identification. Placed in gown. Bed in low fu position. Side rails up X 1. marble carver on. Pulse ox on. NIBP on. 03:12 Patient admitted, IV remains in place. fu Administered Medications: 10/12 21:27 Drug: Albuterol HFA Inhaler 2 puffs Route: Inhalation; fu 22:27 Follow up: Response: No adverse reaction fu 23:02 Drug: Tylenol 1000 mg Route: PO; fu 10/13 00:02 Follow up: Response: Temperature is decreased fu 10/12 23:17 Drug: Insulin Regular Human 5 units {Co-Signature: (Zaida Strange RN).} Route: IVP; fu Site: left antecubital; 10/13 00:17 Follow up: Response: No adverse reaction fu 00:22 Drug: Decadron - Dexamethasone 10 mg Route: IVP; Site: left forearm; fu 01:22 Follow up: Response: No adverse reaction fu 00:22 Drug: AZITHromycin 500 mg Route: IVPB; Infused Over: 1 hrs; Site: left forearm; fu 03:00 Follow up: Response: No adverse reaction fu Outcome: 10/12 22:34 Decision to Hospitalize by Provider. tw4 10/13 04:02 Admitted to Tele room 413, Report called to JUDIE Busch fu 04:03 Condition: improved fu 04:03 Instructed on the need for admit. 04:32 Patient left the ED. fu Signatures: Dispatcher [employer] EDSlade Stoner RN RN Lisa Roa, EDUCATION FINANCE PROCESSOR-C EDUCATION FINANCE PROCESSOR-Csnw Jenaro Serrano RN RN fu Wadley, Terrence, MD MD tw4 Zaida Strange RN
--- NOTE | 2019-10-13 22:34 | EDPHYS ---
Physician Documentation [facility] Name: Mica Hanson Age: 39 yrs Sex: Female : 1980 Arrival Date: 10/13/2019 Time: 19:57 Bed 14 Private MD: ED Physician Albin Carroll HPI: 10/13 03:32 This 39 yrs old Female presents to ER via Ambulatory with complaints of tw4 Shortness Of Breath, Chest Pain > 30 y/o, Fever, COVID-19 positive as of Wednesday. 03:32 The patient has shortness of breath at rest. Onset: The symptoms/episode began/occurred tw4 yesterday. Duration: The symptoms are continuous, and are steadily getting worse. The patient's shortness of breath has no apparent modifying factors. Associated signs and symptoms: The patient has no apparent associated signs or symptoms. Severity of symptoms: At their worst the symptoms were moderate in the emergency department the symptoms are unchanged. The patient has been recently seen at the [facility] Emergency Department, this week, for similar complaints labs were performed, X-rays were performed, diagnosed with covid. Historical: - Allergies: 02:32 No Known Allergies; fu - PMHx: 04:07 Diabetes - NIDDM; Seizures; fu - PSHx: 10/12 20:00 Heart Surgery; ; sg - Immunization history:: Adult Immunizations not up to date. ROS: 10/13 03:32 Eyes: Negative for injury, pain, redness, and discharge, Cardiovascular: Negative for tw4 chest pain, palpitations, and edema, Abdomen/GI: Negative for abdominal pain, nausea, vomiting, diarrhea, and constipation, Back: Negative for injury and pain, MS/Extremity: Negative for injury and deformity, Skin: Negative for injury, rash, and discoloration, Neuro: Negative for headache, weakness, numbness, tingling, and seizure. Constitutional: Positive for body aches, fatigue, fever, malaise. Respiratory: Positive for cough, dyspnea on exertion, shortness of breath, Negative for hemoptysis, orthopnea, pleurisy. Exam: 03:32 Head/Face: Normocephalic, atraumatic. Eyes: Pupils equal round and reactive to light, tw4 extra-ocular motions intact. Lids and lashes normal. Conjunctiva and sclera are non-icteric and not injected. Cornea within normal limits. Periorbital areas with no swelling, redness, or edema. Chest/axilla: Normal chest wall appearance and motion. Nontender with no deformity. No lesions are appreciated. Cardiovascular: Regular rate and rhythm with a normal S1 and S2. No gallops, murmurs, or rubs. Normal PMI, no JVD. No pulse deficits. Respiratory: Lungs have equal breath sounds bilaterally, clear to auscultation and percussion. No rales, rhonchi or wheezes noted. No increased work of breathing, no retractions or nasal flaring. Abdomen/GI: Soft, non-tender, with normal bowel sounds. No distension or tympany. No guarding or rebound. No evidence of tenderness throughout. MS/ Extremity: Pulses equal, no cyanosis. Neurovascular intact. Full, normal range of motion. Neuro: Awake and alert, GCS 15, oriented to person, place, time, and situation. Cranial nerves II-XII grossly intact. Motor strength 5/5 in all extremities. Sensory grossly intact. Cerebellar exam normal. Normal gait. Psych: Awake, alert, with orientation to person, place and time. Behavior, mood, and affect are within normal limits. 03:32 Constitutional: The patient appears alert, awake, anxious. Vital Signs: 10/12 20:00 BP 152 / 80; Pulse 108; Resp 22; Pulse Ox 94% on R/A; Pain 6/10; sg 21:31 BP 130 / 86; Pulse 121; Resp 22; Temp 101.9; Pulse Ox 92% ; Pain 6/10; fu 21:31 BP 130 / 88; Pulse 122; Resp 22; Pulse Ox 90% ; Pain 0/10; fu 23:00 BP 115 / 91; Pulse 141; Resp 26; Temp 98.7(O); Pulse Ox 95% on 3 lpm NC; Pain 0/10; fu 10/13 02:46 BP 109 / 83; Pulse 103; Resp 33; Pulse Ox 93% on 3 lpm NC; Pain 0/10; fu 03:45 BP 122 / 86; Pulse 86; Resp 25; Temp 98.4; Pulse Ox 95% on 3 lpm NC; Pain 0/10; fu MDM: 10/12 20:16 Patient medically screened. snw 10/13 03:32 Differential diagnosis: pneumonia, reactive airway disease, Unstable Angina. Antibiotic tw4 administration: Zithromax is given. Data reviewed: vital signs, nurses notes. Data interpreted: Pulse oximetry: Interpretation: normal. Test interpretation: by ED physician or midlevel provider: plain radiologic studies. Counseling: I had a detailed discussion with the patient and/or guardian regarding: the historical points, exam findings, and any diagnostic results supporting the discharge/admit diagnosis. Physician consultation: Dagmar Collazo MD regarding admission, to the telemetry unit. patient's condition, and will see patient in inpatient room. 10/12 20:26 Order name: Blood Culture Adult (2) 10/12 20:26 Order name: BMP; Complete Time: 22:23 10/12 22:24 Interpretation: Normal except: NA 132; CL 95; GLUC 387; GFR 63. 10/12 20:26 Order name: CBC with Diff; Complete Time: 22:23 [facility] 10/12 22:23 Interpretation: Normal except: WBC 8.8; RBC 5.37; HGB 16.4; HCT 47.6; LYM% 11.4; JULY% tw4 84.7. 10/12 20:26 Order name: Ckmb; Complete Time: 22:23 10/12 20:26 Order name: CPK; Complete Time: 22:23 10/12 20:26 Order name: D-Dimer; Complete Time: 22:23 10/12 22:24 Interpretation: Within normal limits: D-DIMER 267. 10/12 20:26 Order name: Hepatic Function; Complete Time: 22:23 10/12 22:23 Interpretation: Normal except: A/G 0.7; TP 9.7; ALK 137; ALT 393; AST 145; GLOB 5.8. 10/12 20:26 Order name: Lipase; Complete Time: 22:23 10/12 22:24 Interpretation: Within normal limits: LIP 284. 10/12 20:26 Order name: Magnesium; Complete Time: 22:23 10/12 22:24 Interpretation: Within normal limits: MG 2.0. 10/12 20:26 Order name: NT PRO-BNP; Complete Time: 22:23 tw4 10/12 22:24 Interpretation: Within normal limits: NT PRO-BNP 47. tw4 10/12 20:26 Order name: PT-INR; Complete Time: 22:23 tw4 10/12 22:24 Interpretation: Normal except: PT 10.6. tw4 10/12 20:26 Order name: Ptt, Activated; Complete Time: 22:23 tw4 10/12 22:24 Interpretation: Within normal limits: PTT 27.6. tw4 10/12 20:27 Order name: Blood Culture EDNV 10/12 22:15 Order name: ABG tw4 10/12 20:26 Order name: XRAY CXR (1 view) tw4 10/12 22:15 Order name: CT Chest For PE Angio tw4 10/13 00:46 Order name: C-Reactive Protein EDMS 10/13 00:46 Order name: Comprehensive Metabolic Panel EDMS 10/13 00:46 Order name: Ferritin EDMS 10/13 00:46 Order name: Lactic Dehydrogenase EDMS 10/13 00:46 Order name: Lipid Profile EDMS 10/13 00:47 Order name: NT PRO-BNP EDMS 10/13 00:47 Order name: Magnesium EDMS 10/13 00:47 Order name: Phosphorus EDMS 10/13 00:47 Order name: D-Dimer EDMS 10/13 00:47 Order name: Troponin I EDMS 10/13 00:47 Order name: Protime (+INR) EDMS 10/13 00:47 Order name: PTT, Activated Partial Thromb EDMS 10/13 00:48 Order name: CBC with Automated Diff EDMS 10/12 20:26 Order name: Cardiac monitoring; Complete Time: 23:03 tw4 10/12 20:26 Order name: IV Saline Lock; Complete Time: 23:03 tw4 10/12 20:26 Order name: Labs collected and sent; Complete Time: 23:03 tw4 10/12 20:26 Order name: O2 Per Protocol; Complete Time: 23:03 tw4 10/12 20:26 Order name: O2 Sat Monitoring; Complete Time: 23:03 tw4 10/13 00:48 Order name: CONS Physician Consult EDNV 10/13 00:48 Order name: Regular EDMS Administered Medications: 10/12 21:27 Drug: Albuterol HFA Inhaler 2 puffs Route: Inhalation; fu 22:27 Follow up: Response: No adverse reaction fu 23:02 Drug: Tylenol 1000 mg Route: PO; fu 10/13 00:02 Follow up: Response: Temperature is decreased fu 10/12 23:17 Drug: Insulin Regular Human 5 units {Co-Signature: (Zaida Strange RN).} Route: IVP; fu Site: left antecubital; 10/13 00:17 Follow up: Response: No adverse reaction fu 00:22 Drug: Decadron - Dexamethasone 10 mg Route: IVP; Site: left forearm; fu 01:22 Follow up: Response: No adverse reaction fu 00:22 Drug: AZITHromycin 500 mg Route: IVPB; Infused Over: 1 hrs; Site: left forearm; fu 03:00 Follow up: Response: No adverse reaction fu Disposition: 10/13/19 22:34 Hospitalization ordered by Dagmar Collazo for Inpatient Admission. Preliminary diagnosis are Coronavirus infection, unspecified, Acute respiratory failure with hypoxia. - Bed requested for Telemetry/MedSurg (Inpatient). - Status is Inpatient Admission. fu - Condition is Stable. - Problem is an ongoing problem. - Symptoms have worsened. Signatures: Dispatcher [employer] EDMS Ana Joel RN RN mw Gay, Steven, RN RN Lisa Roa, CREDIT FRONT OFFICE DEVELOPER-C CREDIT FRONT OFFICE DEVELOPER-Jenaro Tijerina RN RN fu Wadley, Terrence, MD MD tw4 Zaida watts Corrections: (The following items were deleted from the chart) 10/12 22:46 22:34 Hospitalization Ordered by Dagmar Collazo MD for Inpatient Admission. Preliminary diagnosis is Coronavirus infection, unspecified; Acute respiratory failure with hypoxia. Bed requested for Telemetry/MedSurg (Inpatient). Status is Inpatient Admission. Condition is Stable. Problem is an ongoing problem. Symptoms have worsened. tw4 10/13 04:32 10/12 22:46 10/13/2019 22:34 Hospitalization Ordered by Dagmar Collazo MD for Inpatient fu Admission. Preliminary diagnosis is Coronavirus infection, unspecified; Acute respiratory failure with hypoxia. Bed requested for Telemetry/MedSurg (Inpatient). Status is Inpatient Admission. Condition is Stable. Problem is an ongoing problem. Symptoms have worsened.
[2019-10-13] MEDS ORDERED: ACETAMINOPHEN 500 MG TAB ONE (22:45)
[2019-10-13] MEDS ORDERED: INSULIN -REGULAR HUMAN 50 UNIT/0.5 ML ML ONE (22:46)
[2019-10-14] MEDS ORDERED: dexAMETHasone 10 MG/ML VIAL ONE (00:06)
[2019-10-14] MEDS ORDERED: NA CHLORIDE 0.9% 250 ML ONE (00:07)
[2019-10-14] MEDS ORDERED: AZITHROMYCIN 500 MG INJ IVPB ONE (00:07)
[2019-10-14] MEDS ORDERED: ACETAMINOPHEN 500 MG TAB PO PRN (00:29)
[2019-10-14] MEDS ORDERED: NA CHLORIDE 0.9% 1,000 ML IV SCH (01:00)
[2019-10-14] MEDS ORDERED: ONDANSETRON 4 MG/2 ML VIAL IV PRN (01:00)
[2019-10-14] MEDS: dexAMETHasone 10 MG/ML VIAL IV SCH ×3 (05:27→17:42)
[2019-10-14 05:53] VITALS: BMI 30.7
[2019-10-14] MEDS: HYDROCODONE/APAP 10/325 TAB PO PRN ×3 (06:04→18:02)
[2019-10-14 06:40] LABS: Absolute Lymphocytes (CBC) 0.8 K/uL (0.7-4.9); Basophils % 0.2 % (0-1.3); Hematocrit 39.9 % (36.0-45.0); MPV 9.3 fL (7.6-11.3); RBC Red Blood Cell Count 4.48 M/uL (3.86-4.86)
[2019-10-14 06:49] LABS: Protime INR 1.09
[2019-10-14 08:01] LABS: ALT/SGPT 282 U/L (12-78); AST/SGOT 101 U/L (15-37); Alkaline Phosphatase 95 U/L (45-117); BUN Blood Urea Nitrogen 11 mg/dL (7-18); Bicarbonate 25 mmol/L (21-32); Bilirubin Total 0.9 mg/dL (0.2-1.0); Ferritin 515.2 ng/mL (8-388); Glucose Level 370 mg/dL (74-106); HDL Cholesterol 33 mg/dL (40-60); LDL Cholesterol, Calculated 97 (<130); Magnesium 2.1 mg/dL (1.8-2.4); NT PRO-BNP 63 pg/mL (<125); Phosphorus 3.4 mg/dL (2.5-4.9); Potassium 4.5 mmol/L (3.5-5.1); Protein, Total 7.8 g/dL (6.4-8.2); Sodium Level 135 mmol/L (136-145); Troponin I < 0.02 ng/mL (0.0-0.045)
--- NOTE | 2019-10-14 08:19 | P.HP ---
Certification for Inpatient Patient admitted to: Inpatient With expected LOS: >2 Midnights Patient will require the following post-hospital care: None Practitioner: I am a practitioner with admitting privileges, knowledge of patient current condition, hospital course, and medical plan of care. Services: Services provided to patient in accordance with Admission requirements found in Title 42 Section 412.3 of the Code of Federal Regulations Patient History Date of Service: 10/14/19 Reason for admission: COVID-19 pneumonia History of Present Illness: Patient is a 39-year-old female who was admitted to the hospital with upper respiratory infections and difficulty breathing. She was short of breath and had recently being diagnosed with COVID-19 pneumonia. She was discharged home initially on Wednesday but her symptoms continued to worsen so she came back into the emergency room. She is requiring 4 L of oxygen at this time. Will wean her down as long as her oxygen saturations are stable. CT PE protocol did not reveal pulmonary embolism. Patient's D-dimer was significantly elevated. Continue anti coagulation at this time. Continue standard treatment of COVID-19 pneumonia with dexamethasone and antibiotics. Patient's LFTs were elevated so will monitor closely. Allergies No Known Drug Allergies Allergy (Verified 05/31/15 14:57) Unknown none Allergy (Uncoded 09/25/17 12:08) Unknown Home Medications: Metformin HCl 1,000 mg PO BID 04/18/17 Atorvastatin Calcium [Lipitor] 80 mg PO BEDTIME #30 tab 04/19/17 Clopidogrel Bisulfate [Plavix*] 75 mg PO DAILY #30 tablet 04/19/17 Aspirin Chewable [Aspirin Chewable*] 81 mg PO DAILY #90 tab.chew 08/06/17 levETIRAcetam [Keppra*] 1,000 mg PO BID #120 tab 08/06/17 metroNIDAZOLE [Flagyl*] 500 mg PO TID #21 tablet 08/06/17 - Past Medical/Surgical History Has patient received pneumonia vaccine in the past: No Diabetic: Yes -: Diabetes- NIDDM -: CVA -: Seizures -: CVA -: HTN -: PANCREATITIS -: NEUROPATHY -: biopsy liver and pancreas -: -: polyps removed from esophagus - Family History Father Medical History: Cancer Mother Medical History: Diabetes - Social History Smoking Status: Never smoker Alcohol use: Yes CD- Drugs: No Caffeine use: Yes Place of Residence: Home Review of Systems 10-point ROS is otherwise unremarkable Physical Examination - Vital Signs Temperature: 98.3 F Blood Pressure: 103/71 Pulse: 86 Respirations: 20 Pulse Ox (%): 95 - Physical Exam General: Alert, In no apparent distress, Oriented x3 HEENT: Atraumatic, PERRLA, Mucous membr. moist/pink, EOMI, Sclerae nonicteric Neck: Supple, 2+ carotid pulse no bruit, No LAD, Without JVD or thyroid abnormality Respiratory: Clear to auscultation bilaterally, Normal air movement Cardiovascular: Regular rate/rhythm, Normal S1 S2, No murmurs Gastrointestinal: Normal bowel sounds, Soft and benign, Non-distended, No tenderness Musculoskeletal: No clubbing, No swelling, No tenderness Integumentary: No rashes Neurological: Normal gait, Normal speech, Normal strength at 5/5 x4 extr, Normal tone, Sensation intact, Cranial nerves 3-12 intact, Normal affect Lymphatics: No axilla or inguinal lymphadenopathy - Studies Laboratory Data (last 24 hrs) 10/13/19 21:09: PT 10.6, INR 0.90, APTT 27.6 10/13/19 21:09: WBC 8.8 D, Hgb 16.4 H, Hct 47.6 H, Plt Count 178 10/13/19 21:09: Sodium 132 L, Potassium 4.3, BUN 11, Creatinine 0.98, Glucose 387 H, Magnesium 2.0, Total Bilirubin 0.8, AST 145 H D, ALT 393 H*, Alkaline Phosphatase 137 H, Lipase 284 Assessment & Plan - Problems (Diagnosis) (1) Elevated LFTs Current Visit: Yes Status: Acute (2) Pneumonia due to COVID-19 virus Current Visit: Yes Status: Acute (3) AKHTAR (nonalcoholic steatohepatitis) Current Visit: No Status: Acute (4) CVA (cerebral vascular accident) Onset Date: 04/19/17 Current Visit: No Status: Chronic Qualifiers: CVA mechanism: thrombosis Precerebral and cerebral artery: unspecified precerebral artery Qualified Code(s): I63.00 - Cerebral infarction due to thrombosis of unspecified precerebral artery (5) Diabetes mellitus Onset Date: 02/17/16 Current Visit: No Status: Chronic Qualifiers: Diabetes mellitus type: type 2 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 Continue with IV antibiotics 2. COVID-19 pneumonia 3. Repeat chest x-ray is symptoms are progressively worsening 4. O2 per protocol 5. Pulmonary consultation 6. Continue with albuterol inhaler therapy; IV dexamethasone; zinc and vitamin-C 7. O2 per protocol 8. Monitor LFTs 9. Repeat labs including D-dimer, ferritin, and CRP and LFTs 10. GI and DVT prophylaxis Discharge Plan: Home Plan to discharge in: Greater than 2 days - Advance Directives Does patient have a Living Will: No Does patient have a Durable POA for Healthcare: No - Code Status/Comfort Care Code Status Assessed: Yes Code Status: Full Code Critical Care: No Time Spent Managing PTS Care (In Minutes): 40
[2019-10-14] MEDS ORDERED: CEFTRIAXONE/SWI 1gm 1 GM/10 ML SYR IVP SCH (09:00)
[2019-10-14] MEDS ORDERED: CEFTRIAXONE 1 GM/NS 50 ML 1 GM/50 ML BAG IV SCH (09:00)
[2019-10-14] MEDS: ZINC SULFATE 220 MG CAP PO SCH ×2 (09:16→20:00)
[2019-10-14] MEDS: ASCORBIC ACID 500 MG TABLET PO SCH (09:16)
--- NOTE | 2019-10-14 10:50 | P.CNS ---
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 shortness of breath diagnosed with Crohn of [place] pneumonia symptoms worsened she was hypoxic admitted from the emergency room chest x-ray consistent with bilateral changes patient anxious Allergies No Known Drug Allergies Allergy (Verified 05/31/15 14:57) Unknown none Allergy (Uncoded 09/25/17 12:08) Unknown - Past Medical/Surgical History Diabetic: Yes -: Diabetes- NIDDM -: CVA -: Seizures -: CVA -: HTN -: PANCREATITIS -: NEUROPATHY -: biopsy liver and pancreas -: -: polyps removed from esophagus - Family History Father Medical History: Cancer Mother Medical History: Diabetes - Social History Smoking Status: Unknown if ever smoked Alcohol use: Yes CD- Drugs: No Caffeine use: Yes Place of Residence: Home Review of Systems General: Weakness Respiratory: Cough, Shortness of Breath Physical Examination Temp Pulse Resp BP Pulse Ox 98.3 F 86 20 103/71 95 10/14/19 08:23 10/14/19 08:23 10/14/19 08:23 10/14/19 08:23 10/14/19 08:23 General: Other (Deferred) Laboratory Data (last 24 hrs) 10/13/19 21:09: PT 10.6, INR 0.90, APTT 27.6 10/13/19 21:09: WBC 8.8 D, Hgb 16.4 H, Hct 47.6 H, Plt Count 178 10/13/19 21:09: Sodium 132 L, Potassium 4.3, BUN 11, Creatinine 0.98, Glucose 387 H, Magnesium 2.0, Total Bilirubin 0.8, AST 145 H D, ALT 393 H*, Alkaline Phosphatase 137 H, Lipase 284 - Problems (1) Pneumonia due to COVID-19 virus Current Visit: Yes Status: Acute Plan: Patient is 39 years of age admitted with pneumonia secondary to gant virus us 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 levofloxacin patient refused BiPAP saturating well on nasal cannula oxygen labs reviewed Xanax p.r.n.
[2019-10-14] MEDS: levoFLOXacin 500 MG TAB PO SCH (11:06)
[2019-10-14] MEDS: ALPRAZOLAM 0.25 MG TABLET PO PRN ×2 (20:00→22:37)
[2019-10-14] MEDS ORDERED: AZITHROMYCIN IV 500 MG in NA CHLORIDE 0.9% 250 ML IVPB SCH (21:00)
[2019-10-15] MEDS: dexAMETHasone 10 MG/ML VIAL IV SCH (00:13)
[2019-10-15] MEDS: ASCORBIC ACID 500 MG TABLET PO SCH (08:01)
[2019-10-15] MEDS: levoFLOXacin 500 MG TAB PO SCH (08:01)
[2019-10-15] MEDS: dexAMETHasone 4 MG/ML VIAL IV SCH ×2 (08:01→15:38)
[2019-10-15] MEDS: ZINC SULFATE 220 MG CAP PO SCH ×2 (08:01→19:55)
[2019-10-15] MEDS: HYDROCODONE/APAP 10/325 TAB PO PRN ×2 (08:02→15:37)
--- NOTE | 2019-10-15 10:33 | P.PN ---
Subjective Date of Service: 10/15/19 Chief Complaint: COVID-19 pneumonia Subjective: Improving (Improving still anxious refuses to wear the BiPAP tolerating nasal cannula oxygen) Review of Systems General: Weakness Respiratory: Shortness of Breath Physical Examination - Vital Signs Temperature: 98.5 F Blood Pressure: 146/74 Pulse: 98 Respirations: 18 Pulse Ox (%): 91 - Physical Exam General: Other (Deferred) Assessment & Plan - Problems (Diagnosis) (1) Pneumonia due to COVID-19 virus Current Visit: Yes Status: Acute Plan: Patient admitted with gant virus pneumonia steadily improving on nasal cannula oxygen try and arrange for home O2 tomorrow possible discharge patient has no fever maintain a negative fluid balance again a some Lasix and low-dose spironolactone
[2019-10-15] MEDS ORDERED: FUROSEMIDE 20 MG/ 2ML VIAL IV ONE (11:00)
[2019-10-15] MEDS: SPIRONOLACTONE 25 MG TABLET PO SCH (11:38)
[2019-10-15] MEDS: ALBUTEROL INHALER 60 PUFF/8 GM IH PRN (15:38)
[2019-10-15] MEDS: ALPRAZOLAM 0.25 MG TABLET PO PRN (19:55)
[2019-10-16] MEDS: HYDROCODONE/APAP 10/325 TAB PO PRN (00:37)
[2019-10-16] MEDS: dexAMETHasone 4 MG/ML VIAL IV SCH ×4 (00:37→16:14)
[2019-10-16] MEDS: ALBUTEROL INHALER 60 PUFF/8 GM IH PRN (05:20)
[2019-10-16] MEDS: ZINC SULFATE 220 MG CAP PO SCH ×2 (07:28→19:29)
[2019-10-16] MEDS: ASCORBIC ACID 500 MG TABLET PO SCH (07:28)
[2019-10-16] MEDS: levoFLOXacin 500 MG TAB PO SCH (07:28)
[2019-10-16] MEDS: SPIRONOLACTONE 25 MG TABLET PO SCH (07:29)
[2019-10-16] MEDS ORDERED: FUROSEMIDE 20 MG/ 2ML VIAL IV ONE (08:22)
--- NOTE | 2019-10-16 10:49 | RAD REPORT ---
EXAM DESCRIPTION: Chest For Pe Angio CLINICAL HISTORY: 39 years Female SOB COMPARISON: None TECHNIQUE: Images were obtained in axial, sagittal, and coronal planes. Intravenous contrast was adm inistered. Multi planar reconstruction was performed. This exam was performed according to our departmental dose-optimization program which includes use of Automated Exposure Control, adjustment of the mA and/or kV according to patient size and/or use o f iterative reconstruction technique. FINDINGS: No filling defects pulmonary arteries bilaterally. No aortic dissection or dilatation. Enlarged heart. No pericardial effusion. Small bilateral pleural effusions. No adenopathy. No pneumothorax. Extensive airspace attenuation lung king bilaterally with confluent component lowe r lobes bilaterally. Atelectatic change and consolidation lingula and lower lobes bilaterally. No pne umothorax. No lung parenchymal nodules seen. No acute osseous abnormality. Suspected fatty change involving liver. IMPRESSION: No evidence for pulmonary embolus. No aortic dissection or dilatation. Enlarged heart with marked pulmonary congestion. Extensive bilateral infiltrates and atelectatic changes with associated consolidation. The findings would be consistent with atypical pneumonia and viral infection. Electronically signed by: Kathryn Banks MD 10/14/2019 12:08 AM CDT Due to temporary technical issues with the PACS/Fluency reporting system, reports are being signed by the in house radiologist without review as a courtesy to ensure prompt reporting. The interpreting r adiologist is fully responsible for the content of the report.
--- NOTE | 2019-10-16 10:56 | RAD REPORT ---
EXAM DESCRIPTION: XR Chest 1 View CLINICAL HISTORY: DYSPNEA TECHNIQUE: Single frontal view of the chest is submitted. COMPARISON: None available for comparison FINDINGS: Heart: The cardiothoracic silhouette is within normal limits. Lungs: Low lung volumes. Patchy right mid and bilateral lung zone opacities. Mediastinum: Unremarkable Pleura: No appreciable effusion. No pneumothorax. Bones: Intact Upper abdomen: Unremarkable IMPRESSION: Patchy right mid and bilateral lung zone opacities (atelectasis and/or infiltrate). Electronically signed by: Regina Garg MD 10/13/2019 11:55 PM CDT Due to temporary technical issues with the PACS/Fluency reporting system, reports are being signed by the in house radiologist without review as a courtesy to ensure prompt reporting. The interpreting r adiologist is fully responsible for the content of the report.
[2019-10-16] MEDS ORDERED: D50W 25 GM/50 ML SYRINGE/VIAL IV PRN ×3 (17:47→22:58)
[2019-10-16] MEDS ORDERED: GLUCAGON 1 MG/VIAL IM PRN ×3 (17:47→22:58)
--- NOTE | 2019-10-16 17:50 | P.PN ---
Subjective Date of Service: 10/16/19 Chief Complaint: COVID-19 pneumonia Subjective: Other (Patient improving slowly. Still requiring high-flow oxygen) Physical Examination - Vital Signs Temperature: 95.9 F Blood Pressure: 107/65 Pulse: 78 Respirations: 20 Pulse Ox (%): 90 - Physical Exam General: Alert, Cooperative HEENT: Atraumatic Neck: Supple Respiratory: Other (Patient still appears short of breath) Cardiovascular: Normal pulses Neurological: Normal speech, Normal strength at 5/5 x4 extr, Normal tone, Normal affect - Studies Medications List Reviewed: Yes Assessment & Plan Discharge Plan: Home Plan to discharge in: 48 Hours Physician Review Additional Text: Impression: Bilateral pneumonia with positive COVID 19/hypoxia Diabetes mellitus type 2 [id number] History of seizure disorder History of TIA Plan: Will continue current medications. Patient getting IV Decadron and antibiotic therapy for possible secondary infection. Case discussed with pulmonology. Will continue to wean off oxygen. Will offer convalescent plasma. Will provide sliding scale. Will check A1c. Will start Lantus 10 units at night. Restart anti seizure medication and Plavix. Will continue to reassess. Possible discharge within the next 48 hr. Time Spent Managing Pts Care (In Minutes): 55
[2019-10-16] MEDS: ALPRAZOLAM 0.25 MG TABLET PO PRN (19:29)
[2019-10-16] MEDS: INSULIN GLARGINE 100 UNITS/ML SQ SCH (20:49)
[2019-10-16] MEDS: INSULIN -REGULAR HUMAN 50 UNIT/0.5 ML ML SQ SCH (20:49)
[2019-10-16] MEDS ORDERED: HOME MED 1 EA UNK (Metformin Hcl [Metformin Hcl] 1 TAB) PO SCH (21:00)
[2019-10-16] MEDS ORDERED: INSULIN GLARGINE 100 UNITS/ML SQ SCH (21:00)
[2019-10-16] MEDS ORDERED: INSULIN -REGULAR HUMAN 50 UNIT/0.5 ML ML SQ ONE (23:45)
[2019-10-17] MEDS: dexAMETHasone 4 MG/ML VIAL IV SCH ×3 (02:09→20:57)
[2019-10-17] MEDS ORDERED: GLUCAGON 1 MG/VIAL IM PRN ×2 (02:54→07:24)
[2019-10-17] MEDS ORDERED: D50W 25 GM/50 ML SYRINGE/VIAL IV PRN ×2 (02:54→07:24)
[2019-10-17] MEDS ORDERED: INSULIN -REGULAR HUMAN 50 UNIT/0.5 ML ML SQ ONE ×2 (02:55→22:58)
[2019-10-17] MEDS: INSULIN GLARGINE 100 UNITS/ML SQ SCH ×2 (08:07→21:29)
[2019-10-17] MEDS: levETIRAcetam 500 MG TAB PO SCH (08:08)
[2019-10-17] MEDS: SPIRONOLACTONE 25 MG TABLET PO SCH (08:08)
[2019-10-17] MEDS: INSULIN -REGULAR HUMAN 50 UNIT/0.5 ML ML SQ SCH ×4 (08:08→21:29)
[2019-10-17] MEDS: ASCORBIC ACID 500 MG TABLET PO SCH (08:08)
[2019-10-17] MEDS: METFORMIN HCL 500 MG TAB PO SCH ×2 (08:09→16:50)
[2019-10-17] MEDS: CLOPIDOGREL 75 MG TABLET PO SCH (08:09)
[2019-10-17] MEDS: levoFLOXacin 500 MG TAB PO SCH (08:09)
[2019-10-17] MEDS: ZINC SULFATE 220 MG CAP PO SCH ×2 (08:09→20:57)
[2019-10-17] MEDS ORDERED: LEVETIRACETAM PO SCH (09:00)
[2019-10-17] MEDS: ALBUTEROL INHALER 60 PUFF/8 GM IH PRN (09:20)
--- NOTE | 2019-10-17 13:12 | P.PN ---
Subjective Date of Service: 10/17/19 Chief Complaint: COVID-19 pneumonia Patient is still very weak hypoxic requiring oxygen Review of Systems General: Weakness Respiratory: Shortness of Breath Physical Examination - Vital Signs Temperature: 97 F Blood Pressure: 106/69 Pulse: 87 Respirations: 22 Pulse Ox (%): 92 - Physical Exam General: Alert, Oriented x3, Other (Exam deferred) - Studies Medications List Reviewed: Yes Assessment & Plan - Problems (Diagnosis) (1) Pneumonia due to COVID-19 virus Current Visit: Yes Status: Acute Plan: Patient admitted with gant virus pneumonia currently on nasal cannula oxygen she will benefit from high-flow oxygen refusing BiPAP is currently hyperglycemic reduce the dose of steroids agree with convalescent plasma patient's Lantus has been increased. Patient will qualify for resdesmir all the patient has abnormal LFTs tear improving patient is a relative contraindication although her liver function tests are improving benefit from high-flow oxygen
[2019-10-17] MEDS ORDERED: DIPHENHYDRAMINE 25 MG TAB/CAP PO PRN (15:23)
--- NOTE | 2019-10-17 15:27 | P.PN ---
Subjective Date of Service: 10/17/19 Chief Complaint: COVID-19 pneumonia Subjective: Other (Patient clinically improved but still requiring high-flow oxygen. Patient reports a rash to the right chest area and face.) Physical Examination - Vital Signs Temperature: 97 F Blood Pressure: 106/69 Pulse: 87 Respirations: 22 Pulse Ox (%): 92 - Physical Exam General: Alert, Cooperative HEENT: Atraumatic Neck: Supple Respiratory: Other (Patient requiring high-flow oxygen) Cardiovascular: Normal pulses, Regular rate/rhythm Integumentary: Other (Rash to the right upper chest and face) Neurological: Normal speech, Normal affect - Studies Medications List Reviewed: Yes Assessment & Plan Discharge Plan: Home Plan to discharge in: 48 Hours Physician Review Additional Text: Impression: Bilateral pneumonia with positive COVID 19/hypoxia Diabetes mellitus type 2 [id number] History of seizure disorder History of TIA Rash Plan: Bilateral pneumonia with positive COVID 19/hypoxia: Continue with oxygen. Continue to wean off. Case discussed with Pulmonary. Continue IV steroids. Patient also on Levaquin to cover for possible bacteria infection. Patient agrees with, less some plasma. Will initiate this. Continue monitor closely. Possible improvement over the next 48-72 hr. Diabetes mellitus type 2 [id number]: Continue to adjust basal insulin. History of seizure disorder: Continue medication History of TIA: Continue medication. Patient on DVT prophylaxis. Rash: Likely dermatitis related to possible drug interaction. Will discuss with pulmonology about the possibility of discontinuing Levaquin. Will provide Benadryl for itching. Time Spent Managing Pts Care (In Minutes): 55
[2019-10-17] MEDS: ALPRAZOLAM 0.25 MG TABLET PO PRN (16:33)
[2019-10-17] MEDS: ENSURE HIGH PROTEIN 237 ML CAN PO SCH (21:29)
[2019-10-17] MEDS ORDERED: NA CHLORIDE 0.9% 250 ML ONE (21:59)
[2019-10-18] MEDS: ALPRAZOLAM 0.25 MG TABLET PO PRN ×3 (04:12→20:50)
[2019-10-18] MEDS: ZINC SULFATE 220 MG CAP PO SCH ×2 (08:37→20:07)
[2019-10-18] MEDS: levETIRAcetam 500 MG TAB PO SCH (08:38)
[2019-10-18] MEDS: CLOPIDOGREL 75 MG TABLET PO SCH (08:38)
[2019-10-18] MEDS: levoFLOXacin 500 MG TAB PO SCH (08:38)
[2019-10-18] MEDS: METFORMIN HCL 500 MG TAB PO SCH ×2 (08:38→16:20)
[2019-10-18] MEDS: ASCORBIC ACID 500 MG TABLET PO SCH (08:38)
[2019-10-18] MEDS: SPIRONOLACTONE 25 MG TABLET PO SCH (08:39)
[2019-10-18] MEDS: dexAMETHasone 4 MG/ML VIAL IV SCH ×2 (08:39→20:07)
[2019-10-18] MEDS: INSULIN GLARGINE 100 UNITS/ML SQ SCH ×2 (08:40→21:52)
[2019-10-18] MEDS: ENSURE HIGH PROTEIN 237 ML CAN PO SCH ×2 (08:41→21:52)
[2019-10-18] MEDS: INSULIN -REGULAR HUMAN 50 UNIT/0.5 ML ML SQ SCH ×4 (08:46→21:51)
--- NOTE | 2019-10-18 12:52 | P.PN ---
Subjective Date of Service: 10/18/19 Chief Complaint: COVID-19 pneumonia Patient is not doing well she is still very weak hypoxic agree with convalescent plasma patient tolerating high-flow requiring high concentrations of oxygen Review of Systems General: Weakness Respiratory: Shortness of Breath Physical Examination - Vital Signs Temperature: 97.7 F Blood Pressure: 158/75 Pulse: 56 Respirations: 20 Pulse Ox (%): 97 - Physical Exam General: Alert - Studies Medications List Reviewed: Yes Assessment & Plan - Problems (Diagnosis) (1) Pneumonia due to COVID-19 virus Current Visit: Yes Status: Acute Plan: Patient admitted with pneumonia due to gant virus continue with steroids diuretics fully anti coagulated risk of thromboembolism agree with convalescent plasma is currently satting 97% on 40 L of high-flow oxygen start on full-dose anticoagulation high risk for thromboembolism patient will be on vitamin-C thymine zinc additional supplements
[2019-10-18] MEDS: ENOXAPARIN 100 MG/ML SYR SQ SCH ×2 (13:07→20:07)
--- NOTE | 2019-10-18 14:46 | RAD REPORT ---
EXAM DESCRIPTION: RAD - Chest Single View - 10/18/2019 2:22 pm CLINICAL HISTORY: Hernandez virus pneumonia COMPARISON: Portable chest October 12 TECHNIQUE: AP portable chest image was obtained 10/18/2019 2:22 pm . FINDINGS: Lung volumes are low. Patchy interstitial and alveolar opacities are present in the left l teressa base and in the mid and lower right lung field. Assessment is very limited by the very low lung v olumes. Heart and vasculature are normal. No pneumothorax. No large pleural effusion identifiable. No acute bony abnormality seen. No acute aortic findings suspected. IMPRESSION: Patchy lung parenchymal opacities are present in both lung king. Parenchymal pattern is consistent with provided history of COVID pneumonia. Chest examination is stable from October 12.
--- NOTE | 2019-10-18 16:20 | P.PN ---
Subjective Date of Service: 10/18/19 Chief Complaint: COVID-19 pneumonia Subjective: Other (Patient remains stable. Still requiring high-flow oxygen.) Physical Examination - Vital Signs Temperature: 97.7 F Blood Pressure: 158/75 Pulse: 56 Respirations: 20 Pulse Ox (%): 97 - Physical Exam General: Alert Respiratory: Diminished (Bilateral) Cardiovascular: Normal pulses Neurological: Normal speech, Normal strength at 5/5 x4 extr, Normal tone, Other (Patient feels lethargic) - Studies Medications List Reviewed: Yes Assessment & Plan Discharge Plan: Home Plan to discharge in: 72 Hours Physician Review Additional Text: Impression: Bilateral pneumonia with positive COVID 19/hypoxia Diabetes mellitus type 2 lsg-pkzwgby-tyfmyinpr History of seizure disorder History of TIA Rash Plan: Bilateral pneumonia with positive COVID 19/hypoxia: Patient with slow improvement. Still requiring high-flow oxygen. Continue with oxygen. Continue current medications. Patient received plasma yesterday. Pulmonology recommends to increase DVT prophylaxis to full prophylaxis. Continue monitor closely. Will need to consider Remdesivir if her condition continues to decline. Diabetes mellitus type 2 srp-kkgnemn-qyvwsyfuh: Continue to adjust basal insulin. History of seizure disorder: Continue medication History of TIA: Continue medication. Patient on full-dose anti coagulation Rash: Likely dermatitis related to possible drug interaction. Will discuss with pulmonology about the possibility of discontinuing Levaquin. Will provide Benadryl for itching. Time Spent Managing Pts Care (In Minutes): 55
[2019-10-18] MEDS ORDERED: APIXABAN 2.5 MG TABLET PO SCH (21:00)
[2019-10-19 04:45] LABS: BUN Blood Urea Nitrogen 18 mg/dL (7-18); Bicarbonate 29 mmol/L (21-32); Glucose Level 280 mg/dL (74-106); Potassium 3.8 mmol/L (3.5-5.1); Sodium Level 136 mmol/L (136-145)
[2019-10-19] MEDS ORDERED: POTASSIUM CL SA 10 MEQ TAB PO ONE (05:09)
[2019-10-19] MEDS: levETIRAcetam 500 MG TAB PO SCH (08:10)
[2019-10-19] MEDS: CLOPIDOGREL 75 MG TABLET PO SCH (08:10)
[2019-10-19] MEDS: ZINC SULFATE 220 MG CAP PO SCH ×2 (08:10→19:44)
[2019-10-19] MEDS: ASCORBIC ACID 500 MG TABLET PO SCH (08:10)
[2019-10-19] MEDS: METFORMIN HCL 500 MG TAB PO SCH ×2 (08:11→16:03)
[2019-10-19] MEDS: levoFLOXacin 500 MG TAB PO SCH (08:11)
[2019-10-19] MEDS: ENOXAPARIN 100 MG/ML SYR SQ SCH ×2 (08:11→19:43)
[2019-10-19] MEDS: THIAMINE HCL 100 MG TABLET PO SCH (08:11)
[2019-10-19] MEDS: dexAMETHasone 4 MG/ML VIAL IV SCH ×2 (08:12→19:44)
[2019-10-19] MEDS: INSULIN GLARGINE 100 UNITS/ML SQ SCH ×2 (08:13→19:45)
[2019-10-19] MEDS: ENSURE HIGH PROTEIN 237 ML CAN PO SCH ×2 (08:13→19:45)
[2019-10-19] MEDS: SPIRONOLACTONE 25 MG TABLET PO SCH (08:29)
[2019-10-19] MEDS: INSULIN -REGULAR HUMAN 50 UNIT/0.5 ML ML SQ SCH ×4 (08:29→19:43)
--- NOTE | 2019-10-19 12:37 | P.PN ---
Subjective Date of Service: 10/19/19 Chief Complaint: COVID-19 pneumonia Patient is clinically improving feeling better oxygen requirements have been reduced plan to ambulate and discharge Review of Systems General: Weakness Respiratory: Shortness of Breath Physical Examination - Vital Signs Temperature: 97.5 F Blood Pressure: 115/70 Pulse: 71 Respirations: 22 Pulse Ox (%): 96 - Physical Exam General: Alert, Oriented x3 Respiratory: Crackles/rales Cardiovascular: No edema - Studies Microbiology Data (last 24 hrs): 10/13/19 21:05 Blood - Blood Aerobic Blood Culture - Final No growth in 5 days. 10/13/19 21:05 Blood - Blood Anaerobic Blood Culture - Final No growth in 5 days. Medications List Reviewed: Yes Assessment & Plan - Problems (Diagnosis) (1) Pneumonia due to COVID-19 virus Current Visit: Yes Status: Acute Plan: Patient admitted with gant virus doing better shortness of breath has improved on 5 L patient is 96% saturation week plan to ambulate consider oral anticoagulation for at least a couple weeks the new with prednisone 10 mg twice a day chemistries unremarkable hemodynamically stable
--- NOTE | 2019-10-19 17:54 | P.PN ---
Subjective Date of Service: 10/19/19 Chief Complaint: COVID-19 pneumonia Subjective: Improving Physical Examination - Vital Signs Temperature: 98.3 F Blood Pressure: 115/67 Pulse: 94 Respirations: 20 Pulse Ox (%): 92 - Physical Exam General: Alert, Cooperative HEENT: Atraumatic Neck: Supple Respiratory: Other (Breathing improved with high-flow oxygen) Neurological: Normal speech, Normal strength at 5/5 x4 extr, Normal tone, Normal affect - Studies Microbiology Data (last 24 hrs): 10/13/19 21:05 Blood - Blood Aerobic Blood Culture - Final No growth in 5 days. 10/13/19 21:05 Blood - Blood Anaerobic Blood Culture - Final No growth in 5 days. Medications List Reviewed: Yes Assessment & Plan Discharge Plan: Home Plan to discharge in: 48 Hours Physician Review Additional Text: Impression: Bilateral pneumonia with positive COVID 19/hypoxia Diabetes mellitus type 2 [id number]-azlzfgmty History of seizure disorder History of TIA Rash Plan: Bilateral pneumonia with positive COVID 19/hypoxia: Patient continues to improve. Wean off high-flow oxygen to nasal cannula. Case discussed with pul monology. Pulmonology also sees improvement. Anticipate improvement over the next 48 hr. Possible discharge home with prednisone and DVT prophylaxis. Will continue to assess Diabetes mellitus type 2 dsp-gaaquys-hncfilnqg: Continue to adjust basal insulin. History of seizure disorder: Continue medication History of TIA: Continue medication. Patient on full-dose anti coagulation Rash: This has resolved Time Spent Managing Pts Care (In Minutes): 55
[2019-10-19] MEDS: HYDROCODONE/APAP 10/325 TAB PO PRN (19:44)
[2019-10-20 07:11] LABS: BUN Blood Urea Nitrogen 17 mg/dL (7-18); Bicarbonate 29 mmol/L (21-32); Glucose Level 268 mg/dL (74-106); Potassium 3.6 mmol/L (3.5-5.1); Sodium Level 135 mmol/L (136-145)
[2019-10-20] MEDS: ZINC SULFATE 220 MG CAP PO SCH ×2 (08:15→20:15)
[2019-10-20] MEDS: METFORMIN HCL 500 MG TAB PO SCH ×2 (08:15→17:00)
[2019-10-20] MEDS: levETIRAcetam 500 MG TAB PO SCH (08:15)
[2019-10-20] MEDS: ASCORBIC ACID 500 MG TABLET PO SCH (08:15)
[2019-10-20] MEDS: levoFLOXacin 500 MG TAB PO SCH (08:15)
[2019-10-20] MEDS: ENOXAPARIN 100 MG/ML SYR SQ SCH ×2 (08:15→20:15)
[2019-10-20] MEDS: CLOPIDOGREL 75 MG TABLET PO SCH (08:15)
[2019-10-20] MEDS: THIAMINE HCL 100 MG TABLET PO SCH (08:16)
[2019-10-20] MEDS: dexAMETHasone 4 MG/ML VIAL IV SCH ×2 (08:16→20:15)
[2019-10-20] MEDS: SPIRONOLACTONE 25 MG TABLET PO SCH (08:16)
[2019-10-20] MEDS: INSULIN -REGULAR HUMAN 50 UNIT/0.5 ML ML SQ SCH ×4 (08:16→20:14)
[2019-10-20] MEDS: INSULIN GLARGINE 100 UNITS/ML SQ SCH ×2 (08:17→20:14)
[2019-10-20] MEDS: ENSURE HIGH PROTEIN 237 ML CAN PO SCH ×2 (08:17→20:15)
[2019-10-20] MEDS ORDERED: POTASSIUM CL SA 10 MEQ TAB PO ONE (13:00)
--- NOTE | 2019-10-20 13:00 | P.PN ---
Subjective Date of Service: 10/20/19 Chief Complaint: COVID-19 pneumonia Patient is feeling much better today very weak I had to ambulate Review of Systems General: Weakness Respiratory: Shortness of Breath Physical Examination - Vital Signs Temperature: 98 F Blood Pressure: 109/73 Pulse: 83 Respirations: 18 Pulse Ox (%): 91 - Physical Exam General: Alert, Oriented x3 - Studies Medications List Reviewed: Yes Assessment & Plan - Problems (Diagnosis) (1) Pneumonia due to COVID-19 virus Current Visit: Yes Status: Acute Plan: Patient has clinically improved will plan to ambulate check room air pulse ox discharge tomorrow add Advair low-dose prednisone low-dose Eliquis for a week or so may qualify for home O2 labs unremarkable
--- NOTE | 2019-10-20 17:24 | P.PN ---
Subjective Date of Service: 10/20/19 Chief Complaint: COVID-19 pneumonia Subjective: Improving Physical Examination - Vital Signs Temperature: 98.4 F Blood Pressure: 127/80 Pulse: 78 Respirations: 21 Pulse Ox (%): 93 - Physical Exam General: Alert, In no apparent distress, Cooperative HEENT: Atraumatic Neck: Supple Respiratory: Other (Patient appears improved. Still with increased fatigue) Cardiovascular: Normal pulses Neurological: Normal speech, Normal strength at 5/5 x4 extr, Normal affect - Studies Medications List Reviewed: Yes Assessment & Plan Discharge Plan: Home Plan to discharge in: 24 Hours Physician Review Additional Text: Impression: Bilateral pneumonia with positive COVID 19/hypoxia Diabetes mellitus type 2 ari-tfswgrk-scxsmhthk History of seizure disorder History of TIA Rash Plan: Bilateral pneumonia with positive COVID 19/hypoxia: Patient continues to improve. Patient now on 2 L per nasal cannula. Case discussed with pulmonology. Possible discharge tomorrow on home oxygen. Encourage incentive spirometer. Continue current medication. Diabetes mellitus type 2 ltd-oamsamp-yusuhkxdk: Continue to adjust basal insulin. History of seizure disorder: Continue medication History of TIA: Continue medication. Patient on full-dose anti coagulation Rash: This has resolved Time Spent Managing Pts Care (In Minutes): 55
[2019-10-20] MEDS: ALPRAZOLAM 0.25 MG TABLET PO PRN (23:23)
[2019-10-21 07:16] LABS: BUN Blood Urea Nitrogen 21 mg/dL (7-18); Bicarbonate 28 mmol/L (21-32); Glucose Level 279 mg/dL (74-106); Potassium 3.9 mmol/L (3.5-5.1); Sodium Level 135 mmol/L (136-145)
[2019-10-21] MEDS: dexAMETHasone 4 MG/ML VIAL IV SCH (07:49)
[2019-10-21] MEDS: ENOXAPARIN 100 MG/ML SYR SQ SCH (07:51)
[2019-10-21] MEDS: ASCORBIC ACID 500 MG TABLET PO SCH (07:51)
[2019-10-21] MEDS: ZINC SULFATE 220 MG CAP PO SCH (07:52)
[2019-10-21] MEDS: CLOPIDOGREL 75 MG TABLET PO SCH (07:52)
[2019-10-21] MEDS: THIAMINE HCL 100 MG TABLET PO SCH (07:52)
[2019-10-21] MEDS: levoFLOXacin 500 MG TAB PO SCH (07:52)
[2019-10-21] MEDS: METFORMIN HCL 500 MG TAB PO SCH (07:52)
[2019-10-21] MEDS: INSULIN GLARGINE 100 UNITS/ML SQ SCH (07:53)
[2019-10-21] MEDS: levETIRAcetam 500 MG TAB PO SCH (07:53)
[2019-10-21] MEDS: ENSURE HIGH PROTEIN 237 ML CAN PO SCH (07:54)
[2019-10-21] MEDS: SPIRONOLACTONE 25 MG TABLET PO SCH (07:57)
[2019-10-21] MEDS: INSULIN -REGULAR HUMAN 50 UNIT/0.5 ML ML SQ SCH ×2 (07:57→12:24)
--- NOTE | 2019-10-21 12:43 | P.DS ---
Admission Date: 10/14/19 Discharge Date: 10/21/19 Primary Care Provider: Augustus Perry Disposition: ROUTINE DISCHARGE Discharge Condition: GOOD Reason for Admission: COVID-19 pneumonia Consultations: Pulmonary-Dr. Ramos Procedures: CT Scan: FINDINGS: No filling defects pulmonary arteries bilaterally. No aortic dissection or dilatation. Enlarged heart. No pericardial effusion. Small bilateral pleural effusions. No adenopathy. No pneumothorax. Extensive airspace attenuation lung king bilaterally with confluent component lower lobes bilaterally. Atelectatic change and consolidation lingula and lower lobes bilaterally. No pneumothorax. No lung parenchymal nodules seen. No acute osseous abnormality. Suspected fatty change involving liver. IMPRESSION: No evidence for pulmonary embolus. No aortic dissection or dilatation. Enlarged heart with marked pulmonary congestion. Extensive bilateral infiltrates and atelectatic changes with associated co nsolidation. The findings would be consistent with atypical pneumonia and viral infection. Medical problem list: Bilateral pneumonia with positive COVID 19/hypoxia Diabetes mellitus type 2 ale-issoisp-tgbqllbey History of seizure disorder History of TIA Rash Brief History of Present Illness: 39-year-old female presented to the emergency room with increasing shortness of breath. Patient had been recently hospitalized in discharge for COVID 19 infection. The patient continued to have increasing shortness of breath. Patient was hypoxic when evaluated. CT revealed no pulmonary embolism but changes for bilateral pneumonia noted. Patient was admitted for further evaluation and treatment. Hospital Course: Patient presented with increasing shortness of breath. Patient recently evaluated and discharge for COVID 19 infection. Patient was found to be hypoxic. Due to her worsening condition the patient was readmitted for further evaluation and treatment. CT scan did not reveal any pulmonary embolism. Bilateral viral pneumonia was suspected. The patient continued to require high-flow oxygen and BiPAP. Pulmonology was consulted. The patient did receive convalescent plasma, IV steroids, and high-flow oxygen/BiPAP. Her improvement was slow. But now only requiring 1 L per nasal cannula. Patient stable at discharge. Case discussed at length with pulmonology. Arranges for home oxygen has been arranged. At discharge patient will continue with home oxygen to maintain sats above 93%. Patient currently on 1 L per nasal cannula. Pulmonology at discharge recommends prednisone 10 mg 1 pill twice daily for 5 days. Pulmonology also recommends Advair 1 puff twice daily. Pulmonology further recommends DVT prophylaxis coverage due to her COVID infection. This includes Eliquis 5 mg 1 pill twice daily for 15 days. Patient will need a follow up with pulmonology within 1 week to follow up this hospitalization and continue her care. Patient with diabetes mellitus type 2. Patient previously non insulin dependent. Patient required insulin therapy due to her elevated blood sugars. Patient was started on Lantus. At discharge patient will continue with metformin 1000 mg 1 pill twice daily. Patient will also continue with Lantus 35 units subcu twice daily. Recommend to monitor her blood sugar at least twice daily. Recommend to maintain blood sugar less than 140 fasting and less than 200 after meals. Further adjustment can be done by her PCP. Patient with history of TIA. Patient will continue with Plavix 75 mg daily. Patient with history of seizure disorder. At discharge she will continue with Keppra 1000 mg daily. Vital Signs/Physical Exam: Temp Pulse Resp BP Pulse Ox 99.3 F 86 20 109/79 92 10/21/19 08:00 10/21/19 08:00 10/21/19 08:00 10/21/19 08:00 10/21/19 08:00 General: Alert, In no apparent distress HEENT: Atraumatic Neck: Supple Respiratory: Clear to auscultation bilaterally Cardiovascular: Normal pulses Integumentary: No tenderness/swelling, No erythema, No warmth, No cyanosis Neurological: Normal speech, Normal strength at 5/5 x4 extr, Normal tone, Normal affect Laboratory Data at Discharge: WBC 6.3 K/uL (4.3-10.9) D 10/14/19 06:15 Hgb 13.8 g/dL (12.0-15.0) D 10/14/19 06:15 Hct 39.9 % (36.0-45.0) D 10/14/19 06:15 Plt Count 156 K/uL (152-406) 10/14/19 06:15 PT 12.8 SECONDS (9.5-12.5) H 10/14/19 06:15 INR 1.09 10/14/19 06:15 APTT 25.5 SECONDS (24.3-36.9) 10/14/19 06:15 Sodium 135 mmol/L (136-145) L 10/21/19 06:50 Potassium 3.9 mmol/L (3.5-5.1) 10/21/19 06:50 BUN 21 mg/dL (7-18) H 10/21/19 06:50 Creatinine 0.62 mg/dL (0.55-1.3) 10/21/19 06:50 Glucose 279 mg/dL (74-106) H 10/21/19 06:50 Phosphorus 3.4 mg/dL (2.5-4.9) 10/14/19 06:15 Magnesium 2.1 mg/dL (1.8-2.4) 10/14/19 06:15 Total Bilirubin 0.9 mg/dL (0.2-1.0) 10/14/19 06:15 AST 101 U/L (15-37) H 10/14/19 06:15 ALT 282 U/L (12-78) H D 10/14/19 06:15 Alkaline Phosphatase 95 U/L (45-117) 10/14/19 06:15 Troponin I < 0.02 ng/mL (0.0-0.045) 10/14/19 06:15 Triglycerides 173 mg/dL (<150) H 10/14/19 06:15 Cholesterol 165 mg/dL (<200) 10/14/19 06:15 HDL Cholesterol 33 mg/dL (40-60) L 10/14/19 06:15 Cholesterol/HDL Ratio 5.00 10/14/19 06:15 Lipase 284 U/L (73-393) 10/13/19 21:09 Home Medications: Clopidogrel Bisulfate [Plavix*] 1 tab PO DAILY 10/16/19 Levetiracetam [Keppra] 1 tab PO DAILY 10/16/19 Liraglutide [Victoza 2-Andreas] 0.18 units SQ DAILY 10/16/19 Metformin HCl 1 tab PO BID 10/16/19 Apixaban [Eliquis] 5 mg PO BID #30 tab.ds.pk 10/19/19 Fluticasone/Salmeterol [Advair 250-50 Diskus] 1 each IH BID #60 blst.w.dev 10/19/19 Prednisone [Sterapred Ds] 10 mg PO BID #20 tab.ds.pk 10/19/19 Insulin Glargine,Hum.rec.anlog [Lantus Solostar] 35 unit SQ BID #1 packet 10/21/19 New Medications: Fluticasone/Salmeterol [Advair 250-50 Diskus] 1 each IH BID #60 blst.w.dev Apixaban [Eliquis] 5 mg PO BID #30 tab.ds.pk Insulin Glargine,Hum.rec.anlog [Lantus Solostar] 35 unit SQ BID #1 packet Prednisone [Sterapred Ds] 10 mg PO BID #20 tab.ds.pk Patient Discharge Instructions: 1. Recommend follow up with PCP in 1 week to follow up hospitalization. 2. Patient presented with increasing shortness of breath. Patient recently evaluated and discharge for COVID 19 infection. Patient was found to be hypoxic. Due to her worsening condition the patient was readmitted for further evaluation and treatment. CT scan did not reveal any pulmonary embolism. Bilateral viral pneumonia was suspected. The patient continued to require high-flow oxygen and BiPAP. Pulmonology was consulted. The patient did receive convalescent plasma, IV steroids, and high-flow oxygen/BiPAP. Her improvement was slow. But now only requiring 1 L per nasal cannula. Patient stable at discharge. Case discussed at length with pulmonology. Arranges for home oxygen has been arranged. At discharge patient will continue with home oxygen to maintain sats above 93%. Patient currently on 1 L per nasal cannula. Pulmonology at discharge recommends prednisone 10 mg 1 pill twice daily for 5 days. Pulmonology also recommends Advair 1 puff twice daily. Pulmonology further recommends DVT prophylaxis coverage due to her COVID infection. This includes Eliquis 5 mg 1 pill twice daily for 15 days. Patient will need a follow up with pulmonology within 1 week to follow up this hospitalization and continue her care. 3. Patient with diabetes mellitus type 2. Patient previously non insulin dependent. Patient required insulin therapy due to her elevated blood sugars. Patient was started on Lantus. At discharge patient will continue with metformin 1000 mg 1 pill twice daily. Patient will also continue with Lantus 35 units subcu twice daily. Recommend to monitor her blood sugar at least twice daily. Recommend to maintain blood sugar less than 140 fasting and less than 200 after meals. Further adjustment can be done by her PCP. 4. Patient with history of TIA. Patient will continue with Plavix 75 mg daily. 5. Patient with history of seizure disorder. At discharge she will continue with Keppra 1000 mg daily. Diet: ADA Activity: Fall precautions Time spent managing pt's care (in minutes): 55
[2019-10-21 13:25] VITALS: O2SAT 95
[2019-10-21 13:37] VITALS: BP 125/70; TEMP 97.8
== END 2019-10-21 15:36 | disposition home or self-care (01) | DRG 177 ==
LOC: ER 20:00 → 4TH 10-14 04:04
PROVIDERS: ADMIT Hospitalist; ATTEND Hospitalist
PROC: 5A09357 Assistance with Respiratory Ventilation, Less than 24 Consecutive Hours, Continuous Positive Airway Pressure (ICD-10-PCS; principal; 2019-10-14)
DX: U07.1 COVID-19 (principal); J12.89 Other viral pneumonia; J96.01 Acute respiratory failure with hypoxia; E11.8 Type 2 diabetes mellitus with unspecified complications; I10 Essential (primary) hypertension; R79.89 Other specified abnormal findings of blood chemistry; K75.81 Nonalcoholic steatohepatitis (NASH); E11.9 Type 2 diabetes mellitus without complications; E78.5 Hyperlipidemia, unspecified; G40.909 Epilepsy, unspecified, not intractable, without status epilepticus; R21 Rash and other nonspecific skin eruption; Z86.73 Personal history of transient ischemic attack (TIA), and cerebral infarction without residual deficits
CPT/HCPCS: 36415; 71045; 71275; 80048; 80053; 80061; 80076; 82550; 82553; 82728; 82805; 82947; 83036; 83615; 83690; 83735; 83880; 84100; 84484; 85025; 85379; 85610; 85730; 86140; 86850; 86900; 86901; 86927; 87040; 94660; 94760; 96374; 96375; 99285; J0456; J0696; J1100; J1650; J1815; J1940; J7030; J7050; Q9967

== ENCOUNTER 2020-02-01 22:59 | Emergency (ER) | payer OTHER ==
--- OUTSIDE RECORDS SUMMARY | 2020-02-01 23:01 | XMS REPORT | Continuity of Care Document ---
:1980 Author Organization [facility] t Address [address] [place] [address] Care Team Providers Name Role Phone Unavailable [...] Active U [facility] 12-25 s 00:00: [address] Medications Ordered Filled Start Stop Current [...] [facility]: [facility] Ref[facility][id number] [facility] Topiramate Topiramate Yes Isaac (Prior [facility]: [facility] Ref#:[id number] [facility] Clotrimazol Clotrimazol Yes Isaac (Prior [facility] Auth: [facility] - Anti-Fungal Anti-Fungal Ref#:[id number] [facility] Gabapentin Gabapentin Yes Isaac (Prior [facility]: [facility] Ref#:[id number] [facility] Vitamin D Vitamin D Yes Isaac not [facility] (Ergocalcif (Ergocalcif [facility] defined [facility] - marino) marino) [facility] Cetirizine Cetirizine Yes Isaac (Prior [facility] HCl HCl [facility] Auth: [facility] Ref#:[id number] [facility] Levetiracet Levetiracet Yes Isaac (Prior [facility] Auth: [facility] Ref#:[id number] [facility] Clopidogrel Clopidogrel Yes Isaac not [facility] Bisulfate Bisulfate [facility] defined [facility] Amitriptyli Amitriptyli Yes Isaac (Prior [facility] ne HCl ne HCl [facility] Auth: [facility] - Ref#:[id number] [facility] Fluconazole Fluconazole Yes Isaac (Prior [facility]: [facility] Ref#:[id number] [facility] Pantoprazol Pantoprazol Yes Isaac (Prior [facility] e Sodium e Sodium [facility] Auth: Rx [facility] - Ref#:[id number] [facility] 27[facility] Mupirocin Mupirocin Yes Isaac not [facility] Triamcinolo Triamcinolo Yes Isaac (Prior [facility] Auth: [facility] - Acetonide Acetonide Ref#:[id number] [facility] Lyrica [...] ID 2018-12-08 2018-12-08 Outpatient Karen Manzano [id number] [facility] 13:19[facility]00 13:19:00 [facility] ent Clinics 2018-10-25 2018-10-25 Outpatient Karen Manzano [id number] [facility] 09:00:00 09:00:00 t [facility] 2018-10-11 2018-10-11 Outpatient Karen Manzano [id number] [facility] 14:30:00 14:30:00 t [facility] ent [facility] 2018-09-29 2018-09-29 Outpatient Karen Jonest [id number] [facility] 16:33:00 16:33:00 t [facility] 2018-05-02 2018-05-02 Outpatient Karen Jonset [id number] [facility] 13:45:00 13:45:00 t [facility] Results This patient has no known results.
[2020-02-01] MEDS ORDERED: LEVETIRACETAM 500 MG/5 ML VIAL IV ONE (23:36)
[2020-02-01] MEDS ORDERED: NA CHLORIDE 0.9% 100 ML IV ONE (23:37)
[2020-02-02 00:29] LABS: Absolute Lymphocytes (CBC) 2.1 K/uL (0.7-4.9); Hematocrit 42.6 % (36.0-45.0); Lymphocytes % 27.3 % (15.3-44.8); RBC Red Blood Cell Count 4.81 M/uL (3.86-4.86)
[2020-02-02 00:33] LABS: Protime INR 0.99
[2020-02-02 00:43] LABS: ALT/SGPT 221 U/L (12-78); AST/SGOT 127 U/L (15-37); Albumin 3.5 g/dL (3.4-5.0); Alkaline Phosphatase 117 U/L (45-117); BUN Blood Urea Nitrogen 5 mg/dL (7-18); Bicarbonate 22 mmol/L (21-32); Bilirubin Direct 0.2 mg/dL (0-0.2); Bilirubin Total 0.8 mg/dL (0.2-1.0); Glucose Level 398 mg/dL (74-106); Lipase 176 U/L (73-393); Protein, Total 7.6 g/dL (6.4-8.2); Sodium Level 139 mmol/L (136-145)
--- NOTE | 2020-02-02 00:59 | ER ---
Nurse's Notes [facility] Name: Mica Hanson Age: 39 yrs Sex: Female : 1980 Arrival Date: 02/01/2020 Time: 23:03 Bed 7 Private MD: Diagnosis: Epilepsy and recurrent seizures Presentation: 01/31 23:13 Chief complaint: EMS states: states they found pt post ictal after seizure, then ll2 witness another tonic clonic seizure in field. states she has a HX of seizures and diabetes, pt told ems she hasn't taken her keppra in 2 months because she felt fine and stopped taking her insulin for weeks. FSBS in route was 479. pt states she did take her insulin today after a meal but doesn't take it regularly. Coronavirus screen: Client denies travel out of the [place] in the last 14 days. At this time, the client does not indicate any symptoms associated with coronavirus-19. Ebola Screen: Patient negative for fever greater than or equal to 101.5 degrees Fahrenheit, and additional compatible Ebola Virus Disease symptoms No symptoms or risks identified at this time. Initial Sepsis Screen: Does the patient meet any 2 criteria? No. Patient's initial sepsis screen is negative. Does the patient have a suspected source of infection? No. Patient's initial sepsis screen is negative. Risk Assessment: Do you want to hurt yourself or someone else? Patient reports no desire to harm self or others. Onset of symptoms was February 01, 2020. 23:13 Method Of Arrival: EMS: [facility] 2 23:13 Acuity: MAURICE 3 ll2 Triage Assessment: 23:35 General: Appears in no apparent distress. Behavior is drowsy. Pain: Complains of pain ll2 in pt states pain all over, states thats normal for her after a seizure. EENT: No deficits noted. Neuro: Level of Consciousness is awake, alert, post ictal, Oriented to person, place, time, situation. Cardiovascular: Capillary refill < 3 seconds Rhythm is sinus tachycardia. Respiratory: Airway is patent Respiratory effort is even, unlabored, Respiratory pattern is regular, symmetrical. GI: No signs and/or symptoms were reported involving the gastrointestinal system. 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 - Social history:: Smoking status: unknown. Screenin/23 00:25 Abuse screen: Denies threats or abuse. Nutritional screening: No deficits noted. ll2 Tuberculosis screening: No symptoms or risk factors identified. Fall Risk IV access (20 points). Ambulatory Aid- None/Bed Rest/Nurse Assist (0 pts). Gait- Normal/Bed Rest/Wheelchair (0 pts) Mental Status- Oriented to own ability (0 pts). Total Jain Fall Scale indicates No Risk (0-24 pts). Assessment: 01/31 23:05 Reassessment: see triage assessment. ll2 02/01 00:01 Reassessment: Patient and/or family updated on plan of care and expected duration. Pain ll2 level reassessed. Patient is alert, oriented x 3, equal unlabored respirations, skin warm/dry/pink. 00:25 Reassessment: Patient and/or family updated on plan of care and expected duration. Pain ll2 level reassessed. Patient is alert, oriented x 3, equal unlabored respirations, skin warm/dry/pink. Vital Signs: 01/31 23:13 BP 112 / 82; Pulse 92; Resp 23; Temp 98.8; Pulse Ox 93% on R/A; ll2 23:15 BP 112 / 82; Pulse 106; Resp 18; Pulse Ox 94% on R/A; ll2 02/01 00:05 BP 105 / 51; Pulse 106; Resp 21; Pulse Ox 91% on R/A; ll2 ED Course: 01/31 23:03 Patient arrived in ED. tw4 23:04 Albin Carroll MD is Attending Physician. tw4 23:13 Yanira Kwok RN is Primary Nurse. ll2 23:34 Triage completed. ll2 02/01 00:25 No provider procedures requiring assistance completed. Maintain EMS IV. Dressing ll2 intact. Good blood return noted. Site clean \T\ dry. Gauge \T\ site: 18G RT AC. 00:26 Patient has correct armband on for positive identification. Bed in low position. Call ll2 light in reach. Side rails up X2. Seizure precautions initiated. vehicle monitor technician on. Pulse ox on. NIBP on. 00:58 Jensen Charles MD is Referral Physician. tw4 01:09 IV discontinued, intact, bleeding controlled, No redness/swelling at site. Pressure ll2 dressing applied. 01:09 Arm band placed on left wrist. ll2 Administered Medications: 01/31 23:45 Drug: Keppra 1000 mg Route: IV; Rate: calculated rate; Site: left antecubital; ll2 02/01 01:01 Drug: Insulin Regular Human 5 units {Co-Signature: britney (Sabine Mai RN).} Route: IVP; ll2 Site: left antecubital; Outcome: 00:59 Discharge ordered by . tw4 01:07 Patient left the ED. ea 01:09 Discharged to home ambulatory. ll2 01:09 Condition: stable 01:09 Discharge instructions given to patient, Instructed on discharge instructions, follow up and referral plans. medication usage. Signatures: Sabine Mai RN RN Albin Streeter MD MD tw4 Yanira Kwok RN RN ll2 Sabine Mai RN, ea Corrections: (The following items were deleted from the chart) 01:01/31 23:45 Keppra 1000 mg IV at calculated rate in right antecubital ll2 ll2
--- NOTE | 2020-02-02 00:59 | EDPHYS ---
Physician Documentation [facility] Name: Mica Hanson Age: 39 yrs Sex: Female : 1980 Arrival Date: 02/01/2020 Time: 23:03 Bed 7 Private MD: ED Physician Albin Carroll HPI: 02/01 06:08 This 39 yrs old Female presents to ER via EMS with complaints of seizure. tw4 06:08 The patient presents the episode(s) was witnessed, by family. Character of seizure(s): tw4 Loss of consciousness: the patient experienced loss of consciousness, Motor activity: generalized, Incontinence: none, Apnea: it is not know whether or not the patient experienced apnea, Circulation: it is unknown whether or not the patient experienced a disturbance in pulse. Seizure onset: just prior to arrival. Context: the seizure(s) was witnessed, by family. Seizure Hx: Cause: unknown. Associated injury: The patient did not suffer any apparent associated injury. Current symptoms: decreased level of consciousness. The patient has not experienced similar symptoms in the past. 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 - Social history:: Smoking status: unknown. ROS: 02/01 06:08 Constitutional: Negative for fever, chills, and weight loss, Eyes: Negative for injury, tw4 pain, redness, and discharge, Cardiovascular: Negative for chest pain, palpitations, and edema, Respiratory: Negative for shortness of breath, cough, wheezing, and pleuritic chest pain, Abdomen/GI: Negative for abdominal pain, nausea, vomiting, diarrhea, and constipation, Back: Negative for injury and pain, MS/Extremity: Negative for injury and deformity, Skin: Negative for injury, rash, and discoloration. Neuro: Positive for seizure activity. Exam: 06:08 Constitutional: This is a well developed, well nourished patient who is awake, alert, tw4 and in no acute distress. Head/Face: Normocephalic, atraumatic. Chest/axilla: Normal chest wall appearance and motion. Nontender with no deformity. No lesions are appreciated. Cardiovascular: Regular rate and rhythm with a normal S1 and S2. No gallops, murmurs, or rubs. Normal PMI, no JVD. No pulse deficits. Respiratory: Lungs have equal breath sounds bilaterally, clear to auscultation and percussion. No rales, rhonchi or wheezes noted. No increased work of breathing, no retractions or nasal flaring. Abdomen/GI: Soft, non-tender, with normal bowel sounds. No distension or tympany. No guarding or rebound. No evidence of tenderness throughout. Back: No spinal tenderness. No costovertebral tenderness. Full range of motion. MS/ Extremity: Pulses equal, no cyanosis. Neurovascular intact. Full, normal range of motion. 06:08 Neuro: Orientation: is normal, to person, place \T\ time. Mentation: slow to respond, Memory: is normal, Cranial nerves: CN II- XII are normal as tested, Motor: moves all fours, Sensation: seizure activity, is not displayed by the patient. Vital Signs: 01/31 23:13 BP 112 / 82; Pulse 92; Resp 23; Temp 98.8; Pulse Ox 93% on R/A; ll2 23:15 BP 112 / 82; Pulse 106; Resp 18; Pulse Ox 94% on R/A; ll2 02/01 00:05 BP 105 / 51; Pulse 106; Resp 21; Pulse Ox 91% on R/A; ll2 MDM: 01/31 23:04 Patient medically screened. tw4 02/01 06:08 Differential diagnosis: cerebral vascular accident, drug overdose. Data reviewed: vital tw4 signs, nurses notes. Data interpreted: Pulse oximetry: Interpretation: normal. Counseling: I had a detailed discussion with the patient and/or guardian regarding: the historical points, exam findings, and any diagnostic results supporting the discharge/admit diagnosis, lab results. Special discussion: I discussed with the patient/guardian in detail that at this point there is no indication for admission to the hospital. It is understood, however, that if the symptoms persist or worsen the patient needs to return immediately for re-evaluation. 01/31 23:04 Order name: UDS 01/31 23: Order name: Basic Metabolic Panel; Complete Time: 00:50 4 02/01 00:50 Interpretation: Normal except: GLUC 398; BUN 5. tw01/31 23:04 Order name: CBC with Diff; Complete Time: 00:50 02/01 00:50 Interpretation: Normal except: RDW 11.8. 01/31 23:04 Order name: Hepatic Function; Complete Time: 00:50 02/01 00:51 Interpretation: Normal except: AST 127; ALT 221; GLOB 4.1; A/G 0.9. tw01/31 23:04 Order name: Lipase; Complete Time: 00:50 tw4 02/01 00:51 Interpretation: Within normal limits: LIP 176. 01/31 23:04 Order name: Magnesium; Complete Time: 00:50 02/01 00:51 Interpretation: Within normal limits: MG 2.0. 01/31 23:04 Order name: IV Saline Lock; Complete Time: 00:48 01/31 23:04 Order name: Protime (+inr); Complete Time: 00:50 02/01 00:51 Interpretation: Within normal limits: PT 11.7. 01/31 23:04 Order name: Ptt, Activated; Complete Time: 00:50 02/01 00:51 Interpretation: Within normal limits: PTT 29.7. 01/31 23:04 Order name: Labs collected and sent; Complete Time: 01:07 01/31 23:04 Order name: NPO; Complete Time: 01:07 01/31 23:55 Order name: Glucose, Ancillary Testing; Complete Time: 00:50 EDMS 02/01 00:51 Interpretation: Abnormal: GLUC,ANCIL 407. tw01/31 23:04 Order name: O2 Per Protocol 01/31 23:04 Order name: O2 Sat Monitoring; Complete Time: 00:43 4 01/31 23:04 Order name: Urine Dipstick-Ancillary (obtain specimen); Complete Time: 00:48 tw4 Administered Medications: 01/31 23:45 Drug: Keppra 1000 mg Route: IV; Rate: calculated rate; Site: left antecubital; 2 02/01 01:01 Drug: Insulin Regular Human 5 units {Co-Signature: britney (Sabine Mai RN).} Route: IVP; 2 Site: left antecubital; Disposition: 02/02/20 00:59 Discharged to Home. Impression: Epilepsy and recurrent seizures. - Condition is Stable. - Discharge Instructions: Seizure, Adult. - Prescriptions for Keppra 750 mg Oral Tablet - take 1 tablet by ORAL route every 12 hours; 20 tablet. - Medication Reconciliation Form, Thank You Letter, Antibiotic Education, Prescription Opioid Use form. - Follow up: Private Physician; When: Upon discharge from the Emergency Department; Reason: Recheck today's complaints, Continuance of care, Re-evaluation by your physician. Follow up: Jensen Charles MD; When: Upon discharge from the Emergency Department; Reason: Recheck today's complaints, Continuance of care, Re-evaluation by your physician. - Problem is new. - Symptoms have improved. Signatures: Dispatcher [employer] Sabine Solomon RN RN ea Wadley, Terrence, MD MD tw4 Yanira Kwok RN RN 2 Sabine Mai RN, ea Corrections: (The following items were deleted from the chart) 01:07 00:59 02/02/2020 00:59 Discharged to Home. Impression: Epilepsy and recurrent seizures. ea Condition is Stable. Forms are Medication Reconciliation Form, Thank You Letter, Antibiotic Education, Prescription Opioid Use. Follow up: Private Physician; When: Upon discharge from the Emergency Department; Reason: Recheck today's complaints, Continuance of care, Re-evaluation by your physician. Follow up: Jensen Charles; When: Upon discharge from the Emergency Department; Reason: Recheck today's complaints, Continuance of care, Re-evaluation by your physician. Problem is new. Symptoms have improved. tw4
[2020-02-02] MEDS ORDERED: INSULIN -REGULAR HUMAN 50 UNIT/0.5 ML ML ONE (01:12)
[2020-02-02 01:22] LABS: Barbiturates NEGATIVE (NEGATIVE); Benzodiazepines POSITIVE (NEGATIVE); Cocaine NEGATIVE (NEGATIVE); METHAMPHETAM NEGATIVE (NEGATIVE); Methadone NEGATIVE (NEGATIVE); Opiates NEGATIVE (NEGATIVE); Phencyclidine NEGATIVE (NEGATIVE); THC Cannibis NEGATIVE (NEGATIVE)
[2020-02-02 01:32] VITALS: TEMP 98.8
[2020-02-02 01:34] VITALS: BP 105/51; O2SAT 91
== END 2020-02-02 01:07 | disposition home or self-care (01) ==
LOC: ER 22:59
DX: G40.802 Other epilepsy, not intractable, without status epilepticus (principal); I10 Essential (primary) hypertension; E11.42 Type 2 diabetes mellitus with diabetic polyneuropathy; I69.351 Hemiplegia and hemiparesis following cerebral infarction affecting right dominant side; Z79.4 Long term (current) use of insulin
CPT/HCPCS: 85025; 80048; 36415; 83735; 85610; 82947; 80076; 80307 ×8; 85730; 83690; 96375; 96374; 99284; J1953

== ENCOUNTER 2020-03-04 16:37 | Emergency (ER) | payer OTHER, SELFPAY ==
--- OUTSIDE RECORDS SUMMARY | 2020-03-04 16:39 | XMS REPORT | Continuity of Care Document ---
:1980 Author Organization Formerly [facility] t Address [address] [place] [address] Care Team Providers Name Role Phone Unavailable [...] Known DA Active U [facility] 12-25 [facility] 00:00: [address] Medications Ordered Filled Start Stop Current Ordering Indication Dosage Frequency Signature Comments Components Source Medication Medication Date Date Medication? Clinician (SIG) Name Name Tramadol Tramadol 2019- No Isaac as [facility] HCl HCl 09-29 [facility] directed [facility]: [facility]:00 [facility] [...] [facility] Auth: Rx [facility] Ref[facility][id number] [facility] Topiramate Topiramate Yes Isaac (Prior [facility] Auth: [facility] Ref#:[id number] [facility] Clotrimazol Clotrimazol Yes Isaac (Prior [facility] Peng Auth: Rx [facility] - Anti-Fungal Anti-Fungal Ref#:[id number] [facility] Gabapentin Gabapentin Yes Isaac (Prior [facility] Auth: [facility] Ref#:[id number] [facility] Vitamin D Vitamin D Yes Isaac not [facility] (Ergocalcif (Ergocalcif Peng defined [facility] - marino) marino) [facility] Cetirizine Cetirizine Yes Isaac (Prior [facility] HCl HCl Peng Auth: Rx [facility] - Ref#:[id number] [facility] Levetiracet Levetiracet Yes Isaac (Prior [facility] am am Peng Auth: Rx [facility] - Ref#:[id number] [facility] Clopidogrel Clopidogrel Yes Isaac not [facility] Bisulfate Bisulfate Peng defined [facility] Amitriptyli Amitriptyli Yes Isaac (Prior [facility] ne HCl ne HCl Peng Auth: Rx [facility] - Ref#:[id number] [facility] Fluconazole Fluconazole Yes Isaac (Prior [facility] Auth: Rx [facility] Ref#:[id number] [facility] Pantoprazol Pantoprazol Yes Isaac (Prior [facility] e Sodium e Sodium Peng Auth: Rx [facility] - Ref#:[id number] [facility] Mupirocin Mupirocin Yes Isaac not [facility] defined [facility] Triamcinolo Triamcinolo Yes Isaac (Prior [facility] ne Peng Auth: Rx [facility] - Acetonide Acetonide Ref#:[id number] [facility] Lyrica [...] ID 2018-12-08 2018-12-08 Outpatient Karen Manzano [id number] [facility] 13:19:00 13:19:00 t [facility] Clinics 2018-10-25 2018-10-25 Outpatient Karen Manzano [id number] [facility] 09[facility]00[facility]00 09:00:00 [facility] 2018-10-11 2018-10-11 Outpatient Karen Manzano [id number] [facility] 14:30:00 14:30:00 t [facility] 2018-09-29 2018-09-29 Outpatient Karen Manzano [id number] [facility] 16:33:00 16:33:00 t [facility] 2018-05-02 2018-05-02 Outpatient Karen Manzano [id number] 13:45:00 13:45:00 t [facility] Results This patient has no known results.
--- NOTE | 2020-03-04 19:01 | ER ---
Nurse's Notes [facility] Name: Mica Hanson Age: 39 yrs Sex: Female : 1980 Arrival Date: 03/04/2020 Time: 16:39 Bed 27 Private MD: Diagnosis: Sprain of ankle Presentation: 03/04 17:29 Chief complaint: Patient states: Tripped and Fell Wednesday. Twisted L ankle. Reports pain ca1 on L ankle and L foot. Swelling on L ankle and L foot. Bruise on L foot. Coronavirus screen: Client denies travel out of the [place] in the last 14 days. At this time, the client does not indicate any symptoms associated with coronavirus-19. Client reports previous positive COVID test result. Date of collection: October 2019. Ebola Screen: Patient negative for fever greater than or equal to 101.5 degrees Fahrenheit, and additional compatible Ebola Virus Disease symptoms Patient denies exposure to infectious person. Patient denies travel to an Ebola-affected area in the 21 days before illness onset. No symptoms or risks identified at this time. Initial Sepsis Screen: Does the patient meet any 2 criteria? No. Patient's initial sepsis screen is negative. Does the patient have a suspected source of infection? No. Patient's initial sepsis screen is negative. Risk Assessment: Do you want to hurt yourself or someone else? Patient reports no desire to harm self or others. Onset of symptoms was March 04, 2020. 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 - Social history:: Smoking status: Patient denies any tobacco usage or history of. Screenin:02 Abuse screen: Denies threats or abuse. Denies injuries from another. Nutritional iw screening: No deficits noted. Tuberculosis screening: No symptoms or risk factors identified. Fall Risk None identified. Assessment: 17:29 General: Appears. ca1 18:01 General: Appears in no apparent distress. Behavior is calm, cooperative. Pain: iw Complains of pain in left lateral ankle and lateral aspect of left foot Pain currently is 9 out of 10 on a pain scale. Neuro: Level of Consciousness is awake, alert, obeys commands, Oriented to person, place, time, situation, Moves all extremities. Cardiovascular: Patient's skin is warm and dry. Respiratory: Respiratory effort is even, unlabored, Respiratory pattern is regular. Derm: Skin is intact, is healthy with good turgor. Derm: Musculoskeletal: Range of motion: limited in left ankle. 19:30 Reassessment: Patient appears in no apparent distress at this time. No changes from jd3 previously documented assessment. Patient and/or family updated on plan of care and expected duration. Pain level reassessed. Patient is alert, oriented x 3, equal unlabored respirations, skin warm/dry/pink. 19:46 Reassessment: Patient appears in no apparent distress at this time. Patient and/or jd3 family updated on plan of care and expected duration. Pain level reassessed. Patient is alert, oriented x 3, equal unlabored respirations, skin warm/dry/pink. Vital Signs: 17:29 BP 98 / 75; Pulse 94; Resp 18 S; Temp 97.8(TE); Pulse Ox 100% on R/A; Weight 75.75 kg ca1 (R); Height 5 ft. 6 in. (167.64 cm) (R); Pain 10/10; 19:30 BP 115 / 72; Pulse 86; Resp 17 S; Pulse Ox 98% on R/A; jd3 17:29 Body Mass Index 26.95 (75.75 kg, 167.64 cm) ca1 ED Course: 16:39 Patient arrived in ED. ag5 17:09 Lisa Turcios FNP-C [facility]. snw 17:09 Will Moreno MD is Attending Physician. snw 17:31 Triage completed. ca1 17:35 Arm band placed on right wrist. ca1 18:01 May Walker, RN is Primary Nurse. iw 18:02 Patient did not have IV access during this emergency room visit. iw 18:23 Ankle Left 3 View XRAY In Process Unspecified. EDMS 18:23 Foot Left 3 View XRAY In Process Unspecified. EDMS 19:30 No provider procedures requiring assistance completed. jd3 19:31 Patient has correct armband on for positive identification. Bed in low position. Call jd3 light in reach. Side rails up X 1. Adult w/ patient. Pulse ox on. NIBP on. Administered Medications: 19:12 Drug: Motrin 600 mg Route: PO; zb 19:47 Follow up: Response: No adverse reaction jd3 19:13 Drug: [place] 5 mg-325 mg 1 tabs Route: PO; zb 19:47 Follow up: Response: No adverse reaction jd3 19:25 Drug: Tetanus-Diphtheria Toxoid Adult 0.5 ml {Plate Grainer: Followap. Exp: jd3 06/23/2021. Lot #: [id number]. } Route: IM; Site: right deltoid; 19:47 Follow up: Response: No adverse reaction jd3 Outcome: 19:00 Discharge ordered by . snw 19:46 Discharged to home via wheelchair, with family. jd3 19:46 Condition: stable 19:46 Discharge instructions given to patient, family, Instructed on discharge instructions, follow up and referral plans. medication usage, Demonstrated understanding of instructions, follow-up care, medications, Prescriptions given X 2. 19:47 Patient left the ED. jd3 Signatures: Dispatcher [employer] Lisa Espinal, CAN REPAIRER-C CAN REPAIRER-Csnw May Walker, RN Orlando Alonso RN RN jd3 Acob, Cheryl, RN RN ca1 Gaskin, Ajare ag5 Brown, Zipporah, RN RN zb
--- NOTE | 2020-03-04 19:01 | EDPHYS ---
Physician Documentation [facility] Name: Mica Hanson Age: 39 yrs Sex: Female : 1980 Arrival Date: 03/04/2020 Time: 16:39 Bed 27 Private MD: JUAN Physician Will Moreno HPI: 03/04 19:05 This 39 yrs old Female presents to ER via Wheelchair with complaints of Ankle snw Injury. 19:05 The patient presents with decreased range of motion, an injury, pain, swelling, snw tenderness. The complaints affect the left ankle. Onset: The symptoms/episode began/occurred suddenly, 5 day(s) ago, and became persistent. Context: The problem was sustained at home, resulted from the patient tripping, The mechanism of injury involved inversion of the affected ankle. The patient can partially bear weight on the affected extremity. Associated signs and symptoms: Pertinent positives: swelling, warmth. Modifying factors: The symptoms are alleviated by sitting, the symptoms are aggravated by weight bearing. Severity of symptoms: At their worst the symptoms were moderate. The patient has not experienced similar symptoms in the past. The patient has not recently seen a physician. 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 - Social history:: Smoking status: Patient denies any tobacco usage or history of. ROS: 19:05 Constitutional: Negative for fever, chills, and weight loss, Eyes: Negative for injury, snw pain, redness, and discharge, ENT: Negative for injury, pain, and discharge, Neck: Negative for injury, pain, and swelling, Cardiovascular: Negative for chest pain, palpitations, and edema, Respiratory: Negative for shortness of breath, cough, wheezing, and pleuritic chest pain, Abdomen/GI: Negative for abdominal pain, nausea, vomiting, diarrhea, and constipation, Back: Negative for injury and pain, : Negative for injury, bleeding, discharge, and swelling, Skin: Negative for injury, rash, and discoloration, Neuro: Negative for headache, weakness, numbness, tingling, and seizure, Psych: Negative for depression, anxiety, suicide ideation, homicidal ideation, and hallucinations. 19:05 MS/extremity: Positive for injury or acute deformity, decreased range of motion, ecchymosis, pain, of the lateral aspect of left foot and left lateral ankle. Exam: 19:03 Constitutional: This is a well developed, well nourished patient who is awake, alert, snw and in no acute distress. Head/Face: Normocephalic, atraumatic. Eyes: Pupils equal round and reactive to light, extra-ocular motions intact. Lids and lashes normal. Conjunctiva and sclera are non-icteric and not injected. Cornea within normal limits. Periorbital areas with no swelling, redness, or edema. ENT: Nares patent. No nasal discharge, no septal abnormalities noted. Tympanic membranes are normal and external auditory canals are clear. Oropharynx with no redness, swelling, or masses, exudates, or evidence of obstruction, uvula midline. Mucous membranes moist. Neck: Trachea midline, no thyromegaly or masses palpated, and no cervical lymphadenopathy. Supple, full range of motion without nuchal rigidity, or vertebral point tenderness. No Meningismus. Chest/axilla: Normal chest wall appearance and motion. Nontender with no deformity. No lesions are appreciated. Cardiovascular: Regular rate and rhythm with a normal S1 and S2. No gallops, murmurs, or rubs. Normal PMI, no JVD. No pulse deficits. Respiratory: Lungs have equal breath sounds bilaterally, clear to auscultation and percussion. No rales, rhonchi or wheezes noted. No increased work of breathing, no retractions or nasal flaring. Abdomen/GI: Soft, non-tender, with normal bowel sounds. No distension or tympany. No guarding or rebound. No evidence of tenderness throughout. Back: No spinal tenderness. No costovertebral tenderness. Full range of motion. Neuro: Awake and alert, GCS 15, oriented to person, place, time, and situation. Cranial nerves II-XII grossly intact. Motor strength 5/5 in all extremities. Sensory grossly intact. Cerebellar exam normal. Normal gait. Psych: Awake, alert, with orientation to person, place and time. Behavior, mood, and affect are within normal limits. 19:03 Musculoskeletal/extremity: Extremities: grossly normal except: noted in the lateral aspect of left foot and left lateral ankle: contusion, decreased ROM, ecchymosis, swelling, tenderness, ROM: limited passive range of motion due to pain, in the left ankle, Circulation is intact in all extremities. Sensation intact. 19:03 Skin: Appearance: normal except for affected area, injury, contusion(s), that are deep, of the lateral aspect of left foot. Vital Signs: 17:29 BP 98 / 75; Pulse 94; Resp 18 S; Temp 97.8(TE); Pulse Ox 100% on R/A; Weight 75.75 kg ca1 (R); Height 5 ft. 6 in. (167.64 cm) (R); Pain 10/10; 19:30 BP 115 / 72; Pulse 86; Resp 17 S; Pulse Ox 98% on R/A; jd3 17:29 Body Mass Index 26.95 (75.75 kg, 167.64 cm) ca1 MDM: 18:05 Patient medically screened. snw 19:03 Data reviewed: vital signs, nurses notes. Data interpreted: Pulse oximetry: on room air snw is 100 %. Interpretation: normal. Counseling: I had a detailed discussion with the patient and/or guardian regarding: the historical points, exam findings, and any diagnostic results supporting the discharge/admit diagnosis, radiology results, the need for outpatient follow up, for definitive care, a orthopedic surgeon, to return to the emergency department if symptoms worsen or persist or if there are any questions or concerns that arise at home. Special discussion: Based on the history and exam findings, there is no indication for further emergent testing or inpatient evaluation. I discussed with the patient/guardian the need to see the orthopedic surgeon for further evaluation of the symptoms. I discussed with the patient/guardian the need to see the primary care provider for further evaluation of the symptoms. 03/04 17:38 Order name: Ankle Left 3 View XRAY; Complete Time: 19:43 ca1 03/04 17:38 Order name: Foot Left 3 View XRAY; Complete Time: 19:35 ca1 03/04 18:59 Order name: Walking boot; Complete Time: 19:26 snw Administered Medications: 19:12 Drug: Motrin 600 mg Route: PO; zb 19:47 Follow up: Response: No adverse reaction jd3 19:13 Drug: Foxworth 5 mg-325 mg 1 tabs Route: PO; zb 19:47 Follow up: Response: No adverse reaction jd3 19:25 Drug: Tetanus-Diphtheria Toxoid Adult 0.5 ml {Beam Warper: [employer]. Exp: jd3 06/23/2021. Lot #: [id number]. } Route: IM; Site: right deltoid; 19:47 Follow up: Response: No adverse reaction jd3 Disposition: 03/05 09:28 Co-signature as Attending Physician, Will Moreno MD I agree with the assessment and vanessa plan of care. Disposition: 03/04/20 19:00 Discharged to Home. Impression: Sprain of ankle. - Condition is Stable. - Discharge Instructions: Elastic Bandage and RICE, Ankle Sprain, VIS, Tetanus, Diphtheria (Td) - CDC, Cryotherapy, Walking Boot. - Prescriptions for Tylenol- Codeine #3 300-30 mg Oral Tablet - take 2 tablets by ORAL route every 6 hours As needed; 14 tablet. Diclofenac Sodium 75 mg Oral Tablet, Delayed Release (E.C.) - take 1 tablet by ORAL route 2 times per day; 14 tablet. - Medication Reconciliation Form, Thank You Letter, Antibiotic Education, Prescription Opioid Use form. - Follow up: Emergency Department; When: As needed; Reason: Worsening of condition. Follow up: Private Physician; When: 2 - 3 days; Reason: Recheck today's complaints, Continuance of care, Re-evaluation by your physician. Signatures: Dispatcher [employer] Will Huggins MD MD cha Waters, Shelly, INTERNATIONAL EXCHANGE COORDINATOR-C INTERNATIONAL EXCHANGE COORDINATOR-Aylaw Orlando Rod RN RN jd3 Suma Rich RN RN ca1 Brown, Zipporah, RN RN zb Corrections: (The following items were deleted from the chart) 03/04 19:47 19:00 03/04/2020 19:00 Discharged to Home. Impression: Sprain of ankle. Condition is jd3 Stable. Forms are Medication Reconciliation Form, Thank You Letter, Antibiotic Education, Prescription Opioid Use. Follow up: Emergency Department; When: As needed; Reason: Worsening of condition. Follow up: Private Physician; When: 2 - 3 days; Reason: Recheck today's complaints, Continuance of care, Re-evaluation by your physician. snw
[2020-03-04] MEDS ORDERED: IBUPROFEN 400 MG TAB ONE (19:25)
[2020-03-04] MEDS ORDERED: HYDROCODONE/APAP 5/325 MG TAB ONE (19:25)
[2020-03-04] MEDS ORDERED: IBUPROFEN 200 MG TAB PO ONE (19:25)
--- NOTE | 2020-03-04 19:31 | RAD REPORT ---
EXAM DESCRIPTION: RAD - Foot Left 3 View - 03/04/2020 6:23 pm CLINICAL HISTORY: Pain;Swellingtrip and fall, twisting injury to the foot and ankle COMPARISON: No comparisons FINDINGS: No fracture, dislocation or periosteal reaction. No acute or destructive bony process. No measurable plantar spur. A very thin spur is present at the Achilles attachment. No air or foreign body in the soft tissues. IMPRESSION: Negative left foot examination.
--- NOTE | 2020-03-04 19:35 | RAD REPORT ---
EXAM DESCRIPTION: RAD - Ankle Left 3 View - 03/04/2020 6:23 pm CLINICAL HISTORY: Pain;Swelling COMPARISON: Foot Left 3 View dated 03/04/2020 FINDINGS: No fracture, dislocation or periosteal reaction. Subtle cortical irregularity along the la teral margin of the tarsal navicular bone believed to be normal developmental variant. This bone is n ot typically injured with an inversion twisting injury. No joint effusion seen. No joint space narrow ing. Significant lateral soft tissue swelling is present. Less pronounced anterior joint soft tissue swelling present. IMPRESSION: Significant lateral soft tissue swelling no acute fracture confirmed. Follow-up MR imaging of the foot could be performed for occult bone injury if the patient does not re spond to conservative therapy.
[2020-03-04] MEDS ORDERED: TETANUS & DIPHTHERIA TOX,ADULT 0.5 ML VIAL ONE (19:38)
[2020-03-04 23:50] VITALS: TEMP 97.8
[2020-03-04 23:54] VITALS: BP 115/72; O2SAT 98
== END 2020-03-04 19:47 | disposition home or self-care (01) ==
LOC: ER 16:37
DX: S93.402A Sprain of unspecified ligament of left ankle, initial encounter (principal); W01.0XXA Fall on same level from slipping, tripping and stumbling without subsequent striking against object, initial encounter; Y93.9 Activity, unspecified; Y92.009 Unspecified place in unspecified non-institutional (private) residence as the place of occurrence of the external cause; Z23 Encounter for immunization; I10 Essential (primary) hypertension; E11.42 Type 2 diabetes mellitus with diabetic polyneuropathy; G40.909 Epilepsy, unspecified, not intractable, without status epilepticus
CPT/HCPCS: 90471; 90714; 99284

== ENCOUNTER 2021-11-03 19:12 | Emergency (ER) | payer OTHER ==
--- OUTSIDE RECORDS SUMMARY | 2021-11-03 19:16 | XMS REPORT | Continuity of Care Document ---
:1980 Author Organization [facility] t Address [address] [place] [address] Care Team Providers Name Role Phone Elbert House Primary Care Physician Elbert House Attending Clinician Payers Payer Name Policy Type Policy Number Effective Date Expiration Date S ource Problems Condition Condition Condition Status Onset Resolution Last Treating Co mments Source Name Details Category Date Date Treatment Clinician Date Other Other Disease Active Univers general general 1-20 [place] of counseling [place] advice and advice 00 Me dical for for Branch contracept contracept jakob jakob management management Diabetes Diabetes Disease Active 2022-0 Unive rs mellitus mellitus 1-20 ity of without without 00:00: [place] complicati complicati 00 Me dical on on Branch Other and Other and Disease Active Uni vers unspecifie unspecifie 07-06 it y of d ovarian d ovarian 00:[place] cyst cyst 00 [facility] Female Female Disease Active Overview: Dolores salmeron genital genital 07-06 Formattin ity o f symptoms symptoms 00:00: g of this Rios as 00 note Medical might be Branch different from the original. ICD10 Diagnosis Term Clinical Education Manager Utility History of History of Disease Active U russell tubal tubal 07-06 ity of ligation ligation 00:00: Medical Branch Overweight Overweight Disease Active U russell (BMI (BMI 07-06 ity of 25.0-29.9) 25.0-29.9) [place] [facility] [place] Anemia Anemia Disease Active Overview: Dolores s 07-06 Formattin ity of 00:00: g of this note Medical might be Branch different from the original. ICD10 Diagnosis Term Clinical Education Manager Utility Asthma Asthma Disease Active Overview: Dolores s 07-06 Formattin ity of 00:00: g of this note Medical might be Branch different from the original. ICD10 Diagnosis Term Clinical Education Manager Utility Generalize Generalize Disease Active U nivers d anxiety d anxiety 07-06 ity of disorder disorder 00:00: [place] [facility] Irregular Irregular Problem Active Com mon menses menses [facility] - [facility] Encounter Encounter Problem Active Com mon for for Spirit screening screening - CH I mammogram mammogram for breast for breast [facility] cancer [facility] Well woman Well woman Problem Active C ommon exam with exam with Spir it routine routine - gynecologi gynecologi [facility] exam surekha exam [facility] Severe Severe Problem Active Common sprain of sprain of Spir it right right - [facility] ankle, ankle, St initial initial [facility] encounter encounter [facility] Acute Acute Problem Active Common right right Spirit ankle pain ankle pain - [facility] Strain of Strain of Problem Active Com mon tendon of tendon of Spir it long long - CHI flexor flexor St muscle of muscle of [place] s toe at toe at Medical right right Center ankle and ankle and foot level foot level Stress Stress Problem Active Common fracture fracture Spirit of right of right - [facility] calcaneus calcaneus St with with [facility] routine routine Medical healing, healing, Center subsequent subsequent encounter encounter Allergies, Adverse Reactions, Alerts Allergy Allergy Status Severity Reaction(s) Onset Inactive Treating Comm ents Source Name Type Date Date Clinician No Known DA Active U [facility] Allergie 9-15 [place] 00:00: [address] Social History Social Habit Start Date Stop Date Quantity Comments Source History of Smoker University of tobacco use [place] [facility] [place] History SDOH [facility] [place] [facility] University o f Alcohol Std [place] [facility] Drinks Branch History SDOH University o f Alcohol Binge [place] [facility] [place] Exposure to 2021-09-29 2021-10-09 Not sure University of SARS-CoV-2 00:00:00 14:17:00 [facility] (event) [place] Alcohol intake 2021-10-09 2021-10-09 Current drinker of Un iversity of 00:00:00 00:00:00 alcohol (finding) [facility] [place] [facility] Tobacco use and 2021-05-01 2021-05-01 Current user Univers ity of exposure 00:00:00 00:00:00 [facility] Alcohol Comment 2014-07-06 2014-07-06 occasionally Univers ity of 00:00:00 00:00:00 [facility] Sex Assigned At [birth year] Universit y of 00:00:00 00:00:00 [facility] Smoking Status Start Date Stop Date Source Former smoker 2021-05-01 00:00:00 2021-05-01 00:00:00 Universi of [facility] Medications Ordered Filled Start Stop Current Ordering Indication Dosage Frequency Signature Comments Components Source Medication Medication Date Date Medication? Clinician (SIG) Name Name terconazole 2021- Yes [id number] 80mg Insert 1 Univers 80 mg 10-09 Suppositor ity of vaginal 00:00: 04:59 y into [place] suppository 00 :00 vagina at [facility] bedtime [place] for 3 days. metformin Yes 1000mg Take 1,000 Univers HCl 1-20 mg by ity of (METFORMIN 13:17: mouth. [place] ORAL) 10 Medical Branch clopidogrel Yes Take by Un janeth bisulfate 1-20 mouth. ity of (PLAVIX 13:17: [place] ORAL) 10 Medical Branch pregabalin Yes Take by Uni vers (LYRICA 1-20 mouth. ity of ORAL) 13:17: [place] 10 Medical Branch amitriptyli Yes Take by Un janeth ne HCl 1-20 mouth. ity of (AMITRIPTYL 13:17: [place] INE ORAL) 10 Medical Branch metformin Yes 1000mg Take 1,000 Univers HCl 1-20 mg by ity of (METFORMIN 13:17: mouth. [place] ORAL) 10 Medical Branch clopidogrel Yes Take by Un janeth bisulfate 1-20 mouth. ity of (PLAVIX 13:17: [place] ORAL) 10 Medical Branch pregabalin Yes Take by Uni vers (LYRICA 1-20 mouth. ity of ORAL) 13:17: [place] 10 [facility] Branch amitriptyli Yes Take by Un janeth ne HCl 1-20 mouth. ity of (AMITRIPTYL 13:17: [place] INE ORAL) 10 Medical Branch Tramadol Tramadol 2019- No Isaac as Co mmon HCl HCl 6-20 07-20 Peng directed Spirit 00:00: 00:00 - [facility] 00 :00 [facility] Sulfamethox Sulfamethox Yes Isaac not Common azole-Trime azole-Trime Peng defined Spirit thoprim thoprim - [facility] Acetaminoph Acetaminoph Yes Isaac not Common en-Codeine en-Codeine Peng defined Spirit #3 #3 - [facility] Tramadol Tramadol Yes Isaac not Commo n HCl HCl Peng defined Spirit - [facility] PredniSONE PredniSONE Yes Isaac (Prior Common Peng Auth: Rx Spirit Ref#:[id number] - [facility]I 79) [facility] Topiramate Topiramate Yes Isaac (Prior Common Peng Auth: Rx Spirit Ref#:[id number] - [facility]I 10) [facility] Clotrimazol Clotrimazol Yes Isaac (Prior Common e e Peng Auth: Rx Spirit Anti-Fungal Anti-Fungal Ref#:[id number] - [facility]I 42) [facility] Gabapentin Gabapentin Yes Isaac (Prior Common Peng Auth: Rx Spirit Ref#:[id number] - [facility]I 77) [facility] Vitamin D Vitamin D Yes Isaac not Com mon (Ergocalcif (Ergocalcif Peng defined Spirit marino) marino) - [facility] Cetirizine Cetirizine Yes Isaac (Prior Common HCl HCl Peng Auth: Rx Spirit Ref#:[id number] - [facility] 97) [facility] Levetiracet Levetiracet Yes Isaac (Prior Common am am Peng Auth: Rx Spirit Ref#:[id number] - [facility] 78) [facility] Clopidogrel Clopidogrel Yes Isaac not Common Bisulfate Bisulfate Peng defined [facility] Amitriptyli Amitriptyli Yes Isaac (Prior Common ne HCl ne HCl Peng Auth: Rx Spiri t Ref#:[id number] - CHI 16) [facility] Fluconazole Fluconazole Yes Isaac (Prior Common Peng Auth: Rx Spirit Ref#:[id number] - [facility] 96) [facility] Pantoprazol Pantoprazol Yes Isaac (Prior Common e Sodium e Sodium Peng Auth: Rx S pirit Ref#:[id number] - [facility]I 27) [facility] Mupirocin Mupirocin Yes Isaac not Com mon Peng defined [facility] Triamcinolo Triamcinolo Yes Isaac (Prior Common ne ne Peng Auth: Rx Spirit Acetonide Acetonide Ref#:[id number] - [facility] 80) [facility] Lyrica Lyrica Yes Isaac not Common Peng defined [facility] Metformin Metformin Yes Isaac not Com mon HCl HCl Peng defined [facility] Immunizations Ordered Filled Immunization Date Status Comments Sour e Immunization Name Name TDAP (ADACEL) 2000-11-10 Completed University of VACCINE 00:00:00 [facility] TDAP (ADACEL) 2000-11-10 Completed [facility] VACCINE 00:00:00 [facility] Vital Signs Vital Name Observation Time Observation Value Comments Source Systolic blood 2021-10-09 19:17:00 138 mm[Hg] Univer sity of pressure [facility] Diastolic blood 2021-10-09 19:17:00 87 mm[Hg] Unive rsity of pressure [facility] Heart rate 2021-10-09 19:17:00 101 /min [facility] Body temperature 2021-10-09 19:17:00 36.11 L[facility] Respiratory rate 2021-10-09 19:17:00 18 /min [facility] Body height 2021-10-09 19:17:00 167.6 cm [facility] Body weight 2021-10-09 19:17:00 79.153 kg [facility] BMI 2021-10-09 19:17:00 28.17 kg/m2 [facility] Procedures This patient has no known procedures. Encounters Start End Encounter Admission Attending Care Care Encounter Source Date/Time Date/Time Type Type Clinicians Facility Department ID 2021-10-14 2021-10-[address] [facility] [id number] Univers 00:00:00 00:00:00 Ree Boswell SERVICE PARTS COORDINATOR [id number] ity of [facility] [id number] Rios as MATERNAL [id number] [facility] & CHILD [address] [place] [address] 2021-10-09 2021-10-[address] [facility] [id number] Univers 14:00:00 14:46:06 Visit Ree Boswell SERVICE PARTS COORDINATOR [id number] ity of [facility] [id number] Rios as MATERNAL [id number] [facility] & [address] 2018-12-08 2018-12-08 Outpatient [place] [id number] Common 13:19:00 13:19:00 t [facility] 2018-10-25 2018-10-25 Outpatient [facility] [place] [id number] Common 09:00:00 09:00:00 t [facility] - [facility] 2018-10-11 2018-10-11 Outpatient Karen [place] [id number] Common 14:30:00 14:30:00 t [facility] Sp[facility] t [facility] Joint - [facility] 2018-09-29 2018-09-29 Outpatient Karen Manzano [id number] Common 16:33:00 16:33:00 t [facility] Sp[facility] t [facility] - [facility] 2018-05-02 2018-05-02 Outpatient Karen Manzano [id number] Common 13:45:00 13:45:00 t [facility]omens [facility] Care S [facility] Clinic - Clinic [facility] Results This patient has no known results.
--- NOTE | 2021-11-03 22:04 | RAD REPORT ---
EXAM DESCRIPTION: RAD - Chest Single View - 11/03/2021 9:45 pm CLINICAL HISTORY: SOB, fall with chest trauma, rib pain with side not specified COMPARISON: Portable 10/18/2019 TECHNIQUE: AP portable chest image was obtained 11/03/2021 9:45 pm . FINDINGS: Lung volumes are low. Minimal stranding in the left lung base a simply be atelectasis. Min imal pulmonary contusion is possible if the patient has pain symptoms are on the left side. Heart and vasculature are normal. No measurable pleural effusion and no pneumothorax. No acute aortic findings suspected. No gross rib deformity seen; however, rib detail is limited on shallow inspiration portable exam. Ded icated rib films could be obtained warranted. IMPRESSION: No pneumothorax or gross rib deformity seen. Dedicated rib films could be obtained for b shanna detailed warranted. Trace amount of stranding in the left lung base could be minimal pulmonary contusion the patient has left chest symptoms. Atelectasis can also give this presentation.
[2021-11-03] MEDS ORDERED: MORPHINE 4 MG/ML SYR ONE (23:15)
[2021-11-03] MEDS ORDERED: ONDANSETRON 4 MG/2 ML VIAL ONE (23:15)
[2021-11-03 23:48] LABS: Absolute Lymphocytes (CBC) 2.3 K/uL (0.7-4.9); Hematocrit 43.3 % (36.0-45.0); Lymphocytes % 35.8 % (15.3-44.8); MCV 88.4 fL (80-100); MPV 8.3 fL (7.6-11.3)
[2021-11-03 23:59] LABS: Urine Blood Negative (Negative); Urine Glucose 2+ (Negative); Urine Protein Negative (Negative); Urine Specific Gravity 1.015 (1.005-1.030)
[2021-11-04] LABS: Potassium 3.1 mmol/L (3.5-5.1)
[2021-11-04 00:23] LABS: Urine Specific Gravity/Preg 1.015 (1.005-1.030)
[2021-11-04] MEDS ORDERED: INSULIN -REGULAR HUMAN 50 UNIT/0.5 ML ML ONE (01:10)
[2021-11-04] MEDS ORDERED: POTASSIUM 25 MEQ EFFERV TAB ONE (01:11)
[2021-11-04] MEDS ORDERED: NA CHLORIDE 0.9% 1,000 ML ONE (01:11)
[2021-11-04] MEDS ORDERED: MORPHINE 4 MG/ML SYR ONE (02:29)
--- NOTE | 2021-11-04 02:54 | EDPHYS ---
Physician Documentation [facility] Name: Mica Hanson Age: 41 yrs Sex: Female : 1980 Arrival Date: 11/03/2021 Time: 19:17 Bed Treatment Private MD: ED Physician Farhan Busch HPI: 11/03 22:25 This 41 yrs old Female presents to ER via Ambulatory with complaints of Chest cp Pain, Breathing Difficulty. 22:25 The patient or guardian reports chest pain that is located primarily in the anterior cp chest wall. 22:25 Onset: 2 day(s) ago. The pain does not radiate. cp 22:25 Patient reports she landed hard on chest while attempting to slide on slip and slide. cp Patient with history of cardiac occluder placement. 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 - Social history:: Smoking status: Patient denies any tobacco usage or history of. ROS: 22:30 Constitutional: Negative for body aches, chills, fever, poor PO intake. cp 22:30 Eyes: Negative for injury, pain, redness, and discharge. cp 22:30 Cardiovascular: Positive for chest pain, Negative for edema, palpitations. 22:30 Respiratory: Positive for shortness of breath, Negative for cough, wheezing. 22:30 Abdomen/GI: Positive for abdominal pain, Negative for vomiting, diarrhea, constipation. 22:30 Back: Negative for pain at rest, pain with movement, radiated pain. cp 22:30 Neuro: Negative for altered mental status, dizziness, headache, numbness, syncope, weakness. 22:30 All other systems are negative. Exam: 22:35 Constitutional: The patient appears in no acute distress, alert, awake, cp non-diaphoretic, non-toxic, well developed, well nourished, uncomfortable. 22:35 Head/Face: Normocephalic, atraumatic. cp 22:35 Eyes: Periorbital structures: appear normal, Conjunctiva: normal, no exudate, no injection, Sclera: no appreciated abnormality, Lids and lashes: appear normal, bilaterally. 22:35 ENT: External ear(s): are unremarkable, Nose: is normal, Mouth: Lips: moist, Oral mucosa: pink and intact, moist, Posterior pharynx: Airway: no evidence of obstruction, patent. 22:35 Neck: ROM/movement: is normal, is supple, without pain, no range of motions limitations. 22:35 Chest/axilla: Inspection: normal, Palpation: crepitus, is not appreciated, tenderness, that is moderate, of the anterior aspect of right upper chest, anterior aspect of left upper chest and mid-sternal area. 22:35 Cardiovascular: Rate: normal, Rhythm: regular, Edema: is not appreciated, JVD: is not appreciated. 22:35 Respiratory: the patient does not display signs of respiratory distress, Respirations: normal, no use of accessory muscles, no retractions, labored breathing, is not present, Breath sounds: are clear throughout, no decreased breath sounds, no stridor, no wheezing. 22:35 Abdomen/GI: Inspection: abdomen appears normal, Bowel sounds: active, all quadrants, Palpation: soft, in all quadrants, mild abdominal tenderness, in the left upper quadrant, rebound tenderness, is not appreciated, voluntary guarding, is not appreciated, involuntary guarding, is not appreciated. 22:35 Back: CVA tenderness, is absent, vertebral tenderness, is not appreciated. 22:35 Skin: cellulitis, is not appreciated, no rash present. 22:35 Neuro: Orientation: to person, place \T\ time. Mentation: is normal, Motor: moves all fours, strength is normal, Sensation: is normal. Vital Signs: 19:33 BP 141 / 67; Pulse 86; Resp 20; Temp 98.2; Pulse Ox 100% on R/A; Weight 78.93 kg; bh1 Height 5 ft. 6 in. (167.64 cm); Pain /10; 11/04 00:00 BP 127 / 83; Pulse 72; Resp 18; Pulse Ox 96% on R/A; ll3 00:58 BP 133 / 84; Pulse 76; Resp 18; Pulse Ox 95% on R/A; 1 02:23 BP 043 / 85; Pulse 74; Resp 18; Pulse Ox 96% on R/A; 1 03:31 BP 123 / 85; Pulse 88; Resp 18; Pulse Ox 98% on R/A; 1 11/03 19:33 Body Mass Index 28.08 (78.93 kg, 167.64 cm) [facility] MDM: 11/03 22:09 Patient medically screened. 11/04 00:00 Differential diagnosis: acute pericarditis, chest wall pain, pneumonia, pneumothorax, cp contusion, fracture. 02:53 Data reviewed: vital signs, nurses notes, lab test result(s), EKG, radiologic studies, cp CT scan. 02:53 Test interpretation: by ED physician or midlevel provider: ECG, plain radiologic cp studies. Counseling: I had a detailed discussion with the patient and/or guardian regarding: the historical points, exam findings, and any diagnostic results supporting the discharge/admit diagnosis, lab results, radiology results, to return to the emergency department if symptoms worsen or persist or if there are any questions or concerns that arise at home. Response to treatment: the patient's symptoms have markedly improved after treatment, and as a result, I will discharge patient. ED course: VSS. Pain improved. CT results negative for acute trauma. Will discharge to home for continued monitoring. 11/03 22:28 Order name: Basic Metabolic Panel; Complete Time: 00:49 cp 11/04 00:49 Interpretation: Normal except: NA 135; K 3.1; GLUC 386. cp 11/03 22:28 Order name: CBC with Diff; Complete Time: 00:49 cp 11/03 22:28 Order name: Type And Screen; Complete Time: 00:49 cp 11/03 23:59 Order name: Urine --Ancillary (enter results); Complete Time: 00:49 mw2 11/04 00:00 Order name: Urine Dipstick-Ancillary; Complete Time: 00:49 EDMS 11/04 02:11 Order name: Glucose, Ancillary Testing EDMA 11/03 21:02 Order name: Chest Single View XRAY; Complete Time: 23:52 lp1 11/03 23:53 Interpretation: Report review. cp 11/03 22:28 Order name: CT Chest, Abdomen, Pelvis - W/Contrast cp 11/03 22:28 Order name: Labs collected and sent; Complete Time: 23:34 cp 11/03 22:28 Order name: Urine Dipstick-Ancillary (obtain specimen); Complete Time: 00:01 cp 11/03 22:28 Order name: Urine Test (obtain specimen); Complete Time: 00:01 cp Administered Medications: 11/03 23:34 Drug: morphine 4 mg Route: IVP; Infused Over: 4 mins; Site: left antecubital; [facility] 11/04 00:00 Follow up: Response: No adverse reaction [facility] 11/03 23:34 Drug: Zofran (Ondansetron) 4 mg Route: IVP; Site: left antecubital; [facility] 11/04 00:00 Follow up: Response: No adverse reaction [facility] 01:10 Drug: Insulin Regular Human 10 units {Co-Signature: huong (Shikha Jane RN).} Route: IVP; [facility] Site: left antecubital; 01:11 Follow up: Response: No adverse reaction [facility] 01:10 Drug: NS 0.9% 1000 ml Route: IV; Rate: 1 bolus; Site: left antecubital; 1 01:59 Follow up: IV Status: Completed infusion; IV Intake: 1000ml [facility] 01:10 Drug: Potassium Effervescent Tablet 50 mEq Route: PO; 1 01:11 Follow up: Response: No adverse reaction [facility] 02:23 Drug: morphine 4 mg Route: IVP; Infused Over: 4 mins; Site: left antecubital; [facility] 03:30 Follow up: Response: No adverse reaction [facility] Disposition: 05:37 Co-signature as Attending Physician, Farhan Busch MD I agree with the assessment and kdr plan of care. Disposition Summary: 11/04/21 02:53 Discharge Ordered Location: Home cp Problem: new cp Symptoms: have improved cp Condition: Stable cp Diagnosis - Chest pain, unspecified cp - Abdominal pain, unspecified cp Followup: cp - With: Private Physician - When: 1 - 2 days - Reason: Recheck today's complaints Discharge Instructions: - Discharge Summary Sheet cp - Abdominal Pain, Adult cp - Contusion cp - Chest Wall Pain cp Forms: - Medication Reconciliation Form cp - Thank You Letter cp - Antibiotic Education cp - Prescription Opioid Use cp Prescriptions: - Naprosyn 500 mg Oral Tablet - take 1 tablet by ORAL route 2 times per day take with food; 30 tablet; Refills: cp 0, Product Selection Permitted - Tramadol 50 mg Oral Tablet - take 1 tablet by ORAL route every 8 hours as needed; 12 tablet; Refills: 0, cp Product Selection Permitted Signatures: Dispatcher [employer] EDMA Farhan Busch MD MD kdr Will Bustillos PA PA cp Robin Flores RN RN ll3 Enedina Yun RN RN 1 Shikha Jane RN lp1 Corrections: (The following items were deleted from the chart) 17:30 17:28 Patient reports she landed hard on chest while attempting to slide on slip and cp slide. cp
--- NOTE | 2021-11-04 02:54 | ER ---
Nurse's Notes [facility] Name: Mica Hanson Age: 41 yrs Sex: Female : 1980 Arrival Date: 11/03/2021 Time: 19:17 Bed Treatment Private MD: Diagnosis: Chest pain, unspecified;Abdominal pain, unspecified Presentation: 11/03 19:33 Chief complaint: Patient states: WAS ON A SLIP AND SLID ON WEDNESDAY AND FELL AND HIT [facility] CHEST ON GROUND. 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 Coronavirus screen: Vaccine status: Patient reports receiving the 2nd dose of the covid vaccine. At this time, the client does not indicate any symptoms associated with coronavirus-19. Ebola Screen: Patient negative for fever greater than or equal to 101.5 degrees Fahrenheit, and additional compatible Ebola Virus Disease symptoms. Initial Sepsis Screen: Does the patient meet any 2 criteria? No. Patient's initial sepsis screen is negative. Does the patient have a suspected source of infection? No. Patient's initial sepsis screen is negative. Risk Assessment: Do you want to hurt yourself or someone else? Patient reports no desire to harm self or others. Onset of symptoms was November 01, 2021. 19:33 Method Of Arrival: Ambulatory [facility] 19:33 Acuity: MAURICE 3 [facility] Triage Assessment: 19:35 General: Appears in no apparent distress. uncomfortable, Behavior is calm, cooperative, [facility] appropriate for age. Pain: Complains of pain in anterior aspect of left upper chest. Cardiovascular: No deficits noted. 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 - Social history:: Smoking status: Patient denies any tobacco usage or history of. Screenin/26 00:59 Abuse screen: Denies threats or abuse. Nutritional screening: No deficits noted. [facility] Tuberculosis screening: No symptoms or risk factors identified. Fall Risk None identified. Assessment: 11/03 22:18 General: Appears uncomfortable, Behavior is calm, cooperative. Pain: Complains of pain ll3 in chest Pain does not radiate. Pain currently is 10 out of 10 on a pain scale. Pain began Wednesday. Neuro: Level of Consciousness is awake, alert, obeys commands, Oriented to person, place, time, situation. Cardiovascular: Patient's skin is warm and dry. Cardiovascular: Reports chest pain, States fell on chest area on wednesday. Respiratory: Respiratory effort is even, unlabored, Respiratory pattern is regular, symmetrical. Derm: Skin is pink, warm \T\ dry. 11/04 00:00 Reassessment: Patient and/or family updated on plan of care and expected duration. Pain ll3 level reassessed. Patient is alert, oriented x 3, equal unlabored respirations, skin warm/dry/pink. Patient states symptoms have improved. Vital Signs: 11/03 19:33 BP 141 / 67; Pulse 86; Resp 20; Temp 98.2; Pulse Ox 100% on R/A; Weight 78.93 kg; 1 Height 5 ft. 6 in. (167.64 cm); Pain 10/10; 11/04 00:00 BP 127 / 83; Pulse 72; Resp 18; Pulse Ox 96% on R/A; ll3 00:58 BP 133 / 84; Pulse 76; Resp 18; Pulse Ox 95% on R/A; [facility] 02:23 BP 043 / 85; Pulse 74; Resp 18; Pulse Ox 96% on R/A; [facility] 03:31 BP 123 / 85; Pulse 88; Resp 18; Pulse Ox 98% on R/A; [facility] 11/03 19:33 Body Mass Index 28.08 (78.93 kg, 167.64 cm) [facility] ED Course: 11/03 19:17 Patient arrived in ED. ja2 19:35 Triage completed. [facility] 19:35 Arm band placed on right wrist. [facility] 20:56 Will Bustillos PA is PHCP. cp 20:56 Farhan Busch MD is Attending Physician. cp 21:47 Chest Single View XRAY In Process Unspecified. EDMS 22:18 Robin Flores, JUDIE is Primary Nurse. 3 23:34 Inserted saline lock: 22 gauge in left antecubital area, using aseptic technique. Blood ll3 collected. 11/04 00:29 CT Chest, Abdomen, Pelvis - W/Contrast In Process Unspecified. EDMS 00:59 No apparent distress. Resting quietly. Awaiting lab results, Awaiting radiology results.bh1 02:00 Patient has correct armband on for positive identification. Pulse ox on. NIBP on. bh1 02:00 No provider procedures requiring assistance completed. Patient maintains SpO2 1 saturation greater than 95% on room air. 02:01 Notified Nurse Practitioner and/or Physician Store Sales Manager of [place] 165. bh1 02:23 No apparent distress. Resting quietly. Awaiting radiology results. 1 03:30 IV discontinued, intact, bleeding controlled, No redness/swelling at site. [facility] Administered Medications: 11/03 23:34 Drug: morphine 4 mg Route: IVP; Infused Over: 4 mins; Site: left antecubital; 3 11/04 00:00 Follow up: Response: No adverse reaction 3 11/03 23:34 Drug: Zofran (Ondansetron) 4 mg Route: IVP; Site: left antecubital; 3 11/04 00:00 Follow up: Response: No adverse reaction 3 01:10 Drug: Insulin Regular Human 10 units {Co-Signature: lp1 (Shikha Jane RN).} Route: IVP; [facility] Site: left antecubital; 01:11 Follow up: Response: No adverse reaction 1 01:10 Drug: NS 0.9% 1000 ml Route: IV; Rate: 1 bolus; Site: left antecubital; 1 01:59 Follow up: IV Status: Completed infusion; IV Intake: 1000ml [facility] 01:10 Drug: Potassium Effervescent Tablet 50 mEq Route: PO; 1 01:11 Follow up: Response: No adverse reaction [facility] 02:23 Drug: morphine 4 mg Route: IVP; Infused Over: 4 mins; Site: left antecubital; 1 03:30 Follow up: Response: No adverse reaction [facility] Medication: 00:59 VIS not applicable for this client. [facility] Intake: 01:59 IV: 1000ml; Total: 1000ml. [facility] Outcome: 02:53 Discharge ordered by . cp 03:30 Discharged to home ambulatory. [facility] 03:30 Condition: good 03:30 Discharge instructions given to patient, family, Instructed on discharge instructions, follow up and referral plans. medication usage, Demonstrated understanding of instructions, follow-up care, medications, Prescriptions given X 2. 03:31 Patient left the ED. [facility] Signatures: Dispatcher [employer] EDMS Will Bustillos PA PA cp Alexander, Jessica ja2 Loubet, Lynsea RN RN 3 Enedina Yun RN RN 1 Shikha Jane RN lp1
[2021-11-04 03:51] VITALS: TEMP 98.2
[2021-11-04 04:06] VITALS: BP 123/85; O2SAT 98
--- NOTE | 2021-11-04 10:09 | RAD REPORT ---
EXAM DESCRIPTION: CT Chest, Abdomen and Pelvis With Intravenous Contrast CLINICAL HISTORY: The patient is 41 years old and is Female; chest and abdomen pain TECHNIQUE: Axial computed tomography images of the chest, abdomen and pelvis with intravenous contra st. Sagittal and coronal reformatted images were created and reviewed. This CT exam was performed using one or more of the following dose reduction techniques: automated exposure control, adjustme nt of the mA and/or kV according to patient size, and/or use of iterative reconstruction technique. COMPARISON: No relevant prior studies available. FINDINGS: CHEST: Lungs: Unremarkable. No mass. No consolidation. Pleural space: Unremarkable. No significant effusion. No pneumothorax. Heart: Unremarkable. No cardiomegaly. No significant pericardial effusion. No significant c oronary artery calcifications. ABDOMEN: Liver: Unremarkable. No mass. Gallbladder and bile ducts: Unremarkable. No calcified stones. No ductal dilation. Pancreas: Unremarkable. No ductal dilation. No mass. Spleen: Unremarkable. No splenomegaly. Adrenals: Unremarkable. No mass. Kidneys and ureters: Unremarkable. No hydronephrosis. No solid mass. Stomach and bowel: Unremarkable. No obstruction. No mucosal thickening. PELVIS: Appendix: The appendix is normal. Bladder: Unremarkable. No mass. Reproductive: Unremarkable as visualized. CHEST, ABDOMEN and PELVIS: Intraperitoneal space: Unremarkable. No significant fluid collection. No free air. Bones/joints: Unremarkable. No acute fracture. No dislocation. Soft tissues: Unremarkable. Vasculature: Unremarkable. No aortic aneurysm. Lymph nodes: Unremarkable. No enlarged lymph nodes. IMPRESSION: No acute findings in the chest, abdomen or pelvis. Electronically signed by: James Rosales MD 11/04/2021 2:42 AM CDT Due to temporary technical issues with the PACS/Fluency reporting system, reports are being signed by the in house radiologists without review as a courtesy to insure prompt reporting. The interpreting radiologist is fully responsible for the content of the report.
== END 2021-11-04 03:31 | disposition home or self-care (01) ==
LOC: ER 19:12
DX: R07.89 Other chest pain (principal); R10.12 Left upper quadrant pain; I10 Essential (primary) hypertension; E11.9 Type 2 diabetes mellitus without complications; Z79.4 Long term (current) use of insulin; Z86.73 Personal history of transient ischemic attack (TIA), and cerebral infarction without residual deficits
CPT/HCPCS: 85025; 80048; 36415; 86900; 86850; 81025; 86901; 82947; 81003; 71260; 74177; 71045; Q9967; J1815; J7030; J2405; 96361; 96374; 96375; 99284

== ENCOUNTER 2022-04-27 11:45 | Inpatient (IN) | payer SELFPAY ==
--- OUTSIDE RECORDS SUMMARY | 2022-04-27 11:50 | XMS REPORT | Continuity of Care Document ---
:1980 Author Organization [facility] t Address [address] [place] [address] Care Team Providers Name Role Phone Ree House Primary Care Physician [phone] REE GILL Attending Clinician Unavailable Ree House Attending Clinician [phone] YANG BUCHANAN Attending Clinician Unavailable Yang Bell Attending Clinician Payers Payer Name Policy Type Policy Number Effective Date Expiration Date S [facility] [id number] 2021 2021 WOMEN 00:00:00 00:00:00 Problems Condition Condition Condition Status Onset Resolution Last Treating Co mments Source Name Details Category Date Date Treatment Clinician Date Diabetes Diabetes Disease Active Unive rs type 2, type 2, - ity of uncontroll uncontroll [place] 00 Medical [facility] Other Other Disease Active Univers depression depression 12-30 it y of 00:00: [place] [facility] Other Other Disease Active Univers general general 1-20 ity of counseling counseling 00:[place] and advice and advice 00 Me dical for for Branch contracept contracept jakob jakbo management management Diabetes Diabetes Disease Active Unive rs mellitus mellitus -20 ity of without without 00:00: [place] complicati complicati 00 Me dical on on Branch Other and Other and Disease Active Uni vers unspecifie unspecifie 07-06 it y of d ovarian d ovarian 00:00: Mirian s cyst cyst 00 Medical Branch Female Female Disease Active Overview: Univer s genital genital 07-06 Formattin ity o f symptoms symptoms 00:00: g of this Rios as 00 note Medical might be Branch different from the original. ICD10 Diagnosis Term Director Check Utility History of History of Disease Active U russell tubal tubal 07-06 ity of ligation ligation 00:00: Medical Branch Overweight Overweight Disease Active U nivers (BMI (BMI 3- ity of 25.0-29.9) 25.0-29.9) [place] 00 [place] Anemia Anemia Disease Active Overview: Univer s 07-06 Formattin ity of 00:00: g of this note Medical might be Branch different from the original. ICD10 Diagnosis Term Director Check Utility Asthma Asthma Disease Active Overview: Univer s 07-06 Formattin ity of 00:00: g of this note Medical might be Branch different from the original. ICD10 Diagnosis Term Director Check Utility Generalize Generalize Disease Active U nivers d anxiety d anxiety 07-06 ity of disorder disorder 00:00: Medical Branch Irregular Irregular Problem Active Com mon menses menses Spirit - [facility] Encounter Encounter Problem Active Com mon for for Spirit screening screening - CH I mammogram mammogram St for breast for breast [facility] cancer [facility] Well woman Well woman Problem Active C ommon exam with exam with Spir it routine routine - CHI gynecologi gynecologi St surekha exam surekha exam [facility] Severe Severe Problem Active Common sprain of sprain of Spir it right right - CHI ankle, ankle, St initial initial [facility] encounter encounter [facility] Acute Acute Problem Active Common right right Spirit ankle pain ankle pain - [facility] Strain of Strain of Problem Active Com mon tendon of tendon of Spir it long long - CHI flexor flexor St muscle of muscle of ke s toe at toe at Medical right [...] Known DA Active U [facility] Allergie 12-25 [facility] 00:00: [address] NO KNOWN Drug Active Univers ALLERGIE Class ity of S [facility] Social History Social Habit Start Date Stop Date Quantity Comments Source History of Cigarette Smoker Universi ty of tobacco use [place] [facility] History SDOH University o f [facility] History SDOH University o f Alcohol Std [place] [facility] Drinks Branch History SDOH University o f Alcohol Binge [facility] al Branch Exposure to 2021-12-27 2022-01-06 Not sure University of SARS-CoV-2 00:00:00 13:51:00 [facility] (event) Branch Alcohol intake 2022-01-06 2022-01-06 Current drinker of Un iversity of 00:00:00 00:00:00 alcohol (finding) [facility] edical Branch Tobacco use and 2021-12-30 2021-12-30 User of smokeless Un iversity of exposure 00:00:00 00:00:00 tobacco [facility] Alcohol Comment 2014-07-06 2014-07-06 occasionally Univers ity of 00:00:00 00:00:00 [facility] Sex [birth year] At [birth year] Universit y of 00:00:00 00:00:00 [facility] Smoking Status Start Date Stop Date Source Ex-smoker 2021-12-30 00:00:00 2021-12-30 00:00:00 [facility] Medications Ordered Filled Start Stop Current Ordering Indication Dosage Frequency Signature Comments Components Source Medication Medication Date Date Medication? Clinician (SIG) Name Name Nitrofurant 2021-04- No [id number] 100mg Take 1 Univers oin&Nit. 0-04 10-15 capsule by ity of Macrocryst 00:00: 04:59 [place] (MACROBID[place] 00 :00 the Medical 100 mg morning Branch capsule and 1 capsule in the evening. Do all this for 10 days. Nitrofurant 2021-04- No [id number] 100mg Take 1 Univers oin&Nit. 0-04 10-15 capsule by ity of Macrocryst 00:00: 04:59 [place] (MACROBID[place] 00 :00 the Medical 100 mg morning Branch capsule and 1 capsule in the evening. Do all this for 10 days. terconazole Yes [id number] 1{appli Insert 1 Univers 0.4 % 9-20 cator} Applicator ity of vaginal 00:00: into [place] cream 00 vagina at Medical bedtime. Branch For 3 nights terconazole Yes [id number] 1{appli Insert 1 Univers 0.4 % 9-20 cator} Applicator ity of vaginal 00:00: into [place] cream 00 vagina at Medical bedtime. Branch For 3 nights terconazole Yes [id number] 1{appli Insert 1 Univers 0.4 % 9-20 cator} Applicator ity of vaginal 00:00: into [place] cream 00 vagina at Medical bedtime. Branch For 3 nights terconazole Yes [id number] 1{appli Insert 1 Univers 0.4 % 9-20 cator} Applicator ity of vaginal 00:00: into [place] cream 00 vagina at Medical bedtime. Branch For 3 nights terconazole Yes [id number] 1{appli Insert 1 Univers 0.4 % 9-20 cator} Applicator ity of vaginal 00:00: into [place] cream 00 vagina at Medical bedtime. Branch For 3 nights terconazole Yes [id number] 1{appli Insert 1 Univers 0.4 % 9-20 cator} Applicator ity of vaginal 00:00: into [place] cream 00 vagina at Medical bedtime. Branch For 3 nights terconazole Yes [id number] 1{appli Insert 1 Univers 0.4 % 9-20 cator} Applicator ity of vaginal 00:00: into [place] cream 00 vagina at Medical bedtime. Branch For 3 nights terconazole Yes [id number] 1{appli Insert 1 Univers 0.4 % 9-20 cator} Applicator ity of vaginal 00:00: into [place] cream 00 vagina at Medical bedtime. Branch For 3 nights terconazole Yes [id number] 1{appli Insert 1 Univers 0.4 % 9-20 cator} Applicator ity of vaginal 00:00: into [place] cream 00 vagina at Medical bedtime. Branch For 3 nights terconazole Yes [id number] 1{appli Insert 1 Univers 0.4 % 9-20 cator} Applicator ity of vaginal 00:00: into [place] cream 00 vagina at Medical bedtime. Branch For 3 nights terconazole Yes [id number] 1{appli Insert 1 Univers 0.4 % 9-20 cator} Applicator ity of vaginal 00:00: into [place] cream 00 vagina at Medical bedtime. Branch For 3 nights metformin Yes 1000mg Take 1,000 Univers HCl 1-20 mg by ity of (METFORMIN 13:17: mouth. [place] ORAL) 10 Medical Branch clopidogrel Yes Take by Uni vers bisulfate 1-20 mouth. ity of (PLAVIX 13:17: [place] ORAL) 10 Medical Branch pregabalin Yes Take by Univ ers (LYRICA 1-20 mouth. ity of ORAL) 13:17: [place] 10 [facility] Branch amitriptyli Yes Take by Uni vers ne HCl 1-20 mouth. ity of (AMITRIPTYL 13:17: [place] INE ORAL) 10 [facility] Branch metformin Yes 1000mg Take 1,000 Univers HCl 1-20 mg by ity of (METFORMIN 13:17: mouth. [place] ORAL) 10 [facility] Branch clopidogrel Yes Take by Uni vers bisulfate 1-20 mouth. ity of (PLAVIX 13:17: [place] ORAL) 10 Medical Branch pregabalin Yes Take by Univ ers (LYRICA 1-20 mouth. ity of ORAL) 13:17: [place] 10 Medical Branch amitriptyli Yes Take by Uni vers ne HCl 1-20 mouth. ity of (AMITRIPTYL 13:17: [place] INE ORAL) 10 Medical Branch metformin Yes 1000mg Take 1,000 Univers HCl 1-20 mg by ity of (METFORMIN 13:17: mouth. [place] ORAL) 10 Medical Branch clopidogrel Yes Take by Uni vers bisulfate 1-20 mouth. ity of (PLAVIX 13:17: [place] ORAL) 10 Medical Branch pregabalin Yes Take by Univ ers (LYRICA 1-20 mouth. ity of ORAL) 13:17: [place] [address] Medical Branch amitriptyli Yes Take by Uni vers ne HCl 1-20 mouth. ity of (AMITRIPTYL 13:17: [place] INE ORAL) 10 Medical Branch metformin Yes 1000mg Take 1,000 Univers HCl 1-20 mg by ity of (METFORMIN 13:17: mouth. [place] ORAL) 10 Medical Branch clopidogrel Yes Take by Uni vers bisulfate 1-20 mouth. ity of (PLAVIX 13:17: [place] ORAL) 10 Medical Branch pregabalin Yes Take by Univ ers (LYRICA 1-20 mouth. ity of ORAL) 13:17: [place] 10 Medical Branch amitriptyli Yes Take by Uni vers ne HCl 1-20 mouth. ity of (AMITRIPTYL 13:17: [place] INE ORAL) 10 Medical Branch metformin Yes 1000mg Take 1,000 Univers HCl 1-20 mg by ity of (METFORMIN 13:17: mouth. [place] ORAL) 10 Medical Branch clopidogrel Yes Take by Uni vers bisulfate 1-20 mouth. ity of (PLAVIX 13:17: [place] ORAL) 10 Medical Branch pregabalin Yes Take by Univ ers (LYRICA 1-20 mouth. ity of ORAL) 13:17: [place] 10 Medical Branch amitriptyli Yes Take by Uni vers ne HCl 1-20 mouth. ity of (AMITRIPTYL 13:17: [place] INE ORAL) 10 Medical Branch metformin Yes 1000mg Take 1,000 Univers HCl 1-20 mg by ity of (METFORMIN 13:17: mouth. [place] ORAL) 10 Medical Branch clopidogrel Yes Take by Uni vers bisulfate 1-20 mouth. ity of (PLAVIX 13:17: [place] ORAL) 10 Medical Branch pregabalin Yes Take by Univ ers (LYRICA 1-20 mouth. ity of ORAL) 13:17: [place] 10 Medical Branch amitriptyli Yes Take by Uni vers ne HCl 1-20 mouth. ity of (AMITRIPTYL 13:17: [place] INE ORAL) 10 Medical Branch metformin Yes 1000mg Take 1,000 Univers HCl 1-20 mg by ity of (METFORMIN 13:17: mouth. [place] ORAL) 10 Medical Branch clopidogrel Yes Take by Uni vers bisulfate 1-20 mouth. ity of (PLAVIX 13:17: [place] ORAL) 10 Medical Branch pregabalin Yes Take by Univ ers (LYRICA 1-20 mouth. ity of ORAL) 13:17: [place] 10 Medical Branch amitriptyli Yes Take by Uni vers ne HCl 1-20 mouth. ity of (AMITRIPTYL 13:17: [place] INE ORAL) 10 Medical Branch metformin Yes 1000mg Take 1,000 Univers HCl 1-20 mg by ity of (METFORMIN 13:17: mouth. [place] ORAL) 10 Medical Branch clopidogrel Yes Take by Uni vers bisulfate 1-20 mouth. ity of (PLAVIX 13:17: [place] ORAL) 10 Medical Branch pregabalin Yes Take by Univ ers (LYRICA 1-20 mouth. ity of ORAL) 13:17: [place] 10 Medical Branch amitriptyli Yes Take by Uni vers ne HCl 1-20 mouth. ity of (AMITRIPTYL 13:17: [place] INE ORAL) 10 Medical Branch metformin Yes 1000mg Take 1,000 Univers HCl 1-20 mg by ity of (METFORMIN 13:17: mouth. [place] ORAL) 10 Medical Branch clopidogrel Yes Take by Uni vers bisulfate 1-20 mouth. ity of (PLAVIX 13:17: [place] ORAL) 10 Medical Branch pregabalin Yes Take by Univ ers (LYRICA 1-20 mouth. ity of ORAL) 13:17: [place] 10 Medical Branch amitriptyli Yes Take by Uni vers ne HCl 1-20 mouth. ity of (AMITRIPTYL 13:17: [place] INE ORAL) 10 Medical Branch metformin Yes 1000mg Take 1,000 Univers HCl 1-20 mg by ity of (METFORMIN 13:17: mouth. [place] ORAL) 10 Medical Branch clopidogrel Yes Take by Uni vers bisulfate 1-20 mouth. ity of (PLAVIX 13:17: [place] ORAL) 10 Medical Branch pregabalin Yes Take by Univ ers (LYRICA 1-20 mouth. ity of ORAL) 13:17: [place] 10 Medical Branch amitriptyli Yes Take by Uni vers ne HCl 1-20 mouth. ity of (AMITRIPTYL 13:17: [place] INE ORAL) 10 Medical Branch metformin Yes 1000mg Take 1,000 Univers HCl 1-20 mg by ity of (METFORMIN 13:17: mouth. [place] ORAL) 10 Medical Branch clopidogrel Yes Take by Uni vers bisulfate 1-20 mouth. ity of (PLAVIX 13:17: [place] ORAL) 10 Medical Branch pregabalin Yes Take by Univ ers (LYRICA 1-20 mouth. ity of ORAL) 13:17: [place] 10 Medical Branch amitriptyli Yes Take by Uni vers ne HCl 1-20 mouth. ity of (AMITRIPTYL 13:17: [place] INE ORAL) 10 Medical Branch metformin Yes 1000mg Take 1,000 Univers HCl 1-20 mg by ity of (METFORMIN 13:17: mouth. [place] ORAL) 10 Medical Branch clopidogrel Yes Take by Uni vers bisulfate 1-20 mouth. ity of (PLAVIX 13:17: [place] ORAL) 10 Medical Branch pregabalin Yes Take by Univ ers (LYRICA 1-20 mouth. ity of ORAL) 13:17: [place] 10 Medical Branch amitriptyli Yes Take by Uni vers ne HCl 1-20 mouth. ity of (AMITRIPTYL 13:17: [place] INE ORAL) 10 Medical Branch Tramadol Tramadol 2019- No Isaac as Co mmon HCl HCl 6-20 07-20 Peng directed Spirit 00:00: 00:00 - [facility] 00 :00 [facility] Sulfamethox Sulfamethox Yes Isaac not Common azole-Trime azole-Trime Peng defined Spirit thoprim thoprim - [facility] Acetaminoph Acetaminoph Yes Isaac not Common en-Codeine en-Codeine Peng defined Spirit #3 #3 - [facility] Tramadol Tramadol Yes Isaac not Commo n HCl HCl Peng defined Spirit - [facility] PredniSONE PredniSONE Yes Isaac (Prior Common Peng Auth: Rx Spirit Ref#:[id number] - [facility]I 79) [facility] Topiramate Topiramate Yes Isaac (Prior Common Peng Auth: Rx Spirit Ref#:[id number] - [facility] 10) [facility] Clotrimazol Clotrimazol Yes Isaac (Prior Common e e Peng Auth: Rx Spirit Anti-Fungal Anti-Fungal Ref#:[id number] - [facility] 42) [facility] Gabapentin Gabapentin Yes Isaac (Prior Common Peng Auth: Rx Spirit Ref#:[id number] - [facility] 77) [facility] Vitamin D Vitamin D Yes Isaac not Com mon (Ergocalcif (Ergocalcif Peng defined Spirit marino) marino) - [facility] Cetirizine Cetirizine Yes Isaac (Prior Common HCl HCl Peng Auth: Rx Spirit Ref#:[id number] - [facility] 97) [facility] Levetiracet Levetiracet Yes Isaac (Prior Common am am Peng Auth: Rx Spirit Ref#:[id number] - [facility] 78) [facility] Clopidogrel Clopidogrel Yes Isaac not Common Bisulfate Bisulfate Peng defined Spirit - [facility] Amitriptyli Amitriptyli Yes Isaac (Prior Common ne HCl ne HCl Peng Auth: Rx Spiri t Ref#:[id number] - [facility] 16) [facility] Fluconazole Fluconazole Yes Isaac (Prior Common Peng Auth: Rx Spirit Ref#:[id number] - [facility] 96) [facility] Pantoprazol Pantoprazol Yes Isaac (Prior Common e Sodium e Sodium Peng Auth: Rx S pirit Ref#:[id number] - [facility]I 27) [facility] Mupirocin Mupirocin Yes Isaac not Com mon Peng defined Spirit - [facility] Triamcinolo Triamcinolo Yes Isaac (Prior Common ne ne Peng Auth: Rx Spirit Acetonide Acetonide Ref#:[id number] - [facility] 80) [facility] Lyrica Lyrica Yes Isaac not Common Peng defined [facility] Metformin Metformin Yes Isaac not Com mon HCl HCl Peng defined [facility] Immunizations Ordered Filled Immunization Date Status Comments Sour e Immunization Name Name TDAP (ADACEL) 2000-11-10 Completed University of VACCINE 00:00:00 [facility] TDAP (ADACEL) 2000-11-10 Completed University of VACCINE 00:00:00 [facility] TDAP (ADACEL) 2000-11-10 Completed University of VACCINE 00:00:00 [facility] Branch TDAP (ADACEL) 2000-11-10 Completed University of VACCINE 00:00:00 [facility] TDAP (ADACEL) 2000-11-10 Completed University of VACCINE 00:00:00 [facility] Branch TDAP (ADACEL) 2000-11-10 Completed University of VACCINE 00:00:00 [facility] TDAP (ADACEL) 2000-11-10 Completed University of VACCINE 00:00:00 [facility] Branch TDAP (ADACEL) 2000-11-10 Completed University of VACCINE 00:00:00 [facility] Branch TDAP (ADACEL) 2000-11-10 Completed University of VACCINE 00:00:00 [facility] Branch TDAP (ADACEL) 2000-11-10 Completed University of VACCINE 00:00:00 [facility] Branch TDAP (ADACEL) 2000-11-10 Completed University of VACCINE 00:00:00 [facility] Branch TDAP (ADACEL) 2000-11-10 Completed University of VACCINE 00:00:00 [facility] Vital Signs Vital Name Observation Time Observation Value Comments Source Systolic blood 2022-01-06 18:53:00 141 mm[Hg] Univer sity of pressure [facility] Diastolic blood 2022-01-06 18:53:00 96 mm[Hg] Unive rsity of pressure [facility] Heart rate 2022-01-06 18:53:00 76 /min Universi ty of [place] [facility] Body temperature 2022-01-06 18:52:00 36.44 Lilibeth Univ ersity of [place] [facility] Respiratory rate 2022-01-06 18:52:00 18 /min Univ ersity of [facility] Body height 2022-01-06 18:52:00 167.6 cm Universi ty of [facility] Body weight 2022-01-06 18:52:00 80.428 kg Universi ty of [place] [facility] BMI 2022-01-06 18:52:00 28.62 kg/m2 Universi ty of [facility] Branch Systolic blood 2021-12-30 16:17:00 152 mm[Hg] Univer sity of pressure [facility] Branch Diastolic blood 2021-12-30 16:17:00 98 mm[Hg] Unive rsity of [facility] Heart rate 2021-12-30 16:17:00 85 /min Universi ty of [facility] Body temperature 2021-12-30 16:16:00 36.61 Lilibeth Univ ersity of [facility] Respiratory rate 2021-12-30 16:16:00 18 /min Univ ersity of [facility] Body height 2021-12-30 16:16:00 167.6 cm Universi ty [facility] [place] [facility] Body weight 2021-12-30 16:16:00 80.428 kg Universi ty of [place] [facility] BMI 2021-12-30 16:16:00 28.62 kg/m2 Universi ty of [facility] Branch Procedures Procedure Date / Time Performed Performing Clinician Sourc e POCT URINALYSIS W/O 2022-01-06 18:56:00 Yang Buchanan Unive rsity of [place] SPECIFIC GRAVITY [facility] Branch Encounters Start End Encounter Admission Attending Care Care Encounter Source Date/Time Date/Time Type Type Clinicians Facility Department ID 2022-05-01 2022-05-01 Outpatient R FRANCES [facility] [id number] Univers 13:15:00 13:15:00 REE saucedo [facility] 2022-05-01 2022-05-01 Outpatient R FRANCES [facility] [id number] Univers 13:15:00 13:15:00 REE ity o f [facility] 2022-05-01 2022-05-01 Outpatient R AKINSIPE, [facility] [id number] Univers 13:15:00 13:15:00 REE ity o f [facility] 2022-05-01 2022-05-01 Outpatient R AKINSIPE, [facility] [id number] Univers 13:15:00 13:15:00 REE ity o f [facility] 2022-05-01 2022-05-01 Outpatient R AKINSIPE, [facility] [id number] Univers 13:15:00 13:15:00 REE ity o f [facility] 2022-01-13 2022-01-13 Telephone Frances [facility] [id number] Univers 00:00:00 00:00:00 Ree C HONEY BLENDER [id number] ity of [facility] [id number] Rios as MATERNAL [phone] Med ical & CHILD [address] [place] [address] 2022-01-06 2022-01-06 Outpatient R DARIAN [facility] [id number] Univers 13:45:00 14:04:36 YANG saucedo [facility] 2022-01-06 2022-01-06 [facility] [id number] Univers 13:45:00 14:04:36 Visit Yang R HONEY BLENDER [id number] ity of [facility] [id number] Rios as MATERNAL [phone] [facility] & CHILD [address] [place] [address] 2022-01-06 2022-01-06 [facility] [id number] Univers 00:00:00 00:00:00 (Out) Rosjosé R HONEY BLENDER [id number] ity of [facility] [id number] Rios as MATERNAL [phone] [facility] ical & CHILD [address] [place] [address] 2022-01-01 2022-01-01 Telephone HANG Gill [id number] Univers 00:00:00 00:00:00 Ree C DIEGO [id number] ity of [facility] [id number] Rios as [phone] [address] 2021-12-30 2021-12-30 [facility] [id number] [facility] 11:00:00 11:39:30 REE cabrera o f [facility] 2021-12-30 2021-12-30 Office [facility] [id number] [facility] 11:00:00 11:39:30 Visit Ree C HONEY BLENDER [id number] ity of [place] [id number] Rios as MATERNAL [id number] [facility] & CHILD [address] [place] [address] 2021-12-30 2021-12-30 [facility] [id number] Univers 11:00:00 11:00:00 REE palmer lewis [facility] 2021-12-22 2021-12-22 Telephone [facility] [id number] Univers 00:00:00 00:00:00 Ree C HONEY BLENDER [id number] ity of [place] [id number] Rios as MATERNAL [id number] [facility] & CHILD [address] [place] [address] 2021-12-22 2021-12-22 Telephone [facility] [id number] Univers 00:00:00 00:00:00 Ree C HONEY BLENDER [id number] ity of [facility] [id number] Rios as MATERNAL [id number] [facility] & CHILD [address] [place] [address] 2021-10-14 2021-10-14 Telephone [facility] [id number] Univers 00:00:00 00:00:00 Ree C HONEY BLENDER [id number] ity of [facility] 4..[id number] Rios as MATERNAL [phone] [facility] [address] 2021-10-09 2021-10-09 Outpatient R AKINSIPE, [facility] [id number] Univers 16:00:00 16:00:00 REE palmer [facility] 2021-10-09 2021-10-09 Office Akinsipe, [facility] [id number] Univers 14:00:00 14:46:06 Visit Ree Boswell HONEY BLENDER [id number] ity of REGIONAL [id number] Rios as MATERNAL [id number] [address] 2021-10-09 2021-10-09 Outpatient R AKINSIPE, [facility] [id number] Univers 14:00:00 14:46:06 REEMAKI cabrera o [facility] 2021-10-09 2021-10-09 Outpatient R AKINSIPE, [facility] [id number] Univers 14:00:00 14:00:00 REEMAKI cabrera [facility] 2021-10-03 2021-10-03 Outpatient R AKINSIPE, [facility] [id number] Univers 15:30:00 15:30:00 [facility] rick [facility] 2021-10-03 2021-10-03 Outpatient R AKINSIPE, [facility] [id number] Univers 15:30:00 15:30:00 [facility] rick [facility] 2021-10-01 2021-10-01 Telephone [facility] [id number] Univers 00:00:00 00:00:00 Ree Boswell HONEY BLENDER [id number] ity of REGIONAL [id number] Rios as MATERNAL [id number] [address] 2021-09-05 2021-09-05 Outpatient R AKINSIPE, [facility] [id number] Univers 00:00:00 00:00:00 REE cabrera o [facility] 2021-09-05 2021-09-05 Outpatient R AKINSIPE, [facility] [id number] Univers 00:00:00 00:00:00 REE cabrera o lewis [facility] 2021-07-30 2021-07-30 Telephone [facility] [id number] Univers 00:00:00 00:00:00 Ree Boswell HONEY BLENDER [id number] ity of REGIONAL [id number] Rios as MATERNAL [id number] [facility] & CHILD [address] [place] [address] 2021-05-02 2021-05-02 [facility] [id number] Univers 00:00:00 00:00:00 Ree C HONEY BLENDER [id number] ity of REGIONAL [id number] Rios as MATERNAL [phone] [facility] & [address] 2021-05-01 2021-05-01 Office [facility] [id number] Univers 12:45:00 14:07:49 Visit Ree Boswell HONEY BLENDER [id number] ity of REGIONAL [id number] Rios as MATERNAL [id number] [address] 2021-05-01 2021-05-01 Outpatient R FRANCES, [facility] [id number] Univers 12:45:00 14:07:49 REE cabrera o [facility] 2021-05-01 2021-05-01 Outpatient R FRANCES, [facility] [id number] Univers 12:45:00 14:07:49 REE yoy o [facility] 2021-05-01 2021-05-01 Outpatient R AKINSIPE, [facility] [id number] Univers 12:45:00 12:45:00 REE ity o [facility] 2019-11-29 2019-11-29 Outpatient COH COH PDPFEDD UND COH 00:00:00 00:00:00 [id number] 2018-12-08 2018-12-08 [id number] Common 13:19:00 13:19:00 [facility] 2018-10-25 2018-10-25 [id number] Common 09:00:00 09:00:00 [facility] 2018-10-11 2018-10-11 [id number] Common 14:30:00 14:30:00 [facility] 2018-09-29 2018-09-29 [facility] [id number] Common 16:33:00 16:33:00 [facility] 2018-05-02 2018-05-02 [facility] [id number] Common 13:45:00 13:45:00 t [facility] Results Test Description Test Time Test Comments Results Result Comments Source POCT URINALYSIS W/O SPECIFIC GRAVITY 2022-01-06 18:56:00 Test Item Value Reference Range Interpretation Comme nts POCT PH U (test code = 3254) 5 mg/dl 5-8 POCT U LEUK EST (test code = 3263) Trace Negative - Negative POCT U NIT (test code = 3262) Neg Negative - Negative POCT U PROT (test code = 3259) Trace Negative - Negative POCT U GLU (test code = 3256) Negative - Negative POCT U KETONE (test code = 3258) 2+ Negative - Negative POCT U BLD (test code = 3257) Trace Negative - Negative [facility] [id number] 18:56:00 Test Item Value Reference Range Interpretation Comments POCT PH U (test code = 3254) 5 mg/dl 5-8 POCT U LEUK EST (test code = Trace Negative - Negative 3263) POCT U NIT (test code = 3262) Neg Negative - Negative POCT U PROT (test code = 3259) Trace Negative - Negative POCT U GLU (test code = 3256) Negative - Negative POCT U KETONE (test code = 3258) 2+ Negative - Negative POCT U BLD (test code = 3257) Trace Negative - Negative [facility] [id number] 18:56:00 Test Item Value Reference Range Interpretation Comments POCT PH U (test code = 3254) 5 mg/dl 5-8 POCT U LEUK EST (test code = Trace Negative - Negative 3263) POCT U NIT (test code = 3262) Neg Negative - Negative POCT U PROT (test code = 3259) Trace Negative - Negative POCT U GLU (test code = 3256) Negative - Negative POCT U KETONE (test code = 3258) 2+ Negative - Negative POCT U BLD (test code = 3257) Trace Negative - Negative [facility]
[2022-04-27 12:34] VITALS: BMI 28.2
[2022-04-27] MEDS ORDERED: ONDANSETRON 4 MG/2 ML VIAL IV PRN (12:39)
[2022-04-27] MEDS ORDERED: ACETAMINOPHEN 325 MG TABLET PO PRN (12:45)
--- NOTE | 2022-04-27 12:47 | P.CNS ---
Allergies No Known Drug Allergies Allergy (Verified 05/31/15 14:57) Unknown Home Medications: Clopidogrel Bisulfate [Plavix*] 1 tab PO DAILY 10/16/19 Levetiracetam [Keppra] 1 tab PO DAILY 10/16/19 Liraglutide [Victoza 2-Andreas] 0.18 units SQ DAILY 10/16/19 Metformin HCl 1 tab PO BID 10/16/19 Apixaban [Eliquis] 5 mg PO BID #30 tab.ds.pk 10/19/19 Fluticasone/Salmeterol [Advair 250-50 Diskus] 1 each IH BID #60 blst.w.dev 10/19/19 Prednisone [Sterapred Ds] 10 mg PO BID #20 tab.ds.pk 10/19/19 Insulin Glargine,Hum.rec.anlog [Lantus Solostar] 35 unit SQ BID #1 packet 10/21/19 - Past Medical/Surgical History Diabetic: Yes -: Diabetes- NIDDM -: CVA -: Seizures -: CVA -: HTN -: PANCREATITIS -: NEUROPATHY -: biopsy liver and pancreas -: -: polyps removed from esophagus - Family History Father Medical History: Cancer Mother Medical History: Diabetes - Social History Smoking Status: Unknown if ever smoked Alcohol use: Yes CD- Drugs: No Caffeine use: Yes Physical Examination Temp Pulse Resp BP Pulse Ox 97.6 F 76 14 113/77 98 04/27/22 12:32 04/27/22 12:32 04/27/22 12:32 04/27/22 12:32 04/27/22 12:32
[2022-04-27] MEDS: INSULIN -REGULAR HUMAN 50 UNIT/0.5 ML ML SQ SCH ×3 (13:00→21:16)
[2022-04-27 13:19] LABS: HDL Cholesterol 47 mg/dL (40-60); LDL Cholesterol, Calculated 138 mg/dL (<130)
[2022-04-27 13:20] LABS: Absolute Lymphocytes (CBC) 1.7 K/uL (0.7-4.9); Hematocrit 41.9 % (36.0-45.0); Lymphocytes % 32.2 % (15.3-44.8); MCV 88.2 fL (80-100); MPV 8.4 fL (7.6-11.3); RBC Red Blood Cell Count 4.75 M/uL (3.86-4.86); Troponin High Sensitivity < 3.0 pg/mL (<58.9)
[2022-04-27 13:27] LABS: Albumin 3.4 g/dL (3.4-5.0); Bilirubin Total 1.3 mg/dL (0.2-1.0); Potassium 3.6 mmol/L (3.5-5.1)
[2022-04-27 13:38] LABS: Magnesium 1.8 mg/dL (1.6-2.4); Phosphorus 2.8 mg/dL (2.5-4.9); Thyroid Stimulating Hormone 2.82 uIU/mL (0.358-3.740)
--- NOTE | 2022-04-27 14:36 | RAD REPORT ---
EXAM DESCRIPTION: CT - Head Brain Wo Cont - 04/27/2022 1:46 pm CLINICAL HISTORY: R O CVA Headache, drowsiness, CVA symptomology COMPARISON: Ct Stroke Brain Wo Cont dated 08/04/2017; Head Brain Wo Cont dated 04/17/2017 TECHNIQUE: All CT scans are performed using dose optimization technique as appropriate and may inclu de automated exposure control or mA/KV adjustment according to patient size. FINDINGS: No intracranial hemorrhage, hydrocephalus or extra-axial fluid collection.No areas of brai n edema or evidence of midline shift. The paranasal sinuses and mastoids are clear. The calvarium is intact. IMPRESSION: No acute intracranial abnormality.
--- NOTE | 2022-04-27 14:43 | RAD REPORT ---
EXAM DESCRIPTION: CT - Head angio - 04/27/2022 1:46 pm CLINICAL HISTORY: Stroke symptoms Headache, drowsiness, CVA symptomology COMPARISON: Head Brain Wo Cont dated 04/27/2022; Ct Stroke Brain Wo Cont dated 08/04/2017; Neck Angio dated 04/27/2022 TECHNIQUE: CT angiography of the head was performed with MIPs. All CT scans are performed using dose optimization technique as appropriate and may include automated exposure control or mA/KV adjustment according to patient size. FINDINGS: No evidence of aneurysm is detected. No flow-limiting stenosis or vascular malformation id entified. Antegrade flow is seen in the vertebral arteries. The vertebral arteries are codominant. The visualized dural venous sinuses are patent. IMPRESSION: No significant flow abnormality is detected.
--- NOTE | 2022-04-27 14:54 | RAD REPORT ---
EXAM DESCRIPTION: CT - Neck Angio - 04/27/2022 1:46 pm CLINICAL HISTORY: R/O CVA Headache, drowsiness, CVA symptomology COMPARISON: Carotid Artery Bilateral dated 04/27/2022; Head angio dated 04/27/2022 TECHNIQUE: CT angiography of the neck vessels was performed with MIPs. All CT scans are performed using dose optimization technique as appropriate and may include automated exposure control or mA/KV adjustment according to patient size. FINDINGS: A left aortic arch is identified with normal three vessel configuration of the great vesse ls. There is significant patient motion artifact throughout the examination at the level of the neck. Thi s renders quality assessment of the carotid bulb regions not possible. Mild narrowing may be present. Please refer to same-day carotid ultrasound. Both vertebral arteries show antegrade flow with with some degradation due to motion artifact. IMPRESSION: This is a limited exam due to patient motion artifact. Within this limitation a high-gra de carotid stenosis is not suspected. Please refer to carotid ultrasound report same date.
[2022-04-27] MEDS: GABAPENTIN 100 MG CAP PO SCH ×2 (14:57→20:48)
--- NOTE | 2022-04-27 14:57 | RAD REPORT ---
EXAM DESCRIPTION: US - CP - 04/27/2022 2:12 pm CLINICAL HISTORY: Near syncope, TIA Headache, drowsiness. COMPARISON: Neck Angio dated 04/27/2022 TECHNIQUE: Real-time sonographic evaluation of both carotid systems was performed. Doppler interroga tion was performed with waveform tracing bilaterally. FINDINGS: Normal high resistance waveforms are noted in both external carotid arteries. The common c arotid arteries and internal carotid arteries show normal low resistance waveforms. There is evidence of moderate soft plaque both carotid bulbs. Visually stenosis proximal left ICA is estimated at 50% based on NASCET criteria. [id number] soft plaque proximal right internal carot id artery resulting 40% stenosis visually based on NASCET criteria. Antegrade flow seen in both vertebral arteries. 14 mm right thyroid mass. IMPRESSION: Soft plaque in both carotid arteries proximally slightly worse on the left is noted. Thi s results in a maximum of 50% stenosis visually based on NASCET criteria, notable on the left. 14 mm right thyroid mass.
[2022-04-27 15:53] LABS: Protime INR 1.05
[2022-04-27] MEDS: HYDROCODONE/APAP 10/325 TAB PO PRN (17:05)
[2022-04-27 17:06] LABS: Urine Bilirubin NEGATIVE (Negative); Urine Blood Negative (Negative); Urine Clarity Clear (Clear); Urine Color Light-Yellow (Yellow); Urine Glucose NEGATIVE (Negative); Urine Protein NEGATIVE (Negative); Urine Urobilinogen 1+ (Normal)
[2022-04-27 17:10] LABS: Specific Gravity > 1.030 (1.005-1.030)
[2022-04-27] MEDS ORDERED: INFLUENZA VACCINE (for 6+ mo) 0.5 ML DOSE IMVAC ONE (18:00)
--- NOTE | 2022-04-27 19:04 | CON ---
Reason For Consultation: Consultation called because of possible stroke. History Of Present Illness: Ms. Hanson is a 41-year-old right-handed patient with history of seizures, was treated by Dr. Art Ellison, receiving Keppra 500 mg twice daily and who has diabetes mellitus on multiple medications in addition to Lyrica for neuropathic pain. The patient's mother w as in the room. Reportedly, the events started within a few days. It is not clear exactly when but she developed right-sided weakness in arms, legs, difficulty ambulating. In addition, she had right facial weakness. The patient [facility] where head CT scan showed no acute ischemic or hemorrhagic changes. CAT scan was done on 04/27 at 1:46 p.m. The patient was on the floor. The scan was compared to multiple scans done in 2018 that were all unremarkable. The patient's mother s tates she has had multiple strokes in the past, but there is no evidence of that on the CT scans as t hey are completely normal. CT angiogram of the head and neck revealed no significant abnormalities w ithin the neck or in the GAS PUMPER, in terms of the potential for explaining the patient's symptoms. It is unclear what the description of her seizures are like, and she reportedly has had similar episodes w ith the right-sided weakness than completely returning back to normal. At this stage, the patient is fully aware of what is going on. She has no cognitive deficits, but there is some marked facial wea kness and significant weakness right arm, but when asked if she can lift the arm fully all the way up above her head and she can squeeze very strongly at least 4/5, but the left arm, the patient actuall y is not asked to do anything, the arm apparently is just hanging up the side as though it is unable to move. She did walk with physical therapist using a left hand joni walker and did have some stiffn ess and ataxia with her gait. Laboratory Studies: Her complete blood count with differential is completely normal. Coagulation pa bryson is normal. Chemistries are unremarkable, although her hemoglobin A1c is up to 10.4, calcium 8.6, total bilirubin 1.3. AST 153, ALT 207. Creatinine kinase 25. Beta-HCG less than 1, showing no pre gnancy. Past Medical History: As noted above. History of pancreatitis along with diabetic peripheral neurop athy. Allergies: NO KNOWN DRUG ALLERGIES. Home Medications: Keppra 500 mg twice daily, metformin 100 mg twice daily, Victoza subcutaneously as per protocol and Lyrica. Family History: Noncontributory. Social History: Denies alcohol, tobacco, or IV drug use. Review of Systems: Aside from mentioned above, no recent fevers or chills, myalgias, arthralgias, rash, weight change, h eadache, or other positives on the systems review. Physical Examination: Vital Signs: Blood pressure 103/70, pulse 70, respiratory rate 16, temperature 97.9, oxygen saturati on 99%. General: Ms. Hanson just completed walking with physical therapist using a left hand joni walker, a nd she did have some ataxia with right hand held stiffly on her side and the left leg held out stiffl y as well. HEENT: Otherwise, she is normocephalic, atraumatic. Sclerae anicteric. Oropharynx is pink and mois t. Neck: Supple. Chest: Clear. Heart: Regular. Extremities: Show no edema or cyanosis. Neurologic: Alert and oriented to person, place, and situation. She does follow all commands approp riately. Cranial nerves appears to be some right facial weakness. There is also what appears to be some skew deviation of the eyes, although she denies diplopia in any of the visual king, otherwise intact cranial nerves. On motor, at least 4/5 proximally and distally in the right upper extremity w ith increased tone. In the right lower extremity, similarly 4/5 with increased tone sensation. She states the right side tingles compared to the left, but sensation is still responsive to light touch. Reflexes slightly increased on the right compared to the left upper and lower extremities. Assessment: Ms. Hanson is a 41-year-old patient with a possibility of a Bob's paralysis involving the right side. She does not have evidence of a stroke on multiple CT scans and there is apparently an implanted device that prevents her from getting an MRI of the brain. Plan: 1.We will agree with restarting Keppra 500 mg twice daily. 2.Routine electroencephalogram and perhaps EEG monitoring will be helpful. 3.If the patient is able to get physical therapy that may be helpful to regain her level of function ing which is normal without limitations or an assistive device. LB/MODL Voice ID: [id number] Report ID: [id number]
--- NOTE | 2022-04-27 19:48 | P.PN ---
Date of Service: 04/28/22 Subjective: ROS: A complete review of systems was performed and is negative except as mentioned above Physical Exam: Gen: NAD, AOx3 HEENT: normal conjunctiva, sclera anicteric CV: regular rate & rhythm, no edema Pulm: non-labored respirations, clear bilaterally Abd: soft, non-tender, non-distended Skin: no rashes, no lesions Neuro: R-sided weakness vitals reviewed Problem List acute CVA vs Bob's paralysis Seizure disorder IDDM2 with neuropathy elevated LFTs CT head, CTA head/neck, carotids: negative for acute CVA or acute fnidng reportedly has h/o multiples strokes in past, but none seem on CT has implant that precludes MRI PT/OT consullted neuro following monitor closely neuro checks elevated LFTs - have been similar in recent past VTE: Code: full Dispo: Time Spent Managing Pts Care (In Minutes): 35
[2022-04-27] MEDS: APIXABAN 5 MG TABLET PO SCH (20:48)
[2022-04-27] MEDS: HOME MED 1 EA UNK (Fluticasone/Salmeterol [Advair 250-50 Diskus] Blst.W.Dev) IH SCH (20:49)
[2022-04-27] MEDS ORDERED: HOME MED 1 EA UNK (Apixaban [Eliquis] 5 MG Tab.Ds.Pk) PO SCH (21:00)
[2022-04-27] MEDS ORDERED: predniSONE 10 MG TAB PO SCH (21:00)
[2022-04-27] MEDS: INSULIN GLARGINE 100 UNIT/ML SQ SCH (21:16)
[2022-04-28] MEDS: HYDROCODONE/APAP 10/325 TAB PO PRN ×2 (00:06→09:01)
[2022-04-28] MEDS: INSULIN -REGULAR HUMAN 50 UNIT/0.5 ML ML SQ SCH ×5 (00:11→16:32)
--- NOTE | 2022-04-28 02:10 | P.HP ---
Certification for Inpatient Patient admitted to: Inpatient With expected LOS: >2 Midnights Patient will require the following post-hospital care: None Practitioner: I am a practitioner with admitting privileges, knowledge of patient current condition, hospital course, and medical plan of care. Services: Services provided to patient in accordance with Admission requirements found in Title 42 Section 412.3 of the Code of Federal Regulations Patient History Date of Service: 04/27/22 Reason for admission: Suspected CVA\TIA History of Present Illness: Patient is a 41-year-old female with a past medical history significant for DM 2, CVA, Seizures, HLD, hypertension, nicotine dependence who presents with complaint of left-sided weakness worse on the upper extremity has been ongoing for the past 3 days. Patient reported that she initially started having pain\numbness\tingling in the right upper extremity. Patient reported that she is unable to move the right upper extremity due to pain and weakness. Patient rated pain as 7/10 in severity and described pain as aching in quality. Patient also reported brief episode of slurred speech and difficulty swallowing. Patient reported she felt dizzy and had a near syncopal episode. Patient reported associated signs and symptoms of lightheadedness, subjective fever, blurry vision and generalized malaise. Patient denies any other signs or symptoms. Symptoms are aggravated or relieved by nothing. Patient was seen at outside ER facility where patient was referred to the hospital for stroke work- up. Of note, patient denies any current deficits from her previous stroke Allergies No Known Drug Allergies Allergy (Verified 05/31/15 14:57) Unknown Home Medications: Clopidogrel Bisulfate [Plavix*] 1 tab PO DAILY 10/16/19 Levetiracetam [Keppra] 1 tab PO DAILY 10/16/19 Liraglutide [Victoza 2-Andreas] 0.18 units SQ DAILY 10/16/19 Metformin HCl 1 tab PO BID 10/16/19 Apixaban [Eliquis] 5 mg PO BID #30 tab.ds.pk 10/19/19 Fluticasone/Salmeterol [Advair 250-50 Diskus] 1 each IH BID #60 blst.w.dev 10/19/19 Prednisone [Sterapred Ds] 10 mg PO BID #20 tab.ds.pk 10/19/19 Insulin Glargine,Hum.rec.anlog [Lantus Solostar] 35 unit SQ BID #1 packet 10/21/19 - Past Medical/Surgical History Diabetic: Yes -: Diabetes- NIDDM -: CVA -: Seizures -: CVA -: HTN -: PANCREATITIS -: NEUROPATHY -: biopsy liver and pancreas -: -: polyps removed from esophagus -: occluder device 2018 - Family History Father -: Cancer Mother -: Hypertension, Diabetes - Social History Smoking Status: Current some day smoker Counseled patient to stop smoking for: less than 10 minutes Smoking therapy provided: Yes Patient receptive to therapy: Yes Alcohol use: Yes CD- Drugs: No Caffeine use: Yes Place of Residence: Home Review of Systems General: Fever, Weakness, Malaise Eyes: Vision Change ENT: Unremarkable Respiratory: Unremarkable Cardiovascular: Light Headedness Gastrointestinal: Unremarkable Genitourinary: Unremarkable Musculoskeletal: Arm Pain Integumentary: Unremarkable Neurological: Weakness, Numbness, Change in Speech, Other (Right sided tingling, dizziness ) Lymphatics: Unremarkable Physical Examination - Vital Signs Temperature: 96.9 F Blood Pressure: 115/63 Pulse: 84 Respirations: 18 Pulse Ox (%): 94 - Physical Exam General: Alert, Oriented x3, Cooperative, Mild distress HEENT: Atraumatic, PERRLA, Mucous membr. moist/pink, EOMI, Sclerae nonicteric Neck: Supple, 2+ carotid pulse no bruit, No LAD, Without JVD or thyroid abnormality Respiratory: Clear to auscultation bilaterally, Normal air movement Cardiovascular: No edema, Regular rate/rhythm, Normal S1 S2, No murmurs Capillary refill: <2 Seconds Gastrointestinal: Normal bowel sounds, Soft and benign, No tenderness Musculoskeletal: No clubbing, No swelling, No erythema, No tenderness, Other (Limited ROM right UE) Integumentary: No rashes, No breakdown, No significant lesion, No tenderness/swelling Neurological: Normal speech, Normal tone, Normal affect, Abnormal strength Lymphatics: No axilla or inguinal lymphadenopathy - Studies Laboratory Data (last 24 hrs) 04/27/22 15:01: PT 11.6, INR 1.05 04/27/22 12:46: Phosphorus 2.8, Magnesium 1.8 04/27/22 12:46: Sodium 138, Potassium 3.6, BUN 11, Creatinine 0.40 L, Glucose 199 H, Total Bilirubin 1.3 H, AST 153 H, ALT 207 H, Alkaline Phosphatase 99 04/27/22 12:46: WBC 5.20, Hgb 14.8, Hct 41.9, Plt Count 193 04/27/22 12:46: Triglycerides 165 H, Cholesterol 218 H, HDL Cholesterol 47, Cholesterol/HDL Ratio 4.64 Assessment and Plan - Plan --Suspected CVA. CT head unremarkable for any acute intracranial abnormality. Neurology consulted. Bedside Swallowing test pending. We will await further recommendation from neurologist. --DM2 with neuropathy. BS monitoring with sliding scale insulin and Lantus. Continue gabapentin for neuropathy when appropriate. --Acute pain. We will manage pain with current pain medication regimen. --History of CVA. Continue aspirin, Plavix and Eliquis. --History of seizures. Continue home medication. Seizure precautions. --Hypertension. Blood pressure currently stable. We will allow permissive hyp ertension pending CVA rule out. --Nicotine dependence. Patient counseled on tobacco cessation. Patient claims to be an occasional smoker. Refuses nicotine patch. --History of atrial septal defect. S/P Occluder device 2018. Continue aspirin, Plavix and Eliquis. --Near syncope. Echocardiogram pending to assess cardiac structures and functions. Carotid Doppler to rule out any carotid artery stenosis. We will get some orthostatic vital signs. Continue supportive care. --Hyperlipidemia. Continue statin. --Elevated LFTs. Unclear etiology. We will continue to monitor liver functions. --DVT prophylaxis with Eliquis. Discharge Plan: Home Plan to discharge in: Greater than 2 days - Advance Directives Does patient have a Living Will: No Does patient have a Durable POA for Healthcare: No - Code Status/Comfort Care Code Status Assessed: Yes Physician Review: Patient Assessed, Agree with Above Assessment and Plan Critical Care: No
[2022-04-28 05:36] LABS: Absolute Lymphocytes (CBC) 1.3 K/uL (0.7-4.9); Hematocrit 42.4 % (36.0-45.0); Lymphocytes % 24.9 % (15.3-44.8); MCV 88.6 fL (80-100); MPV 8.2 fL (7.6-11.3); RBC Red Blood Cell Count 4.78 M/uL (3.86-4.86)
[2022-04-28 05:55] LABS: Albumin 3.3 g/dL (3.4-5.0); Bilirubin Direct 0.2 mg/dL (0-0.2); Potassium 4.2 mmol/L (3.5-5.1)
--- NOTE | 2022-04-28 06:41 | ECHO ---
HEIGHT: 5 ft 6 in WEIGHT: 175 lb 0 oz DATE OF STUDY: 04/27/[address]: Herber Connor 2-DIMENSIONAL: YES M.MODE: YES DOPPLER: YES COLOR FLOW: YES TDS: PORTABLE: YES DEFINITY: BUBBLE STUDY: DIAGNOSIS: NEAR SYNCOPE CARDIAC HISTORY: CATHERIZATION: SURGERY: PROSTHETIC VALVE: PACEMAKER: MEASUREMENTS (cm) DIASTOLIC (NORMALS) SYSTOLIC (NORMALS) IVSd 1.0 (0.6-1.2) LA Diam 3.0 (1.9-4.0) LVEF 62% LVIDd 4.5 (3.5-5.7) LVIDs 3.0 (2.0-3.5) %FS 33% LVPWd 0.9 (0.6-1.2) Ao Diam 2.4 (2.0-3.7) 2 DIMENSIONAL ASSESSMENT: RIGHT ATRIUM: NORMAL LEFT ATRIUM: NORMAL RIGHT VENTRICLE: NORMAL LEFT VENTRICLE: NORMAL TRICUSPID VALVE: MILD TRICUSPID REGURGITATION MITRAL VALVE: NORMAL PULMONIC VALVE: NORMAL AORTIC VALVE: NORMAL PERICARDIAL EFFUSION: NONE AORTIC ROOT: NORMAL LEFT VENTRICULAR WALL MOTION: NORMAL DOPPLER/COLOR FLOW: MILD TRICUSPID REGURGITATION COMMENTS: 1. NORMAL LEFT VENTRICULAR EJECTION FRACTION 60-65% 2. NORMAL WALL MOTION 3. MILD TRICUSPID REGURGITATION 4. NORMAL DIASTOLIC FUNCTION TECHNOLOGIST: FIDE ABAD
--- NOTE | 2022-04-28 07:37 | EKG ---
Test Date: 2022-04-27 Test Time: 13:21:30 Manager Benefit: DANIELLE MEASUREMENT RESULTS: Intervals: Rate: 68 NJ: 168 QRSD: 88 QT: 410 QTc: 435 Blanco: P: 26 NJ: 168 QRS: 5 T: 14 INTERPRETIVE STATEMENTS: Normal sinus rhythm Normal ECG Compared to ECG 10/07/2019 21:23:53 Sinus tachycardia no longer present Electronically Signed On 04-28-22 07:35:52 RESIDENTIAL SALES CONSULTANT by Jeffrey Larsen
[2022-04-28] MEDS ORDERED: ASPIRIN 81 MG CHEWABLE TABLET PO SCH (09:00)
[2022-04-28] MEDS: HOME MED 1 EA UNK (Fluticasone/Salmeterol [Advair 250-50 Diskus] Blst.W.Dev) IH SCH (09:00)
[2022-04-28] MEDS ORDERED: FOLIC ACID 1 MG in NA CHLORIDE 0.9% 50 ML IV SCH (09:00)
[2022-04-28] MEDS ORDERED: FOLIC ACID 5 MG/ML VIAL IVP SCH (09:00)
[2022-04-28] MEDS ORDERED: levETIRAcetam 500 MG TAB PO SCH (09:00)
[2022-04-28] MEDS ORDERED: CLOPIDOGREL 75 MG TABLET PO SCH (09:00)
[2022-04-28] MEDS: GABAPENTIN 100 MG CAP PO SCH ×2 (09:01→13:28)
[2022-04-28] MEDS: APIXABAN 5 MG TABLET PO SCH (09:01)
[2022-04-28] MEDS: INSULIN GLARGINE 100 UNIT/ML SQ SCH (09:06)
--- NOTE | 2022-04-28 14:58 | P.DS ---
Admission Date: 04/27/22 Discharge Date: 04/28/22 Disposition: ROUTINE DISCHARGE Discharge Condition: FAIR Reason for Admission: Suspected CVA\TIA Consultations: Neuro - Dr. Charles Brief History of Present Illness: 41yo F, PMH: IDDM2 with neuropathy, CVA, Seizure disorder, HTN, HLD, nicotine dependence Presented with left-sdied weakness, worse on upper extremity vs lower extremity for the past ~3 days. Initially started having pain\numbness\tingling in the right upper extremity. Patient reported that she is unable to move the right upper extremity due to pain and weakness. Also reported brief episode of slurred speech and difficulty swallowing. She felt dizzy and had a near syncopal episode. Associated signs and symptoms of lightheadedness, subjective fever, blurry vision and generalized malaise. Symptoms are aggravated or relieved by nothing. Patient was seen at outside ER facility where patient was referred to the hospital for stroke work-up. Of note, patient denies any current deficits from her previous stroke Hospital Course: Problem List acute CVA vs Bob's paralysis Seizure disorder IDDM2 with neuropathy elevated LFTs, chronic Patient presented with Right sided weakness of upper and lower extremities, with some left sided facial droop. CT head, CTA head/neck, and carotid ultrasound were all without acute findings / negative for CVA. Patient was unable to get MRI done due to prior cardiac device. Neurology was consulted. Elrod this was possibly Bob's paralysis vs TIA. Recommended continue plavix, add aspirin, atorvastatin, and folic acid. Continue keppra at usual dosage. Follow up in neurology office in next few weeks. Of note, patient's carotid ultrasound incidentally noted a 14mm right thyroid mass. Recommend follow up with PCP for monitoring. Thyroid studies were within normal limits. Continue PT exercises. Vital Signs/Physical Exam: Temp Pulse Resp BP Pulse Ox 97.1 F 89 16 114/75 95 04/28/22 12:00 04/28/22 12:00 04/28/22 12:00 04/28/22 12:00 04/28/22 12:00 Physical Exam: Gen: NAD, AOx3 HEENT: normal conjunctiva, sclera anicteric, left sided lower facial droop CV: regular rate & rhythm, no edema Pulm: non-labored respirations, clear bilaterally Abd: soft, non-tender, non-distended Skin: no rashes, no lesions Neuro: R-sided weakness worse in RUE vs RLE, left sided lower facial droop Laboratory Data at Discharge: WBC 5.10 K/uL (4.3-10.9) 04/28/22 05:09 Hgb 14.6 g/dL (12.0-15.0) 04/28/22 05:09 Hct 42.4 % (36.0-45.0) 04/28/22 05:09 Plt Count 189 K/uL (152-406) 04/28/22 05:09 PT 11.6 SECONDS (9.5-12.5) 04/27/22 15:01 INR 1.05 04/27/22 15:01 Sodium 136 mmol/L (136-145) 04/28/22 05:09 Potassium 4.2 mmol/L (3.5-5.1) D 04/28/22 05:09 BUN 15 mg/dL (7-18) 04/28/22 05:09 Creatinine 0.46 mg/dL (0.55-1.02) L 04/28/22 05:09 Glucose 246 mg/dL (74-106) H 04/28/22 05:09 Phosphorus 2.8 mg/dL (2.5-4.9) 04/27/22 12:46 Magnesium 2.0 mg/dL (1.6-2.4) 04/28/22 05:09 Total Bilirubin 1.0 mg/dL (0.2-1.0) 04/28/22 05:09 AST 119 U/L (15-37) H 04/28/22 05:09 ALT 209 U/L (13-56) H 04/28/22 05:09 Alkaline Phosphatase 107 U/L (45-117) 04/28/22 05:09 Triglycerides 165 mg/dL (<150) H 04/27/22 12:46 Cholesterol 218 mg/dL (<200) H 04/27/22 12:46 HDL Cholesterol 47 mg/dL (40-60) 04/27/22 12:46 Cholesterol/HDL Ratio 4.64 04/27/22 12:46 Home Medications: Levetiracetam [Keppra] 1 tab PO DAILY 10/16/19 Liraglutide [Victoza 2-Andreas] 0.18 units SQ DAILY 10/16/19 Metformin HCl 1 tab PO BID 10/16/19 Fluticasone/Salmeterol [Advair 250-50 Diskus] 1 each IH BID #60 blst.w.dev 10/19/19 Insulin Glargine,Hum.rec.anlog [Lantus Solostar] 35 unit SQ BID #1 packet 10/21/19 Aspirin Chewable [Aspirin Chewable*] 81 mg PO DAILY tab.chew 04/28/22 Atorvastatin Calcium [Lipitor] 40 mg PO BEDTIME 30 Days #30 tab 04/28/22 Clopidogrel Bisulfate [Plavix*] 1 tab PO DAILY 30 Days #30 tab 04/28/22 Folic Acid 1 mg PO DAILY 30 Days #30 tab 04/28/22 New Medications: Folic Acid 1 mg PO DAILY 30 Days #30 tab Atorvastatin Calcium [Lipitor] 40 mg PO BEDTIME 30 Days #30 tab Clopidogrel Bisulfate [Plavix*] 1 tab PO DAILY 30 Days #30 tab Physician Discharge Instructions: Continue PT exercises. PROBLEM: (list out Acute Problems for the Current visit) GOAL: Clear understanding of disease process INSTRUCTIONS: Diet: Diabetic Activity: As tolerated Patient presented with Right sided weakness of upper and lower extremities, with some left sided facial droop. CT head, CTA head/neck, and carotid ultrasound were all without acute findings / negative for CVA. Patient was unable to get MRI done due to prior cardiac device. Neurology was consulted. Elrod this was possibly Bob's paralysis vs TIA. R ecommended continue plavix, add aspirin, atorvastatin, and folic acid. Continue keppra at usual dosage. Follow up in neurology office in next few weeks. Of note, patient's carotid ultrasound incidentally noted a 14mm right thyroid mass. Recommend follow up with PCP for monitoring. Thyroid studies were within normal limits. Follow up with a Neurologist of your choice: MAGDALENA MEYERS, RICARDO [address] [place] [address], [address] [place] [address] HERMES MEYERS, [address] [address] [employer] Services Needed: [place] [employer]: Date or Referral: IMMUNIZATION Influenza Vaccine Indicated: Yes Influenza Vaccine Given: Date Given: Pneumonia Vaccine Indicated: No Pneumonia Vaccine Given: Date Given: Time spent managing pt's care (in minutes): 45
[2022-04-28 15:13] VITALS: O2SAT 97
[2022-04-28 16:44] VITALS: BP 124/57; TEMP 97.9
[2022-04-28] MEDS ORDERED: ATORVASTATIN 40 MG TAB PO SCH (21:00)
== END 2022-04-28 17:44 | disposition home or self-care (01) | DRG 101 ==
LOC: 2ND 11:45 → OBSVTOIN 11:45
PROVIDERS: ADMIT Internal Medicine; ATTEND Hospitalist
DX: G40.802 Other epilepsy, not intractable, without status epilepticus (principal); G45.9 Transient cerebral ischemic attack, unspecified; G81.91 Hemiplegia, unspecified affecting right dominant side; G83.84 Todd's paralysis (postepileptic); E78.5 Hyperlipidemia, unspecified; I10 Essential (primary) hypertension; E07.9 Disorder of thyroid, unspecified; E11.42 Type 2 diabetes mellitus with diabetic polyneuropathy; F17.200 Nicotine dependence, unspecified, uncomplicated; R47.81 Slurred speech; R29.810 Facial weakness; R79.89 Other specified abnormal findings of blood chemistry; R13.10 Dysphagia, unspecified; Z79.4 Long term (current) use of insulin; Z86.73 Personal history of transient ischemic attack (TIA), and cerebral infarction without residual deficits; Z79.02 Long term (current) use of antithrombotics/antiplatelets; Z79.84 Long term (current) use of oral hypoglycemic drugs; Z79.01 Long term (current) use of anticoagulants; Z79.52 Long term (current) use of systemic steroids; Z79.899 Other long term (current) drug therapy
CPT/HCPCS: 36415; 70450; 70496; 70498; 80048; 80053; 80061; 80076; 81003; 82550; 82947; 83036; 83735; 84100; 84439; 84443; 84484; 84702; 85025; 85610; 93005; 93306; 93880; 97110; 97116; 97161; 97530; J1815; J7512

== ENCOUNTER 2022-10-23 22:15 | Emergency (ER) | payer SELFPAY ==
--- OUTSIDE RECORDS SUMMARY | 2022-10-23 22:20 | XMS REPORT | Continuity of Care Document ---
:1980 Author Organization [facility] t Address [address] [facility] [address]. [address] [place] [address] Care Team Providers Name Role Phone LAKESHA PERALTA Primary Care Physician Unavailable LAKESHA PERALTA Attending Clinician Unavailable LAKESHA PERALTA Attending Clinician Unavailable REE GILL Attending Clinician Unavailable Frances Ree AGUIRRE Attending Clinician [phone] YANG BUCHANAN Attending Clinician Unavailable Yang Bell Attending Clinician Payers Payer Name Policy Type Policy Number Effective Date Expiration Date S ource [id number] 2021 00:00:00 Problems Condition Condition Condition Status Onset Resolution Last Treating Co mments Source Name Details Category Date Date Treatment Clinician Date Diabetes Diabetes Disease Active Unive rs type 2, type 2, 9-20 ity of uncontroll uncontroll [place] [facility] Other Other Disease Active Univers depression depression - it y of 00:00: [place] [facility] Other Other Disease Active Univers general general 1-20 ity of counseling counseling 00:[place] and advice and advice 00 Me dical for for Branch contracept contracept jakob jakob management management Diabetes Diabetes Disease Active Unive rs mellitus mellitus 1-20 ity of [...] different from the original. ICD10 Diagnosis Term [employer] Utility History of History of Disease Active U nivers tubal tubal 07-06 ity of ligation ligation 00:00: Medical Branch Overweight Overweight Disease Active U nivers (BMI (BMI 3- ity of 25.0-29.9) 25.0-29.9) [place]: [place] [facility] [place] Anemia Anemia Disease Active Overview: Univer s 07-06 Formattin ity of 00:00: g of this note Medical might be Branch different from the original. ICD10 Diagnosis Term [employer] Asthma Asthma Disease Active Overview: Univer s 07-06 Formattin ity of 00:00: g of this note Medical might be Branch different from the original. ICD10 Diagnosis Term [employer] Utility Generalize Generalize Disease Active U nivers d anxiety d anxiety 07-06 ity of disorder disorder 00:00: [place] [facility] Irregular Irregular Problem Active Com mon menses menses [facility] Encounter Encounter Problem Active Com mon for for Spirit screening screening - CH I mammogram mammogram St for breast for breast [facility] cancer cancer [facility] Well woman Well woman Problem Active C ommon exam with exam with Spir it routine routine - [facility] gynecologi gynecologi [facility] exam surekha exam [facility] Severe Severe Problem Active Common sprain of sprain of Spir it right right - [facility] ankle, ankle, St initial initial [facility] encounter encounter [facility] Acute Acute Problem Active Common right right Spirit ankle pain ankle pain - [facility] Strain of Strain of Problem Active Com mon tendon of tendon of Spir it long long - CHI flexor flexor St muscle of muscle of [place] s toe at toe at Medical right right Center ankle and ankle and foot level foot level Stress Stress Problem Active Common fracture fracture Spirit of right of right - [facility] calcaneus calcaneus St with with kes routine routine Medical healing, healing, Center subsequent subsequent encounter encounter Allergies, Adverse Reactions, Alerts Allergy Allergy Status Severity Reaction(s) Onset Inactive Treating Comm ents Source Name Type Date Date Clinician No Known DA Active U [facility] Allergie 12-25 [facility] 00:00: [address] NO KNOWN Drug Active Univers ALLERGIE Class ity of S [facility] Social History Social Habit Start Date Stop Date Quantity Comments Source History of Cigarette Smoker Universi ty of tobacco use [facility] History SDMA University o f Alcohol Frequency [facility] SDMA University o f Alcohol Std [place] [facility] Branch History SDMA University o f Alcohol Binge [facility] [place] [facility] al Branch Exposure to 2021-12-27 2022-01-06 Not sure University of SARS-CoV-2 00:00:00 13:51:00 [facility] [place] (event) Branch Alcohol intake 2022-01-06 2022-01-06 Current drinker of Un iversity of 00:00:00 00:00:00 alcohol (finding) [facility] [place] Tobacco use and 2021-12-30 2021-12-30 User of smokeless Un iversity of exposure 00:00:00 00:00:00 tobacco [facility] Alcohol Comment 2014-07-06 2014-07-06 occasionally Univers ity of 00:00:00 00:00:00 [facility] Sex [birth year] At [birth year] Universit y of 00:00:00 00:00:00 [facility] Smoking Status Start Date Stop Date Source Ex-smoker 2021-12-30 00:00:00 2021-12-30 00:00:00 Universi ty of [facility] Medications Ordered Filled Start Stop Current Ordering Indication Dosage Frequency Signature Comments Components Source Medication Medication Date Date Medication? Clinician (SIG) Name Name Nitrofurant 2021-04- No [id number] 100mg Take 1 Univers oin&Nit. 0-04 10-15 capsule by ity of [place] 00:00: 04:59 [place] (MACROBID[place] 00 :00 the Medical 100 mg morning Branch capsule and 1 capsule in the evening. Do all this for 10 days. Nitrofurant 2021-04- No [id number] 100mg Take 1 Univers oin&Nit. 0-04 10-15 capsule by ity of [place] 00:00: 04:59 [place] (MACROBID) 00 :00 the Medical 100 mg morning Branch capsule and 1 capsule in the evening. Do all this for 10 days. terconazole Yes [id number] 1{appli Insert 1 Univers 0.4 % 9-20 cator} Applicator ity of vaginal 00:00: into [place] cream 00 vagina at Medical bedtime. Branch For 3 nights terconazole Yes [id number] 1{appli Insert 1 Univers 0.4 % 9-20 cator} Applicator ity of vaginal 00:00: into [place] cream 00 vagina at Medical bedtime. Branch For 3 nights terconazole Yes [id number] 1{appli Insert 1 Univers 0.4 % 9-20 cator} Applicator ity of vaginal 00:00: into [place] cream 00 vagina at Medical bedtime. Branch For 3 nights terconazole Yes [id number] 1{appli Insert 1 Univers 0.4 % 9-20 cator} Applicator ity of vaginal 00:00: into [place] cream 00 vagina at Medical bedtime. Branch For 3 nights terconazole Yes [id number] 1{appli Insert 1 Univers 0.4 % 9-20 cator} Applicator ity of vaginal 00:00: into [place] cream 00 vagina at Medical bedtime. Branch For 3 nights terconazole Yes [id number] 1{appli Insert 1 Univers 0.4 % 9-20 cator} Applicator ity of vaginal 00:00: into [place] cream 00 vagina at Medical bedtime. Branch For 3 nights terconazole Yes [id number] 1{appli Insert 1 Univers 0.4 % 9-20 cator} Applicator ity of vaginal 00:00: into [place] cream 00 vagina at Medical bedtime. Branch For 3 nights terconazole Yes [id number] 1{appli Insert 1 Univers 0.4 % 9-20 cator} Applicator ity of vaginal 00:00: into [place] cream 00 vagina at Medical bedtime. Branch For 3 nights terconazole Yes [id number] 1{appli Insert 1 Univers 0.4 % 9-20 cator} Applicator ity of vaginal 00:00: into [place] cream 00 vagina at Medical bedtime. Branch For 3 nights terconazole Yes [id number] 1{appli Insert 1 Univers 0.4 % 9-20 cator} Applicator ity of vaginal 00:00: into [place] cream 00 vagina at Medical bedtime. Branch For 3 nights terconazole Yes [id number] 1{appli Insert 1 Univers 0.4 % 9-20 cator} Applicator ity of vaginal 00:00: into [place] cream 00 vagina at Medical bedtime. Branch For 3 nights metformin Yes 1000mg Take 1,000 Univers HCl 1-20 mg by ity of (METFORMIN 13:17: mouth. [place] ORAL) Medical Branch clopidogrel Yes Take by Uni vers bisulfate 1-20 mouth. ity of (PLAVIX 13:17: [place] ORAL) [address] [place] [address] Branch pregabalin Yes Take by Univ ers (LYRICA 1-20 mouth. ity of ORAL) 13:17: [place] [facility] Branch amitriptyli Yes Take by Uni vers ne HCl 1-20 mouth. ity of (AMITRIPTYL 13:17: [place] INE ORAL) [facility] Branch metformin Yes 1000mg Take 1,000 Univers HCl 1-20 mg by ity of (METFORMIN 13:17: mouth. [place] ORAL) [facility] Branch clopidogrel 2022-0 Yes Take by Uni vers bisulfate 1-20 mouth. ity of (PLAVIX 13:17: [place] ORAL) 10 Medical Branch pregabalin 0 Yes Take by Univ ers (LYRICA 1-20 mouth. ity of ORAL) 13:17: [place] 10 Medical Branch amitriptyli 0 Yes Take by Uni vers ne HCl 1-20 mouth. ity of (AMITRIPTYL 13:17: [place] INE ORAL) 10 Medical Branch metformin 0 Yes 1000mg Take 1,000 Univers HCl 1-20 mg by ity of (METFORMIN 13:17: mouth. [place] ORAL) 10 Medical Branch clopidogrel Yes Take by Uni vers bisulfate 1-20 mouth. ity of (PLAVIX 13:17: [place] ORAL) 10 Medical Branch pregabalin Yes Take by Univ ers (LYRICA 1-20 mouth. ity of ORAL) 13:17: [place] [address] Medical Branch amitriptyli Yes Take by Uni [...] (LYRICA 1-20 mouth. ity of ORAL) 13:17: [place] 10 Medical Branch amitriptyli Yes Take by Uni vers ne HCl 1-20 mouth. ity of (AMITRIPTYL 13:17: [place] INE ORAL) 10 Medical Branch metformin Yes 1000mg Take 1,000 Univers HCl 1-20 mg by ity of (METFORMIN 13:17: mouth. [place] ORAL) 10 Medical Branch clopidogrel 0 Yes Take by Uni vers bisulfate 1-20 mouth. ity of (PLAVIX 13:17: [place] ORAL) 10 Medical Branch pregabalin Yes Take by Univ ers (LYRICA 1-20 mouth. ity of ORAL) 13:17: [place] 10 Medical Branch amitriptyli 2022-0 Yes Take by Uni vers ne HCl [...] (LYRICA 1-20 mouth. ity of ORAL) 13:17: [place] 10 Medical Branch amitriptyli Yes Take by [...] (LYRICA 1-20 mouth. ity of ORAL) 13:17: [place] 10 Medical Branch amitriptyli Yes Take by [...] (LYRICA 1-20 mouth. ity of ORAL) 13:17: [place] 10 Medical Branch amitriptyli Yes Take by Uni vers ne HCl 1-20 mouth. ity of (AMITRIPTYL 13:17: [place] INE ORAL) 10 Medical Branch metformin Yes 1000mg Take 1,000 Univers HCl 1-20 mg by ity of (METFORMIN 13:17: mouth. [place] ORAL) 10 Medical Branch clopidogrel 2022-0 Yes Take by Uni vers bisulfate 1-20 mouth. ity of (PLAVIX 13:17: [place] ORAL) 10 Medical Branch pregabalin Yes Take by Univ ers (LYRICA 1-20 mouth. ity of ORAL) 13:17: [place] 10 Medical Branch amitriptyli Yes Take by Uni vers ne HCl 1-20 mouth. ity of (AMITRIPTYL 13:17: [place] INE ORAL) 10 Medical Branch metformin 0 Yes 1000mg Take 1,000 Univers HCl 1-20 mg by ity of (METFORMIN 13:17: mouth. [place] ORAL) 10 Medical Branch clopidogrel 0 Yes Take by Uni vers bisulfate 1-20 mouth. ity of (PLAVIX 13:17: [place] ORAL) 10 Medical Branch pregabalin Yes Take by Univ ers (LYRICA 1-20 mouth. ity of ORAL) 13:17: [place] [address] Medical Branch amitriptyli Yes Take by Uni [...] (LYRICA 1-20 mouth. ity of ORAL) 13:17: [place] [address] Medical Branch amitriptyli Yes Take by Uni vers ne HCl 1-20 mouth. ity of (AMITRIPTYL 13:17: [place] INE ORAL) 10 Medical Branch metformin 0 Yes 1000mg Take 1,000 Univers HCl 1-20 mg by ity of (METFORMIN 13:17: mouth. [place] ORAL) 10 Medical Branch clopidogrel 0 Yes Take by Uni vers bisulfate 1-20 mouth. ity of (PLAVIX 13:17: [place] ORAL) 10 Medical Branch pregabalin Yes Take by Univ ers (LYRICA 1-20 mouth. ity of ORAL) 13:17: [place] 10 Medical Branch amitriptyli 2022-0 Yes Take by Uni vers ne HCl 1-20 mouth. ity of (AMITRIPTYL 13:17: [place] INE ORAL) 10 Medical Branch Tramadol Tramadol 2018- 2019- No Isaac as Co mmon HCl HCl 6-20 07-20 Peng directed Spirit 00:00: [facility] Sulfamethox Sulfamethox Yes Isaac not Common azole-Trime azole-Trime Peng defined Spirit thoprim thoprim - [facility] Acetaminoph Acetaminoph Yes Isaac not Common en-Codeine en-Codeine Peng defined Spirit #3 #3 - [facility] Tramadol Tramadol Yes Isaac not Commo n HCl HCl Peng defined [facility] PredniSONE PredniSONE Yes Isaac (Prior Common Peng Auth: Rx Spirit Ref#:[id number] - [facility] 79) [facility] Topiramate Topiramate Yes Isaac (Prior Common Peng Auth: Rx Spirit Ref#:[id number] - [facility] 10) [facility] Clotrimazol Clotrimazol Yes Isaac (Prior Common e e Peng Auth: Rx Spirit Anti-Fungal Anti-Fungal Ref#:[id number] - [facility] 42) [facility] Gabapentin Gabapentin Yes Isaac (Prior Common Peng Auth: Rx Spirit Ref#:[id number] - [facility] 77) [facility] Vitamin D Vitamin D Yes Isaac not Com mon (Ergocalcif (Ergocalcif Peng defined Spirit marino) marino) - [facility] Cetirizine Cetirizine Yes Isaac (Prior Common HCl HCl Peng Auth: Rx Spirit Ref#:[id number] - [facility] 97) [facility] Levetiracet Levetiracet Yes Isaac (Prior Common am am Peng Auth: Rx Spirit Ref#:[id number] - [facility] 78) [facility] Clopidogrel Clopidogrel Yes Isaac not Common Bisulfate Bisulfate Peng defined [facility] - [facility] Amitriptyli Amitriptyli Yes Isaac (Prior Common ne HCl ne HCl Peng Auth: Rx Spiri t Ref#:[id number] - [facility] 16) [facility] Fluconazole Fluconazole Yes Isaac (Prior Common Peng Auth: Rx Spirit Ref#:[id number] - [facility] 96) [facility] Pantoprazol Pantoprazol Yes Isaac (Prior Common e Sodium e Sodium Peng Auth: Rx S pirit Ref#:[id number] - [facility] 27) [facility] Mupirocin Mupirocin Yes Isaac not Com mon Peng defined Spirit - [facility] Triamcinolo Triamcinolo Yes Isaac (Prior Common ne ne Peng Auth: Rx Spirit Acetonide Acetonide Ref#:[id number] - [facility] 80) [facility] Lyrica Lyrica Yes Isaac not Common Peng defined [facility] Metformin Metformin Yes Isaac not Com mon HCl HCl Peng defined [facility] Immunizations Ordered Filled Immunization Date Status Comments Sourc e Immunization Name Name TDAP (ADACEL) 2000-11-10 Completed University of VACCINE 00:00:00 [facility] TDAP (ADACEL) 2000-11-10 Completed University of VACCINE 00:00:00 [facility] TDAP (ADACEL) 2000-11-10 Completed University of VACCINE 00:00:00 [facility] TDAP (ADACEL) 2000-11-10 Completed University of VACCINE 00:00:00 [facility] TDAP (ADACEL) 2000-11-10 Completed University of VACCINE 00:00:00 [facility] [place] Branch TDAP (ADACEL) 2000-11-10 Completed University of VACCINE 00:00:00 [facility] TDAP (ADACEL) 2000-11-10 Completed University of VACCINE 00:00:00 [facility] TDAP (ADACEL) 2000-11-10 Completed University of VACCINE 00:00:00 [facility] [place] Branch TDAP (ADACEL) 2000-11-10 Completed University of VACCINE 00:00:00 [facility] [place] Branch TDAP (ADACEL) 2000-11-10 Completed University of VACCINE 00:00:00 [facility] [place] Branch TDAP (ADACEL) 2000-11-10 Completed University of VACCINE 00:00:00 [facility] [place] Branch TDAP (ADACEL) 2000-11-10 Completed University of VACCINE 00:00:00 [facility] Vital Signs Vital Name Observation Time Observation Value Comments Source Systolic blood 2022-01-06 18:53:00 141 mm[Hg] Univer sity of pressure [facility] Diastolic blood 2022-01-06 18:53:00 96 mm[Hg] Unive rsity of pressure [place] [facility] Heart rate 2022-01-06 18:53:00 76 /min Universi ty of [place] [facility] Body temperature 2022-01-06 18:52:00 36.44 Lilibeth Univ ersity of [place] [facility] Respiratory rate 2022-01-06 18:52:00 18 /min Univ ersity of [place] [facility] Body height 2022-01-06 18:52:00 167.6 cm Universi ty [facility] [place] [facility] Body weight 2022-01-06 18:52:00 80.428 kg [facility]i ty [facility] [place] [facility] BMI 2022-01-06 18:52:00 28.62 kg/m2 [facility]i ty [facility] [place] [facility] Systolic blood 2021-12-30 16:17:00 152 mm[Hg] Univer sity of pressure [place] [facility] Diastolic blood 2021-12-30 16:17:00 98 mm[Hg] Unive rsity of pressure [place] [facility] Heart rate 2021-12-30 16:17:00 85 /min [facility]i ty [facility] [place] [facility] Body temperature 2021-12-30 16:16:00 36.61 Lilibeth Univ ersity of [place] [facility] Respiratory rate 2021-12-30 16:16:00 18 /min Univ ersity of [place] [facility] Body height 2021-12-30 16:16:00 167.6 cm [facility]i ty [facility] [place] [facility] Body weight 2021-12-30 16:16:00 80.428 kg [facility] [place] [facility] BMI 2021-12-30 16:16:00 28.62 kg/m2 [facility] [place] [facility] Procedures Procedure Date / Time Performed Performing Clinician Sourc e POCT URINALYSIS W/O 2022-01-06 18:56:00 Yang Buchanan [facility]ive [facility] [place] SPECIFIC GRAVITY Medical Branch Encounters Start End Encounter Admission Attending Care Care Encounter Source Date/Time Date/Time Type Type Clinicians Facility Department ID 2022-08-27 2022-08-27 Outpatient R LAKESHA PERALTA [facility] [id number] Univers 07:30:00 07:30:00 LAKESHA PERALTA of [facility] 2022-05-01 2022-05-01 Outpatient R FRANCES [facility] [id number] Univers 13:15:00 13:15:00 REE ity o f [facility] 2022-05-01 2022-05-01 Outpatient R AKINSIPE, [facility] [id number] Univers 13:15:00 13:15:00 REE ity o f [facility] 2022-05-01 2022-05-01 Outpatient R AKINSIPE, [facility] [id number] Univers 13:15:00 13:15:00 REE ity o f [facility] 2022-05-01 2022-05-01 Outpatient R AKINSIPE, [facility] [id number] Univers 13:15:00 13:15:00 REE ity o f [facility] 2022-05-01 2022-05-01 Outpatient R AKINSIPE, [facility] [id number] Univers 13:15:00 13:15:00 REE ity o f [facility] 2022-01-13 2022-01-13 [facility] [place] [id number] Univers 00:00:00 00:00:00 Ree C SAFETY DIRECTOR [id number] ity of [facility] [id number] Rios as MATERNAL [phone] Med ical & CHILD [address] [place] [address] 2022-01-06 2022-01-06 Outpatient R DARIAN [facility] [id number] Univers 13:45:00 14:04:36 ROSLIYANDA ity o [facility] 2022-01-06 2022-01-06 [facility] [id number] Univers 13:45:00 14:04:36 Visit Rosnda R SAFETY DIRECTOR [id number] ity of [facility] [id number] Rios as MATERNAL [id number] [facility] ical & CHILD [address] [place] [address] 2022-01-06 2022-01-06 Letter [facility] [id number] Univers 00:00:00 00:00:00 (Out) Rosnda R SAFETY DIRECTOR [id number] ity of REGIONAL [id number] Rios as MATERNAL [phone] [place] & CHILD [address] [place] [address] 2022-01-01 2022-01-01 Telephone HANG Gill [id number] Univers 00:00:00 00:00:00 Ree C DIEGO [id number] ity of [facility] [id number] Rios as [id number] [address] 2021-12-30 2021-12-30 [facility] [id number] Univers 11:00:00 11:39:30 REE yoy o f [facility] 2021-12-30 2021-12-30 Office [facility] [place] [id number] [facility] 11:00:00 11:39:30 Visit Ree Boswell SAFETY DIRECTOR [id number] ity of [facility] [id number] Rios as MATERNAL [id number] [address] 2021-12-30 2021-12-30 [facility] [id number] Univers 11:00:00 11:00:00 REE yoy o f [facility] 2021-12-22 2021-12-22 Telephone [facility] [place] [id number] Univers 00:00:00 00:00:00 Ree Elbert SAFETY DIRECTOR [id number] ity of [facility] [id number] Rios as MATERNAL [id number] [address] 2021-12-22 2021-12-22 Telephone [facility] [place] [id number] Univers 00:00:00 00:00:00 Ree C SAFETY DIRECTOR [id number] ity of [facility] [id number] Rios as MATERNAL [id number] [facility] & CHILD [address] [place] [address] 2021-10-14 2021-10-14 Telephone [facility] [id number] Univers 00:00:00 00:00:00 Ree C SAFETY DIRECTOR [id number] ity of [facility] [id number] Rios as MATERNAL [id number] [facility] & [address] 2021-10-09 2021-10-09 Outpatient R AKINSIPE, [facility] [id number] Univers 16:00:00 16:00:00 REE ity o [facility] 2021-10-09 2021-10-09 Office [facility] [id number] Univers 14:00:00 14:46:06 Visit [facility] C SAFETY DIRECTOR [id number] ity of [facility] [id number] Rios as MATERNAL [id number] [address] 2021-10-09 2021-10-09 Outpatient R AKINSIPE, [facility] [id number] Univers 14:00:00 14:46:06 REE ity o [facility] 2021-10-09 2021-10-09 Outpatient R AKINSIPE, [facility] [id number] Univers 14:00:00 14:00:00 REE ity o [facility] 2021-10-03 2021-10-03 Outpatient R AKINSIPE, [facility] [id number] Univers 15:30:00 15:30:00 REE ity o [facility] 2021-10-03 2021-10-03 Outpatient R AKINSIPE, [facility] [id number] Univers 15:30:00 15:30:00 REE ity o [facility] 2021-10-01 2021-10-01 Telephone [facility] [id number] Univers 00:00:00 00:00:00 Ree C SAFETY DIRECTOR [id number] ity of [facility] [id number] Rios as MATERNAL [id number] [facility] & CHILD [address] [place] [address] 2021-09-05 2021-09-05 Outpatient R AKINSIPE, [facility] [id number] Univers 00:00:00 00:00:00 REE ity o [facility]wis [facility] 2021-09-05 2021-09-05 Outpatient R AKINSIPE, [facility] [id number] Univers 00:00:00 00:00:00 REE yoy o f [facility] 2021-07-30 2021-07-30 Telephone [facility] [place] [id number] Univers 00:00:00 00:00:00 Ree C SAFETY DIRECTOR [id number] ity of REGIONAL [id number] Rios as MATERNAL [id number] [facility] & CHILD [address] [place] [address] 2021-05-02 2021-05-02 Telephone [facility] [place] [id number] Univers 00:00:00 00:00:00 Ree C SAFETY DIRECTOR [id number] ity of REGIONAL [id number] Rios as MATERNAL [id number] [facility] & CHILD [address] [place] [address] 2021-05-01 2021-05-01 Office [facility] [place] [id number] Univers 12:45:00 14:07:49 Visit Ree C SAFETY DIRECTOR [id number] ity of [facility] [id number] Rios as MATERNAL [id number] [facility] & CHILD [address] [place] [address] 2021-05-01 2021-05-01 Outpatient R AKINSIPE, [facility] [id number] Univers 12:45:00 14:07:49 REE yoy o [facility] 2021-05-01 2021-05-01 Outpatient R AKINSIPE, [facility] [id number] Univers 12:45:00 14:07:49 REE ity o [facility] 2021-05-01 2021-05-01 Outpatient R AKINSIPE, [facility] [id number] Univers 12:45:00 12:45:00 REE yoy o [facility] 2019-11-29 2019-11-29 Outpatient [facility] PDPFEDD [facility] 00:00:00 00:00:00 [id number] 2018-12-08 2018-12-08 Outpatient [facility] [id number] Common 13:19:00 13:19:00 t [facility] 2018-10-25 2018-10-25 Outpatient [facility] [id number] Common 09:00:00 09:00:00 [facility] [place] 2018-10-11 2018-10-11 Outpatient [id number] Common 14:30:00 14:30:00 [facility] [place] 2018-09-29 2018-09-29 Outpatient [facility] [id number] Common 16:33:00 16:33:00 t [facility] 2018-05-02 2018-05-02 Outpatient [facility] [id number] Common 13:45:00 13:45:00 t [facility] Results Test Description Test Time Test Comments [...] = 3257) Trace Negative - Negative [facility]CIFIC [id number] 18:56:00 Test Item Value Reference Range Interpretation [...] code = 3257) Trace Negative - [facility] [id number] 18:56:00 Test Item Value Reference Range Interpretation [...] code = 3257) Trace Negative - Negative [facility]
[2022-10-23] MEDS ORDERED: NA CHLORIDE 0.9% 1,000 ML ONE (22:34)
[2022-10-23 22:44] LABS: Absolute Lymphocytes (CBC) 3.1 K/uL (0.7-4.9); Hematocrit 44.3 % (36.0-45.0); Lymphocytes % 38.5 % (15.3-44.8); MCV 88.4 fL (80-100); MPV 8.1 fL (7.6-11.3); RBC Red Blood Cell Count 5.01 M/uL (3.86-4.86)
[2022-10-23 22:58] LABS: ALT/SGPT 264 U/L (13-56); AST/SGOT 124 U/L (15-37); Albumin 3.8 g/dL (3.4-5.0); Alkaline Phosphatase 170 U/L (45-117); BUN Blood Urea Nitrogen 6 mg/dL (7-18); Bicarbonate 20 mEq/L (21-32); Bilirubin Total 0.6 mg/dL (0.2-1.0); Creatine Phosphokinase 133 U/L (26-192); Glomerular Filtration Rate 112 ml/min (=/>90); Glucose Level 394 mg/dL (74-106); NT PRO-BNP 27 pg/mL (<125); Potassium 3.3 mEq/L (3.5-5.1); Sodium Level 137 mEq/L (136-145); Troponin High Sensitivity 3.5 pg/mL (<58.9)
[2022-10-23 23:15] LABS: Specific Gravity 1.009 (1.005-1.030); Urine Bilirubin NEGATIVE (Negative); Urine Blood Negative (Negative); Urine Clarity Clear (Clear); Urine Color Colorless (Yellow); Urine Glucose 4+ (Over) (Negative); Urine Protein NEGATIVE (Negative); Urine Urobilinogen Normal (Normal)
[2022-10-23 23:21] LABS: Specific Gravity 1.009 (1.005-1.030)
[2022-10-23 23:22] LABS: Barbiturates NEGATIVE (NEGATIVE); Benzodiazepines NEGATIVE (NEGATIVE); Cocaine NEGATIVE (NEGATIVE); METHAMPHETAM NEGATIVE (NEGATIVE); Methadone NEGATIVE (NEGATIVE); Opiates NEGATIVE (NEGATIVE); Phencyclidine NEGATIVE (NEGATIVE); THC Cannibis NEGATIVE (NEGATIVE)
--- NOTE | 2022-10-24 06:26 | ER ---
Nurse's Notes [facility] Name: Mica Hanson Age: 42 yrs Sex: Female : 1980 Arrival Date: 10/23/2022 Time: 22:15 Bed 3 Private MD: Diagnosis: Alcohol use, unspecified with intoxication;Seizure-like activity;Medication non-compliance Presentation: 10/23 22:20 Chief complaint: EMS states: the patient was at a pool with some friends when she kd3 started having some bizarre seizure like activities. Friends called EMS and on arrival pt was on the second step of the pool and arching her back, backwards and had and O2 level of 92% room air. Pt was placed on a non rebreather and given 2 mg of ativan IV in route. Pt's seizure like activities subsided and pt appears to be post ictal on arrival to the hospital. Only known medical history is seizure, per friends. Coronavirus screen: Vaccine status: unknown. Ebola Screen: No symptoms or risks identified at this time. Initial Sepsis Screen: Does the patient meet any 2 criteria? No. Patient's initial sepsis screen is negative. Does the patient have a suspected source of infection? No. Patient's initial sepsis screen is negative. Risk Assessment: Do you want to hurt yourself or someone else? Patient reports no desire to harm self or others. Onset of symptoms was October 23, 2022. 22:20 Method Of Arrival: [facility] 22:20 Acuity: MAURICE 3 kd3 Triage Assessment: 22:20 General: Appears uncomfortable, Behavior is agitated. Pain: Complains of pain in left kd3 arm. Historical: - Allergies: 22:20 NKDA; mb9 - PMHx: 22:20 CVA; Diabetes - NIDDM; Hypertension; Pancreatitis; Seizures; Right sided weakness from mb9 previous CVA; PERIPHERAL NEUROPATHY; - PSHx: 22:20 cardiac stents 2019; mb9 - Immunization history:: Adult Immunizations unknown. - Social history:: Smoking status: unknown. Screenin:21 [facility] ED Fall Risk Assessment (Adult) History of falling in the last 3 months, mb9 including since admission No falls in past 3 months (0 pts) Confusion or Disorientation Yes (5 pts) Intoxicated or Sedated No (0 pts) Impaired Gait Yes (1 pt) Mobility Assist Device Used No (0 pt) Altered Elimination No (0 pt) Score/Fall Risk Level 3 or more points = High Risk Educated pt \T\ family on fall prevention, incl call for assistance when getting out of bed. Abuse screen: Denies threats or abuse. Nutritional screening: No deficits noted. Tuberculosis screening: No symptoms or risk factors identified. Assessment: 22:36 General: Appears uncomfortable, Behavior is drowsy. Neuro: Level of Consciousness is mb9 lethargic. Respiratory: Airway is patent Respiratory effort is even, unlabored, Respiratory pattern is regular, symmetrical. Derm: Skin is pink, warm \T\ dry. Musculoskeletal: Range of motion: intact in all extremities. 23:12 Neuro: Level of Consciousness is awake, obeys commands, Oriented to person, situation. mb9 Respiratory: Airway is patent Respiratory effort is even, unlabored, Respiratory pattern is regular, symmetrical. 10/24 00:27 General: Appears in no apparent distress. comfortable, Behavior is drowsy, flat. Neuro: lg3 Meraz Agitation-Sedation Scale (RASS): -1 Drowsy Level of Consciousness is obeys commands, lethargic, Oriented to person, place. Cardiovascular: No deficits noted. Respiratory: No deficits noted. Airway is patent Respiratory effort is even, unlabored, Respiratory pattern is regular, symmetrical. GI: No deficits noted. No signs and/or symptoms were reported involving the gastrointestinal system. : No deficits noted. No signs and/or symptoms were reported regarding the genitourinary system. EENT: No deficits noted. No signs and/or symptoms were reported regarding the EENT system. Derm: No deficits noted. No signs and/or symptoms reported regarding the dermatologic system. Skin is intact, is healthy with good turgor, Skin is dry, Skin is normal, Skin temperature is warm. Musculoskeletal: Circulation, motion, and sensation intact. Range of motion: intact in all extremities. 01:34 Reassessment: Patient appears in no apparent distress at this time. No changes from lg3 previously documented assessment. pt appears to be post ictal at this time. 03:14 Reassessment: Pt resting in bed with eyes closed, respirations are even and unlabored. jb4 no seizure like activity noted at this time. 04:34 Reassessment: Patient appears in no apparent distress at this time. No changes from jb4 previously documented assessment. Patient and/or family updated on plan of care and expected duration. Pain level reassessed. 05:35 Reassessment: Patient appears in no apparent distress at this time. No changes from jb4 previously documented assessment. Patient and/or family updated on plan of care and expected duration. Pain level reassessed. 06:39 Reassessment: Patient appears in no apparent distress at this time. Patient and/or jb4 family updated on plan of care and expected duration. Pain level reassessed. Patient is alert, oriented x 3, equal unlabored respirations, skin warm/dry/pink. D/c pending ride home. 08:47 Reassessment: Patient appears in no apparent distress at this time. Patient and/or ph family updated on plan of care and expected duration. Pain level reassessed. Patient is alert, oriented x 3, equal unlabored respirations, skin warm/dry/pink. Awaiting ride home, pt states that ride will be here at 0900. Vital Signs: 10/23 22:20 BP 124 / 70; Pulse 115; Resp 19; Pulse Ox 94% on R/A; kd3 22:37 Pulse Ox 95% on 2 lpm NC; mb9 23:12 BP 110 / 72; Pulse 98; Resp 18; Pulse Ox 97% on 2 lpm NC; mb9 10/24 00:27 BP 110 / 80; Pulse 98; Resp 21; Pulse Ox 94% on 2 lpm NC; lg3 01:35 BP 108 / 74; Pulse 96; Resp 17 S; Pulse Ox 98% on 2 lpm NC; lg3 03:14 BP 105 / 66; Pulse 105; Resp 23; Pulse Ox 98% on 2 lpm NC; jb4 04:34 BP 124 / 69; Pulse 95; Resp 18; Pulse Ox 98% on R/A; jb4 05:35 BP 119 / 80; Pulse 98; Resp 15; Pulse Ox 95% on 2 lpm NC; jb4 06:39 BP 111 / 58; Pulse 98; Resp 16; Pulse Ox 95% on R/A; jb4 09:00 BP 140 / 86; Pulse 95; Resp 16; Pulse Ox 96% ; jl7 ED Course: 10/23 22:17 Patient arrived in ED. sb4 22:20 Breneman, Juanita, RN is Primary Nurse. mb9 22:20 Arm band placed on. mb9 22:21 Mable Cruz MD is Attending Physician. sd2 22:22 Placed in gown. Bed in low position. Call light in reach. Side rails up X 1. Client mb9 placed on continuous cardiac and pulse oximetry monitoring. NIBP monitoring applied. monitor technician on. 22:25 Triage completed. kd3 22:36 Troponin High Sensitivity Sent. mb9 22:36 Ethanol Sent. mb9 22:36 Salicylate Sent. mb9 22:36 Acetaminophen Sent. mb9 22:36 Magnesium Sent. mb9 22:36 CMP Sent. mb9 22:36 CBC with Diff Sent. mb9 23:11 Test, Urine Sent. mb9 23:11 Urinalysis w/ reflexes Sent. mb9 23:11 Urine Drug Screen Sent. mb9 23:11 Straight cath inserted, using sterile technique, 18 Fr. Returned cloudy urine. Patient bella tolerated well. 10/24 00:26 CT Head Brain wo Cont In Process Unspecified. EDMS 00:27 Door closed. Noise minimized. Warm blanket given. lg3 00:27 Maintain EMS IV. Dressing intact. Good blood return noted. Site clean \T\ dry. Gauge \T\ lg 3 site: 20L hand. 00:46 XRAY Chest (1 view) In Process Unspecified. EDMS 09:40 Provided Education on: Alcohol Intoxication. jl7 09:40 No provider procedures requiring assistance completed. IV discontinued, intact, jl7 bleeding controlled, No redness/swelling at site. Pressure dressing applied. Administered Medications: 10/23 22:35 Drug: NS 0.9% IV 1000 ml Route: IV; Rate: 1 bolus; Site: left hand; mb9 Medication: 22:21 VIS not applicable for this client. mb9 Outcome: 10/24 06:25 Discharge ordered by . sd2 09:40 Discharged to home ambulatory, with friend. jl7 09:40 Condition: stable 09:40 Discharge instructions given to patient, Instructed on discharge instructions, follow up and referral plans. Demonstrated understanding of instructions, follow-up care. 09:56 Patient left the ED. jl7 Signatures: Dispatcher [employer] EDCO Tenisha James RN RN ph Bryson, James RN RN jb4 Terrell Khalil RN RN jl7 Yanira Velazco RN RN lg3 Elida Mckeon, RN RN kd3 Mable Cruz MD MD sd2 Brown, Sophia, ROXANN andersen4 Dayan, Juanita, RN RN mb9
--- NOTE | 2022-10-24 06:26 | EDPHYS ---
Physician Documentation [facility] Name: Mica Hanson Age: 42 yrs Sex: Female : 1980 Arrival Date: 10/23/2022 Time: 22:15 Bed 3 Private MD: ED Physician Mable Cruz HPI: 10/23 22:23 This 42 yrs old Female presents to ER via Unassigned with complaints of AMS. sd2 22:23 42 yo F presents via EMS with CC of AMS. EMS reports that the patient was at a pool sd2 alliance party with friends who called due to mental status change. When they arrived, the patient was on the first step of a shallow pool arching backwards and flailing not responding appropriately to commands. They were able to get her into the ambulance and gave her 2 mg of Ativan with improvement. pt was able to tell hem her name on the way and denied using drugs to them. Pt does have a history of seizures per report but further history is unknown. Friends reported the patient had been drinking ETOH but had just arrived and they were unsure if she had taken anything else before that. . Historical: - Allergies: 22:20 NKDA; mb9 - PMHx: 22:20 CVA; Diabetes - NIDDM; Hypertension; Pancreatitis; Seizures; Right sided weakness from mb9 previous CVA; PERIPHERAL NEUROPATHY; - PSHx: 22:20 cardiac stents 2019; mb9 - Immunization history:: Adult Immunizations unknown. - Social history:: Smoking status: unknown. ROS: 22:23 Constitutional: Negative for fever, chills, and weight loss, Eyes: Negative for injury, sd2 pain, redness, and discharge, Cardiovascular: Negative for chest pain, palpitations, and edema, Respiratory: Negative for shortness of breath, cough, wheezing. Abdomen/GI: Negative for abdominal pain, nausea, vomiting, diarrhea. MS/Extremity: Negative for injury and deformity, Skin: Negative for injury, rash, and discoloration, Neuro: Negative for headache, numbness and tingling. Positive for AMS. Exam: 22:23 Constitutional: This is a well developed, well nourished patient who is awake but sd2 drowsy and able to obey commands Head/Face: Normocephalic, atraumatic. Eyes: EOMI, normal conjunctiva bilaterally Chest/axilla: Normal chest wall appearance and motion. Nontender with no deformity. Cardiovascular: Regular rate and rhythm with a normal S1 and S2. No gallops, murmurs, or rubs. 2+ distal pulses. Respiratory: Lungs have equal breath sounds bilaterally, clear to auscultation and percussion. No rales, rhonchi or wheezes noted. Occasional sonorous respirations noted with changes in mental status. Abdomen/GI: Soft, non-tender, with normal bowel sounds. No guarding or rebound. No evidence of tenderness throughout. Back: No spinal tenderness. No costovertebral tenderness. Full range of motion. Skin: Warm, dry with normal turgor. Normal color with no rashes, no lesions, and no evidence of cellulitis. MS/ Extremity: Pulses equal, no cyanosis. Neurovascular intact. Full, normal range of motion. Ambulatory without difficulty. 22:36 ECG was reviewed by the Attending Physician. Sinus tachycardia, rate 123, no STEMI sd2 criteria, occasional PVC present, baseline artifact present Vital Signs: 22:20 BP 124 / 70; Pulse 115; Resp 19; Pulse Ox 94% on R/A; kd3 22:37 Pulse Ox 95% on 2 lpm NC; mb9 23:12 BP 110 / 72; Pulse 98; Resp 18; Pulse Ox 97% on 2 lpm NC; mb9 10/24 00:27 BP 110 / 80; Pulse 98; Resp 21; Pulse Ox 94% on 2 lpm NC; lg3 01:35 BP 108 / 74; Pulse 96; Resp 17 S; Pulse Ox 98% on 2 lpm NC; lg3 03:14 BP 105 / 66; Pulse 105; Resp 23; Pulse Ox 98% on 2 lpm NC; jb4 04:34 BP 124 / 69; Pulse 95; Resp 18; Pulse Ox 98% on R/A; jb4 05:35 BP 119 / 80; Pulse 98; Resp 15; Pulse Ox 95% on 2 lpm NC; jb4 06:39 BP 111 / 58; Pulse 98; Resp 16; Pulse Ox 95% on R/A; jb4 09:00 BP 140 / 86; Pulse 95; Resp 16; Pulse Ox 96% ; jl7 MDM: 10/23 22:21 Patient medically screened. sd2 22:23 Differential Diagnosis ICH, substance abuse, seizure, electrolyte abnormality among sd2 others. Data reviewed: vital signs, nurses notes, EMS record, lab test result(s), EKG, radiologic studies. I considered the following discharge prescriptions or medication management in the emergency department Medications were administered in the Emergency Department. See MAR. Historians other than the Patient: EMS: provides initial report. 10/24 06:23 Counseling: I had a detailed discussion with the patient and/or guardian regarding: the sd2 historical points, exam findings, and any diagnostic results supporting the discharge/admit diagnosis, lab results, radiology results, the need for outpatient follow up, to return to the emergency department if symptoms worsen or persist or if there are any questions or concerns that arise at home. ED course: Labs and imaging reviewed. No significant abnormalities aside from alcohol intoxication. Pt is now awake, alert and oriented x3. She relates that she did drink a significant amount of ETOH last night which she is not supposed to do with her Keppra. She also missed her Keppra dose yesterday as well. Pt likely had a seizure and was post-ictal upon arrival along with being intoxicated. No signs of significant traumatic injury. VS improved. Pt to be discharged home with a sober ride at this time. Verbalizes understanding of discharge plan and strict return precautions. . 10/23 22:22 Order name: CBC with Diff; Complete Time: 23:29 sd10/23 22:22 Order name: CMP; Complete Time: 23:29 10/23 22:22 Order name: Magnesium; Complete Time: 23:29 10/23 22:22 Order name: Troponin High Sensitivity; Complete Time: 23:29 10/23 22:22 Order name: BNP; Complete Time: 23:29 10/23 22:22 Order name: Ethanol; Complete Time: 23:29 sd10/23 22:22 Order name: Acetaminophen; Complete Time: 23:29 sd10/23 22:22 Order name: Salicylate; Complete Time: 23:29 sd10/23 22:22 Order name: Urine Drug Screen; Complete Time: 23:29 10/23 22:22 Order name: Urinalysis w/ reflexes; Complete Time: 23:29 10/23 22:22 Order name: Test, Urine; Complete Time: 23:29 sd2 07/14 22:22 Order name: CK; Complete Time: 23:29 10/23 22:22 Order name: AMMONIA; Complete Time: 23:29 10/23 22:22 Order name: CT Head Brain wo Cont 10/23 22:28 Order name: XRAY Chest (1 view) 10/23 22:22 Order name: EKG - Nurse/Tech; Complete Time: 22:36 10/23 23:11 Order name: Straight Cath - Urine; Complete Time: 23:11 mb9 Administered Medications: 10/23 22:35 Drug: NS 0.9% IV 1000 ml Route: IV; Rate: 1 bolus; Site: left hand; mb9 Disposition Summary: 10/24/22 06:25 Discharge Ordered Location: Home sd2 Problem: new sd2 Symptoms: have improved sd2 Condition: Stable sd2 Diagnosis - Alcohol use, unspecified with intoxication sd2 - Seizure-like activity sd2 - Medication non-compliance sd2 Followup: sd2 - With: Private Physician - When: 2 - 3 days - Reason: Recheck today's complaints, Continuance of care, Re-evaluation by your physician Discharge Instructions: - Discharge Summary Sheet sd2 - Alcohol Intoxication sd2 - Seizure, Adult sd2 Forms: - Medication Reconciliation Form sd2 - Thank You Letter sd2 - Antibiotic Education sd2 - Prescription Opioid Use sd2 - Patient Portal Instructions sd2 Signatures: Dispatcher [employer] Mable Galarza MD MD sd2 Anita Hanley RN RN mb9
[2022-10-24 10:17] VITALS: BP 140/86; O2SAT 96
--- NOTE | 2022-10-24 22:32 | RAD REPORT ---
EXAM DESCRIPTION: XR Chest, 1 View CLINICAL HISTORY: The patient is 42 years old and is Female; AMS TECHNIQUE: Frontal view of the chest. COMPARISON: XR Chest dated October 13 2019 FINDINGS: LUNGS: There are low lung volumes. Mild prominence of the interstitial markings is noted . PLEURAL SPACE: Unremarkable. No pneumothorax. HEART: Unremarkable. No cardiomegaly. MEDIASTINUM: Unremarkable. BONES/JOINTS: Unremarkable. UPPER ABDOMEN: Unremarkable as visualized. IMPRESSION: Low lung volumes with likely atelectasis. Electronically signed by: Mirtha Adorno MD 10/24/2022 1:09 AM CDT Due to temporary technical issues with the PACS/Fluency reporting system, reports are being signed by the in house radiologists without review as a courtesy to insure prompt reporting. The interpreting radiologist is fully responsible for the content of the report.
--- NOTE | 2022-10-24 22:57 | RAD REPORT ---
EXAM DESCRIPTION: CT Head Without Intravenous Contrast CLINICAL HISTORY: The patient is 42 years old and is Female; MENTAL STATUS CHANGE TECHNIQUE: Axial computed tomography images of the head/brain without intravenous contrast. Sagitt al and coronal reformatted images were created and reviewed. This CT exam was performed using one o r more of the following dose reduction techniques: automated exposure control, adjustment of the mA and/or kV according to patient size, and/or use of iterative reconstruction technique. COMPARISON: CT of the head August 14, 2022 FINDINGS: BRAIN: Unremarkable. The montoya-white matter differentiation is preserved . No hemorrhag e. No significant white matter disease. No edema. No extra-axial fluid collections. VENTRICLES: Unremarkable. No ventriculomegaly. BONES/JOINTS: No acute fracture. SOFT TISSUES: Unremarkable. SINUSES: Unremarkable as visualized. No acute sinusitis. MASTOID AIR CELLS: Unremarkable as visualized. No mastoid effusion. ORBITS: Unremarkable as visualized. IMPRESSION: No acute intracranial findings. Electronically signed by: Mirtha Adorno MD 10/24/2022 12:47 AM CDT Due to temporary technical issues with the PACS/Fluency reporting system, reports are being signed by the in house radiologists without review as a courtesy to insure prompt reporting. The interpreting radiologist is fully responsible for the content of the report.
--- NOTE | 2022-10-26 15:42 | EKG ---
Test Date: 2022-10-23 Test Time: 22:31:54 Powder Line Repairer: DANN MEASUREMENT RESULTS: Intervals: Rate: 123 WY: 146 QRSD: 90 QT: 340 QTc: 486 [place]: P: 53 WY: 146 QRS: 18 T: 22 INTERPRETIVE STATEMENTS: Sinus tachycardia Otherwise normal ECG Electronically Signed On 10-26-22 15:41:37 CDT by Alejandro Mcmillan
== END 2022-10-24 09:56 | disposition home or self-care (01) ==
LOC: ER 22:15
DX: F10.929 Alcohol use, unspecified with intoxication, unspecified (principal); R56.9 Unspecified convulsions; Z91.148 Patient's other noncompliance with medication regimen for other reason
CPT/HCPCS: 36415; 51702; 70450; 71045; 80053; 80143; 80179; 80307; 81003; 81025; 82077; 82140; 82550; 83735; 83880; 84484; 85025; 93005; 99285; J7030

== ENCOUNTER 2023-03-26 22:26 | Emergency (ER) | payer SELFPAY ==
--- OUTSIDE RECORDS SUMMARY | 2023-03-26 22:29 | XMS REPORT | Continuity of Care Document ---
Author Name Unknown Address [address] [facility] [address] [facility] [address] [place] [address] [facility] thconnect Address [address] [place] [address] Care Team Providers Care Vest Front Presser Name Role Phone JEREMIE GRAHAMNDA Primary Care Physician Unavailab neal [email or web address]_S Attending Clinician UnavailLAKESHA Olsen Attending Clinician Unavailable LAKESHA PERALTA Attending Clinician Unavailable REE GILL Attending Clinician Unavail able Ree House Attending Clinician + YANG BUCHANAN Attending Clinician Yang Goodson Attending Clinician [email or web address]_Kadiyala_S Admitting Clinician Rita elkins Payers Payer Name Policy Type Policy Number Effective Date Expirati on Date Source [facility] [id number] 2021 00:00:00 Problems Condition Name Condition Details Condition Category Status Onset Date Resolution Date Last Treatment Date Treating Clinician Comments Source Diabetes type 2, uncontroll ed Diabetes type 2, uncontroll ed Disease Active 12-30 00:00: 00 [facility] Other depression Other depression Disease Active 12-30 00:00: 00 [facility] Other general counseling and advice for contracept jakob management Other general counseling and advice for contracept jakob management Disease Active 05-01 00:00: 00 [facility] Diabetes mellitus without complicati on Diabetes mellitus without complicati on Disease Active 05-01 00:00: 00 [facility] Other and unspecifie d ovarian cyst Other and unspecifie d ovarian cyst Disease Active 07-06 00:00: 00 [facility] Female genital symptoms Female genital symptoms Disease Active 07-06 00:00: 00 Overview: Formattin g of this note might be different from the original. ICD10 Diagnosis Term Office Rental Clerk Utility [facility] History of tubal ligation History of tubal ligation Disease Active 07-06 00:00: 00 [facility] Overweight (BMI 25.0-29.9) Overweight (BMI 25.0-29.9) Disease Active 07-06 00:00: 00 [facility] Anemia Anemia Disease Active 07-06 00:00: 00 Overview: Formattin g of this note might be different from the original. ICD10 Diagnosis Term Office Rental Clerk Utility [facility] Asthma Asthma Disease Active 07-06 00:00: 00 Overview: Formattin g of this note might be different from the original. ICD10 Diagnosis Term Office Rental Clerk Utility [facility] Generalize d anxiety disorder Generalize d anxiety disorder Disease Active 07-06 00:00: 00 [facility] Irregular menses Irregular menses Problem Active [facility] Encounter for screening mammogram for breast cancer Encounter for screening mammogram for breast cancer Problem Active [facility] Well woman exam with routine gynecologi surekha exam Well woman exam with routine gynecologi surekha exam Problem Active [facility] Severe sprain of right ankle, initial encounter Severe sprain of right ankle, initial encounter Problem Active [facility] Acute right ankle pain Acute right ankle pain Problem Active [facility] Strain of tendon of long flexor muscle of toe at right ankle and foot level Strain of tendon of long flexor muscle of toe at right ankle and foot level Problem Active [facility] Stress fracture of right calcaneus with routine healing, subsequent encounter Stress fracture of right calcaneus with routine healing, subsequent encounter Problem Active [facility] Allergies, Adverse Reactions, Alerts Allergy Name Allergy Type Status Severity Reaction(s) Onset Date Inactive Date Treating Clinician Comments Source No Known Allergie s DA Active U 12-25 00:00: 00 [facility] NO KNOWN ALLERGIE S Drug Class Active [facility] Social History Social Habit Start Date Stop Date Quantity Comments Source History of tobacco use Cigarette Smoker [facility] History SDOH Alcohol Frequency [facility] History SDOH Alcohol Std Drinks [facility] History SDOH Alcohol Binge [facility] Exposure to SARS-CoV-2 (event) 2021-12-27 00:00:00 2022-01-06 13:51:00 Not sure [facility] Alcohol intake 2022-01-06 00:00:00 2022-01-06 00:00:00 Current drinker of alcohol (finding) [facility] Tobacco use and exposure 2021-12-30 00:00:00 2021-12-30 00:00:00 User of smokeless tobacco [facility] Alcohol Comment 2014-07-06 00:00:00 2014-07-06 00:00:00 occasionally [facility] Sex Assigned At 1980 00:00:1980 00:00:00 [facility] Smoking Status Start Date Stop Date Source Ex-smoker 2021-12-30 00:00:00 2021-12-30 00:00:00 [facility] Medications Ordered Medication Name Filled Medication Name Start Date Stop Date Current Medication? Ordering Clinician Indication Dosage Frequency Signature (SIG) Comments Components Source Nitrofurant oin&Nit. Macrocryst (MACROBID) 100 mg capsule 2021-04 0- 00:00: 00 01-24 04:59 :00 No [id number] 100mg Take 1 capsule by mouth in the morning and 1 capsule in the evening. Do all this for 10 days. [facility] Nitrofurant oin&Nit. Macrocryst (MACROBID) 100 mg capsule 2021-04 0 00:00: 00 01-24 04:59 :00 No [id number] 100mg Take 1 capsule by mouth in the morning and 1 capsule in the evening. Do all this for 10 days. [facility] terconazole 0.4 % vaginal cream 12-30 00:00: 00 Yes [id number] 1{appli cator} Insert 1 Applicator into vagina at bedtime. For 3 nights [facility] terconazole 0.4 % vaginal cream 12-30 00:00: 00 Yes [id number] 1{appli cator} Insert 1 Applicator into vagina at bedtime. For 3 nights [facility] terconazole 0.4 % vaginal cream 12-30 00:00: 00 Yes [id number] 1{appli cator} Insert 1 Applicator into vagina at bedtime. For 3 nights [facility] terconazole 0.4 % vaginal cream 12-30 00:00: 00 Yes [id number] 1{appli cator} Insert 1 Applicator into vagina at bedtime. For 3 nights [facility] terconazole 0.4 % vaginal cream 12-30 00:00: 00 Yes [id number] 1{appli cator} Insert 1 Applicator into vagina at bedtime. For 3 nights [facility] terconazole 0.4 % vaginal cream 12-30 00:00: 00 Yes [id number] 1{appli cator} Insert 1 Applicator into vagina at bedtime. For 3 nights [facility] terconazole 0.4 % vaginal cream 12-30 00:00: 00 Yes [id number] 1{appli cator} Insert 1 Applicator into vagina at bedtime. For 3 nights [facility] terconazole 0.4 % vaginal cream 12-30 00:00: 00 Yes [id number] 1{appli cator} Insert 1 Applicator into vagina at bedtime. For 3 nights [facility] terconazole 0.4 % vaginal cream 12-30 00:00: 00 Yes [id number] 1{appli cator} Insert 1 Applicator into vagina at bedtime. For 3 nights [facility] terconazole 0.4 % vaginal cream 12-30 00:00: 00 Yes [id number] 1{appli cator} Insert 1 Applicator into vagina at bedtime. For 3 nights [facility] terconazole 0.4 % vaginal cream 12-30 00:00: 00 Yes [id number] 1{appli cator} Insert 1 Applicator into vagina at bedtime. For 3 nights [facility] metformin HCl (METFORMIN ORAL) 05-01 13:17: 10 Yes 1000mg Take 1,000 mg by mouth. [facility] clopidogrel bisulfate (PLAVIX ORAL) 05-01 13:17: 10 Yes Take by mouth. [facility] pregabalin (LYRICA ORAL) 05-01 13:17: 10 Yes Take by mouth. [facility] amitriptyli ne HCl (AMITRIPTYL INE ORAL) 05-01 13:17: 10 Yes Take by mouth. [facility] metformin HCl (METFORMIN ORAL) 05-01 13:17: 10 Yes 1000mg Take 1,000 mg by mouth. [facility] clopidogrel bisulfate (PLAVIX ORAL) 05-01 13:17: 10 Yes Take by mouth. [facility] pregabalin (LYRICA ORAL) 05-01 13:17: 10 Yes Take by mouth. [facility] amitriptyli ne HCl (AMITRIPTYL INE ORAL) 05-01 13:17: 10 Yes Take by mouth. [facility] metformin HCl (METFORMIN ORAL) 05-01 13:17: 10 Yes 1000mg Take 1,000 mg by mouth. [facility] clopidogrel bisulfate (PLAVIX ORAL) 05-01 13:17: 10 Yes Take by mouth. [facility] pregabalin (LYRICA ORAL) 05-01 13:17: 10 Yes Take by mouth. [facility] amitriptyli ne HCl (AMITRIPTYL INE ORAL) 05-01 13:17: 10 Yes Take by mouth. [facility] metformin HCl (METFORMIN ORAL) 05-01 13:17: 10 Yes 1000mg Take 1,000 mg by mouth. [facility] clopidogrel bisulfate (PLAVIX ORAL) 05-01 13:17: 10 Yes Take by mouth. [facility] pregabalin (LYRICA ORAL) 05-01 13:17: 10 Yes Take by mouth. [facility] amitriptyli ne HCl (AMITRIPTYL INE ORAL) 05-01 13:17: 10 Yes Take by mouth. [facility] metformin HCl (METFORMIN ORAL) 05-01 13:17: 10 Yes 1000mg Take 1,000 mg by mouth. [facility] clopidogrel bisulfate (PLAVIX ORAL) 05-01 13:17: 10 Yes Take by mouth. [facility] pregabalin (LYRICA ORAL) 05-01 13:17: 10 Yes Take by mouth. [facility] amitriptyli ne HCl (AMITRIPTYL INE ORAL) 05-01 13:17: 10 Yes Take by mouth. [facility] metformin HCl (METFORMIN ORAL) 05-01 13:17: 10 Yes 1000mg Take 1,000 mg by mouth. [facility] clopidogrel bisulfate (PLAVIX ORAL) 05-01 13:17: 10 Yes Take by mouth. [facility] pregabalin (LYRICA ORAL) 05-01 13:17: 10 Yes Take by mouth. [facility] amitriptyli ne HCl (AMITRIPTYL INE ORAL) 05-01 13:17: 10 Yes Take by mouth. [facility] metformin HCl (METFORMIN ORAL) 05-01 13:17: 10 Yes 1000mg Take 1,000 mg by mouth. [facility] clopidogrel bisulfate (PLAVIX ORAL) 05-01 13:17: 10 Yes Take by mouth. [facility] pregabalin (LYRICA ORAL) 05-01 13:17: 10 Yes Take by mouth. [facility] amitriptyli ne HCl (AMITRIPTYL INE ORAL) 05-01 13:17: 10 Yes Take by mouth. [facility] metformin HCl (METFORMIN ORAL) 05-01 13:17: 10 Yes 1000mg Take 1,000 mg by mouth. [facility] clopidogrel bisulfate (PLAVIX ORAL) 05-01 13:17: 10 Yes Take by mouth. [facility] pregabalin (LYRICA ORAL) 05-01 13:17: 10 Yes Take by mouth. [facility] amitriptyli ne HCl (AMITRIPTYL INE ORAL) 05-01 13:17: 10 Yes Take by mouth. [facility] metformin HCl (METFORMIN ORAL) 05-01 13:17: 10 Yes 1000mg Take 1,000 mg by mouth. [facility] clopidogrel bisulfate (PLAVIX ORAL) 05-01 13:17: 10 Yes Take by mouth. [facility] pregabalin (LYRICA ORAL) -20 13:17: 10 Yes Take by mouth. [facility] amitriptyli ne HCl (AMITRIPTYL INE ORAL) - 13:17: 10 Yes Take by mouth. [facility] metformin HCl (METFORMIN ORAL) -20 13:17: 10 Yes 1000mg Take 1,000 mg by mouth. [facility] clopidogrel bisulfate (PLAVIX ORAL) - 13:17: 10 Yes Take by mouth. [facility] pregabalin (LYRICA ORAL) - 13:17: 10 Yes Take by mouth. [facility] amitriptyli ne HCl (AMITRIPTYL INE ORAL) - 13:17: 10 Yes Take by mouth. [facility] metformin HCl (METFORMIN ORAL) - 13:17: 10 Yes 1000mg Take 1,000 mg by mouth. [facility] clopidogrel bisulfate (PLAVIX ORAL) - 13:17: 10 Yes Take by mouth. [facility] pregabalin (LYRICA ORAL) 05-01 13:17: 10 Yes Take by mouth. [facility] amitriptyli ne HCl (AMITRIPTYL INE ORAL) - 13:17: 10 Yes Take by mouth. [facility] metformin HCl (METFORMIN ORAL) - 13:17: 10 Yes 1000mg Take 1,000 mg by mouth. [facility] clopidogrel bisulfate (PLAVIX ORAL) -20 13:17: 10 Yes Take by mouth. [facility] pregabalin (LYRICA ORAL) -20 13:17: 10 Yes Take by mouth. [facility] amitriptyli ne HCl (AMITRIPTYL INE ORAL) 1-20 13:17: 10 Yes Take by mouth. [facility] Tramadol HCl Tramadol HCl 09-29 00:00: 00 10-29 00:00 :00 No Isaac Peng as directed [facility] Sulfamethox azole-Trime thoprim Sulfamethox azole-Trime thoprim Yes Isaac Peng not defined [facility] Acetaminoph en-Codeine #3 Acetaminoph en-Codeine #3 Yes Isaac Peng not defined [facility] Tramadol HCl Tramadol HCl Yes Isaac Peng not defined [facility] PredniSONE PredniSONE Yes Isaac Peng (Prior Auth: Rx Ref#:[id number]) [facility] Topiramate Topiramate Yes Isaac Peng (Prior Auth: Rx Ref#:[id number]) [facility] Clotrimazol e Anti-Fungal Clotrimazol e Anti-Fungal Yes Isaac Peng (Prior Auth: Rx Ref#:[id number]) [facility] Gabapentin Gabapentin Yes Isaac Peng (Prior Auth: Rx Ref#:[id number]) [facility] Vitamin D (Ergocalcif marino) Vitamin D (Ergocalcif marino) Yes Isaac Peng not defined [facility] Cetirizine HCl Cetirizine HCl Yes Isaac Peng (Prior Auth: Rx Ref#:[id number]) [facility] Levetiracet am Levetiracet am Yes Isaac Peng (Prior Auth: Rx Ref#:[id number]) [facility] Clopidogrel Bisulfate Clopidogrel Bisulfate Yes Isaac Peng not defined [facility] Amitriptyli ne HCl Amitriptyli ne HCl Yes Isaac Peng (Prior Auth: Rx Ref#:[id number]) [facility] Fluconazole Fluconazole Yes Isaac Peng (Prior Auth: Rx Ref#:[id number]) [facility] Pantoprazol e Sodium Pantoprazol e Sodium Yes Isaac Peng (Prior Auth: Rx Ref#:[id number]) [facility] Mupirocin Mupirocin Yes Isaac Peng not defined [facility] Triamcinolo ne Acetonide Triamcinolo ne Acetonide Yes Isaac Peng (Prior Auth: Rx Ref#:[id number]) [facility] Jorge Patel Yes Isaac Peng not defined [facility] Metformin HCl Metformin HCl Yes Isaac Peng not defined [facility] Vital Signs Vital Name Observation Time Observation Value Comments S ource Systolic blood pressure 2022-01-06 18:53:00 141 mm[Hg] [facility] Diastolic blood pressure 2022-01-06 18:53:00 96 mm[Hg] [facility] Heart rate 2022-01-06 18:53:00 76 /min [facility] Body temperature 2022-01-06 18:52:00 36.44 Lilibeth [facility] Respiratory rate 2022-01-06 18:52:00 18 /min [facility] Body height 2022-01-06 18:52:00 167.6 cm [facility] Body weight 2022-01-06 18:52:00 80.428 kg [facility] BMI 2022-01-06 18:52:00 28.62 kg/m2 [facility] Systolic blood pressure 2021-12-30 16:17:00 152 mm[Hg] [facility] Diastolic blood pressure 2021-12-30 16:17:00 98 mm[Hg] [facility] Heart rate 2021-12-30 16:17:00 85 /min [facility] Body temperature 2021-12-30 16:16:00 36.61 Lilibeth [facility] Respiratory rate 2021-12-30 16:16:00 18 /min [facility] Body height 2021-12-30 16:16:00 167.6 cm [facility] Body weight 2021-12-30 16:16:00 80.428 kg [facility] BMI 2021-12-30 16:16:00 28.62 kg/m2 [facility] Procedures Procedure Date / Time Performed Performing Clinicia n Source POCT URINALYSIS W/O SPECIFIC GRAVITY 2022-01-06 18:56:00 Yang Buchanan [facility] Encounters Start Date/Time End Date/Time Encounter Type Admission Type Attending [facility] Facility Care Department Encounter ID Source 2023-02-05 00:00:00 2023-02-05 00:00:00 Outpatient GC_GCBZW_Ka diyala_S [facility] [id number] [facility] 2022-12-18 09:45:00 2022-12-18 09:45:00 Outpatient R [facility] [id number] [facility] 2022-08-27 07:30:00 2022-08-27 07:30:00 Outpatient R LAKESHA PERALTA JORDYN [facility] [id number] [facility] 2022-05-01 13:15:00 2022-05-01 13:15:00 Outpatient R REE GILL [facility] [id number] [facility] 2022-05-01 13:15:00 2022-05-01 13:15:00 Outpatient R REE GILL [facility] [id number] [facility] 2022-05-01 13:15:00 2022-05-01 13:15:00 Outpatient R ROSA GILLILOLA [facility] [id number] [facility] 2022-05-01 13:15:00 2022-05-01 13:15:00 Outpatient R ROSA GILLILOLA [facility] [id number] [facility] 2022-05-01 13:15:00 2022-05-01 13:15:00 Outpatient R REE GILL [facility] [id number] [facility] 2022-01-13 00:00:00 2022-01-13 00:00:00 Telephone Ree Gill WAJAMIE PATIENT CARE TECHNICIAN [facility] [id number] [id number] [id number] [facility] 2022-01-06 13:45:00 2022-01-06 14:04:36 Outpatient R BUCHANANYANG [facility] [id number] [facility] 2022-01-06 13:45:00 2022-01-06 14:04:36 Office Visit BuchananYang [facility] PATIENT CARE TECHNICIAN [facility] [id number] [id number] [id number] [id number] [facility] 2022-01-06 00:00:00 2022-01-06 00:00:00 Letter (Out) BuchananYang [facility] PATIENT CARE TECHNICIAN [facility] [id number] [id number] [id number] [id number] [facility] 2022-01-01 00:00:00 2022-01-01 00:00:00 Telephone Ree Gill [facility] 1..840.114 350.1.13.10 [id number] [id number] [facility] 2021-12-30 11:00:00 2021-12-30 11:39:30 Outpatient R REE GILL [facility] [id number] [facility] 2021-12-30 11:00:00 2021-12-30 11:39:30 Office Visit Ree Gill [facility] [id number] [id number] [id number] [id number] [facility] 2021-12-30 11:00:00 2021-12-30 11:00:00 Outpatient R REE GILL [facility] [id number] [facility] 2021-12-22 00:00:00 2021-12-22 00:00:00 Telephone Ree Gill [facility] PATIENT CARE TECHNICIAN [facility] [id number] 350.1.13.10 [id number] [id number] [facility] 2021-12-22 00:00:00 2021-12-22 00:00:00 Telephone Ree Gill [facility] PATIENT CARE TECHNICIAN [facility] [id number] 350.1.13.10 [id number] [id number] [facility] 2021-10-14 00:00:00 2021-10-14 00:00:00 Telephone Ree Gill [facility] PATIENT CARE TECHNICIAN [facility] [id number] 350.1.13.10 [id number] [id number] [facility] 2021-10-09 16:00:00 2021-10-09 16:00:00 Outpatient R REE GILL [facility] [id number] [facility] 2021-10-09 14:00:00 2021-10-09 14:46:06 Office Visit Frances Ree C [facility] PATIENT CARE TECHNICIAN [facility] [id number] 350.1.13.10 [id number] [id number] [facility] 2021-10-09 14:00:00 2021-10-09 14:46:06 Outpatient R REE GILL [facility] [id number] [facility] 2021-10-09 14:00:00 2021-10-09 14:00:00 Outpatient R REE GILL [facility] [id number] [facility] 2021-10-03 15:30:00 2021-10-03 15:30:00 Outpatient R REE GILL [facility] [id number] [facility] 2021-10-03 15:30:00 2021-10-03 15:30:00 Outpatient R REE GILL [facility] [id number] [facility] 2021-10-01 00:00:00 2021-10-01 00:00:00 Telephone Ree Gill WAJAMIE PATIENT CARE TECHNICIAN [facility] [id number] 350.1.13.10 4.2.7.2.686 [id number] [facility] 2021-09-05 00:00:00 2021-09-05 00:00:00 Outpatient R HORACIOSHIRLENE REE [facility] [id number] [facility] 2021-09-05 00:00:00 2021-09-05 00:00:00 Outpatient R REE GILL [facility] [id number] [facility] 2021-07-30 00:00:00 2021-07-30 00:00:00 Telephone Ree Gill [facility] PATIENT CARE TECHNICIAN [facility] 1.0.114 350.1.13.10 [id number] [id number] [facility] 2021-05-02 00:00:00 2021-05-02 00:00:00 Telephone Ree Gill [facility] PATIENT CARE TECHNICIAN [facility] [id number] 350.1.13.10 [id number] [id number] [facility] 2021-05-01 12:45:00 2021-05-01 14:07:49 Office Visit Ree Gill [facility] PATIENT CARE TECHNICIAN [facility] [id number] 350.1.13.10 [id number] [id number] [facility] 2021-05-01 12:45:00 2021-05-01 14:07:49 Outpatient R REE GILL [facility] [id number] [facility] 2021-05-01 12:45:00 2021-05-01 14:07:49 Outpatient R REE GILL [facility] [id number] [facility] 2021-05-01 12:45:00 2021-05-01 12:45:00 Outpatient R REE GILL [facility] [id number] [facility] 2019-11-29 00:00:00 2019-11-29 00:00:00 Outpatient [id number] 2018-12-08 13:19:00 2018-12-08 13:19:00 [facility]patient [facility] [id number] [facility] 2018-10-25 09:00:00 2018-10-25 09:00:00 Outpatient [facility] [id number] [facility] 2018-10-11 14:30:00 2018-10-11 14:30:00 Outpatient [facility] [id number] [facility] 2018-09-29 16:33:00 2018-09-29 16:33:00 Outpatient [facility] [id number] [facility] 2018-05-02 13:45:00 2018-05-02 13:45:00 Out[facility] [id number] [facility] Results Test Description Test Time Test Comments Results Result Co [facility]ments [facility] SPECIFIC [id number] 18:56:00* Test Item Value Reference Range Interpretation Comme nts POCT PH U (test code = 3254) 5 mg/dl 5-8 POCT U LEUK EST (test code = 3263) Trace Negative - Negative POCT U NIT (test code = 3262) Neg Negative - Negati ve POCT U PROT (test code = 3259) Trace Negative - Negat jakob POCT U GLU (test code = 3256) Negative - Negati ve POCT U KETONE (test code = 3258) 2+ Negative - Neg ative POCT U BLD (test code = 3257) Trace Negative - Negati ve [facility]/O SPECIFIC [id number] 18:56:00* Test Item Value Reference Range Interpretation Comme nts POCT PH U (test code = 3254) 5 mg/dl 5-8 POCT U LEUK EST (test code = 3263) Trace Negative - Negative POCT U NIT (test code = 3262) Neg Negative - Negati ve POCT U PROT (test code = 3259) Trace Negative - Negat jakob POCT U GLU (test code = 3256) Negative - Negati ve POCT U KETONE (test code = 3258) 2+ Negative - Neg ative POCT U BLD (test code = 3257) Trace Negative - Negati ve [facility]
[2023-03-26] MEDS ORDERED: LEVETIRACETAM 500 MG/5 ML VIAL IV ONE (22:48)
[2023-03-26] MEDS ORDERED: NA CHLORIDE 0.9% 500 ML ONE (22:48)
[2023-03-26] MEDS ORDERED: NA CHLORIDE 0.9% 100 ML ONE (22:49)
[2023-03-26 23:28] LABS: Absolute Lymphocytes (CBC) 1.9 K/uL (0.7-4.9); Hematocrit 43.7 % (36.0-45.0); Lymphocytes % 31.4 % (15.3-44.8); MCV 89.3 fL (80-100); MPV 8.6 fL (7.6-11.3); Platelets 209 thou/uL (152-406)
[2023-03-26 23:33] LABS: Protime INR 1.03
[2023-03-26] MEDS ORDERED: HYDROCODONE/APAP 5/325 MG TAB ONE (23:51)
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
[2023-03-27 04:30] VITALS: BP 100/63; O2SAT 96
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
== END 2023-03-27 01:02 | disposition home or self-care (01) ==
LOC: ER 22:26
DX: S02.2XXA Fracture of nasal bones, initial encounter for closed fracture (principal); S00.83XA Contusion of other part of head, initial encounter; Y04.0XXA Assault by unarmed brawl or fight, initial encounter; R56.9 Unspecified convulsions; I10 Essential (primary) hypertension; E11.42 Type 2 diabetes mellitus with diabetic polyneuropathy; Z79.84 Long term (current) use of oral hypoglycemic drugs; Z79.899 Other long term (current) drug therapy; Z95.5 Presence of coronary angioplasty implant and graft; Z86.73 Personal history of transient ischemic attack (TIA), and cerebral infarction without residual deficits
CPT/HCPCS: 36415; 70450; 70486; 72125; 76377; 80048; 82077; 85025; 85610; 85730; 96365; 99285; J1953; J7040

== ENCOUNTER → 2023-05-17 | Emergency (ER) | payer OTHER ==
[~2023-05-17] MED LIST: DIAZEPAM 5 MG TABLET ONE; FENTANYL CITR 100 MCG/2 ML ONE; INSULIN GLARGINE 100 UNIT/ML SQ ONE; INSULIN REGULAR (HUMAN) 100 UNIT/ML ONE; KETOROLAC 30 MG/ML INJ ONE; NA CHLORIDE 0.9% 1,000 ML ONE; ONDANSETRON 4 MG/2 ML VIAL ONE; POTASSIUM 25 MEQ EFFERV TAB ONE
--- OUTSIDE RECORDS SUMMARY | 2023-05-17 18:43 | XMS REPORT | Continuity of Care Document ---
Author Name Unknown Address [address] [place] [address] [facility] Address [address] [place] [address] Care Team Providers Care Supply Chain Tech Name Role Phone ROSALEE MCMAHON Primary Care Physician LEFTY Mendosa Attending Clinician Rita elkins [email or web address]_S Attending Clinician UnavailLAKESHA Olsen Attending Clinician Unavailable LAKESHA PERALTA Attending Clinician Unavailable REE DANIELS Attending Clinician Unavail able Re[facility] House Attending Clinician + YANG FARMER Attending Clinician Unavailab Yang Osorio Attending Clinician + [phone] [email or web address]_S Admitting Clinician Unavaila ble Payers Payer Name Policy Type Policy Number Effective Date Expirati on Date Source [facility] [id number] 2021 00:00:00 Problems Condition Name Condition Details Condition Category Status Onset Date Resolution Date Last Treatment Date Treating Clinician Comments Source Diabetes type 2, uncontroll ed Diabetes type 2, uncontroll ed Disease Active 12-30 00:00: 00 [facility] Other depression Other depression Disease Active 12-30 00:00: 00 [facility] Other general counseling and advice for contracept jakob management Other general counseling and advice for contracept jakob management Disease Active 05-01 00:00: 00 [facility] Diabetes mellitus without complicati on Diabetes mellitus without complicati on Disease Active 05-01 00:00: 00 [facility] Other and unspecifie d ovarian cyst Other and unspecifie d ovarian cyst Disease Active 07-06 00:00: 00 [facility] Female genital symptoms Female genital symptoms Disease Active 07-06 00:00: 00 Overview: Formattin g of this note might be different from the original. 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 ICD10 Diagnosis Term [employer]eller [employer] [facility] Asthma Asthma Disease Active 07-06 00:00: 00 Overview: Formattin g of this note might be different from the original. ICD10 Diagnosis Term Feller [employer] Utility [facility] Generalize d anxiety disorder Generalize d anxiety disorder Disease Active 07-06 00:00: 00 [facility] Irregular menses Irregular menses Problem Active [facility] Encounter for screening mammogram for breast cancer Encounter for screening mammogram for breast cancer Problem Active [facility] Well woman exam with routine gynecologi surekha exam Well woman exam with routine gynecologi surekha exam Problem Active [facility] Severe sprain of right ankle, initial encounter Severe sprain of right ankle, initial encounter Problem Active [facility] Acute right ankle pain Acute right ankle pain Problem Active [facility] Strain of tendon of long flexor muscle of toe at right ankle and foot level Strain of tendon of long flexor muscle of toe at right ankle and foot level Problem Active [facility] Stress fracture of right calcaneus with routine healing, subsequent encounter Stress fracture of right calcaneus with routine healing, subsequent encounter Problem Active [facility] Allergies, Adverse Reactions, Alerts Allergy Name Allergy Type Status Severity Reaction(s) Onset Date Inactive Date Treating Clinician Comments Source No Known Allergie s DA Active U 12-25 00:00: 00 [facility] NO KNOWN ALLERGIE S Drug Class Active [facility] Social History Social Habit Start Date Stop Date Quantity Comments Source History of tobacco use Cigarette Smoker [facility] History SDOH Alcohol Frequency [facility] History SDOH Alcohol Std Drinks [facility] History SDOH Alcohol Binge [facility] Exposure to SARS-CoV-2 (event) 2021-12-27 00:00:00 2022-01-06 13:51:00 Not sure [facility] Alcohol intake 2022-01-06 00:00:00 2022-01-06 00:00:00 Current drinker of alcohol (finding) [facility] Tobacco use and exposure 2021-12-30 00:00:00 2021-12-30 00:00:00 User of smokeless tobacco [facility] Alcohol Comment 2014-07-06 00:00:00 2014-07-06 00:00:00 occasionally [facility] Sex Assigned At 1980 00:00:00 1980 00:00:00 [facility] Smoking Status Start Date Stop Date Source Ex-smoker 2021-12-30 00:00:00 2021-12-30 00:00:00 U [facility] Medications Ordered Medication Name Filled Medication Name Start Date Stop Date Current Medication? Ordering Clinician Indication Dosage Frequency Signature (SIG) Comments Components Source Nitrofurant oin&Nit. Macrocryst (MACROBID) 100 mg capsule 2021-04 0-04 00:00: 00 01-24 04:59 :00 No [id number] 100mg Take 1 capsule by mouth in the morning and 1 capsule in the evening. Do all this for 10 days. [facility] Nitrofurant oin&Nit. Macrocryst (MACROBID) 100 mg capsule 2021-04 0 00:00: 00 01-24 04:59 :00 No [id number] 100mg Take 1 capsule by mouth in the morning and 1 capsule in the evening. Do all this for 10 days. [facility] terconazole 0.4 % vaginal cream 12-30 00:00: 00 Yes [id number] 1{appli cator} Insert 1 Applicator into vagina at bedtime. For 3 nights [facility] terconazole 0.4 % vaginal cream 12-30 00:00: 00 Yes [id number] 1{appli cator} Insert 1 Applicator into vagina at bedtime. For 3 nights [facility] terconazole 0.4 % vaginal cream 12-30 00:00: 00 Yes [id number] 1{appli cator} Insert 1 Applicator into vagina at bedtime. For 3 nights [facility] terconazole 0.4 % vaginal cream 12-30 00:00: 00 Yes [id number] 1{appli cator} Insert 1 Applicator into vagina at bedtime. For 3 nights [facility] terconazole 0.4 % vaginal cream 12-30 00:00: 00 Yes [id number] 1{appli cator} Insert 1 Applicator into vagina at bedtime. For 3 nights [facility] terconazole 0.4 % vaginal cream 12-30 00:00: 00 Yes [id number] 1{appli cator} Insert 1 Applicator into vagina at bedtime. For 3 nights [facility] terconazole 0.4 % vaginal cream 12-30 00:00: 00 Yes [id number] 1{appli cator} Insert 1 Applicator into vagina at bedtime. For 3 nights [facility] terconazole 0.4 % vaginal cream 12-30 00:00: 00 Yes [id number] 1{appli cator} Insert 1 Applicator into vagina at bedtime. For 3 nights [facility] terconazole 0.4 % vaginal cream 12-30 00:00: 00 Yes [id number] 1{appli cator} Insert 1 Applicator into vagina at bedtime. For 3 nights [facility] terconazole 0.4 % vaginal cream 12-30 00:00: 00 Yes [id number] 1{appli cator} Insert 1 Applicator into vagina at bedtime. For 3 nights [facility] terconazole 0.4 % vaginal cream 12-30 00:00: 00 Yes [id number] 1{appli cator} Insert 1 Applicator into vagina at bedtime. For 3 nights [facility] metformin HCl (METFORMIN ORAL) 05-01 13:17: 10 Yes 1000mg Take 1,000 mg by mouth. [facility] clopidogrel bisulfate (PLAVIX ORAL) 05-01 13:17: 10 Yes Take by mouth. [facility] pregabalin (LYRICA ORAL) 05-01 13:17: 10 Yes Take by mouth. [facility] amitriptyli ne HCl (AMITRIPTYL INE ORAL) 05-01 13:17: 10 Yes Take by mouth. [facility] metformin HCl (METFORMIN ORAL) 05-01 13:17: 10 Yes 1000mg Take 1,000 mg by mouth. [facility] clopidogrel bisulfate (PLAVIX ORAL) 05-01 13:17: 10 Yes Take by mouth. [facility] pregabalin (LYRICA ORAL) 05-01 13:17: 10 Yes Take by mouth. [facility] amitriptyli ne HCl (AMITRIPTYL INE ORAL) 05-01 13:17: 10 Yes Take by mouth. [facility] metformin HCl (METFORMIN ORAL) 05-01 13:17: 10 Yes 1000mg Take 1,000 mg by mouth. [facility] clopidogrel bisulfate (PLAVIX ORAL) 05-01 13:17: 10 Yes Take by mouth. [facility] pregabalin (LYRICA ORAL) 05-01 13:17: 10 Yes Take by mouth. [facility] amitriptyli ne HCl (AMITRIPTYL INE ORAL) 05-01 13:17: 10 Yes Take by mouth. [facility] metformin HCl (METFORMIN ORAL) 05-01 13:17: 10 Yes 1000mg Take 1,000 mg by mouth. [facility] clopidogrel bisulfate (PLAVIX ORAL) 05-01 13:17: 10 Yes Take by mouth. [facility] pregabalin (LYRICA ORAL) 05-01 13:17: 10 Yes Take by mouth. [facility] amitriptyli ne HCl (AMITRIPTYL INE ORAL) 05-01 13:17: 10 Yes Take by mouth. [facility] metformin HCl (METFORMIN ORAL) 05-01 13:17: 10 Yes 1000mg Take 1,000 mg by mouth. [facility] clopidogrel bisulfate (PLAVIX ORAL) 05-01 13:17: 10 Yes Take by mouth. [facility] pregabalin (LYRICA ORAL) 05-01 13:17: 10 Yes Take by mouth. [facility] amitriptyli ne HCl (AMITRIPTYL INE ORAL) 05-01 13:17: 10 Yes Take by mouth. [facility] metformin HCl (METFORMIN ORAL) 05-01 13:17: 10 Yes 1000mg Take 1,000 mg by mouth. [facility] clopidogrel bisulfate (PLAVIX ORAL) 05-01 13:17: 10 Yes Take by mouth. [facility] pregabalin (LYRICA ORAL) 05-01 13:17: 10 Yes Take by mouth. [facility] amitriptyli ne HCl (AMITRIPTYL INE ORAL) 05-01 13:17: 10 Yes Take by mouth. [facility] metformin HCl (METFORMIN ORAL) 05-01 13:17: 10 Yes 1000mg Take 1,000 mg by mouth. [facility] clopidogrel bisulfate (PLAVIX ORAL) 05-01 13:17: 10 Yes Take by mouth. [facility] pregabalin (LYRICA ORAL) 05-01 13:17: 10 Yes Take by mouth. [facility] amitriptyli ne HCl (AMITRIPTYL INE ORAL) 05-01 13:17: 10 Yes Take by mouth. [facility] metformin HCl (METFORMIN ORAL) 05-01 13:17: 10 Yes 1000mg Take 1,000 mg by mouth. [facility] clopidogrel bisulfate (PLAVIX ORAL) 05-01 13:17: 10 Yes Take by mouth. [facility] pregabalin (LYRICA ORAL) 05-01 13:17: 10 Yes Take by mouth. [facility] amitriptyli ne HCl (AMITRIPTYL INE ORAL) 05-01 13:17: 10 Yes Take by mouth. [facility] metformin HCl (METFORMIN ORAL) 05-01 13:17: 10 Yes 1000mg Take 1,000 mg by mouth. [facility] clopidogrel bisulfate (PLAVIX ORAL) 05-01 13:17: 10 Yes Take by mouth. [facility] pregabalin (LYRICA ORAL) 05-01 13:17: 10 Yes Take by mouth. [facility] amitriptyli ne HCl (AMITRIPTYL INE ORAL) 05-01 13:17: 10 Yes Take by mouth. [facility] metformin HCl (METFORMIN ORAL) 05-01 13:17: 10 Yes 1000mg Take 1,000 mg by mouth. [facility] clopidogrel bisulfate (PLAVIX ORAL) 05-01 13:17: 10 Yes Take by mouth. [facility] pregabalin (LYRICA ORAL) 05-01 13:17: 10 Yes Take by mouth. [facility] amitriptyli ne HCl (AMITRIPTYL INE ORAL) 05-01 13:17: 10 Yes Take by mouth. [facility] metformin HCl (METFORMIN ORAL) 05-01 13:17: 10 Yes 1000mg Take 1,000 mg by mouth. [facility] clopidogrel bisulfate (PLAVIX ORAL) 05-01 13:17: 10 Yes Take by mouth. [facility] pregabalin (LYRICA ORAL) 05-01 13:17: 10 Yes Take by mouth. [facility] amitriptyli ne HCl (AMITRIPTYL INE ORAL) 05-01 13:17: 10 Yes Take by mouth. [facility] metformin HCl (METFORMIN ORAL) 05-01 13:17: 10 Yes 1000mg Take 1,000 mg by mouth. [facility] clopidogrel bisulfate (PLAVIX ORAL) 05-01 13:17: 10 Yes Take by mouth. [facility] pregabalin (LYRICA ORAL) 05-01 13:17: 10 Yes Take by mouth. [facility] amitriptyli ne HCl (AMITRIPTYL INE ORAL) 05-01 13:17: 10 Yes Take by mouth. [facility] Tramadol HCl Tramadol HCl 09-29 00:00: 00 10-29 00:00 :00 No Isaac Peng as directed [facility] Sulfamethox azole-Trime thoprim Sulfamethox azole-Trime thoprim Yes Isaac Peng not defined [facility] Acetaminoph en-Codeine #3 Acetaminoph en-Codeine #3 Yes Isaca Peng not defined [facility] Tramadol HCl Tramadol HCl Yes Isaac Peng not defined [facility] PredniSONE PredniSONE Yes Isaac Peng (Prior Auth: Rx Ref#:[id number]) [facility] Topiramate Topiramate Yes Isaac Peng (Prior Auth: Rx Ref#:[id number]) [facility] Clotrimazol e Anti-Fungal Clotrimazol e Anti-Fungal Yes Isaac Peng (Prior Auth: Rx Ref#:[id number]) [facility] Gabapentin Gabapentin Yes Isaac Peng (Prior Auth: Rx Ref#:[id number]) [facility] Vitamin D (Ergocalcif marino) Vitamin D (Ergocalcif marino) Yes Isaac Peng not defined [facility] Cetirizine HCl Cetirizine HCl Yes Isaac Peng (Prior Auth: Rx Ref#:[id number]) [facility] Levetiracet am Levetiracet am Yes Isaac Peng (Prior Auth: Rx Ref#:[id number]) [facility] Clopidogrel Bisulfate Clopidogrel Bisulfate Yes Isaac Peng not defined [facility] Amitriptyli ne HCl Amitriptyli ne HCl Yes Isaac Peng (Prior Auth: Rx Ref#:[id number]) [facility] Fluconazole Fluconazole Yes Isaac Peng (Prior Auth: Rx Ref#:[id number]) [facility] Pantoprazol e Sodium Pantoprazol e Sodium Yes Isaac Peng (Prior Auth: Rx Ref#:[id number]) [facility] Mupirocin Mupirocin Yes Isaac Peng not defined [facility] Triamcinolo ne Acetonide Triamcinolo ne Acetonide Yes Isaac Peng (Prior Auth: Rx Ref#:[id number]) [facility] Lyrica Lyrica Yes Isaac Peng not defined [facility] Metformin HCl Metformin HCl Yes Isaac Peng not defined [facility] Vital Signs Vital Name Observation Time Observation Value Comments S ource Systolic blood pressure 2022-01-06 18:53:00 141 mm[Hg] [facility] Diastolic blood pressure 2022-01-06 18:53:00 96 mm[Hg] [facility] Heart rate 2022-01-06 18:53:00 76 /min [facility] Body temperature 2022-01-06 18:52:00 36.44 Lilibeth [facility] Respiratory rate 2022-01-06 18:52:00 18 /min [facility] Body height 2022-01-06 18:52:[address] [facility] Body weight 2022-01-06 18:52:[address] [facility] BMI 2022-01-06 18:52:00 28.62 kg/m2 [facility] Systolic blood pressure 2021-12-30 16:17:00 152 mm[Hg] [facility] Diastolic blood pressure 2021-12-30 16:17:00 98 mm[Hg] [facility] Heart rate 2021-12-30 16:17:00 85 /min [facility] Body temperature 2021-12-30 16:16:00 36.61 Lilibeth [facility] Respiratory rate 2021-12-30 16:16:00 18 /min [facility] Body height 2021-12-30 16:16:[address] [facility] Body weight 2021-12-30 16:16:[address] [facility] BMI 2021-12-30 16:16:00 28.62 kg/m2 [facility] Procedures Procedure Date / Time Performed Performing Clinicia n Source POCT URINALYSIS W/O SPECIFIC GRAVITY 2022-01-06 18:56:00 Yang Farmer [facility] Encounters Start Date/Time End Date/Time Encounter Type Admission Type Attending [facility] Facility Care Department Encounter ID Source 2023-04-20 09:00:00 2023-04-20 09:00:00 Outpatient R LEFTY VU [facility] [id number] [facility] 2023-02-05 00:00:00 2023-02-05 00:00:00 Outpatient GC_GCBZW_Ka diyala_S [facility] [id number] [facility] 2022-12-18 09:45:00 2022-12-18 09:45:00 Outpatient R [facility] [id number] [facility] 2022-08-27 07:30:00 2022-08-27 07:30:00 Outpatient R LAKESHA PERALTA JORDYN [facility] [id number] [facility] 2022-05-01 13:15:00 2022-05-01 13:15:00 Outpatient R AKINSIROSA GARBERREE [facility] [id number] [facility] 2022-05-01 13:15:00 2022-05-01 13:15:00 Outpatient R AKINSIPE REE [facility] [id number] [facility] 2022-05-01 13:15:00 2022-05-01 13:15:00 Outpatient R AKINSIPE REE [facility] [id number] [facility] 2022-05-01 13:15:00 2022-05-01 13:15:00 Outpatient R AKINSIPEROSAREE [facility] [id number] [facility] 2022-05-01 13:15:00 2022-05-01 13:15:00 Outpatient R AKINSIPE REE [facility] [id number] [facility] 2022-01-13 00:00:2022-01-13 00:00:00 Telephone Ree Daniels [facility] [employer] [facility]ILD [facility] [id number] [id number] [id number] [facility] 2022-01-06 13:45:00 2022-01-06 14:04:36 Outpatient R YANG FARMER [facility] [id number] [facility] 2022-01-06 13:45:00 2022-01-06 14:04:36 Office Visit Yang Farmer [facility] [employer] [facility]ILD [facility] [id number] [id number] [id number] [facility] 2022-01-06 00:00:00 2022-01-06 00:00:00 Letter (Out) Yang Farmer [facility] [employer] [facility] CHILD [facility] [id number] [id number] [id number] [facility] 2022-01-01 00:00:00 2022-01-01 00:00:00 Telephone Ree Daniels [facility] [id number] [id number] [id number] [id number] [facility] 2021-12-30 11:00:00 2021-12-30 11:39:30 Outpatient R REE DANIELS [facility] [id number] [facility] 2021-12-30 11:00:00 2021-12-30 11:39:30 Office Visit Ree Daniels [facility] [employer] [facility] CH[facility] [id number] [id number] [id number] [id number] [facility] 2021-12-30 11:00:00 2021-12-30 11:00:00 Outpatient R REE DANIELS [facility] [id number] [facility] 2021-12-22 00:00:00 2021-12-22 00:00:00 Telephone Ree Daniels [employer] [facility] [id number] [id number] [id number] [id number] [facility] 2021-12-22 00:00:00 2021-12-22 00:00:00 Telephone Ree Daniels DEJAMIE [employer] [facility] [id number] [id number] [id number] [id number] [facility] 2021-10-14 00:00:00 2021-10-14 00:00:00 Telephone Ree Daniels DEJAMIE [employer] [facility] CH[facility] 1..840.114 [id number] [id number] [id number] [facility] 2021-10-09 16:00:00 2021-10-09 16:00:00 Outpatient R REE DANIELS DEJAMIE [facility] [id number] [facility] 2021-10-09 14:00:00 2021-10-09 14:46:06 Office Visit Ree Daniels [employer] [facility] 1..840.114 [id number] [id number] [id number] 107 [id number] [facility] 2021-10-09 14:00:00 2021-10-09 14:46:06 Outpatient R REE DANIELS [facility] [id number] [facility] 2021-10-09 14:00:00 2021-10-09 14:00:00 Outpatient R REE DANIELS [facility] [id number] [facility] 2021-10-03 15:30:00 2021-10-03 15:30:00 Outpatient R JAIROREE [facility] [id number] [facility] 2021-10-03 15:30:00 2021-10-03 15:30:00 Outpatient R REE DANIELS [facility] [id number] [facility] 2021-10-01 00:00:00 2021-10-01 00:00:00 Telephone Ree Daniels [facility] STE[employer]TER [facility] ..840.114 [id number] [id number] [id number] [facility] 2021-09-05 00:00:00 2021-09-05 00:00:00 Outpatient R ROSA DANIELSILOLA [facility] [id number] [facility] 2021-09-05 00:00:00 2021-09-05 00:00:00 Outpatient R ROSA DANIELSILOLA [facility] [id number] [facility] 2021-07-30 00:00:00 2021-07-30 00:00:00 Telephone Ree Daniels [facility] STE[employer]TER [facility] ..840.114 350.1.13.10 [id number] [id number] 107 [id number] [facility] 2021-05-02 00:00:00 2021-05-02 00:00:00 Telephone Ree Daniels [facility] STE[employer]TER [facility] .[id number] 350.1.13.10 4.2.7.2.686 [id number] [facility] 2021-05-01 12:45:00 2021-05-01 14:07:49 Office Visit Ree Daniels [facility] STE[employer]TER [facility] [id number] [id number] [id number] [id number] [facility] 2021-05-01 12:45:00 2021-05-01 14:07:49 Outpatient R REE DANIELS [facility] [id number] [facility] 2021-05-01 12:45:00 2021-05-01 14:07:49 Outpatient R REE DANIELS [facility] [id number] [facility] 2021-05-01 12:45:00 2021-05-01 12:45:00 Outpatient R REE DANIELS [facility] [id number] [facility] 2019-11-29 00:00:00 2019-11-29 00:00:00 Outpatient [facility] [id number] [facility] 2018-12-08 13:19:00 2018-12-08 13:19:00 Outpatient [facility] [id number] [facility] 2018-10-25 09:00:00 2018-10-25 09:00:00 Outpatient [facility] [id number] [facility] 2018-10-11 14:30:00 2018-10-11 14:30:00 Outpatient [facility] [id number] [facility] 2018-09-29 16:33:00 2018-09-29 16:33:00 Outpatient [facility] [id number] [facility] 2018-05-02 13:45:00 2018-05-02 13:45:00 [facility] [id number] [facility] Results Test Description Test Time Test Comments Results Result [facility] [facility] [id number] 18:56:00* Test Item Value Reference Range Interpretation [...] = 3257) Trace Negative - Negati ve [facility] URINALYSIS W/O SPECIFIC [id number] 18:56:00* Test Item Value Reference Range Interpretation [...] = 3257) Trace Negative - Negati ve [facility]
[2023-05-17 20:04] LABS: Absolute Lymphocytes (CBC) 2.1 K/uL (0.7-4.9); Hematocrit 43.4 % (36.0-45.0); Lymphocytes % 33.4 % (15.3-44.8); MCV 88.6 fL (80-100); MPV 8.4 fL (7.6-11.3); Platelets 214 thou/uL (152-406)
[2023-05-17 20:05] LABS: Specific Gravity 1.029 (1.005-1.030); Urine Bilirubin NEGATIVE (Negative); Urine Blood Negative (Negative); Urine Clarity Turbid (Clear); Urine Color Light-Yellow (Yellow); Urine Glucose 4+ (Over) (Negative); Urine Protein NEGATIVE (Negative); Urine Urobilinogen 1+ (Normal); Urine pH 5.5 (5.0-7.0)
[2023-05-17 20:13] LABS: Albumin 4.1 g/dL (3.4-5.0); Bilirubin Direct 0.3 mg/dL (0-0.2); Bilirubin Indirect, Calculated 0.9 mg/dL (0.2-0.8); Bilirubin Total 1.2 mg/dL (0.2-1.0); Potassium 3.2 mEq/L (3.5-5.1); Protein, Total 8.5 g/dL (6.4-8.2)
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
--- NOTE | 2023-05-17 21:03 | RAD REPORT ---
EXAM DESCRIPTION: CT - Head C Spine Cap Juvencio Hawkins - 05/17/2023 7:58 pm CLINICAL HISTORY: TRAUMA COMPARISON: No comparisons TECHNIQUE: Head and cervical spine CT images were obtained without IV contrast. Chest, abdomen, and pelvis CT images were obtained following intravenous administration of 90 mL Isovue-300. Multiplanar reformats were generated and reviewed. All CT scans are performed using dose optimization technique as appropriate and may include automated exposure control or mA/KV adjustment according to patient size. FINDINGS: CT HEAD: No intracranial hemorrhage, mass effect, or edema. No evidence of acute territorial infarct. No midli ne shift or abnormal fluid collection. The ventricles are normal in caliber and configuration for age . Basal cisterns are patent. Mastoid aircells and paranasal sinuses are clear. No acute skull fractur e. CT CERVICAL SPINE: No acute cervical spine fracture or subluxation. Vertebral body heights are well maintained. Facet susanne ints are normal in alignment. No hyperattenuating canal hematoma. Prevertebral and paraspinous soft t issues are unremarkable. CT CHEST: No pneumothorax, pulmonary contusion or pleural fluid collection. No mediastinal hematoma and the aor ta and pulmonary arteries are unremarkable. No chest will mass or abnormal axillary finding. No displ aced rib fracture or other significant bony finding. CT ABDOMEN/ PELVIS: No evidence of traumatic injury to solid abdominal viscera. Gallbladder and biliary tree are unremark able. No bowel injury or significant finding. No free air, free fluid or abnormal fat stranding. Smal l umbilical hernia containing fat. No urinary bladder abnormality. No significant bony finding. IMPRESSION: No acute traumatic findings.
[2023-05-18 13:27] VITALS: BP 116/55; TEMP 98.7; O2SAT 97
== END ==
LOC: ER 18:39
DX: S16.1XXA Strain of muscle, fascia and tendon at neck level, initial encounter (principal); S40.011A Contusion of right shoulder, initial encounter; E11.65 Type 2 diabetes mellitus with hyperglycemia; E87.6 Hypokalemia; V43.63XA Car passenger injured in collision with pick-up truck in traffic accident, initial encounter; I10 Essential (primary) hypertension; Z95.818 Presence of other cardiac implants and grafts
CPT/HCPCS: 85025; 80048; 36415; 86900; 86850; 86901; 80076; 81003; 83690; 70450; 72125; 71260; 74177; 73030; Q9967; J1815; J3010; J2405; J7030

== ENCOUNTER 2023-12-17 23:30 | Emergency (ER) | payer BC, OTHER ==
--- OUTSIDE RECORDS SUMMARY | 2023-12-17 23:32 | XMS REPORT | Continuity of Care Document ---
Author Name Unknown Address [address] [place] [address] [facility] thconnect Address [address] [place] [address] Care Team Providers Care City Controller Name Role Phone Stan Gatica Primary Care Physician [phone] REE DANIELS Attending Clinician Unavail able Ree House Attending Clinician + Doctor Unassigned, Lesage Attending Clinician U LEFTY Allison Attending Clinician Unavaila brittni [email or web address]_S Attending Clinician Unavaila LAKESHA Issa Attending Clinician Unavailable LAKESHA PERALTA Attending Clinician Unavailable YANG FARMER Attending Clinician Yang Goodson Attending Clinician [phone] [email or web address]_S Admitting Clinician Unavaila ble Payers Payer Name Policy Type Policy Number Effective Date Expirati on Date Source [facility] [id number] 2021 00:00:00 Problems Condition Name Condition Details Condition Category Status Onset Date Resolution Date Last Treatment Date Treating Clinician Comments Source Well woman exam Well woman exam Disease Active 07-01 00:00: 00 [facility] History of stroke History of stroke Disease Active 07-01 00:00: 00 [facility] High cholestero l High cholestero l Disease Active 07-01 00:00: 00 [facility] Diabetes type 2, uncontroll ed Diabetes type 2, uncontroll ed Disease Active 12-30 00:00: 00 [facility] Other depression Other depression Disease Active 12-30 00:00: 00 [facility] Other general counseling and advice for contracept jakob management Other general counseling and advice for contracept jakob management Disease Active 05-01 00:00: 00 [facility] Diabetes mellitus without complicati on Diabetes mellitus without complicati on Disease Active 05-01 00:00: 00 [facility] Other and unspecifie d ovarian cyst Other and unspecifie d ovarian cyst Disease Active 07-06 00:00: 00 [facility] Female genital symptoms Female genital symptoms Disease Active 07-06 00:00: 00 Overview: Formattin g of this note might be different from the original. ICD10 Diagnosis Term Dermatopathologist Utility [facility] History of tubal ligation History of tubal ligation Disease Active 07-06 00:00: 00 [facility] Overweight (BMI 25.0-29.9) Overweight (BMI 25.0-29.9) Disease Active 07-06 00:00: 00 [facility] Anemia Anemia Disease Active 07-06 00:00: 00 Overview: Formattin g of this note might be different from the original. ICD10 Diagnosis Term Dermatopathologist Utility [facility] Asthma Asthma Disease Active 07-06 00:00: 00 Overview: Formattin g of this note might be different from the original. ICD10 Diagnosis Term Dermatopathologist Utility [facility] Generalize d anxiety disorder Generalize d anxiety disorder Disease Active 07-06 00:00: 00 [facility] Irregular menses Irregular menses Problem Active [facility] Encounter for screening mammogram for breast cancer Encounter for screening mammogram for breast cancer Problem Active [facility] Well woman exam with routine gynecologi surekha exam Well woman exam with routine gynecologi surekha exam Problem Active [facility] Severe sprain of right ankle, initial encounter Severe sprain of right ankle, initial encounter Problem Active [facility] Acute right ankle pain Acute right ankle pain Problem Active [facility] Strain of tendon of long flexor muscle of toe at right ankle and foot level Strain of tendon of long flexor muscle of toe at right ankle and foot level Problem Active [facility] Stress fracture of right calcaneus with routine healing, subsequent encounter Stress fracture of right calcaneus with routine healing, subsequent encounter Problem Active [facility] Allergies, Adverse Reactions, Alerts Allergy Name Allergy Type Status Severity Reaction(s) Onset Date Inactive Date Treating Clinician Comments Source No Known Allergie s DA Active U 12-25 00:00: 00 [facility] NO KNOWN ALLERGIE S Drug Class Active [facility] Social History Social Habit Start Date Stop Date Quantity Comments Source History of tobacco use Cigarette Smoker [facility] History SDOH Alcohol Frequency [facility] History SDOH Alcohol Std Drinks [facility] History SDOH Alcohol Binge [facility] intake 2023-07-02 00:00:00 2023-07-02 00:00:00 Current drinker of alcohol (finding) [facility] History of Social function 2023-07-02 00:00:00 2023-07-02 00:00:00 [facility] Exposure to SARS-CoV-2 (event) 2021-12-27 00:00:00 2022-01-06 13:51:00 Not sure [facility] Tobacco use and exposure 2021-12-30 00:00:00 2021-12-30 00:00:00 User of smokeless tobacco [facility] Alcohol Comment 2014-07-06 00:00:00 2014-07-06 00:00:00 occasionally [facility] Sex Assigned At 1980 00:00:00 1980 00:00:00 [facility] Smoking Status Start Date Stop Date Source Ex-smoker 2021-12-30 00:00:00 2021-12-30 00[facility]00[facility] Medications Ordered Medication Name Filled Medication Name Start Date Stop Date Current Medication? Ordering Clinician Indication Dosage Frequency Signature (SIG) Comments Components Source metroNIDAZO LE 500 mg tablet 07-04 00:00: 00 Yes [id number] 500mg Take 1 tablet by mouth in the morning and 1 tablet in the evening. [facility] benzonatate 200 mg capsule 07-01 08:51: 59 Yes TAKE ONE (1) CAPSULE(S) BY MOUTH THREE TIMES A DAY FOR 5 DAYS. [facility] cefUROXime 250 mg tablet 07-01 08:51: 59 Yes 250mg Take 1 tablet by mouth in the morning and 1 tablet in the evening. [facility] cetirizine 10 mg tablet 07-01 08:51: 59 Yes Take 1 tablet every day by oral route for 30 days. [facility] diazePAM 2 mg tablet 07-01 08:51: 59 Yes TAKE ONE (1) TABLET(S) BY MOUTH THREE TIMES A DAY NEEDED. [facility] diclofenac 75 mg EC tablet 07-01 08:51: 59 Yes TK 1 T PO BID [facility] fluconazole 150 mg tablet 07-01 08:51: 59 Yes TAKE 1 TABLET BY MOUTH EVERY DAY FOR 3 DAYS [facility] levETIRAcet am (KEPPRA XR) 500 mg 24 hr tablet 07-01 08:51: 59 Yes Take 2 tablets twice a day by oral route for 30 days. [facility] predniSONE 10 mg tablet 07-01 08:51: 59 Yes TK 1 T PO BID [facility] proMETHazin e 25 mg tablet 07-01 08:51: 59 Yes [facility] sucralfate 1 gram tablet 07-01 08:51: 59 Yes [facility] triamcinolo ne acetonide 0.1 % cream 07-01 08:51: 59 Yes APPLY THIN LAYER TO AFFECTED AREAS OF PSORIASIS TWICE DAILY FOR 2 WEEKS/BOUCHRA H [facility] zolpidem 5 mg tablet 07-01 08:51: 59 Yes TK 1 T PO QD HS FOR 15 DAYS [facility] azithromyci n 250 mg tablet 07-01 08:50: 36 07-01 00:00 :00 No [facility] acetaminoph en-codeine 300-30 mg tablet 07-01 08:50: 14 07-01 00:00 :00 No TK 2 TS PO Q 6 H PRN FOR PAIN CONTROL [facility] Nitrofurant oin&Nit. Macrocryst (MACROBID) 100 mg capsule 2021-04 004 00:00: 00 01-24 04:59 :00 No [id number] 100mg Take 1 capsule by mouth in the morning and 1 capsule in the evening. Do all this for 10 days. [facility] terconazole 0.4 % vaginal cream 12-30 00:00: 00 Yes [id number] 1{appli cator} Insert 1 Applicator into vagina at bedtime. For 3 nights [facility] metformin HCl (METFORMIN ORAL) 05-01 13:17: 10 Yes 1000mg Take 1,000 mg by mouth. [facility] Tramadol HCl Tramadol HCl 0 09-29 00:00: 00 10-29 00:00 :00 No Isaac Peng as directed [facility] Sulfamethox azole-Trime thoprim Sulfamethox azole-Trime thoprim Yes Isaac Peng not defined [facility] Acetaminoph en-Codeine #3 Acetaminoph en-Codeine #3 Yes Isaac Peng not defined [facility] Tramadol HCl Tramadol HCl Yes Isaac Peng not defined [facility] PredniSONE PredniSONE Yes Isaac Peng (Prior Auth: Rx Ref#:[id number]) [facility] Topiramate Topiramate Yes Isaac Peng (Prior Auth: Rx Ref#:[id number]) [facility] Clotrimazol e Anti-Fungal Clotrimazol e Anti-Fungal Yes Isaac Peng (Prior Auth: Rx Ref#:[id number]) [facility] Gabapentin Gabapentin Yes Isaac Peng (Prior Auth: Rx Ref#:[id number]) [facility] Vitamin D (Ergocalcif marino) Vitamin D (Ergocalcif marino) Yes Isaac Peng not defined [facility] Cetirizine HCl Cetirizine HCl Yes Isaac Peng (Prior Auth: Rx Ref#:[id number]) [facility] Levetiracet am Levetiracet am Yes Isaac Peng (Prior Auth: Rx Ref#:[id number]) [facility] Clopidogrel Bisulfate Clopidogrel Bisulfate Yes Isaac Peng not defined [facility] Amitriptyli ne HCl Amitriptyli ne HCl Yes Isaac Peng (Prior Auth: Rx Ref#:[id number]) [facility] Fluconazole Fluconazole Yes Isaac Peng (Prior Auth: Rx Ref#:[id number]) [facility] Pantoprazol e Sodium Pantoprazol e Sodium Yes Isaac Peng (Prior Auth: Rx Ref#:[id number]) [facility] Mupirocin Mupirocin Yes Isaac Peng not defined [facility] Triamcinolo ne Acetonide Triamcinolo ne Acetonide Yes Isaac Peng (Prior Auth: Rx Ref#:[id number]) [facility] Lyrica Lyrica Yes Isaac Peng not defined [facility] Metformin HCl Metformin HCl Yes Isaac Peng not defined [facility] Immunizations Ordered Immunization Name Filled Immunization Name Date Status Comments Source TDAP (ADACEL) VACCINE 2000-11-10 00:00:00 Completed [facility] TDAP (ADACEL) VACCINE 2000-11-10 00:00:00 Completed [facility] TDAP (ADACEL) VACCINE 2000-11-10 00:00:00 Completed [facility] TDAP (ADACEL) VACCINE 2000-11-10 00:00:00 Completed [facility] TDAP (ADACEL) VACCINE 2000-11-10 00:00:00 Completed [facility] TDAP (ADACEL) VACCINE 2000-11-10 00:00:00 Completed [facility] TDAP (ADACEL) VACCINE 2000-11-10 00:00:00 Completed [facility] TDAP (ADACEL) VACCINE 2000-11-10 00:00:00 Completed [facility] TDAP (ADACEL) VACCINE 2000-11-10 00:00:00 Completed [facility] TDAP (ADACEL) VACCINE 2000-11-10 00:00:00 Completed [facility] TDAP (ADACEL) VACCINE 2000-11-10 00:00:00 Completed [facility] TDAP (ADACEL) VACCINE 2000-11-10 00:00:00 Completed [facility] TDAP (ADACEL) VACCINE Unknown Completed [facility] TDAP (ADACEL) VACCINE Unknown Completed [facility] TDAP (ADACEL) VACCINE Unknown Completed [facility] TDAP (ADACEL) VACCINE Unknown Completed [facility] Vital Signs Vital Name Observation Time Observation Value Comments S davi Systolic blood pressure 2023-07-02 13:03:00 150 mm[Hg] [place] [facility] Diastolic blood pressure 2023-07-02 13:03:00 90 mm[Hg] [facility] Heart rate 2023-07-02 13:03:00 85 /min Unive [facility] Body temperature 2023-07-02 13:03:00 35.67 Lilibeth [facility] Respiratory rate 2023-07-02 13:03:00 17 /min [facility] Body height 2023-07-02 13:03:00 167.6 cm Univ [facility] Body weight 2023-07-02 13:03:00 73.528 kg [facility] BMI 2023-07-02 13:03:00 26.16 kg/m2 [facility] Systolic blood pressure 2022-01-06 18:53:00 141 mm[Hg] [facility] Diastolic blood pressure 2022-01-06 18:53:00 96 mm[Hg] [facility] Heart rate 2022-01-06 18:53:00 76 /min Unive [facility] Body temperature 2022-01-06 18:52:00 36.44 Lilibeth [facility] Respiratory rate 2022-01-06 18:52:00 18 /min [facility] Body height 2022-01-06 18:52:00 167.6 cm [facility] Body weight 2022-01-06 18:52:00 80.428 kg Univ [facility] BMI 2022-01-06 18:52:00 28.62 kg/m2 [facility] Systolic blood pressure 2021-12-30 16:17:00 152 mm[Hg] [facility] Diastolic blood pressure 2021-12-30 16:17:00 98 mm[Hg] [facility] Heart rate 2021-12-30 16:17:00 85 /min Unive [facility] Body temperature 2021-12-30 16:16:00 36.61 Lilibeth [facility] Respiratory rate 2021-12-30 16:16:00 18 /min [facility] Body height 2021-12-30 16:16:00 167.6 cm Univ [facility] Body weight 2021-12-30 16:16:00 80.428 kg [facility] BMI 2021-12-30 16:16:00 28.62 kg/m2 [facility] Procedures Procedure Date / Time Performed Performing Clinicia n Source ASSIGNMENT OF BENEFITS 2023-07-02 12:39:51 Docto r Unassigned, Lesage [facility] POCT URINALYSIS W/O SPECIFIC GRAVITY 2022-01-06 18:56:00 Yang Farmer [facility] Encounters Start Date/Time End Date/Time Encounter Type Admission Type Attending Clinicians Care Facility Care Department Encounter ID Source 2023-07-27 07:02:49 2023-07-27 23:59:00 Outpatient R REE DANIELS [facility] [id number] [facility] 2023-07-27 07:02:49 2023-07-27 23:59:00 Hospital Encounter Ree Daniels [facility] .840.114 350.1.13.10 4.2.7.2.686 [id number] [facility] 2023-07-02 07:45:00 2023-07-02 09:00:42 Outpatient R REE DANIELS [facility] [id number] [facility] 2023-07-02 07:45:00 2023-07-02 09:00:42 Office Visit Ree Daniels [facility] ..840.114 350.1.13.10 4.2.7.2.686 [id number] [facility] 2023-07-02 00:00:00 2023-07-02 00:00:00 Orders Only Doctor Unassigned, [place] [facility] ..840.114 350.1.13.10 4.2.7.2.686 [id number] [facility] 2023-04-20 09:00:00 2023-04-20 09:00:00 Outpatient R LEFTY VU [facility] [id number] [facility] 2023-02-05 00:00:00 2023-02-05 00:00:00 Outpatient [id number] zulma_S [facility] [id number] [facility] 2022-12-18 09:45:00 2022-12-18 09:45:00 Outpatient R [facility] [id number] [facility] 2022-08-27 07:30:00 2022-08-27 07:30:00 Outpatient R LAKESHA PERALTA JORDYN [facility] [id number] [facility] 2022-05-01 13:15:00 2022-05-01 13:15:00 Outpatient R REE DANIELS [facility] [id number] [facility] 2022-05-01 13:15:00 2022-05-01 13:15:00 Outpatient R REE DANIELS [facility] [id number] [facility] 2022-05-01 13:15:00 2022-05-01 13:15:00 Outpatient R AKINGAYLAPEREE [facility] [id number] [facility] 2022-05-01 13:15:00 2022-05-01 13:15:00 Outpatient R AKINREE BEAR [facility] [id number] [facility] 2022-05-01 13:15:00 2022-05-01 13:15:00 Outpatient R JAIRO REE [facility] [id number] [facility] 2022-01-13 00:00:00 2022-01-13 00:00:00 Telephone Ree Daniels [facility] [id number] 350.1.13.10 4.2.7.2.686 [id number] [facility] 2022-01-06 13:45:00 2022-01-06 14:04:36 Outpatient R YANG FARMER [facility] [id number] [facility] 2022-01-06 13:45:00 2022-01-06 14:04:36 Office Visit Yang Farmre [facility] 1.84.114 350.1.13.10 4.2.7.2.686 [id number] [facility] 2022-01-06 00:00:00 2022-01-06 00:00:00 Letter (Out) Yang Farmer [facility] 1.84.114 350.1.13.10 4.2.7.2.686 [id number] [facility] 2022-01-01 00:00:00 2022-01-01 00:00:00 Telephone Ree Daniels [facility] 1.84.114 350.1.13.10 4.2.7.2.686 [id number] [facility] 2021-12-30 11:00:00 2021-12-30 11:39:30 Outpatient R REE DANIELS [facility] [id number] [facility] 2021-12-30 11:00:00 2021-12-30 11:39:30 Office Visit Ree Daniels [facility] 1.840.114 350.1.13.10 4.2.7.2.686 [id number] [facility] 2021-12-30 11:00:00 2021-12-30 11:00:00 Outpatient R REE DANIELS [facility] [id number] [facility] 2021-12-22 00:00:00 2021-12-22 00:00:00 Telephone Ree Daniels [facility] 1.840.114 350.1.13.10 4.2.7.2.686 [id number] [facility] 2021-12-22 00:00:00 2021-12-22 00:00:00 Telephone Ree Daniels [facility] [id number] 350.1.13.10 4.2.7.2.686 [id number] [facility] 2021-10-14 00:00:00 2021-10-14 00:00:00 Telephone Carolannkori Ree Elbert [facility] [id number] 350.1.13.10 4.2.7.2.686 [id number] [facility] 2021-10-09 16:00:00 2021-10-09 16:00:00 Outpatient R REE DANIELS [facility] [id number] [facility] 2021-10-09 14:00:00 2021-10-09 14:46:06 Office Visit Ree Daniels [facility] 1.2.840.114 350.1.13.10 4.2.7.2.686 [id number] [facility] 2021-10-09 14:00:00 2021-10-09 14:46:06 Outpatient R REE DANIELS [facility] [id number] [facility] 2021-10-09 14:00:00 2021-10-09 14:00:00 Outpatient R REE DANIELS [facility] [id number] [facility] 2021-10-03 15:30:00 2021-10-03 15:30:00 Outpatient R REE DANIELS [facility] [id number] [facility] 2021-10-03 15:30:00 2021-10-03 15:30:00 Outpatient R REE DANIELSMB [facility] [id number] [facility] 2021-10-01 00:00:00 2021-10-01 00:00:00 Telephone Ree Daniels NEJAMIE [facility] [id number] 350.1.13.10 4.2.7.2.686 [id number] [facility] 2021-09-05 00:00:00 2021-09-05 00:00:00 Outpatient R REE DANIELS [facility] [id number] [facility] 2021-09-05 00:00:00 2021-09-05 00:00:00 Outpatient R REE DANIELS [facility] [id number] [facility] 2021-07-30 00:00:00 2021-07-30 00:00:00 Telephone Ree Daniels [facility] 1..840.114 350.1.13.10 4.2.7.2.686 [id number] [facility] 2021-05-02 00:00:00 2021-05-02 00:00:00 Telephone Ree Daniels NEJAMIE [facility] 1..840.114 350.1.13.10 4.2.7.2.686 [id number] [facility] 2021-05-01 12:45:00 2021-05-01 14:07:49 Office Visit Ree Daniels NEJAMIE [facility] 1..840.114 350.1.13.10 4.2.7.2.686 [id number] [facility] 2021-05-01 12:45:00 2021-05-01 14:07:49 Outpatient R REE DANIELS [facility] [id number] [facility] 2021-05-01 12:45:00 2021-05-01 14:07:49 Outpatient R REE DANIELS [facility] [id number] [facility] 2021-05-01 12:45:00 2021-05-01 12:45:00 Outpatient R REE DANIELS [facility] [id number] [facility] 2019-11-29 00:00:00 2019-11-29 00:00:00 Outpatient [facility] [id number] [facility] 2018-12-08 13:19:00 2018-12-08 13:19:00 [facility] [id number] [facility] 2018-10-25 09:00:00 2018-10-25 09:00:00 [facility]patient [facility] [id number] [facility] 2018-10-11 14:30:00 2018-10-11 14:30:00 Outpatient [facility] [id number] [facility] 2018-09-29 16:33:00 2018-09-29 16:33:00 Outpatient [facility] [id number] [facility] 2018-05-02 13:45:00 2018-05-02 13:45:00 [facility] [id number] [facility] Results Test Description Test Time Test Comments Results Result Co [facility]ments [facility]CIFIC [id number] 18:56:00* Test Item Value Reference Range Interpretation [...] = 3257) Trace Negative - Negati ve [facility]/O SPECIFIC [id number] 18:56:00* Test Item Value Reference Range Interpretation [...] = 3257) Trace Negative - Negati ve [facility]
[2023-12-18] MEDS ORDERED: NA CHLORIDE 0.9% 2,000 ML ONE (00:07)
[2023-12-18 00:34] LABS: Absolute Eosinophils 0.1 K/uL (0-0.5); Absolute Lymphocytes (CBC) 3.3 K/uL (0.7-4.9); Absolute Monocytes 0.3 K/uL (0.1-1.3); Absolute Neutrophil 3.9 K/uL (1.8-8.0); Basophils % 0.6 % (0-1.3); Eosinophils % 1.6 % (0-4.4); Hematocrit 45.7 % (36.0-45.0); Hemoglobin 15.8 g/dL (12.0-15.0); Lymphocytes % 43.6 % (15.3-44.8); MCH 30.9 pg (27.0-35.0); MCHC 34.5 g/dL (32.0-36.0); MCV 89.7 fL (80-100); MPV 8.1 fL (7.6-11.3); Monocytes % 3.8 % (3.3-12.3); Neutrophils % 50.4 % (41.7-73.7); Nucleated Red Blood Cells % 0.1 % (0-0); Platelets 254 thou/uL (152-406); RBC Red Blood Cell Count 5.09 M/uL (3.86-4.86); Red Cell Distribution Width 12.2 % (12.1-15.2)
[2023-12-18 00:35] LABS: Specific Gravity > 1.030 (1.005-1.030); Urine Bilirubin NEGATIVE (Negative); Urine Blood Negative (Negative); Urine Clarity Clear (Clear); Urine Color Colorless (Yellow); Urine Glucose 4+ (Over) (Negative); Urine Ketones 1+ (Negative); Urine Microscopic Reflex YN NO UMIC; Urine Nitrite NEGATIVE (Negative); Urine Protein NEGATIVE (Negative); Urine Urobilinogen Normal (Normal); Urine pH 5.5 (5.0-7.0)
[2023-12-18 00:47] LABS: Albumin 4.5 g/dL (3.4-5.0); Albumin/Globulin Ratio 1.1 (1.1-1.8); Anion Gap 14.6 mEq/L (5.0-15.0); Bilirubin Total 0.8 mg/dL (0.2-1.0); Potassium 3.6 mEq/L (3.5-5.1); Protein, Total 8.5 g/dL (6.4-8.2)
[2023-12-18] MEDS ORDERED: MECLIZINE HCL 12.5 MG TAB ONE (01:11)
[2023-12-18] MEDS ORDERED: GABAPENTIN 300 MG CAP ONE (01:11)
--- NOTE | 2023-12-18 01:55 | ER ---
Nurse's Notes [facility] Name: Mica Hanson Age: 43 yrs Sex: Female : 1980 Arrival Date: 12/17/2023 Time: 23:30 Bed 7 Private MD: Diagnosis: Type 2 diabetes mellitus with hyperglycemia;Lower extremity paresthesias, plaque psoriasis, L4-L5 disc protrusion with neuroforaminal narrowing Presentation: 12/16 23:46 Chief complaint: Patient states: "my feet have been hurting really bad." Pt reports hx ss of neuropathy that has been getting progressively worse. HAs been out of insulin for approximately 8 months and has not checked her blood sugar in months. Coronavirus screen: Client denies travel out of the [place] in the last 14 days. Ebola Screen: Patient denies exposure to infectious person. Patient denies travel to an Ebola-affected area in the 21 days before illness onset. Initial Sepsis Screen: Does the patient meet any 2 criteria? No. Patient's initial sepsis screen is negative. Does the patient have a suspected source of infection? No. Patient's initial sepsis screen is negative. Risk Assessment: Do you want to hurt yourself or someone else? Patient reports no desire to harm self or others. Onset of symptoms is unknown. 23:46 Acuity: MAURICE 2 ss 23:46 Method Of Arrival: Ambulatory ss Triage Assessment: 12/17 02:01 General: Appears in no apparent distress. Behavior is calm, cooperative. kd4 LAST PULLER: 02:02 Verified kd4 Historical: - Allergies: 12/16 23:48 NKDA; ss - PMHx: 23:48 CVA; Diabetes - NIDDM; Hypertension; Pancreatitis; PERIPHERAL NEUROPATHY; Right sided ss weakness from previous CVA; Seizures; - PSHx: 23:48 cardiac stents 2019; ss - Immunization history:: Client reports having NOT received the Covid vaccine. - Infectious Disease History:: Denies. - Social history:: Smoking status: Patient/guardian denies using tobacco, Stopped _ months ago 8. - Family history:: not pertinent. Screenin/07 00:38 [facility] ED Fall Risk Assessment (Adult) History of falling in the last 3 months, kd4 including since admission No falls in past 3 months (0 pts). [facility] ED Fall Risk Assessment (Adult) Confusion or Disorientation No (0 pts) Intoxicated or Sedated No (0 pts) Impaired Gait No (0 pts) Mobility Assist Device Used No (0 pt) Altered Elimination No (0 pt) Score/Fall Risk Level 0 - 2 = Low Risk Oriented to surroundings, Maintained a safe environment. Abuse screen: Denies threats or abuse. Nutritional screening: No deficits noted. Tuberculosis screening: No symptoms or risk factors identified. Assessment: 00:38 Pain: Complains of pain in left leg Pain currently is 7 out of 10 on a pain scale. kd4 Neuro: Denies blurred vision dizziness. Respiratory: Denies cough, shortness of breath labored breathing. Vital Signs: 12/16 23:46 BP 114 / 90; Pulse 126; Resp 20; Temp 97(TE); Pulse Ox 96% on R/A; Weight 71.21 kg; ss Height 5 ft. 6 in. ; Pain 9/10; 12/17 00:38 Temp 97.9(O); kd4 01:44 BP 107 / 67; Pulse 111; Resp 16; Pulse Ox 93% on R/A; kd4 02:00 BP 107 / 67; Pulse 100; Resp 18; Temp 98.1(O); Pulse Ox 97% on R/A; Pain 2/10; kd4 12/16 23:46 Body Mass Index 25.34 (71.21 kg, 167.64 cm) ss 12/16 23:46 Pain Scale: Adult ss 02:00 Pain Scale: Adult kd4 Eleni Coma Score: 00:38 Eye Response: spontaneous(4). Motor Response: obeys commands(6). Verbal Response: kd4 oriented(5). Total: 15. 03:26 Eye Response: spontaneous(4). Motor Response: obeys commands(6). Verbal Response: sp4 oriented(5). Total: 15. ED Course: 12/16 23:31 Patient arrived in ED. jj6 23:36 Efren Barnett MD is Attending Physician. sp4 23:48 Triage completed. ss 23:48 Arm band placed on right wrist. 12/17 00:04 Izzy Walsh, JUDIE is Primary Nurse. ha1 00:16 CBC with Diff Sent. ha1 00:16 CMP Sent. ha1 00:16 Lipase Sent. ha1 00:16 Test, Urine Sent. ha1 00:16 Urinalysis w/ reflexes Sent. ha1 00:16 CRP Sent. ha1 00:38 Patient has correct armband on for positive identification. Bed in low position. Call kd4 light in reach. 00:38 Inserted saline lock: 20 gauge in right antecubital area, using aseptic technique. kd4 01:13 CT Lumbar Spine Wo Con In Process Unspecified. EDMS 01:54 Stan Lynn MD is Referral Physician. sp4 02:00 Provided Education on: on discharge. kd4 02:00 No provider procedures requiring assistance completed. IV discontinued. kd4 Administered Medications: 00:16 Drug: NS 0.9% IV 1000 ml IV at 1 bolus Per protocol; 1000 mL bolus Route: IV; Rate: 1 ha1 bolus; Site: right antecubital; 02:10 Follow up: Response: No adverse reaction kd4 00:16 Drug: NS 0.9% IV 1000 ml IV at 1 bolus Per protocol; 1000 mL bolus Route: IV; Rate: 1 ha1 bolus; Site: right antecubital; 02:10 Follow up: Response: No adverse reaction kd4 01:27 Drug: Meclizine PO 25 mg PO once Route: PO; kd4 02:10 Follow up: Response: No adverse reaction kd4 01:28 Drug: Gabapentin PO 600 mg PO once Route: PO; kd4 02:10 Follow up: Response: No adverse reaction kd4 Medication: 02:00 VIS not applicable for this client. kd4 Outcome: 01:55 Discharge ordered by . sp4 02:00 Condition: good kd4 02:00 Discharge instructions given to patient, Instructed on discharge instructions, Demonstrated understanding of 02:09 Discharged to home via wheelchair, kd4 02:09 Prescriptions given X 3, 02:11 Discharged to home via wheelchair, with family, kd4 02:11 Patient left the ED. kd4 Signatures: Dispatcher [employer]OK [place] Padilla RN RN Vianney [email or web address] Izzy Walsh RN RN [email or web address] Efren Barnett MD MD sp4 Sudhakar Gray RN RN kd4 Corrections: (The following items were deleted from the chart) 02:10 02:00 Discharged to home ambulatory, with family, kd4 kd4
--- NOTE | 2023-12-18 01:55 | EDPHYS ---
Physician Documentation [facility] Name: Mica Hanson Age: 43 yrs Sex: Female : 1980 Arrival Date: 12/17/2023 Time: 23:30 Bed 7 Private MD: ED Physician Efren Barnett HPI: 12/16 23:44 This 43 yrs old Female presents to ER via Unassigned with complaints of FOOT sp4 NUMBNESS. 12/17 03:26 43-year-old female presents with complaint of left foot and left lower leg numbness and sp4 tingling for the past 2 weeks. 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 - Infectious Disease History:: Denies. - Social history:: Smoking status: Patient/guardian denies using tobacco, Stopped _ months ago 8. - Family history:: not pertinent. ROS: 12/17 03:26 Constitutional: Negative for fever, chills, and weight loss, left foot numbness and sp4 tingling All other systems are negative, Exam: 03:26 Constitutional: This is a well developed, well nourished patient who is awake, alert, sp4 and in no acute distress. Head/Face: Normocephalic, atraumatic. Eyes: Pupils equal round and reactive to light, extra-ocular motions intact. Lids and lashes normal. Conjunctiva and sclera are not injected. Cornea within normal limits. Periorbital areas with no swelling, redness, or edema. ENT: Nares patent. No nasal discharge, no septal abnormalities noted. Tympanic membranes are normal and external auditory canals are clear. Oropharynx with no redness, swelling, or masses, exudates, or evidence of obstruction, uvula midline. Mucous membranes moist. Neck: Trachea midline, no thyromegaly or masses palpated, and no cervical lymphadenopathy. Supple, full range of motion without nuchal rigidity, or vertebral point tenderness. Chest/axilla: Normal chest wall appearance and motion. Nontender with no deformity. No lesions are appreciated. Cardiovascular: Regular rate and rhythm with a normal S1 and S2. No gallops, murmurs, or rubs. Normal PMI, no JVD. No pulse deficits. Respiratory: Lungs have equal breath sounds bilaterally, clear to auscultation and percussion. No rales, rhonchi or wheezes noted. No increased work of breathing, no retractions or nasal flaring. Abdomen/GI: Soft, with normal bowel sounds. No distension or tympany. No guarding or rebound. No evidence of tenderness throughout. Back: No spinal tenderness. No costovertebral tenderness. Skin: Warm, dry with normal turgor. Normal color with no rashes, no lesions, and no evidence of cellulitis. MS/ Extremity: Pulses equal, no cyanosis. Neurovascular intact. Full, normal range of motion. Neuro: Awake and alert, GCS 15, oriented to person, place, time, and situation. Cranial nerves II-XII grossly intact. Motor strength 5/5 in all extremities. There is diminished sensation to left foot and left toes Psych: Awake, alert, with orientation to person, place and time. Behavior, mood, and affect are within normal limits Vital Signs: 12/16 23:46 BP 114 / 90; Pulse 126; Resp 20; Temp 97(TE); Pulse Ox 96% on R/A; Weight 71.21 kg; ss Height 5 ft. 6 in. ; Pain 9/10; 12/17 00:38 Temp 97.9(O); kd4 01:44 BP 107 / 67; Pulse 111; Resp 16; Pulse Ox 93% on R/A; kd4 02:00 BP 107 / 67; Pulse 100; Resp 18; Temp 98.1(O); Pulse Ox 97% on R/A; Pain 2/10; kd4 12/16 23:46 Body Mass Index 25.34 (71.21 kg, 167.64 cm) ss 12/16 23:46 Pain Scale: Adult ss 02:00 Pain Scale: Adult kd4 Eleni Coma Score: 00:38 Eye Response: spontaneous(4). Motor Response: obeys commands(6). Verbal Response: kd4 oriented(5). Total: 15. 03:26 Eye Response: spontaneous(4). Motor Response: obeys commands(6). Verbal Response: sp4 oriented(5). Total: 15. MDM: 12/16 23:47 Patient medically screened. sp4 12/17 01:49 ED course: EXAM: CT Lumbar Spine Without Intravenous Contrast CLINICAL HISTORY: The sp4 patient is 43 years old and is Female; left leg numbness TECHNIQUE: Axial computed tomography images of the lumbar spine without intravenous contrast. Sagittal and coronal reformatted images were created and reviewed. This CT exam was performed using one or more of the following dose reduction techniques: automated exposure control, adjustment of the mA and/or kV according to patient size, and/or use of iterative reconstruction technique. COMPARISON: No relevant prior studies available. FINDINGS: VERTEBRAE: The vertebral body heights and alignment are maintained. No acute fracture. DISCS/SPINAL CANAL/NEURAL FORAMINA: A left paracentral disc bulge at L4-L5 is present causing neural foraminal narrowing. There is mild effacement upon the thecal sac. A central disc bulge at L5-S1 causing effacement upon the thecal sac is noted. The remaining intervertebral disc spaces are maintained. SOFT TISSUES: The soft tissues are normal. IMPRESSION: Left paracentral discal at L4-L5 causing minimal neural foraminal narrowing. Electronically signed by: Mirtha Adorno MD 12/18/2023 01:46 AM. 03:26 Differential Diagnosis altered mental status, sepsis, flu. Data reviewed: vital signs, sp4 nurses notes, lab test result(s), radiologic studies, CT scan. ED course: Stable for discharge home. Advised follow-up with primary care physician for MRI of the L-spine. Advised blood sugar control. Also Advised diabetic diet. 12/16 23:53 Order name: CBC with Diff; Complete Time: 01:45 sp4 12/16 23:53 Order name: CMP; Complete Time: 00:54 sp4 12/16 23:53 Order name: Lipase; Complete Time: 00:54 sp4 12/16 23:53 Order name: Test, Urine; Complete Time: 00:54 sp4 12/16 23:53 Order name: Urinalysis w/ reflexes; Complete Time: 00:54 sp4 12/16 23:54 Order name: CRP; Complete Time: 00:54 sp4 12/17 00:06 Order name: Glucose, Ancillary Testing; Complete Time: 00:54 EDMS 12/17 02:06 Order name: Glucose, Ancillary Testing EDMS 12/16 23:54 Order name: CT Lumbar Spine Wo Con sp4 12/16 23:53 Order name: IV Saline Lock; Complete Time: 00:16 sp4 12/16 23:53 Order name: Labs collected and sent; Complete Time: 00:16 sp4 12/16 23:54 Order name: Accucheck Blood Glucose; Complete Time: 00:06 sp4 12/17 01:54 Order name: Accucheck Blood Glucose sp4 Administered Medications: 00:16 Drug: NS 0.9% IV 1000 ml IV at 1 bolus Per protocol; 1000 mL bolus Route: IV; Rate: 1 ha1 bolus; Site: right antecubital; 02:10 Follow up: Response: No adverse reaction kd4 00:16 Drug: NS 0.9% IV 1000 ml IV at 1 bolus Per protocol; 1000 mL bolus Route: IV; Rate: 1 ha1 bolus; Site: right antecubital; 02:10 Follow up: Response: No adverse reaction kd4 01:27 Drug: Meclizine PO 25 mg PO once Route: PO; kd4 02:10 Follow up: Response: No adverse reaction kd4 01:28 Drug: Gabapentin PO 600 mg PO once Route: PO; kd4 02:10 Follow up: Response: No adverse reaction kd4 Disposition Summary: 12/18/23 01:55 Discharge Ordered Notes: Location: Home sp4 Problem: new sp4 Symptoms: have improved sp4 Condition: Stable sp4 Diagnosis - Type 2 diabetes mellitus with hyperglycemia sp4 - Lower extremity paresthesias, plaque psoriasis, L4-L5 disc protrusion with sp4 neuroforaminal narrowing Followup: sp4 - With: Stan Lynn MD - When: 7 - 10 days - Reason: Recheck today's complaints Discharge Instructions: - Discharge Summary Sheet sp4 - Lumbosacral Radiculopathy sp4 - Diabetes Mellitus and Nutrition, Adult sp4 Forms: - Patient Portal Instructions sp4 Prescriptions: - gabapentin 100 mg Oral capsule - take 1 capsule ORAL route 3 times per day for 8 wks; 180 capsule; Refills: 0, sp4 Product Selection Permitted - insulin degludec 200 unit/mL (3 mL) Subcutaneous Insulin Pen - inject 30 unit SUBCUTANEOUS route every 12 hours 30 Units Subcutaneous every 12 sp4 hours, Dispense 1 pack ( 5 Pens ) with 2 refills; 5 pen; Refills: 0, Product Selection Permitted - Tramadol 50 mg Oral tablet - take 1 tablet ORAL route every 8 hours PRN pain; 20 tablet; Refills: 0, Product sp4 Selection Permitted Signatures: Dispatcher [employer] [place] Butler RN RN ss Jillian, JUDIE Magana RN ha1 Efren Barnett MD MD sp4 Sudhakar Gray RN RN kd4
[2023-12-18 02:20] VITALS: BP 107/67
[2023-12-18 02:21] VITALS: TEMP 98.1; O2SAT 97
--- NOTE | 2023-12-18 21:25 | RAD REPORT ---
EXAM DESCRIPTION: CT - Spine Lumbar Wo Con - 12/18/2023 7:12 am CLINICAL HISTORY: The patient is 43 years old and is Female; left leg numbness TECHNIQUE: Axial computed tomography images of the lumbar spine without intravenous contrast. Sagi ttal and coronal reformatted images were created and reviewed. This CT exam was performed using one or more of the following dose reduction techniques: automated exposure control, adjustment of the mA and/or kV according to patient size, and/or use of iterative reconstruction technique. COMPARISON: No relevant prior studies available. FINDINGS: VERTEBRAE: The vertebral body heights and alignment are maintained. No acute fracture. DISCS/SPINAL CANAL/NEURAL FORAMINA: A left paracentral disc bulge at L4-L5 is present causing rosalie ral foraminal narrowing. There is mild effacement upon the thecal sac. A central disc bulge at L5-S1 causing effacement upon the thecal sac is noted. The remaining intervertebral disc spaces are maintai sam. SOFT TISSUES: The soft tissues are normal. IMPRESSION: Left paracentral discal at L4-L5 causing minimal neural foraminal narrowing. Electronically signed by: Mirtha Adorno MD 12/18/2023 01:46 AM CDT RP Due to temporary technical issues with the PACS/Fluency reporting system, reports are being signed by the in house radiologists without review as a courtesy to insure prompt reporting. The interpreting radiologist is fully responsible for the content of the report.
== END 2023-12-18 02:11 | disposition home or self-care (01) ==
LOC: ER 23:30
DX: E11.65 Type 2 diabetes mellitus with hyperglycemia (principal); L40.0 Psoriasis vulgaris; M51.26 Other intervertebral disc displacement, lumbar region; G62.9 Polyneuropathy, unspecified; Z95.818 Presence of other cardiac implants and grafts
CPT/HCPCS: 85025; 36415; 81025; 82947 ×2; 81003; 83690; 80053; 86140; 72131; 99284; J8597; J7030

== ENCOUNTER 2024-04-01 21:05 | Emergency (ER) | payer BC, OTHER ==
--- OUTSIDE RECORDS SUMMARY | 2024-04-01 21:11 | XMS REPORT | Continuity of Care Document ---
Author Name Unknown Address [address] [place] [address] [facility] Address [address] [place] [address] Care Team Providers Care Window Glazier Name Role Phone [email or web address] Attending Clinician Unavaila ble [email or web address] Admitting Clinician Unavaila ble Payers Payer Name Policy Type Policy Number Effective Date Expirati on Date Source Problems Condition Name Condition Details Condition Category Status Onset Date Resolution Date Last Treatment Date Treating Clinician Comments Source Irregular menses Irregular menses Problem Active [facility] Encounter for screening mammogram for breast cancer Encounter for screening mammogram for breast cancer Problem Active [facility] Well woman exam with routine gynecologi surekha exam Well woman exam with routine gynecologi surekha exam Problem Active [facility] Severe sprain of right ankle, initial encounter Severe sprain of right ankle, initial encounter Problem Active [facility] Acute right ankle pain Acute right ankle pain Problem Active [facility] Strain of tendon of long flexor muscle of toe at right ankle and foot level Strain of tendon of long flexor muscle of toe at right ankle and foot level Problem Active [facility] Stress fracture of right calcaneus with routine healing, subsequent encounter Stress fracture of right calcaneus with routine healing, subsequent encounter Problem Active [facility] Allergies, Adverse Reactions, Alerts Allergy Name Allergy Type Status Severity Reaction(s) Onset Date Inactive Date Treating Clinician Comments Source No Known Allergie s DA Active U 12-25 00:00: 00 [facility] Medications Ordered Medication Name Filled Medication Name Start Date Stop Date Current Medication? Ordering Clinician Indication Dosage Frequency Signature (SIG) Comments Components Source Tramadol HCl Tramadol HCl 09-29 00:00: 00 10-29 00:00 :00 No Isaac Peng as directed [facility] Sulfamethox azole-Trime thoprim Sulfamethox azole-Trime thoprim Yes Isaac Peng not defined [facility] Acetaminoph en-Codeine #3 Acetaminoph en-Codeine #3 Yes Isaac Peng not defined [facility] Tramadol HCl Tramadol HCl Yes Isaac Peng not defined [facility] PredniSONE PredniSONE Yes Isaac Peng (Prior Auth: Rx Ref#:[id number]) [facility] Topiramate Topiramate Yes Isaac Peng (Prior Auth: Rx Ref#:[id number]) [facility] Clotrimazol e Anti-Fungal Clotrimazol e Anti-Fungal Yes Isaac Peng (Prior Auth: Rx Ref#:[id number]) [facility] Gabapentin Gabapentin Yes Isaac Peng (Prior Auth: Rx Ref#:[id number]) [facility] Vitamin D (Ergocalcif marino) Vitamin D (Ergocalcif marino) Yes Isaac Peng not defined [facility] Cetirizine HCl Cetirizine HCl Yes Isaac Peng (Prior Auth: Rx Ref#:[id number]) [facility] Levetiracet am Levetiracet am Yes Isaacfernandez Peng (Prior Auth: Rx Ref#:[id number]) [facility] Clopidogrel Bisulfate Clopidogrel Bisulfate Yes Isaac Peng not defined [facility] Amitriptyli ne HCl Amitriptyli ne HCl Yes Isaacfernandez Peng (Prior Auth: Rx Ref#:[id number]) [facility] Fluconazole Fluconazole Yes Isaac Peng (Prior Auth: Rx Ref#:[id number]) [facility] Pantoprazol e Sodium Pantoprazol e Sodium Yes Isaac Peng (Prior Auth: Rx Ref#:[id number]) [facility] Mupirocin Mupirocin Yes Isaac Peng not defined [facility] Triamcinolo ne Acetonide Triamcinolo ne Acetonide Yes Isaac Peng (Prior Auth: Rx Ref#:[id number]) [facility] Lyrica Lyrica Yes Isaac Peng not defined [facility] Metformin HCl Metformin HCl Yes Isaac Peng not defined [facility] Encounters Start Date/Time End Date/Time Encounter Type Admission Type Attending Clinicians Care Facility Care Department Encounter ID Source 2023-02-05 00:00:00 2023-02-05 00:00:00 Outpatient [email or web address] [facility] [id number] [facility] 2019-11-29 00:00:00 2019-11-29 00:00:00 Outpatient [facility] [id number] [facility] 2018-12-08 13:19:00 2018-12-08 13:19:00 [facility] [id number] [facility] 2018-10-25 09:00:00 2018-10-25 09:00:00 [facility] [id number] [facility] 2018-10-11 14:30:00 2018-10-11 14:30:00 [facility] [id number] [facility] 2018-09-29 16:33:00 2018-09-29 16:33:00 [facility] [id number] [facility] 2018-05-02 13:45:00 2018-05-02 13:45:00 [facility] [id number] [facility]
[2024-04-01] MEDS ORDERED: NA CHLORIDE 0.9% 100 ML ONE (22:00)
[2024-04-01] MEDS ORDERED: LEVETIRACETAM 500 MG/5 ML VIAL IV ONE (22:00)
[2024-04-01] MEDS ORDERED: KETOROLAC 30 MG/ML INJ ONE (22:07)
[2024-04-01 22:30] LABS: Absolute Eosinophils 0.1 K/uL (0-0.5); Absolute Lymphocytes (CBC) 2.6 K/uL (0.7-4.9); Absolute Monocytes 0.3 K/uL (0.1-1.3); Absolute Neutrophil 3.9 K/uL (1.8-8.0); Basophils % 0.4 % (0-1.3); Eosinophils % 1.4 % (0-4.4); Hematocrit 44.8 % (36.0-45.0); Hemoglobin 15.5 g/dL (12.0-15.0); Lymphocytes % 37.8 % (15.3-44.8); MCH 31.2 pg (27.0-35.0); MCHC 34.7 g/dL (32.0-36.0); MCV 89.9 fL (80-100); MPV 8.7 fL (7.6-11.3); Monocytes % 4.3 % (3.3-12.3); Neutrophils % 56.1 % (41.7-73.7); Platelets 215 thou/uL (152-406); RBC Red Blood Cell Count 4.98 M/uL (3.86-4.86)
[2024-04-01 22:40] LABS: Anion Gap 16.3 mEq/L (5.0-15.0)
[2024-04-01 22:42] LABS: Potassium 3.3 mEq/L (3.5-5.1)
[2024-04-01 22:55] LABS: Barbiturates NEGATIVE (NEGATIVE); Benzodiazepines NEGATIVE (NEGATIVE); Cocaine NEGATIVE (NEGATIVE); METHAMPHETAM NEGATIVE (NEGATIVE); Methadone NEGATIVE (NEGATIVE); Opiates NEGATIVE (NEGATIVE); Phencyclidine NEGATIVE (NEGATIVE); THC Cannibis NEGATIVE (NEGATIVE)
--- NOTE | 2024-04-01 23:17 | EDPHYS ---
Physician Documentation [facility] Name: Mica Hanson Age: 43 yrs Sex: Female : 1980 Arrival Date: 04/01/2024 Time: 21:05 Bed 8 Private MD: ED Physician Efrain Alanis HPI: 04/01 22:02 This 43 yrs old Female presents to ER via EMS with complaints of Seizure. 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 Seizure in the bathroom #1 and #2 enroute. Pt was given Ativan IV for the witnessed seizures.. Seizure onset: just prior to arrival. Seizure Hx: Seizure medications: Keppra, Pt admits she takes it PRN. She cannot recall the last time she took it. 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 - Infectious Disease History:: Denies. - Social history:: Smoking status: unknown Patient uses alcohol. ROS: 23:14 Constitutional: Negative for fever, chills, and weight loss bo1 23:14 Neck: Negative for injury or acute deformity, pain with movement, pain at rest, 23:14 Cardiovascular: Negative for chest pain, 23:14 Respiratory: Negative for shortness of breath, 23:14 Abdomen/GI: Negative for abdominal pain, nausea and vomiting, 23:14 Neuro: Positive for seizure activity, 23:14 All other systems are negative, Exam: 22:04 ECG was reviewed by the Attending Physician. bo1 23:06 Constitutional: This is a well developed, well nourished patient who is awake, alert, bo1 and in no acute distress. 23:06 Constitutional: The patient appears alert, awake, comfortable, No seizure activity 23:06 Head/face: Exam is negative for acute changes, obvious evidence of injury or deformity, 23:06 Eyes: Conjunctiva: injected, in the right eye, in the left eye, mild, 23:06 ENT: Mouth: Tongue: is normal, Minimal abrasion; no laceration, 23:06 Neck: External neck: no acute changes, 23:06 Cardiovascular: Rate: tachycardic, Rhythm: regular, Pulses: no pulse deficits are appreciated, 23:06 Respiratory: the patient does not display signs of respiratory distress, Respirations: normal, no acute changes, Breath sounds: are clear throughout, no acute changes, 23:06 Abdomen/GI: Inspection: abdomen appears normal, Palpation: soft, nontender, 23:06 Skin: Warm and non tender. 23:06 Neuro: seizure activity, is not displayed by the patient, Pt denies ETOH but does have on breath, Vital Signs: 21:05 BP 116 / 70; Pulse 113; Resp 18; Temp 97.5; Pulse Ox 94% ; Weight 73.94 kg; Pain 9/10; bm8 22:25 BP 109 / 61; Pulse 113; Resp 19; Temp 97.5; Pulse Ox 96% ; Pain 6/10; bm8 23:29 BP 110 / 59; Pulse 113; Resp 18; Temp 97.5; Pulse Ox 96% ; Pain 0/10; bm8 21:05 Pain Scale: Adult bm8 22:25 Pain Scale: Adult bm8 23:29 Pain Scale: Adult bm8 Eleni Coma Score: 21:07 Eye Response: spontaneous(4). Motor Response: obeys commands(6). Verbal Response: bm8 oriented(5). Total: 15. 21:30 Eye Response: spontaneous(4). Motor Response: obeys commands(6). Verbal Response: bm8 oriented(5). Total: 15. 22:25 Eye Response: spontaneous(4). Motor Response: obeys commands(6). Verbal Response: bm8 oriented(5). Total: 15. 23:06 Eye Response: to voice(3). Motor Response: obeys commands(6). Verbal Response: bo1 confused(4). Total: 13. 23:29 Eye Response: to voice(3). Motor Response: obeys commands(6). Verbal Response: bm8 oriented(5). Total: 14. MDM: 21:29 Medical Screening Exam initiated bo1 23:12 Differential diagnosis: seizure, ETOH intoxication; Non compliance. Data reviewed: bo1 vital signs, lab test result(s). I considered the following discharge prescriptions or medication management in the emergency department Medications were administered in the Emergency Department. See MAR. ED course: Pt with elevated BS and unable to test Keppra level but assuming low level due to noncompliance. ETOH is a factor.. 04/01 21:36 Order name: Basic Metabolic Panel; Complete Time: 22:45 bo1 04/01 21:36 Order name: CBC with Diff; Complete Time: 22:45 bo1 04/01 21:36 Order name: ETOH Level; Complete Time: 22:59 bo1 04/01 21:36 Order name: Urine Drug Screen; Complete Time: 22:59 bo1 04/01 21:36 Order name: EKG; Complete Time: 21:36 bo1 04/01 21:36 Order name: EKG - Nurse/Tech; Complete Time: 21:57 bo1 04/01 21:36 Order name: IV Saline Lock; Complete Time: 22:12 bo1 04/01 21:36 Order name: Labs collected and sent; Complete Time: 22:12 bo1 EC:04 Rate is 112 beats/min. Rhythm is regular. QRS [place] is Normal. [place] interval is normal. bo1 QRS interval is normal. QT interval is normal. No Q waves. T waves are Normal. No ST changes noted. Clinical impression: Sinus tachycardia. Interpreted by me. Reviewed by me. Administered Medications: 22:12 Drug: levETIRAcetam IV 500 mg IV at 500 mg/hr once Route: IV; Rate: 500 mg/hr; Site: [facility] right hand; 23:31 Follow up: Response: No adverse reaction; IV Status: Completed infusion; IV Intake: bm8 100ml 22:15 Drug: Ketorolac IVP 30 mg IVP once Route: IVP; Site: right hand; 8 22:56 Follow up: Response: No adverse reaction bm8 Disposition Summary: 04/01/24 23:17 Discharge Ordered Notes: Location: Home bo1 Problem: an acute exacerbation bo1 Symptoms: have improved bo1 Condition: Stable bo1 Diagnosis - Other seizures bo1 - Alcohol abuse with intoxication bo1 - Hyperglycemia, unspecified bo1 Followup: bo1 - With: Private Physician - When: Upon discharge from the Emergency Department - Reason: Recheck today's complaints, Continuance of care Discharge Instructions: - Discharge Summary Sheet bo1 - Alcohol Intoxication bo1 - Hyperglycemia bo1 - Seizure, Adult bo1 Forms: - Medication Reconciliation Form bo1 - Antibiotic Education bo1 - Prescription Opioid Use bo1 - Patient Portal Instructions bo1 - Leadership Thank You Letter bo1 Signatures: Dispatcher [employer] EDMS Efrain Alanis MD MD bo1 Jose E Guerrero, RN RN bm8 Corrections: (The following items were deleted from the chart) 21:37 21:36 BASIC METABOLIC PANEL+C.LAB.BRZ ordered. EDMS EDMS 21:37 21:36 CBC+H.LAB.BRZ ordered. EDMS EDMS 21:37 21:36 ETHANOL+C.LAB.BRZ ordered. EDMS EDMS 21:37 21:36 URINE DRUG SCREEN+UC.LAB.BRZ ordered. EDMS EDMS
--- NOTE | 2024-04-01 23:17 | ER ---
Nurse's Notes [facility] Name: Mica Hanson Age: 43 yrs Sex: Female : 1980 Arrival Date: 04/01/2024 Time: 21:05 Bed 8 Private MD: Diagnosis: Other seizures;Alcohol abuse with intoxication;Hyperglycemia, unspecified Presentation: 04/01 21:05 Chief complaint: EMS states: pt was at bar drinking and had witnessed seizure for bm8 approx. 3 mins. On arrival pt postictal and then had another seizure. We started a 20g Right hand and administered 2mg Ativan IV. 21:05 Coronavirus screen: At this time, the client does not indicate any symptoms associated bm8 with coronavirus-19. Ebola Screen: Patient negative for fever greater than or equal to 101.5 degrees Fahrenheit, and additional compatible Ebola Virus Disease symptoms Patient denies exposure to infectious person. Patient denies travel to an Ebola-affected area in the 21 days before illness onset. No symptoms or risks identified at this time. Initial Sepsis Screen: Does the patient meet any 2 criteria? No. Patient's initial sepsis screen is negative. Does the patient have a suspected source of infection? No. Patient's initial sepsis screen is negative. Risk Assessment: Do you want to hurt yourself or someone else? Patient reports no desire to harm self or others. Onset of symptoms was April 01, 2024 at 20:00. 21:05 Method Of Arrival: EMS: [facility] bm8 21:05 Acuity: MAURICE 2 bm8 21:26 Care prior to arrival: Medication(s) given: Ativan 2mg IV, 1L NS. IV initiated. 20 GA, bm8 in the right hand, Glucose check: 327. Triage Assessment: 21:07 Pain: Complains of pain in right side of head Pain currently is 9 out of 10 on a pain bm8 scale. EENT: No deficits noted. No signs and/or symptoms were reported regarding the EENT system. Neuro: Level of Consciousness is awake, alert, obeys commands, Oriented to person, place, time, situation, Appropriate for age Fur Finisher are equal bilaterally Moves all extremities. Full function Speech is slurred, Facial symmetry appears normal, Pupils are PERRLA, Pupil Size: 3 mm Intact. Cardiovascular: Denies chest pain, Capillary refill < 3 seconds in bilateral fingers Patient's skin is warm and dry. Respiratory: Airway is patent Trachea midline Respiratory effort is even, unlabored, Respiratory pattern is regular, symmetrical, Breath sounds are clear bilaterally. GI: No signs and/or symptoms were reported involving the gastrointestinal system. : No signs and/or symptoms were reported regarding the genitourinary system. Derm: No signs and/or symptoms reported regarding the dermatologic system. Musculoskeletal: Reports pain in right shoulder since 1999 tonight. 21:07 General: Appears in no apparent distress. comfortable, Behavior is calm, cooperative, bm8 appropriate for age. 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 - Infectious Disease History:: Denies. - Social history:: Smoking status: unknown Patient uses alcohol. Screenin:30 [facility] ED Fall Risk Assessment (Adult) History of falling in the last 3 months, bm8 including since admission Yes- physiologic fall (2 pts) Confusion or Disorientation Yes (5 pts) Intoxicated or Sedated Yes (3 pts) Impaired Gait Yes (1 pt) Mobility Assist Device Used No (0 pt) Altered Elimination No (0 pt) Score/Fall Risk Level 3 or more points = High Risk Oriented to surroundings, Maintained a safe environment, Educated pt \T\ family on fall prevention, incl call for assistance when getting out of bed, Assessed \T\ reinforced patient's understanding of fall precautions, Hourly rounding (assess needs \T\ fall precautionary measures) done, Used ambulatory aids as needed (educated on \T\ assisted with), Used gait belt as appropriate Implemented a Fall Risk Plan of Care. Abuse screen: Denies threats or abuse. Nutritional screening: No deficits noted. Tuberculosis screening: No symptoms or risk factors identified. Assessment: 22:25 Reassessment: Patient appears in no apparent distress at this time. Patient and/or bm8 family updated on plan of care and expected duration. Pain level reassessed. Patient is alert, oriented x 3, equal unlabored respirations, skin warm/dry/pink. pt up to bedside commode for UA. Patient states feeling better. Patient states symptoms have improved. 23:29 Reassessment: Patient appears in no apparent distress at this time. Patient and/or bm8 family updated on plan of care and expected duration. Pain level reassessed. Patient is alert, oriented x 3, equal unlabored respirations, skin warm/dry/pink. Patient denies pain at this time. Patient states feeling better. Patient states symptoms have improved. Vital Signs: 21:05 BP 116 / 70; Pulse 113; Resp 18; Temp 97.5; Pulse Ox 94% ; Weight 73.94 kg; Pain 9/10; bm8 22:25 BP 109 / 61; Pulse 113; Resp 19; Temp 97.5; Pulse Ox 96% ; Pain 6/10; bm8 23:29 BP 110 / 59; Pulse 113; Resp 18; Temp 97.5; Pulse Ox 96% ; Pain 0/10; bm8 21:05 Pain Scale: Adult bm8 22:25 Pain Scale: Adult bm8 23:29 Pain Scale: Adult bm8 Eleni Coma Score: 21:07 Eye Response: spontaneous(4). Motor Response: obeys commands(6). Verbal Response: bm8 oriented(5). Total: 15. 21:30 Eye Response: spontaneous(4). Motor Response: obeys commands(6). Verbal Response: bm8 oriented(5). Total: 15. 22:25 Eye Response: spontaneous(4). Motor Response: obeys commands(6). Verbal Response: bm8 oriented(5). Total: 15. 23:06 Eye Response: to voice(3). Motor Response: obeys commands(6). Verbal Response: bo1 confused(4). Total: 13. 23:29 Eye Response: to voice(3). Motor Response: obeys commands(6). Verbal Response: bm8 oriented(5). Total: 14. ED Course: 21:07 Arm band placed on right wrist. EKG completed in triage. Results shown to MD. bm8 21:12 Patient arrived in ED. vc1 21:23 Jose E Guerrero, RN is Primary Nurse. bm8 21:26 Triage completed. bm8 21:29 Efrain Alanis MD is Attending Physician. bo1 21:30 Patient has correct armband on for positive identification. Placed in gown. Bed in low bm8 position. Call light in reach. Side rails up X2. Adult w/ patient. Seizure precautions initiated. Client placed on continuous cardiac and pulse oximetry monitoring. NIBP monitoring applied. bpm analyst on. Pulse ox on. NIBP on. Door closed. Noise minimized. Warm blanket given. Pillow given. Verbal reassurance given. Head of bed elevated. 21:30 No provider procedures requiring assistance completed. EKG done, by ED staff, reviewed bm8 by Efrain Alanis MD. Maintain EMS IV. Dressing intact. Good blood return noted. Site clean \T\ dry. Gauge \T\ site: 20g right hand. Flushed with 10 mL NS. Patient maintains SpO2 saturation greater than 95% on room air. 22:25 Basic Metabolic Panel Sent. kmf 22:25 CBC with Diff Sent. kmf 22:25 ETOH Level Sent. kmf 22:25 Urine Drug Screen Sent. f 22:25 Initial lab(s) drawn, by pa, sent to lab. kmf 22:25 Inserted saline lock: 22 gauge in right antecubital area, using aseptic technique. bm8 Flushed with 10 mL NS IV discontinued, intact, bleeding controlled, No redness/swelling at site. Pressure dressing applied, 20g Right hand infiltrated. 23:29 Provided Education on: post er care. bm8 23:29 IV discontinued, intact, bleeding controlled, No redness/swelling at site. Pressure bm8 dressing applied, 22g right ac. Administered Medications: 22:12 Drug: levETIRAcetam IV 500 mg IV at 500 mg/hr once Route: IV; Rate: 500 mg/hr; Site: bm8 right hand; 23:31 Follow up: Response: No adverse reaction; IV Status: Completed infusion; IV Intake: bm8 100ml 22:15 Drug: Ketorolac IVP 30 mg IVP once Route: IVP; Site: right hand; bm8 22:56 Follow up: Response: No adverse reaction bm8 Medication: 21:30 VIS not applicable for this client. bm8 Intake: 23:31 IV: 100ml; Total: 100ml. bm8 Outcome: 23:17 Discharge ordered by . bo1 23:29 Discharged to home via wheelchair, bm8 23:29 Condition: stable 23:29 Discharge instructions given to patient, family, Instructed on discharge instructions, follow up and referral plans. no drinking with medication, no driving heavy equipment, medication usage, safety practices, Demonstrated understanding of instructions, follow-up care, medications, 23:48 Patient left the ED. bm8 Signatures: Ale Mishra RN RN vc1 Arielle Stark [facility] Efrain Alanis MD MD bo1 Jose E Guerrero RN RN bm8 Corrections: (The following items were deleted from the chart) 21:29 21:26 General: Appears in no apparent distress. comfortable, Behavior is calm, bm8 cooperative, appropriate for age, bm8
[2024-04-01 23:52] VITALS: TEMP 97.5
[2024-04-01 23:54] VITALS: O2SAT 96
[2024-04-01 23:56] VITALS: BP 110/59
--- NOTE | 2024-04-02 13:04 | EKG ---
Test Date: 2024-04-01 Test Time: 21:31:53 Ap Operator: NATY MEASUREMENT RESULTS: Intervals: Rate: 112 GA: 152 QRSD: 84 QT: 358 QTc: 488 [place]: P: 63 GA: 152 QRS: 46 T: 29 INTERPRETIVE STATEMENTS: Sinus tachycardia Otherwise normal ECG Compared to ECG 10/23/2022 22:31:54 No significant changes Electronically Signed On 04-02-24 13:03:38 CLAIMS SERVICE REPRESENTATIVE by Norris Nielson
== END 2024-04-01 23:48 | disposition home or self-care (01) ==
LOC: ER 21:05
DX: G40.89 Other seizures (principal); F10.129 Alcohol abuse with intoxication, unspecified; E11.65 Type 2 diabetes mellitus with hyperglycemia; I10 Essential (primary) hypertension; Z95.818 Presence of other cardiac implants and grafts
CPT/HCPCS: 96365; 93005; 85025; 80048; 36415; 80307; 96375; 99285; 82077; J1953

== ENCOUNTER 2024-04-20 15:54 | Inpatient (IN) | payer BC, MEDICARE ==
--- OUTSIDE RECORDS SUMMARY | 2024-04-20 15:57 | XMS REPORT | Continuity of Care Document ---
Author Name Unknown Address [address] [place] [address] [facility] Address [address] [place] [address] Care Team Providers Care Case Checker Name Role Phone [email or web address] Attending Clinician Unavaila ble [email or web address] Admitting Clinician Unavaila ble Payers Payer Name Policy Type Policy Number Effective Date Expirati on Date Source Problems Condition Name Condition Details Condition Category Status Onset Date Resolution Date Last Treatment Date Treating Clinician Comments Source Irregular menses Irregular menses Problem Active [facility] Encounter for screening mammogram for breast cancer Encounter for screening mammogram for breast cancer Problem Active [facility] Well woman exam with routine gynecologi surekha exam Well woman exam with routine gynecologi surekha exam Problem Active [facility] Severe sprain of right ankle, initial encounter Severe sprain of right ankle, initial encounter Problem Active [facility] Acute right ankle pain Acute right ankle pain Problem Active [facility] Strain of tendon of long flexor muscle of toe at right ankle and foot level Strain of tendon of long flexor muscle of toe at right ankle and foot level Problem Active [facility] Stress fracture of right calcaneus with routine healing, subsequent encounter Stress fracture of right calcaneus with routine healing, subsequent encounter Problem Active [facility] Allergies, Adverse Reactions, Alerts Allergy Name Allergy Type Status Severity Reaction(s) Onset Date Inactive Date Treating Clinician Comments Source No Known Allergie s DA Active U 12-25 00:00: 00 [facility] Medications Ordered Medication Name Filled Medication Name Start Date Stop Date Current Medication? Ordering Clinician Indication Dosage Frequency Signature (SIG) Comments Components Source Tramadol HCl Tramadol HCl 09-29 00:00: 00 10-29 00:00 :00 No Isaac Peng as directed [facility] Sulfamethox azole-Trime thoprim Sulfamethox azole-Trime thoprim Yes Isaac Peng not defined [facility] Acetaminoph en-Codeine #3 Acetaminoph en-Codeine #3 Yes Isaac Peng not defined [facility] Tramadol HCl Tramadol HCl Yes Isaac Peng not defined [facility] PredniSONE PredniSONE Yes Isaac Peng (Prior Auth: Rx Ref#:[id number]) [facility] Topiramate Topiramate Yes Isaac Peng (Prior Auth: Rx Ref#:[id number]) [facility] Clotrimazol e Anti-Fungal Clotrimazol e Anti-Fungal Yes Isaac Peng (Prior Auth: Rx Ref#:[id number]) [facility] Gabapentin Gabapentin Yes Isaac Peng (Prior Auth: Rx Ref#:[id number]) [facility] Vitamin D (Ergocalcif marino) Vitamin D (Ergocalcif marino) Yes Isaac Peng not defined [facility] Cetirizine HCl Cetirizine HCl Yes Isaac Peng (Prior Auth: Rx Ref#:[id number]) [facility] Levetiracet am Levetiracet am Yes Isaacfernandez Peng (Prior Auth: Rx Ref#:[id number]) [facility] Clopidogrel Bisulfate Clopidogrel Bisulfate Yes Isaac Peng not defined [facility] Amitriptyli ne HCl Amitriptyli ne HCl Yes Isaacfernandez Peng (Prior Auth: Rx Ref#:[id number]) [facility] Fluconazole Fluconazole Yes Isaac Peng (Prior Auth: Rx Ref#:[id number]) [facility] Pantoprazol e Sodium Pantoprazol e Sodium Yes Isaac Peng (Prior Auth: Rx Ref#:[id number]) [facility] Mupirocin Mupirocin Yes Isaac Peng not defined [facility] Triamcinolo ne Acetonide Triamcinolo ne Acetonide Yes Isaac Peng (Prior Auth: Rx Ref#:[id number]) [facility] Lyrica Lyrica Yes Isaac Peng not defined [facility] Metformin HCl Metformin HCl Yes Isaac Peng not defined [facility] Encounters Start Date/Time End Date/Time Encounter Type Admission Type Attending Clinicians Care Facility Care Department Encounter ID Source 2023-02-05 00:00:00 2023-02-05 00:00:00 Outpatient [email or web address] [facility] [id number] [facility] 2019-11-29 00:00:00 2019-11-29 00:00:00 Outpatient [facility] [id number] [facility] 2018-12-08 13:19:00 2018-12-08 13:19:00 Out[facility] [id number] [facility] 2018-10-25 09:00:00 2018-10-25 09:00:00 [facility] [id number] [facility] 2018-10-11 14:30:00 2018-10-11 14:30:00 [facility] [id number] [facility] 2018-09-29 16:33:00 2018-09-29 16:33:00 [facility] [id number] [facility] 2018-05-02 13:45:00 2018-05-02 13:45:00 [facility] [id number] [facility]
[2024-04-20 17:32] LABS: Barbiturates NEGATIVE (NEGATIVE); Benzodiazepines NEGATIVE (NEGATIVE); Cocaine NEGATIVE (NEGATIVE); METHAMPHETAM NEGATIVE (NEGATIVE); Methadone NEGATIVE (NEGATIVE); Opiates NEGATIVE (NEGATIVE); Phencyclidine NEGATIVE (NEGATIVE); THC Cannibis NEGATIVE (NEGATIVE)
[2024-04-20 17:37] LABS: Arterial Blood Carboxyhemoglob 1.9 % (0-1.5); Blood Gas Oxyhemoglobin 82.6 % (94-97); Blood O2 Saturation 85.8 % (92-98.5)
[2024-04-20 17:42] LABS: Absolute Lymphocytes (CBC) 1.1 K/uL (0.7-4.9); Absolute Monocytes 0.4 K/uL (0.1-1.3); Basophils % 0.4 % (0-1.3); Eosinophils % 0.6 % (0-4.4); Hematocrit 44.2 % (36.0-45.0); Hemoglobin 15.3 g/dL (12.0-15.0); MCHC 34.5 g/dL (32.0-36.0); MCV 89.9 fL (80-100); MPV 8.8 fL (7.6-11.3); Monocytes % 9.4 % (3.3-12.3); Neutrophils % 64.6 % (41.7-73.7); Nucleated Red Blood Cells % 0.1 % (0-0); Platelets 186 thou/uL (152-406); RBC Red Blood Cell Count 4.92 M/uL (3.86-4.86); Red Cell Distribution Width 12.3 % (12.1-15.2)
[2024-04-20 17:47] LABS: ALT/SGPT 166 U/L (13-56); AST/SGOT 81 U/L (15-37); Albumin 3.8 g/dL (3.4-5.0); Alkaline Phosphatase 165 U/L (45-117); Anion Gap 10.8 mEq/L (5.0-15.0); BETA HYDROXYBUTYRATE 0.21 mmol/L (0.02-0.27); BUN Blood Urea Nitrogen 10 mg/dL (7-18); Bicarbonate 27 mEq/L (21-32); Bilirubin Direct 0.3 mg/dL (0-0.2); Bilirubin Indirect, Calculated 0.7 mg/dL (0.2-0.8); Globulin 3.7 g/dL (2.3-3.5); Glomerular Filtration Rate 105 ml/min (=/>90); Magnesium 1.9 mg/dL (1.6-2.4); Potassium 3.8 mEq/L (3.5-5.1); Protein, Total 7.5 g/dL (6.4-8.2); Sodium Level 131 mEq/L (136-145)
[2024-04-20 17:52] LABS: Troponin High Sensitivity < 3.0 pg/mL (<58.9)
[2024-04-20 17:54] LABS: Glucose Level 426 mg/dL (74-106)
--- NOTE | 2024-04-20 17:56 | RAD REPORT ---
EXAMINATION: ONE VIEW CHEST XR CLINICAL INDICATION: COUGH TECHNIQUE: Frontal chest projection is submitted. Examination is limited by patient positioning and t echnique. COMPARISON: 10/23/2022 FINDINGS: The lungs are well inflated and clear. The heart is normal in size. No displaced fractures identified . IMPRESSION: No acute intrathoracic abnormalities.
--- NOTE | 2024-04-20 18:03 | RAD REPORT ---
EXAM: CT brain without contrast HISTORY: STROKE ALERT COMPARISON: 10/24/2022 TECHNIQUE: Multiple contiguous axial images were obtained and a CT of the brain without contrast. Sag ittal and coronal reformats were performed. One or more of the following dose reduction techniques were used: Automated exposure control, adjust ment of the mA and/or kV according to patient size, and/or iterative reconstruction. FINDINGS: No evidence of hydrocephalus, intracranial hemorrhage, or extra-axial fluid collection. The brain is normal in morphology. No evidence of midline shift or areas of brain edema. The calvarium is intact. The visualized paranasal sinuses and mastoid air cells are essentially clear . IMPRESSION: No evidence of acute intracranial abnormality.
--- NOTE | 2024-04-20 18:04 | RAD REPORT ---
EXAMINATION: CTA HEAD CLINICAL INDICATION: HEMIPLEGIA TECHNIQUE: Axial CT images were obtained through the head after intravenous contrast utilizing angiog raphic protocol with 3D post-processing (maximum intensity projection images, volume rendered images and/or shaded surface rendered images). One or more of the following dose reduction technique s were used: Automated exposure control, adjustment of the mA and/or kV according to patient size, and/or iterative reconstruction. Unless otherwise specified, incidental findings do not require dedic ated imaging follow-up. COMPARISON: No prior exam. FINDINGS: ICA: The petrous, cavernous, and supraclinoid segments of the bilateral internal carotid arteries are normal. The ophthalmic artery origins are visualized and normal. The posterior communicating arteries are patent. FRANCO: Anterior cerebral arteries are normal bilaterally. The anterior communicating artery is patent. MCA: Middle cerebral arteries are normal bilaterally. PLATEMAKER: Posterior cerebral arteries are normal bilaterally. Vertebrobasilar: The vertebral arteries are patent. The basilar artery is normal in appearance. 3D images confirm these findings. IMPRESSION: No significant flow abnormality is identified.
--- NOTE | 2024-04-20 18:05 | RAD REPORT ---
EXAMINATION: CTA NECK CLINICAL INDICATION: NUMBNESS TECHNIQUE: Axial CT images were obtained from the aortic arch to the skull base after intravenous con trast utilizing angiographic protocol with 3D post-processing (maximum intensity projection images, volume rendered images and/or shaded surface rendered images). One or more of the following dose redu ction techniques were used: Automated exposure control, adjustment of the mA and/or kV according to patient size, and/or iterative reconstruction. Unless otherwise specified, incidental findings do not require dedicated imaging follow-up. COMPARISON: No prior exam. FINDINGS: AORTA: The imaged aortic arch is normal. CCA: The common carotid arteries are patent and normal in caliber. ICA/ECA: Bilateral internal and external carotid arteries are patent. There is no significant interna l carotid artery stenosis. VERTEBRAL: The cervical vertebral arteries are patent. The vertebral arteries are codominant. SOFT TISSUE: Mildly prominent lymph nodes seen bilaterally in the neck and submental station. The vis ualized lung apices are clear. 3D images confirm these findings. IMPRESSION: No significant flow abnormality of the neck vessels is identified. NASCET criteria used. Mild 0-49% stenosis Moderate 50-69% stenosis Severe 70-99% stenosis
[2024-04-20] MEDS ORDERED: NA CHLORIDE 0.9% 1,000 ML ONE (18:27)
--- NOTE | 2024-04-20 18:55 | EDPHYS ---
Physician Documentation [facility] Name: Mica Hanson Age: 43 yrs Sex: Female : 1980 Arrival Date: 04/20/2024 Time: 15:54 Bed 19 Private MD: ED Physician Franca Feldman HPI: 04/20 17:33 This 43 yrs old Female presents to ER via Ambulatory with complaints of Facial gb1 Droop - x2days. 17:33 43-year-old female that noticed a facial droop on her right side and weakness in her gb1 right upper extremity and right leg, 2 days ago. She has a history of a stroke, mif-ciliqye-cmhmsefvi diabetes, hypertension, pancreatitis, peripheral neuropathy and right-sided weakness remotely. Patient denies any falls or head injuries and she states that she has been out of her medications for all of her medical problems for over a year now. She has been out because she cannot afford the medication.. Historical: - Allergies: 16:14 NKDA; ss - PMHx: 16:14 CVA; Diabetes - NIDDM; Hypertension; Pancreatitis; PERIPHERAL NEUROPATHY; Right sided ss weakness from previous CVA; Seizures; - PSHx: 16:14 cardiac stents 2019; ss - Immunization history:: Adult Immunizations unknown. - Infectious Disease History:: Denies. - Social history:: Smoking status: Patient denies any tobacco usage or history of. Exam: 17:33 Constitutional: This is a well developed, well nourished patient who is awake, alert, gb1 and in no acute distress. Head/Face: Normocephalic, atraumatic. Eyes: Pupils equal round and reactive to light, extra-ocular motions intact. Lids and lashes normal. Conjunctiva and sclera are non-icteric and not injected. Cornea within normal limits. Periorbital areas with no swelling, redness, or edema. ENT: Nares patent. No nasal discharge, no septal abnormalities noted. Tympanic membranes are normal and external auditory canals are clear. Oropharynx with no redness, swelling, or masses, exudates, or evidence of obstruction, uvula midline. Mucous membranes moist. Neck: Trachea midline, no thyromegaly or masses palpated, and no cervical lymphadenopathy. Supple, full range of motion without nuchal rigidity, or vertebral point tenderness. No Meningismus. Chest/axilla: Normal chest wall appearance and motion. Nontender with no deformity. No lesions are appreciated. Cardiovascular: Regular rate and rhythm with a normal S1 and S2. No gallops, murmurs, or rubs. Normal PMI, no JVD. No pulse deficits. Respiratory: Lungs have equal breath sounds bilaterally, clear to auscultation and percussion. No rales, rhonchi or wheezes noted. No increased work of breathing, no retractions or nasal flaring. Abdomen/GI: Soft, non-tender, with normal bowel sounds. No distension or tympany. No guarding or rebound. No evidence of tenderness throughout. Back: No spinal tenderness. No costovertebral tenderness. Full range of motion. Skin: Warm, dry with normal turgor. Normal color with no rashes, no lesions, and no evidence of cellulitis. MS/ Extremity: Pulses equal, no cyanosis. Neurovascular intact. Full, normal range of motion. Neuro: Awake and alert, GCS 15, oriented to person, place, time, and situation. Right-sided facial droop with decreased sensation on the right face right upper extremity and right lower extremity. Strength is 3 out of 5 on the right side and 5 out of 5 on the left side. Vital Signs: 16:14 BP 137 / 106; Pulse 106; Resp 16; Temp 97.8; Pulse Ox 100% on R/A; Weight 73.94 kg; ss Height 5 ft. 6 in. ; Pain 0/10; 18:30 BP 146 / 94; Pulse 96; Resp 15; Pulse Ox 98% on R/A; ko1 19:15 BP 130 / 92; Pulse 92; Resp 18; Pulse Ox 95% on R/A; br2 21:48 BP 142 / 91; Pulse 104; Resp 18; Pulse Ox 95% on R/A; br2 22:25 BP 129 / 81; Pulse 97; Resp 16; Temp 97; Pulse Ox 99% on R/A; br2 16:14 Body Mass Index 26.31 (73.94 kg, 167.64 cm) ss 16:14 Pain Scale: Adult ss MDM: 16:46 Medical Screening Exam initiated 1 17:33 Data reviewed: vital signs, nurses notes, lab test result(s), EKG, radiologic studies. 1 ED course: 43-year-old female with history of CVA concern for completed left CVA. Patient is also poorly controlled diabetic and has been out of her medications that she is not compliant concern for possible DKA versus uncontrolled diabetes with hyperglycemia. Also considered TIA at this time. I doubt this is Ambrose's palsy because it also involves neurological deficits in the right upper and right lower extremity. Patient is outside the window for any stroke intervention at this time.. 18:48 ED course: 43-year-old female concern for TIA versus CVA. I discussed the case with Dr. cony Charles the on-call neurologist who recommended stroke workup and inpatient evaluation. After medical chart review the patient does have a history of alcohol and drug abuse and would likely be a candidate for an in versus outpatient detox program. She is not currently intoxicated. Pt admitted to [facility] for CVA work up by Dr. Fry at 1901.. 04/20 17:02 Order name: Basic Metabolic Panel; Complete Time: 18:07 gb1 04/20 17:02 Order name: CBC with Diff; Complete Time: 18:07 [facility] 04/20 17:02 Order name: Hepatic Function; Complete Time: 18:07 gb1 04/20 17:02 Order name: High Sensitivity Troponin; Complete Time: 18:07 gb1 04/20 17:02 Order name: Magnesium; Complete Time: 18:07 gb1 04/20 17:02 Order name: Protime (+inr) gb04/20 17:02 Order name: Ptt, Activated gb1 04/20 17:02 Order name: UDS; Complete Time: 18:07 1 04/20 17:02 Order name: BETA HYDROXYBUTYRATE; Complete Time: 18:07 gb1 04/20 17:02 Order name: ABG; Complete Time: 18:07 gb1 04/20 17:31 Order name: Glucose, Ancillary Testing; Complete Time: 18:07 EDMS 04/20 21:14 Order name: Urinalysis w/ reflexes EDMS 04/20 21:14 Order name: CBC with Automated Diff EDMS 04/20 21:14 Order name: CBC with Automated Diff EDMS 04/20 21:14 Order name: Comprehensive Metabolic Panel EDMS 04/20 21:14 Order name: Comprehensive Metabolic Panel EDMS 04/20 21:14 Order name: Lipid Profile EDMS 04/20 21:14 Order name: Lipid Profile EDDE 04/20 21:17 Order name: Hemoglobin A1c EDDE 04/20 17:02 Order name: CT Head Angio; Complete Time: 18:07 gb1 04/20 17:02 Order name: CT Neck Angio; Complete Time: 18:07 gb1 04/20 17:02 Order name: Stroke CXR 1 View; Complete Time: 18:07 gb1 04/20 17:30 Order name: Head Brain Wo Cont; Complete Time: 18:07 EDDE 04/20 21:14 Order name: Echo with Doppler EDDE 04/20 21:14 Order name: Stroke Protocol EDDE 04/20 17:02 Order name: EKG; Complete Time: 17:03 gb1 04/20 21:14 Order name: IRF Screen EDDE 04/20 21:14 Order name: Physical Therapy Consult EDDE 04/20 21:14 Order name: Speech Therapy Consult EDDE 04/20 17:02 Order name: Accucheck; Complete Time: 17:30 gb1 04/20 17:02 Order name: Cardiac monitoring; Complete Time: 17:05 gb1 04/20 17:02 Order name: EKG - Nurse/Tech; Complete Time: 17:05 gb1 04/20 17:02 Order name: IV Saline Lock; Complete Time: 17:30 gb1 04/20 17:02 Order name: Labs collected and sent; Complete Time: 17:30 gb1 04/20 17:02 Order name: NPO; Complete Time: 17:05 gb1 04/20 17:02 Order name: O2 Per Protocol; Complete Time: 17:05 gb1 04/20 17:02 Order name: O2 Sat Monitoring; Complete Time: 17:05 gb1 04/20 17:02 Order name: Stroke Swallow Screen; Complete Time: 17:30 gb1 Administered Medications: 18:28 Drug: NS 0.9% IV 1000 ml IV at 1 bolus Per protocol; to be given as a bolus over 60 ko1 minutes Route: IV; Rate: 1 bolus; Site: right antecubital; 19:35 Follow up: IV Status: Completed infusion; IV Intake: 1000ml br2 Disposition Summary: 04/20/24 18:54 Hospitalization Ordered Notes: Hospitalization Status: Inpatient Admission gb1 Provider: Daniel Fry Location: Telemetry/MedSurg (observation) gb1 Condition: Stable gb1 Problem: new gb1 Symptoms: have worsened gb1 Bed/Room Type: Standard gb1 Room Assignment: 223(04/20/24 21:40) km Diagnosis - Facial weakness gb1 Forms: - Medication Reconciliation Form gb1 - SBAR form gb1 - Leadership Thank You Letter gb1 Critical care time excluding procedures: 19:01 Critical care time: Bedside Care: 60 minutes, Family Intervention: 45 minutes. Total gb1 time: 105 minutes Signatures: Dispatcher [employer] EDMS [place] Padilla, JUDIE RN ss Sharri Walker RN RN ko1 Franca Feldman MD MD gb1 Arielle Stark km Darling Mcnally RN br2 Corrections: (The following items were deleted from the chart) 17:03 17:02 BASIC METABOLIC PANEL+C.LAB.BRZ ordered. EDMS EDMS 17:03 17:02 CBC+H.LAB.BRZ ordered. EDMS EDMS 17:03 17:02 HEPATIC FUNCTION+C.LAB.BRZ ordered. EDMS EDMS 17:03 17:02 Troponin High Sensitivity+C.LAB.BRZ ordered. EDMS EDMS 17:03 17:03 MAGNESIUM+C.LAB.BRZ ordered. EDMS EDMS 17:03 17:03 PROTIME (+INR)+COAG.LAB.BRZ ordered. EDMS EDMS 17:03 17:03 PTT, ACTIVATED+COAG.LAB.BRZ ordered. EDMS EDMS 17:03 17:03 URINE DRUG SCREEN+UC.LAB.BRZ ordered. EDMS EDMS 17:03 17:03 Arterial Blood Gas+RC.LAB.BRZ ordered. EDMS EDMS 17:30 17:03 CT-STROKE BRAIN W/O CONTRAST+CT.RAD.BRZ ordered. EDMS EDMS 19:01 18:48 ED course: 43-year-old female concern for TIA versus CVA. I discussed the case gb1 with Dr. Charles the on-call neurologist who recommended stroke workup and inpatient evaluation. After medical chart review the patient does have a history of alcohol and drug abuse and would likely be a candidate for an in versus outpatient detox program. She is not currently intoxicated.. gb1 21:40 18:54 gb1 kmf
--- NOTE | 2024-04-20 18:55 | ER ---
Nurse's Notes [facility] Name: Mica Hanson Age: 43 yrs Sex: Female : 1980 Arrival Date: 04/20/2024 Time: 15:54 Bed 19 Private MD: Diagnosis: Facial weakness Presentation: 04/20 16:14 Chief complaint: Patient states: Facial droop and R sided weakness that began 2-3 days ss ago. Coronavirus screen: Client denies travel out of the [place] in the last 14 days. Ebola Screen: Patient denies exposure to infectious person. Patient denies travel to an Ebola-affected area in the 21 days before illness onset. Initial Sepsis Screen: Does the patient meet any 2 criteria? No. Patient's initial sepsis screen is negative. Does the patient have a suspected source of infection? No. Patient's initial sepsis screen is negative. Risk Assessment: Do you want to hurt yourself or someone else? Patient reports no desire to harm self or others. Onset of symptoms was April 17, 2024. 16:14 Method Of Arrival: Ambulatory ss 16:14 Acuity: MAURICE 3 ss Stroke Activation: Symptom onset > 6 hours Physician: ED Attending; Name: ; Notified At: ; Arrived At: Physician: Mid-Level Provider; Name: ; Notified At: ; Arrived At: Physician: [not used]; Name: ; Notified At: ; Arrived At: Physician: [not used]; Name: ; Notified At: ; Arrived At: Physician: [not used]; Name: ; Notified At: ; Arrived At: Historical: - Allergies: 16:14 NKDA; ss - PMHx: 16:14 CVA; Diabetes - NIDDM; Hypertension; Pancreatitis; PERIPHERAL NEUROPATHY; Right sided ss weakness from previous CVA; Seizures; - PSHx: 16:14 cardiac stents 2019; ss - Immunization history:: Adult Immunizations unknown. - Infectious Disease History:: Denies. - Social history:: Smoking status: Patient denies any tobacco usage or history of. Screenin:43 [facility] ED Fall Risk Assessment (Adult) History of falling in the last 3 months, ko1 including since admission No falls in past 3 months (0 pts) Confusion or Disorientation No (0 pts) Intoxicated or Sedated No (0 pts) Impaired Gait No (0 pts) Mobility Assist Device Used No (0 pt) Altered Elimination No (0 pt) Score/Fall Risk Level 0 - 2 = Low Risk Oriented to surroundings, Maintained a safe environment, Educated pt \T\ family on fall prevention, incl call for assistance when getting out of bed, Assessed \T\ reinforced patient's understanding of fall precautions, Hourly rounding (assess needs \T\ fall precautionary measures) done. Abuse screen: Denies threats or abuse. Denies injuries from another. Nutritional screening: No deficits noted. Tuberculosis screening: No symptoms or risk factors identified. Assessment: 16:45 General: Appears in no apparent distress. Behavior is calm, cooperative, appropriate ko1 for age. Pain: Denies pain. Neuro: Reports right facial droop for 2 days. Cardiovascular: No deficits noted. Respiratory: Reports cough that is. GI: No deficits noted. No signs and/or symptoms were reported involving the gastrointestinal system. : No deficits noted. No signs and/or symptoms were reported regarding the genitourinary system. EENT: Reports nasal congestion. Derm: No deficits noted. No signs and/or symptoms reported regarding the dermatologic system. Musculoskeletal: No deficits noted. No signs and/or symptoms reported regarding the musculoskeletal system. 19:05 Reassessment: Patient and/or family updated on plan of care and expected duration. Pain br2 level reassessed. Patient is alert, oriented x 3, equal unlabored respirations, skin warm/dry/pink. Patient states feeling better. Patient states symptoms have improved. 22:00 Reassessment: Patient and/or family updated on plan of care and expected duration. Pain br2 level reassessed. Patient is alert, oriented x 3, equal unlabored respirations, skin warm/dry/pink. Vital Signs: 16:14 BP 137 / 106; Pulse 106; Resp 16; Temp 97.8; Pulse Ox 100% on R/A; Weight 73.94 kg; ss Height 5 ft. 6 in. ; Pain 0/10; 18:30 BP 146 / 94; Pulse 96; Resp 15; Pulse Ox 98% on R/A; ko1 19:15 BP 130 / 92; Pulse 92; Resp 18; Pulse Ox 95% on R/A; br2 21:48 BP 142 / 91; Pulse 104; Resp 18; Pulse Ox 95% on R/A; br2 22:25 BP 129 / 81; Pulse 97; Resp 16; Temp 97; Pulse Ox 99% on R/A; br2 16:14 Body Mass Index 26.31 (73.94 kg, 167.64 cm) ss 16:14 Pain Scale: Adult ss ED Course: 15:57 Patient arrived in ED. ra3 15:58 Franca Feldman MD is Attending Physician. gb1 16:14 Arm band placed on right wrist. ss 16:16 Triage completed. ss 16:27 Sharri Walker, RN is Primary Nurse. ko1 16:43 Patient has correct armband on for positive identification. Placed in gown. Bed in low ko1 position. Call light in reach. Side rails up X 1. Provided Education on: meds, labs. Client placed on continuous cardiac and pulse oximetry monitoring. NIBP monitoring applied. school bus monitor on. Door closed. Noise minimized. Lights dimmed. Warm blanket given. Pillow given. Assisted to bathroom. 16:45 No provider procedures requiring assistance completed. ko1 17:30 BETA HYDROXYBUTYRATE Sent. ko1 17:30 Initial lab(s) drawn, by ny, sent to lab. Urine collected: clean catch specimen, clear, ko1 EKG done, by ED staff, reviewed by Franca Feldman MD. Inserted saline lock: 20 gauge in right antecubital area, using aseptic technique. Blood collected. Flushed with 10 mL NS. 17:31 Basic Metabolic Panel Sent. ko1 17:31 CBC with Diff Sent. ko1 17:31 Hepatic Function Sent. ko1 17:31 High Sensitivity Troponin Sent. ko1 17:31 Magnesium Sent. ko1 17:31 Protime (+inr) Sent. ko1 17:31 Ptt, Activated Sent. ko1 17:31 UDS Sent. ko1 17:52 Stroke CXR 1 View In Process Unspecified. EDMS 17:59 CT Head Angio In Process Unspecified. EDMS 17:59 CT Neck Angio In Process Unspecified. EDMS 17:59 Head Brain Wo Cont In Process Unspecified. EDMS 18:53 Daniel Fyr MD is Hospitalizing Provider. gb1 19:00 Report received from SHARRI. br2 21:50 Inserted. br2 22:26 Patient admitted, IV remains in place. br2 Administered Medications: 18:28 Drug: NS 0.9% IV 1000 ml IV at 1 bolus Per protocol; to be given as a bolus over 60 ko1 minutes Route: IV; Rate: 1 bolus; Site: right antecubital; 19:35 Follow up: IV Status: Completed infusion; IV Intake: 1000ml br2 Medication: 16:43 VIS not applicable for this client. ko1 Intake: 19:35 IV: 1000ml; Total: 1000ml. br2 Outcome: 18:54 Decision to Hospitalize by Provider. gb1 22:23 Admitted to Med/surg accompanied by tech, via wheelchair, room 223, br2 22:26 Condition: stable br2 22:27 Patient left the ED. br2 Signatures: Dispatcher [employer] EDMS [place] Padilla RN RN ss Sharri Walker RN RN ko1 Franca Feldman MD MD gb1 Reshma Orourke ra3 Darling Mcnally RN RN br2 Corrections: (The following items were deleted from the chart) :23 22:23 [place] Swallow Protocol 3 oz Water Swallow Challenge: br2 br2
[2024-04-20 19:51] LABS: PTT, Activated Partial Thromb 31.1 SECONDS (24.3-36.9); Protime INR 0.98
--- NOTE | 2024-04-20 20:58 | P.HP ---
Certification for Inpatient Patient admitted to: Observation With expected LOS: <2 Midnights Practitioner: I am a practitioner with admitting privileges, knowledge of patient current condition, hospital course, and medical plan of care. Services: Services provided to patient in accordance with Admission requirements found in Title 42 Section 412.3 of the Code of Federal Regulations Patient History Date of Service: 04/20/24 Reason for admission: facial droop History of Present Illness: 43-year-old female with history of CVA, diabetes, history of of seizures, cardiac stents presents to ER with complaints of right facial droop x 2 days. She also reported some right-sided weakness. She does have history of previous strokes. In the ER she was noted to have elevated blood sugar. Head CT CTA and neck CT were done. Neurology was consulted. Recommended admission and MRI. She denies any difficulty word findings or difficulty swallowing. She does state that she has used illicit substances in the past. Most recently in the last 8 days. Allergies No Known Drug Allergies Allergy (Verified 05/31/15 14:57) Unknown Home Medications: Levetiracetam [Keppra] 1 tab PO DAILY 10/16/19 Liraglutide [Victoza 2-Andreas] 0.18 units SQ DAILY 10/16/19 Metformin HCl 1 tab PO BID 10/16/19 Fluticasone Propion/Salmeterol [Advair 250-50 Diskus] 1 each IH BID #60 blst.w.dev 10/19/19 Insulin Glargine,Hum.rec.anlog [Lantus Solostar] 35 unit SQ BID #1 packet 10/21/19 Aspirin Chewable [Aspirin Chewable*] 81 mg PO DAILY tab.chew 04/28/22 Atorvastatin Calcium [Lipitor] 40 mg PO BEDTIME 30 Days #30 tab 04/28/22 Clopidogrel Bisulfate [Plavix*] 1 tab PO DAILY 30 Days #30 tab 04/28/22 Folic Acid 1 mg PO DAILY 30 Days #30 tab 04/28/22 - Past Medical/Surgical History Diabetic: Yes -: Diabetes- NIDDM -: CVA -: Seizures -: CVA -: HTN -: PANCREATITIS -: NEUROPATHY -: biopsy liver and pancreas -: -: polyps removed from esophagus -: occluder device 2018 - Family History Father -: Cancer Mother -: Hypertension, Diabetes - Social History Alcohol use: Yes CD- Drugs: No Caffeine use: Yes Review of Systems 10-point ROS is otherwise unremarkable Physical Examination - Physical Exam General: Alert, In no apparent distress, Oriented x3 HEENT: Atraumatic, Normocephalic, Other (right facial droop) Respiratory: Clear to auscultation bilaterally, Normal air movement Cardiovascular: Regular rate/rhythm, Normal S1 S2 Gastrointestinal: Normal bowel sounds Neurological: Normal speech, Other (Right upper and lower extremity weakness. Decreased structural biologist. Decreased sensation on the right side. Right facial droop al so noted) - Studies Laboratory Data (last 24 hrs) 04/20/24 04/20/24 04/20/24 17:15 17:15 17:15 WBC 4.60 Hgb 15.3 H Hct 44.2 Plt Count 186 PT 11.0 INR 0.98 APTT 31.1 Sodium 131 L Potassium 3.8 BUN 10 Creatinine 0.72 Glucose 426 H* Magnesium 1.9 Total Bilirubin 1.0 AST 81 H ALT 166 H Alkaline Phosphatase 165 H Assessment and Plan - Problems (Diagnosis) (1) Facial paresthesia Current Visit: No Status: Acute (2) Right sided weakness Onset Date: 08/05/17 Current Visit: No Status: Acute - Plan 43-year-old female with history of stroke, diabetes presents with right facial droop and weakness for 2 days. Neurology was consulted in ER Right facial droop right sided weakness History of CVA IDDM polysubstance use Plan: admit to med surg PT/OT/ST ECHO Mri brain Neurology called in ED continue Plavix, statin, permissive HTN check FLP, AIC FSBS, SSI, resume home diabetes medication patient counseled about not using illicit substances - Advance Directives Does patient have a Living Will: No Does patient have a Durable POA for Healthcare: No
[2024-04-20] MEDS ORDERED: D10W 125 ML IV PRN (21:15)
[2024-04-20] MEDS ORDERED: GLUCAGON 1 MG/VIAL IM PRN (21:15)
[2024-04-20] MEDS ORDERED: ACETAMINOPHEN 500 MG TAB ONE (21:57)
[2024-04-20] MEDS: ACETAMINOPHEN 500 MG TAB PO PRN (21:59)
[2024-04-20 22:31] VITALS: BMI 26.0
[2024-04-20] MEDS: NA CHLORIDE 0.9% 1,000 ML IV SCH (22:55)
[2024-04-20] MEDS: MELATONIN 5 MG TABLET PO PRN (23:42)
[2024-04-21 06:07] LABS: Absolute Eosinophils 0.1 K/uL (0-0.5); Absolute Monocytes 0.4 K/uL (0.1-1.3); Absolute Neutrophil 3.6 K/uL (1.8-8.0); Basophils % 0.3 % (0-1.3); Eosinophils % 1.3 % (0-4.4); Hematocrit 41.5 % (36.0-45.0); Hemoglobin 14.5 g/dL (12.0-15.0); Lymphocytes % 19.6 % (15.3-44.8); MCH 31.3 pg (27.0-35.0); MCV 89.7 fL (80-100); MPV 8.5 fL (7.6-11.3); Monocytes % 8.5 % (3.3-12.3); Neutrophils % 70.3 % (41.7-73.7); Nucleated Red Blood Cells % 0.1 % (0-0); Platelets 153 thou/uL (152-406); RBC Red Blood Cell Count 4.63 M/uL (3.86-4.86)
[2024-04-21 06:43] LABS: Albumin 3.2 g/dL (3.4-5.0); Albumin/Globulin Ratio 0.9 (1.1-1.8); Anion Gap 10.8 mEq/L (5.0-15.0); Bilirubin Total 0.8 mg/dL (0.2-1.0); Globulin 3.4 g/dL (2.3-3.5); Potassium 3.8 mEq/L (3.5-5.1); Protein, Total 6.6 g/dL (6.4-8.2)
[2024-04-21] MEDS: levETIRAcetam 500 MG TAB PO SCH (08:52)
[2024-04-21] MEDS: GUAIFENESIN/CODEINE 5ML UCUP PO PRN (08:53)
[2024-04-21] MEDS: FOLIC ACID 1 MG TABLET PO SCH (08:53)
[2024-04-21] MEDS: ASPIRIN 81 MG CHEWABLE TABLET PO SCH (08:53)
[2024-04-21] MEDS: CLOPIDOGREL 75 MG TABLET PO SCH (08:53)
[2024-04-21] MEDS: INSULIN GLARGINE 100 UNIT/ML SQ SCH (08:54)
[2024-04-21] MEDS: DULERA 200/5 (MOMETASONE/FORMOTEROL) INHALER IH SCH (08:55)
[2024-04-21] MEDS: INSULIN REGULAR (HUMAN) 100 UNIT/ML SQ SCH (08:55)
[2024-04-21] MEDS ORDERED: HOME MED 1 EA UNK (Insulin Glargine,Hum.Rec.Anlog [Lantus Solostar] 100 UNIT/ML Insuln.Pen SQ SCH (09:00)
[2024-04-21] MEDS ORDERED: HOME MED 1 EA UNK (Fluticasone Propion/Salmeterol [Advair 250-50 Diskus] Blst.W.Dev) IH SCH (09:00)
[2024-04-21] MEDS ORDERED: CLOPIDOGREL 75 MG TABLET PO SCH (09:00)
[2024-04-21 09:58] LABS: SARS-CoV-2 Antigen CONTROL BLUE LINE VIS/BG OK; SARS-CoV-2 Antigen Rapid Res Negative (Negative)
[2024-04-21] MEDS: LORazepam 2 MG/ML VIAL IV ONE (11:15)
--- NOTE | 2024-04-21 12:13 | RAD REPORT ---
EXAMINATION: MRI BRAIN WITHOUT AND WITH CONTRAST CLINICAL INDICATION: rule out CVA TECHNIQUE: Multiplanar multisequence MR images of the brain were obtained without and with intravenou s contrast. Unless otherwise specified, incidental findings do not require dedicated imaging follow-up. COMPARISON: 04/20/2024 FINDINGS: INTRACRANIAL: Diffusion-weighted images show no acute or early subacute infarction. No abnormal brain parenchymal signal. The ventricles are normal in size and morphology. No augmented susceptibility. There is no mass effect or midline shift. No abnormal extraaxial fluid collection. VASCULATURE: Normal signal voids in the larger intracranial arteries and dural venous sinuses. SINUSES: The paranasal sinuses and mastoid air cells are predominantly clear. BONE: The marrow signal pattern is within normal limits. CONTRAST: No pathologic postcontrast enhancement to indicate tumor or infection. OTHER FINDINGS: IMPRESSION: Negative for acute CVA or other acute intracranial process.
--- NOTE | 2024-04-21 15:22 | ECHO ---
HEIGHT: 5 ft 6 in WEIGHT: 161 lb 8 oz DATE OF STUDY: 04/21/[address]: Daniel Fry MD 2-DIMENSIONAL: YES M.MODE: YES DOPPLER: YES COLOR FLOW: YES TDS: NO PORTABLE: YES DEFINITY: NO BUBBLE STUDY: NO DIAGNOSIS: CHEST PAIN, TIA CARDIAC HISTORY: CATHERIZATION: YES SURGERY: NO PROSTHETIC VALVE: NO PACEMAKER: NO MEASUREMENTS (cm) DIASTOLIC (NORMALS) SYSTOLIC (NORMALS) IVSd 1.0 (0.6-1.2) LA Diam 2.8 (1.9-4.0) LVEF 60-65% LVIDd 3.5 (3.5-5.7) LVIDs 2.2 (2.0-3.5) %FS 35% LVPWd 1.0 (0.6-1.2) Ao Diam 2.7 (2.0-3.7) 2 DIMENSIONAL ASSESSMENT: RIGHT ATRIUM: NORMAL LEFT ATRIUM: NORMAL RIGHT VENTRICLE: NORMAL LEFT VENTRICLE: NORMAL TRICUSPID VALVE: NORMAL MITRAL VALVE: NORMAL PULMONIC VALVE: NORMAL AORTIC VALVE: NORMAL PERICARDIAL EFFUSION: NONE AORTIC ROOT: NORMAL LEFT VENTRICULAR WALL MOTION: NORMAL. DOPPLER/COLOR FLOW: NORMAL. COMMENTS: 1. NORMAL LEFT VENTRICULAR SYSTOLIC FUNCTION. LEFT VENTRICULAR EJECTION FRACTION 60-65%. NORMAL WALL MOTION. 2. NORMAL DIASTOLIC FUNCTION. TECHNOLOGIST: TAMRA KELLY
--- NOTE | 2024-04-21 17:20 | CON ---
Reason For Consultation: Consultation called because of possible stroke. History Of Present Illness: Ms. Hanson is a 43-year-old patient with poorly controlled diabetes rochelle litus, seizures, hypertension, pancreatitis, reported she has strokes in the past, who comes with abo ve 4 days worth of right face drooping, numbness, feeling of fullness, and some right hand weakness, difficulty gripping things and holding onto objects. Also, she does have some difficulty with balanc e coordination, especially on the right leg, but that 2 toes on the left foot were also numb. At [facility], CT angiogram of her head and neck showed no acute ischemic hemorrhagic findings. T here were no large vessel obstruction angiogram studies. Her laboratory studies showed essentially a normal complete blood count with differential. INR normal at 0.98. Arterial blood gas did show pH 7.53 with pCO2 that is low at 33.9, pO2 also low at 50.8. Sodium slightly low at 131 with chloride a lso low at 98 and blood glucose 426. Creatinine 0.72, BUN 10, and elevated liver enzymes. AST 81, A LT 166, alkaline phosphatase is 165. Hemoglobin A1c elevated at 10.1. Urine drug screen was negativ e. COVID-19 testing negative. Her symptoms have not changed much since coming into the hospital. Past Medical History: As noted. She did have neuropathy. Surgical History: , polyp removed from esophagus and she had an Occluder device done and afshan had a liver and pancreas biopsy. Allergies: NO KNOWN DRUG ALLERGIES. Medications: At home, Keppra 500 mg twice daily, Victoza, metformin 500 mg twice daily with the mirta ent not compliant. She had Lantus insulin in the past 35 units subcutaneously twice daily, aspirin 8 1 mg daily, Lipitor 40 mg at bedtime, Plavix 75 mg daily, and folic acid 1 mg daily. She did mention that she was out of insurance and really was not on those medications and now has [facility] and did see a primary care physician more recently, but is not fully back on her medic ations. Family History: Mother with diabetes and hypertension. Father, cancer. Review of Systems: She reports numbness in the 2 toes on the left, some weakness in the right face and arm, some difficu lty with balance and coordination, difficulty getting words out due to the drooping of the face with drooling also on the right corner of the face. Otherwise, she denies any rash, any fevers, any chill s. No nausea, vomiting. No significant myalgias, arthralgias. No other positives on the system rev iew. Physical Examination: Vital Signs: Blood pressure 131/73, pulse 88 to 112, respiratory rate 15 to 20, temperature 99, oxyg en saturation 99% on room air, weight 161 pounds, height 5 feet 6 inches, BMI 26.1. General: Ms. Hanson is currently resting in bed. HEENT: She is normocephalic, atraumatic. Sclerae anicteric. Oropharynx pink and moist. Neck: Supple. Chest: Clear. Extremities: Show no significant clubbing, cyanosis, or edema. Neurological: She did appear to have more of a left nasolabial fold decrease in terms of excursion a nd smiling more than on the right side when she is lying on her right. However, when lying on her ba ck, face appears to be more symmetric in terms of when she is smiling. The right hand appears to hav e around 4/5 strength. She was able to hold the right hand up for a count of 10 without drift, left fully strong without any weakness noted. The right lower extremity, she did not hold the leg for a c ount of 5 and the leg did drop to the bed, but came back up on the right, intact on the left. Sensat ion, she has a mild stocking-glove loss to light touch and temperature from her likely neuropathy rel ated to diabetes. Reflexes symmetric. Coordination intact. Gait, she will ambulate with physical t herapists with gait belt and she did ambulate 90 feet with contact guard assistance. IV pole was in toe. She did have some tremors in the right lower extremity and mildly unsteady gait, but no loss of balance of her during her ambulation. Brain MRI report indicates no acute ischemic or hemorrhagic findings. This study did not report the evidence of chronic stroke such as findings of encephalomalacia or any abnormalities. The signal voi ds were normal including dural venous sinus and her sinuses themselves also clear. No bony abnormali ties. No pathological contrast enhancement to suggest tumor or infection and that further study was negative for acute findings and negative for any ischemic or hemorrhagic stroke. Assessment And Plan: Ms. Hanson is a 43-year-old patient with uncontrolled diabetes mellitus in add ition to reportedly multiple prior strokes without evidence on MRI showing any significant abnormalit ies. Also, history of seizures. No report of recent seizure activity. She does have worsening live r function, but no clear acute changes such as severe liver function, potentially related to chronic process more than acute processes in terms of the liver. Her renal function is intact. She has no e vidence of infection and by white blood cell count and brain imaging, no fever and no cough and a anahi st x-ray was done, it was well inflated and clear without evidence of any intrathoracic abnormalities . The etiology of the patient's right-sided weakness is unclear; however, it may be due to the eleva yogesh blood sugars. She has the appearance of a focal neurological deficit, which should resolve compl etely without residual deficits when her sugars normalize and she has some time for therapy. The pos sibility of a seizure and Bob's paralysis may also be considered. However, the patient did not repo rt any seizure-like activity and there is no evidence of seizures. Plan: Continue with aggressive management of diabetes mellitus. Blood sugars and blood for lipid pa bryson should be done and was with a total cholesterol of 183, LDL cholesterol 109, HDL 43, and choleste rol-to-HDL ratio 4.26. It does not explain the patient's symptoms. May continue with therapy. If n eed be potentially outpatient and follow up with primary care physician with aggressive management of diabetes mellitus is most important factor and she may follow up in Dr. Charles's clinic in a month . DEBORAH/CHERI Voice ID: [id number] Report ID: [id number]
--- NOTE | 2024-04-21 18:13 | P.PN ---
Subjective Date of Service: 04/21/24 Chief Complaint: facial droop Ambulated with physical therapy today, speech therapy consulted, speech recommend soft bite-size diet with thin liquids via cup, Review of Systems 10-point ROS is otherwise unremarkable Physical Examination - Vital Signs Temperature: 98.4 F Blood Pressure: 123/71 Pulse: 111 Respirations: 16 Pulse Ox (%): 95 - Physical Exam General: Alert, In no apparent distress, Oriented x3, Other (Right facial droop) HEENT: Atraumatic, Normocephalic Respiratory: Clear to auscultation bilaterally, Normal air movement Cardiovascular: Normal pulses, Regular rate/rhythm, Normal S1 S2 Capillary refill: <2 Seconds Gastrointestinal: Normal bowel sounds, Soft and benign Musculoskeletal: Other (Right hemiparesis) Integumentary: No breakdown, No significant lesion, No tenderness/swelling Neurological: Normal speech, Sensation intact, Other, Abnormal gait, Abnormal strength - Studies Laboratory Data (last 24 hrs) 04/20/24 17:15 PT 11.0 INR 0.98 APTT 31.1 Assessment And Plan - Plan Problems (Diagnosis) Facial paresthesia Current Visit: No Status: Acute Right sided hemiparesis Onset Date: 08/05/17 Current Visit: No Status: Acute dysphagia insulin-dependent diabetes mellitus noncompliance Onset Date: 08/05/17 Current Visit: No Status: Acute insulin-dependent diabetes mellitus Onset Date: 08/05/17 Current Visit: No Status: Acute noncompliance Onset Date: 08/05/17 Current Visit: No Status: Acute polysubstance use Onset Date: 08/05/17 Current Visit: No Status: Acute - Plan 43-year-old female with history of stroke, diabetes presents with right facial droop and weakness for 2 days. Neurology was consulted in ER Right facial droop right sided weakness History of CVA IDDM polysubstance use Plan: admit to med surg PT/OT/ST ECHO NORMAL LEFT VENTRICULAR SYSTOLIC FUNCTION. LEFT VENTRICULAR EJECTION FRACTION 60- 65%. NORMAL WALL MOTION. 2. NORMAL DIASTOLIC FUNCTION Mri brain Negative for acute CVA or other acute intracranial process Neurology called in ED continue Plavix, statin, permissive HTN check FLP, AIC FSBS, SSI, resume home diabetes medication patient counseled about not using illicit substances - Advance Directives Does patient have a Living Will: No Does patient have a Durable POA for Healthcare: No Disposition plan to discharge home with home health, longterm, PT Discharge Plan: Home - Code Status/Comfort Care Code Status: Full Code Critical Care: No Time Spent Managing PTS Care (In Minutes): 35
[2024-04-21] MEDS: ATORVASTATIN 40 MG TAB PO SCH (20:28)
[2024-04-22 00:14] LABS: Specific Gravity > 1.030 (1.005-1.030); Sqamous Epithelial <5 /HPF (None Seen); Urine Bacteria <20 /HPF (<20); Urine Bilirubin NEGATIVE (Negative); Urine Blood Negative (Negative); Urine Clarity Clear (Clear); Urine Color Light-Yellow (Yellow); Urine Crystals Unidentified Few /HPF (None Seen); Urine Culture Reflex Order NOT NEEDED; Urine Glucose 4+ (Over) (Negative); Urine Ketones 1+ (Negative); Urine Microscopic Reflex YN ORDER UMIC; Urine Nitrite NEGATIVE (Negative); Urine Protein NEGATIVE (Negative); Urine RBC <5 /HPF (None Seen); Urine Urobilinogen 1+ (Normal); Urine WBC <5 /HPF (<5)
[2024-04-22 05:56] LABS: Absolute Lymphocytes (CBC) 1.3 K/uL (0.7-4.9); Absolute Monocytes 0.4 K/uL (0.1-1.3); Absolute Neutrophil 2.6 K/uL (1.8-8.0); Basophils % 0.3 % (0-1.3); Eosinophils % 0.8 % (0-4.4); Hematocrit 39.9 % (36.0-45.0); Lymphocytes % 30.3 % (15.3-44.8); MCH 31.3 pg (27.0-35.0); MCHC 35.2 g/dL (32.0-36.0); MPV 8.2 fL (7.6-11.3); Monocytes % 9.6 % (3.3-12.3); Platelets 148 thou/uL (152-406); RBC Red Blood Cell Count 4.48 M/uL (3.86-4.86)
[2024-04-22 06:11] LABS: Anion Gap 8.1 mEq/L (5.0-15.0); Potassium 3.1 mEq/L (3.5-5.1)
--- NOTE | 2024-04-22 09:10 | P.DS ---
Admission Date: 04/20/24 Discharge Date: 04/22/24 Disposition: ROUTINE DISCHARGE Discharge Condition: GOOD Reason for Admission: facial droop Brief History of Present Illness: 43-year-old female with history of CVA, diabetes, history of of seizures, cardiac stents presents to ER with complaints of right facial droop x 2 days. She also reported some right-sided weakness. She does have history of previous strokes. In the ER she was noted to have elevated blood sugar. Head CT CTA and neck CT were done. Neurology was consulted. Recommended admission and MRI. She denies any difficulty word findings or difficulty swallowing. She does state that she has used illicit substances in the past. Most recently in the last 8 days General: Alert, In no apparent distress, Oriented x3, Other (Right facial droop) HEENT: Atraumatic, Normocephalic Respiratory: Clear to auscultation bilaterally, Normal air movement Cardiovascular: Normal pulses, Regular rate/rhythm, Normal S1 S2 Capillary refill: <2 Seconds Gastrointestinal: Normal bowel sounds, Soft and benign Musculoskeletal: Other (Right hemiparesis) Integumentary: No breakdown, No significant lesion, No tenderness/swelling Neurological: Normal speech, Sensation intact, Other, Abnormal gait, Abnormal strength Hospital Course: 43-year-old female with history of CVA, diabetes, history of of seizures, cardiac stents presents to ER with complaints of right facial droop x 2 days. She also reported some right-sided weakness. She does have history of previous strokes. In the ER she was noted to have elevated blood sugar. Head CT CTA and neck CT were done. Neurology was consulted. Recommended admission and MRI. She denies any difficulty word findings or difficulty swallowing. She does state that she has used illicit substances in the past. Most recently in the last 8 days. MRI was negative for acute CVA. She was evaluated by physical therapy, speech while inpatient. Stable to discharge home with home health,(patient given choice letter she will decide if she needs) follow-up with neurology after discharge. Discharge medication Long-acting insulin, Cefdinir, albuterol, cough medicines for upper respiratory infection Resume home seizure medications, hyperlipidemia medication Call primary care to set up home health after discharge Assessment Facial droop, facial paralysis, Right hemiparesis, Dysphagia, was evaluated by speech with inpatient, recommend moist meat diet, liquid with cup Upper respiratory infection, DC with cefdinir, cough medications, and albuterol inhaler Insulin-dependent diabetes mellitus, resume long-acting insulin after discharge, instructed to resume metformin after discharge Polysubstance he abuse, recommend on cessation Echocardiogram unremarkable CT of the head, neck no acute CVA MRI of the brain no acute CVA Continue home medicines as previously prescribed GOAL: Clear understanding of disease process INSTRUCTIONS: Physician Discharge Instructions: 1follow-up with Dr. Charles after discharge -Follow-up with PCP in 1 to 2 weeks -Please call Dr. Collazo at [phone] if any questions regarding hospital stay -Please call nursing station at [phone] if any nursing or medication questions -Return to the emergency room if symptoms worsen Diet: ADA, low sodium Activity: Fall precautions Vital Signs/Physical Exam: Temp Pulse Resp BP Pulse Ox 98.2 F 103 H 16 130/67 97 04/22/24 08:00 04/22/24 08:00 04/22/24 08:00 04/22/24 08:00 04/22/24 08:00 Laboratory Data at Discharge: WBC 4.30 thou/uL (4.3-10.9) 04/22/24 05:31 Hgb 14.0 g/dL (12.0-15.0) 04/22/24 05:31 Hct 39.9 % (36.0-45.0) 04/22/24 05:31 Plt Count 148 thou/uL (152-406) L 04/22/24 05:31 PT 11.0 SECONDS (9.4-12.5) 04/20/24 17:15 INR 0.98 04/20/24 17:15 APTT 31.1 SECONDS (24.3-36.9) 04/20/24 17:15 Sodium 137 mEq/L (136-145) 04/22/24 05:31 Potassium 3.1 mEq/L (3.5-5.1) L D 04/22/24 05:31 BUN 13 mg/dL (7-18) 04/22/24 05:31 Creatinine 0.41 mg/dL (0.55-1.02) L 04/22/24 05:31 Glucose 210 mg/dL (74-106) H 04/22/24 05:31 Magnesium 1.9 mg/dL (1.6-2.4) 04/20/24 17:15 Total Bilirubin 0.8 mg/dL (0.2-1.0) 04/21/24 05:34 AST 67 U/L (15-37) H 04/21/24 05:34 ALT 139 U/L (13-56) H 04/21/24 05:34 Alkaline Phosphatase 141 U/L (45-117) H 04/21/24 05:34 Triglycerides 154 mg/dL (<150) H 04/21/24 05:34 Cholesterol 183 mg/dL (<200) 04/21/24 05:34 HDL Cholesterol 43 mg/dL (40-60) 04/21/24 05:34 Cholesterol/HDL Ratio 4.26 04/21/24 05:34 Home Medications: Levetiracetam [Keppra] 1 tab PO DAILY 10/16/19 Liraglutide [Victoza 2-Andreas] 0.18 units SQ DAILY 10/16/19 Metformin HCl 1 tab PO BID 10/16/19 Fluticasone Propion/Salmeterol [Advair 250-50 Diskus] 1 each IH BID #60 blst.w.dev 10/19/19 Insulin Glargine,Hum.rec.anlog [Lantus Solostar] 35 unit SQ BID #1 packet 10/21/19 Aspirin Chewable [Aspirin Chewable*] 81 mg PO DAILY tab.chew 04/28/22 Atorvastatin Calcium [Lipitor] 40 mg PO BEDTIME 30 Days #30 tab 04/28/22 Clopidogrel Bisulfate [Plavix*] 1 tab PO DAILY 30 Days #30 tab 04/28/22 Folic Acid 1 mg PO DAILY 30 Days #30 tab 04/28/22 Albuterol Inhaler [Ventolin Inhaler*] 2 puff IH Q6H PRN 30 Days #1 inh 04/22/24 Aspirin Chewable [Aspirin Chewable*] 81 mg PO DAILY tab.chew 04/22/24 Atorvastatin Calcium [Lipitor] 40 mg PO BEDTIME tab 04/22/24 Azithromycin Tab [Zithromax*] 250 mg PO ZPAK 5 Days #1 andreas 04/22/24 Benzonatate [Tessalon Perle] 100 mg PO TID 10 Days #20 cap 04/22/24 Dextran 70/Hypromellose [Artificial Tears Drops] 15 ml OP QID PRN 30 Days #1 bot tle 04/22/24 Insulin Glargine,Hum.rec.anlog [Semglee] 35 unit SQ BID 30 Days #1 bottle 04/22/24 Melatonin 10 mg PO BEDTIME PRN PRN 04/22/24 Pharmacy Consult 1 ea XX DAILYPRN PRN ea 04/22/24 New Medications: Dextran 70/Hypromellose [Artificial Tears Drops] 15 ml OP QID PRN 30 Days #1 bottle PRN Reason: Dry eyes Insulin Glargine,Hum.rec.anlog [Semglee] 35 unit SQ BID 30 Days #1 bottle Benzonatate [Tessalon Perle] 100 mg PO TID 10 Days #20 cap Albuterol Inhaler [Ventolin Inhaler*] 2 puff IH Q6H PRN 30 Days #1 inh PRN Reason: Shortness Of Breath Azithromycin Tab [Zithromax*] 250 mg PO ZPAK 5 Days #1 andreas Physician Discharge Instructions: 43-year-old female with history of CVA, diabetes, history of of seizures, cardiac stents presents to ER with complaints of right facial droop x 2 days. She also reported some right-sided weakness. She does have history of previous strokes. In the ER she was noted to have elevated blood sugar. Head CT CTA and neck CT were done. Neurology was consulted. Recommended admission and MRI. She denies any difficulty word findings or difficulty swallowing. She does state that she has used illicit substances in the past. Most recently in the last 8 days. MRI was negative for acute CVA. She was evaluated by physical therapy, speech while inpatient. Stable to discharge home with home health, follow-up with neurology after discharge. discharge home with home health,(patient given choice letter she will decide if she needs) Discharge medication Long-acting insulin, Cefdinir, albuterol, cough medicines for upper respiratory infection Resume home seizure medications, hyperlipidemia medication Call primary care to set up home health after discharge, patient ambulated with physical therapy while inpatient, has DME, cane at home. Assessment Facial droop, facial paralysis, Right hemiparesis, Dysphagia, was evaluated by speech with inpatient, recommend moist meat diet, liquid with cup Upper respiratory infection, DC with cefdinir, cough medications, and albuterol inhaler Insulin-dependent diabetes mellitus, resume long-acting insulin after discharge, instructed to resume metformin after discharge Polysubstance he abuse, recommend on cessation Echocardiogram unremarkable CT of the head, neck no acute CVA MRI of the brain no acute CVA Continue home medicines as previously prescribed GOAL: Clear understanding of disease process INSTRUCTIONS: Physician Discharge Instructions: 1follow-up with Dr. Charles after discharge -Follow-up with PCP in 1 to 2 weeks -Please call Dr. Collazo at [phone] if any questions regarding hospital stay -Please call nursing station at [phone] if any nursing or medication questions -Return to the emergency room if symptoms worsen Diet: ADA, low sodium Activity: Fall precautions Follow up with an Internal Medicine Physician of your choice: GUERO BEARD MD [address] [facility] [address] [place], [place] [id number] ACCEPTING NEW PATIENTS! OFELIA REED MD [address] [facility], [address] [place], [place] [id number] ROSALEE MCMAHON MD [address] [place], [place] [address] RAJESH SAEZ MD [address] [facility] [address] [place], [place] [id number] TAMMIE REEVES MD [address] [place], [place] [id number] Followup: Jensen Charles MD [ASSOCIATE-ACTIVE - CAN ADMIT] - NONE,NONE [Primary Care Provider] -
--- NOTE | 2024-04-24 10:55 | EKG ---
Test Date: 2024-04-20 Test Time: 16:32:07 Drywall Hanger: ARIADNA MEASUREMENT RESULTS: Intervals: Rate: 94 WV: 152 QRSD: 84 QT: 354 QTc: 442 [place]: P: 46 WV: 152 QRS: 54 T: 17 INTERPRETIVE STATEMENTS: Normal sinus rhythm Normal ECG Compared to ECG 04/01/2024 21:31:53 Sinus tachycardia no longer present Electronically Signed On 04-24-24 10:50:40 BUSINESS REPORTING DEVELOPER by Norris Nielson
[2024-04-25 15:10] VITALS: BP 130/67; TEMP 98.2
[2024-04-25 15:15] VITALS: O2SAT 95
== END 2024-04-22 12:23 | disposition home or self-care (01) | DRG 74 ==
LOC: ER 15:54 → ERHOLD 21:09 → 2ND 22:19 → OBSVTOIN 04-21 18:28
PROVIDERS: ADMIT Internal Medicine; ATTEND Hospitalist
PROC: 4A033R1 Measurement of Arterial Saturation, Peripheral, Percutaneous Approach (ICD-10-PCS; principal; 2024-04-21)
DX: G51.0 Bell's palsy (principal); I69.351 Hemiplegia and hemiparesis following cerebral infarction affecting right dominant side; I10 Essential (primary) hypertension; E11.42 Type 2 diabetes mellitus with diabetic polyneuropathy; J06.9 Acute upper respiratory infection, unspecified; F19.10 Other psychoactive substance abuse, uncomplicated; R13.10 Dysphagia, unspecified; Z79.4 Long term (current) use of insulin; Z95.5 Presence of coronary angioplasty implant and graft; Z11.52 Encounter for screening for COVID-19; Z79.02 Long term (current) use of antithrombotics/antiplatelets; Z79.899 Other long term (current) drug therapy; Z91.148 Patient's other noncompliance with medication regimen for other reason
CPT/HCPCS: 36415; 36600; 70450; 70496; 70498; 70553; 71045; 80048; 80053; 80061; 80076; 80307; 81001; 82010; 82805; 82947; 83036; 83735; 84484; 85025; 85610; 85730; 87804; 87811; 92610; 93005; 93306; 94760; 96360; 97116; 97161; 99285; A9577; G0378; J3535; J7030; Q9967